=== PATIENT | female | born 1945 | race Caucasian/White ===

== ENCOUNTER 2016-06-20 09:29 | Inpatient (IN) | payer MEDICARE, OTHER ==
[2016-06-20] MEDS ORDERED: methylPREDNISolone SOD SUCCI 125 MG/2 ML VIAL IV STA (10:11)
[2016-06-20] MEDS ORDERED: IPRATROPIUM-ALBUTEROL 3 ML NEB INHALATION STA (10:11)
[2016-06-20] MEDS ORDERED: SODIUM CHLORIDE 0.9% 1,000 ML IV STA (10:11)
[2016-06-20] MEDS ORDERED: FUROSEMIDE 10 MG/ML 4 ML VIAL IV STA (10:11)
[2016-06-20 10:26] LABS: Basophils % (A) 1 %; CH 29.5; CHCM 33.7; Eosinophils # (A) 0.1 k/uL (0-0.7); Eosinophils % (A) 2 %; HCT 37.9 % (34.0-46.0); HDW 2.59; HGB 13.1 gm/dL (11.4-16.0); Luc # (Auto) 0.17; Luc % (Auto) 4; Lymphocytes # (A) 0.7 k/uL (1.0-4.8); Lymphocytes % (A) 17 %; MCH 30.4 pg (25.0-35.0); MCHC 34.6 g/dL (31.0-37.0); MCV 87.9 fL (80.0-100.0); Mean Platelet Volume 6.7; Monocytes # (A) 0.4 k/uL (0-1.0); Monocytes % (A) 9 %; Neutrophils # (A) 2.8 k/uL (1.3-7.7); Neutrophils % (A) 68 %; RBC 4.32 m/uL (3.80-5.40); RDW 13.3 % (11.5-15.5); WBC 4.2 k/uL (3.8-10.6); WBC (Perox) 4.48
[2016-06-20 10:42] LABS: ALT 47 U/L (9-52); AST 35 U/L (14-36); Alkaline Phosphatase 109 U/L (38-126); Anion Gap 14 mmol/L; Blood Urea Nitrogen 19 mg/dL (7-17); Calcium 8.5 mg/dL (8.4-10.2); Carbon Dioxide 27 mmol/L (22-30); Chloride 101 mmol/L (98-107); Glucose 118 mg/dL (74-99); Non-African American GFR(MDRD) >60 (>60 ml/min/1.73 sqM); Sodium 142 mmol/L (137-145); Total Bilirubin 0.6 mg/dL (0.2-1.3)
[2016-06-20 10:45] LABS: Partial Thromboplastin Time 24.7 sec (22.0-30.0); Prothrombin Time 10.3 sec (9.0-12.0)
[2016-06-20 10:58] LABS: Creatine Kinase 163 U/L (30-135)
[2016-06-20 11:11] LABS: Creatine Kinase MB 0.6 ng/mL (0.0-2.4); Troponin I <0.012 ng/mL (0.000-0.034)
[2016-06-20 11:29] LABS: ABG HCO3 25 mmol/L (21-25); ABG PCO2 39 mmHg (35-45); ABG PH 7.43 (7.35-7.45); ABG PO2 66 mmHg (83-108); ABG TCO2 27 mmol/L (19-24)
[2016-06-20 11:30] LABS: ABG Base Excess 1.5 mmol/L
--- NOTE | 2016-06-20 11:46 | XR ---
EXAMINATION TYPE: XR chest 2V DATE OF EXAM: 06/20/2016 11:22 AM HISTORY: difficulty breathing. REFERENCE: Previous study dated 08/08/2015. FINDINGS: The lungs are overinflated but clear. Pleural spaces are clear. The heart is not enlarged. IMPRESSION: COPD.
--- NOTE | 2016-06-20 15:16 | ED ---
SOB HPI - General Chief Complaint: Shortness of Breath Stated Complaint: KETAN Time Seen by Provider: 06/20/16 10:05 Source: EMS Mode of arrival: EMS Limitations: no limitations - History of Present Illness Initial Comments: List of breath for the last Friday to 2 days denies any coughing has some sputum has has a long history of smoking quit about 10 years ago prior to that she smoked greater than 40 years she denies any chest pain no pleuritic chest pain no fever no chills no history of heart disease denies any stretcher CABG does have a history of COPD. Denies any fever no chills no neck stiffness no abdominal pain no frequency urgency dysuria no symptoms of TIA or CVA - Related Data Home Medications Medication Instructions Recorded Confirmed Albuterol Nebulized [Ventolin 2.5 mg INHALATION RT-BID PRN 12/06/15 06/20/16 Nebulized] Aspirin EC [Ecotrin Low Dose] 81 mg PO DAILY 12/06/15 06/20/16 Atorvastatin [Lipitor] 80 mg PO HS 12/06/15 06/20/16 Benztropine Mesylate 1 mg PO DAILY 12/06/15 06/20/16 Haloperidol [Haldol] 5 mg PO BID 12/06/15 06/20/16 Ipratropium/Albuterol Sulfate 2 puff INHALATION RT-BID 12/06/15 06/20/16 [Combivent Respimat Inhaler] Metoprolol Tartrate [Lopressor] 12.5 mg PO BID 12/06/15 06/20/16 Multivitamin [Multivitamins Adult 1 tab PO DAILY 12/06/15 06/20/16 Gummies] QUEtiapine FUMARATE [SEROquel XR] 300 mg PO HS 12/06/15 06/20/16 Spironolactone [Aldactone] 25 mg PO DAILY 12/06/15 06/20/16 clonazePAM [KlonoPIN] 0.25 mg PO TID 12/06/15 06/20/16 Albuterol Inhaler [Ventolin Hfa 2 puff INHALATION RT-Q6H PRN 01/17/16 06/20/16 Inhaler] Ascorbic Acid [Vitamin C] 2,000 mg PO DAILY 06/20/16 06/20/16 Cholecalciferol [Vitamin D3] 2,000 unit PO DAILY 06/20/16 06/20/16 Allergies Allergy/AdvReac Type Severity Reaction Status Date / Time Penicillins Allergy Rash/Hives Verified 06/20/16 10:11 Review of Systems ROS Statement: Those systems with pertinent positive or pertinent negative responses have been documented in the HPI. ROS Other: All systems not noted in ROS Statement are negative. Past Medical History Past Medical History: COPD, Hyperlipidemia, Hypertension History of Any Multi-Drug Resistant Organisms: None Reported Past Surgical History: Orthopedic Surgery, Tubal Ligation Additional Past Surgical History / Comment(s): right knee arthroscopy, r leg surgery, colonoscopy Past Anesthesia/Blood Transfusion Reactions: No Reported Reaction Past Psychological History: Schizoaffective Disorder Smoking Status: Former smoker Past Alcohol Use History: Occasional Past Drug Use History: None Reported General Exam - General Exam Comments Initial Comments: General: The patient is awake and alert, looks pale and weak Skin: Skin is warm and dry and no rashes or lesions are noted. Eye: Pupils are equal, round and reactive to light, extra-ocular movements are intact; there is normal conjunctiva bilaterally. Ears, nose, mouth and throat: There are moist mucous membranes and no oral lesions. Neck: The neck is supple, there is no tenderness Cardiovascular: There is a regular rate and rhythm. No murmur, rub or gallop is appreciated. Respiratory: To auscultation bilateral, exam is consistent with a moderate COPD Gastrointestinal: Soft, non-distended, non-tender abdomen without masses or organomegaly noted. There is no rebound or guarding present. Bowel sounds are unremarkable. Back: There is no tenderness to palpation in the midline. There is no obvious deformity. Musculoskeletal: Normal ROM, no tenderness, There is no pedal edema. There is no calf tenderness or swelling. No cords were appreciated. Neurological: CN II-XII intact, Cranial nerves III through XII are intact. There are no obvious motor or sensory deficits. Coordination appears grossly intact. Speech is normal. Psychiatric: Cooperative, appropriate mood & affect, normal judgment. Limitations: no limitations Course Vital Signs 06/20/16 06/20/16 06/20/16 09:37 09:49 11:00 Temperature 97.6 F Pulse Rate 77 76 Respiratory 18 18 Rate Blood Pressure 130/60 O2 Sat by Pulse 97 Oximetry 06/20/16 06/20/16 06/20/16 11:07 12:00 14:00 Temperature 97 F L Pulse Rate 76 91 93 Respiratory 20 18 Rate Blood Pressure 162/75 138/66 O2 Sat by Pulse 92 L 91 L Oximetry Normal sinus rhythm EKG 76 bpm AK interval is 158 QRS duration is 86 QT/QTc is 420/474 review of this EKG reveals this EKG reveals some flattening of the T- wave in lead 3 and now V3 no ST elevation or ST depression noticed Medical Decision Making - Lab Data Result diagrams: 06/20/16 09:47 06/20/16 09:47 Lab Results 06/20/16 06/20/16 06/20/16 Range/Units 09:47 09:47 09:47 WBC 4.2 (3.8-10.6) k/uL RBC 4.32 (3.80-5.40) m/uL Hgb 13.1 (11.4-16.0) gm/dL Hct 37.9 (34.0-46.0) % MCV 87.9 (80.0-100.0) fL MCH 30.4 (25.0-35.0) pg MCHC 34.6 (31.0-37.0) g/dL RDW 13.3 (11.5-15.5) % Plt Count 227 (150-450) k/uL Neutrophils % 68 % Lymphocytes % 17 % Monocytes % 9 % Eosinophils % 2 % Basophils % 1 % Neutrophils # 2.8 (1.3-7.7) k/uL Lymphocytes # 0.7 L (1.0-4.8) k/uL Monocytes # 0.4 (0-1.0) k/uL Eosinophils # 0.1 (0-0.7) k/uL Basophils # 0.0 (0-0.2) k/uL PT (9.0-12.0) sec INR (<1.1) APTT (22.0-30.0) sec Sample Site ABG pH (7.35-7.45) ABG pCO2 (35-45) mmHg ABG pO2 (83-108) mmHg ABG HCO3 (21-25) mmol/L ABG Total CO2 (19-24) mmol/L ABG O2 Saturation (94-97) % ABG Base Excess mmol/L FiO2 % Sodium 142 (137-145) mmol/L Potassium 4.0 (3.5-5.1) mmol/L Chloride 101 (98-107) mmol/L Carbon Dioxide 27 (22-30) mmol/L Anion Gap 14 mmol/L BUN 19 H (7-17) mg/dL Creatinine 0.80 (0.52-1.04) mg/dL Est GFR (MDRD) Af Amer >60 (>60 ml/min/1.73 sqM) Est GFR (MDRD) Non-Af >60 (>60 ml/min/1.73 sqM) Glucose 118 H (74-99) mg/dL Calcium 8.5 (8.4-10.2) mg/dL Total Bilirubin 0.6 (0.2-1.3) mg/dL AST 35 (14-36) U/L ALT 47 (9-52) U/L Alkaline Phosphatase 109 (38-126) U/L Total Creatine Kinase 163 H (30-135) U/L CK-MB (CK-2) 0.6 (0.0-2.4) ng/mL CK-MB (CK-2) Rel Index 0.4 Troponin I <0.012 (0.000-0.034) ng/mL Total Protein 7.0 (6.3-8.2) g/dL Albumin 4.0 (3.5-5.0) g/dL 06/20/16 06/20/16 Range/Units 09:47 10:52 WBC (3.8-10.6) k/uL RBC (3.80-5.40) m/uL Hgb (11.4-16.0) gm/dL Hct (34.0-46.0) % MCV (80.0-100.0) fL MCH (25.0-35.0) pg MCHC (31.0-37.0) g/dL RDW (11.5-15.5) % Plt Count (150-450) k/uL Neutrophils % % Lymphocytes % % Monocytes % % Eosinophils % % Basophils % % Neutrophils # (1.3-7.7) k/uL Lymphocytes # (1.0-4.8) k/uL Monocytes # (0-1.0) k/uL Eosinophils # (0-0.7) k/uL Basophils # (0-0.2) k/uL PT 10.3 (9.0-12.0) sec INR 1.0 (<1.1) APTT 24.7 (22.0-30.0) sec Sample Site rt radial ABG pH 7.43 (7.35-7.45) ABG pCO2 39 (35-45) mmHg ABG pO2 66 L (83-108) mmHg ABG HCO3 25 (21-25) mmol/L ABG Total CO2 27 H (19-24) mmol/L ABG O2 Saturation 93.0 L (94-97) % ABG Base Excess 1.5 mmol/L FiO2 36 % Sodium (137-145) mmol/L Potassium (3.5-5.1) mmol/L Chloride (98-107) mmol/L Carbon Dioxide (22-30) mmol/L Anion Gap mmol/L BUN (7-17) mg/dL Creatinine (0.52-1.04) mg/dL Est GFR (MDRD) Af Amer (>60 ml/min/1.73 sqM) Est GFR (MDRD) Non-Af (>60 ml/min/1.73 sqM) Glucose (74-99) mg/dL Calcium (8.4-10.2) mg/dL Total Bilirubin (0.2-1.3) mg/dL AST (14-36) U/L ALT (9-52) U/L Alkaline Phosphatase (38-126) U/L Total Creatine Kinase (30-135) U/L CK-MB (CK-2) (0.0-2.4) ng/mL CK-MB (CK-2) Rel Index Troponin I (0.000-0.034) ng/mL Total Protein (6.3-8.2) g/dL Albumin (3.5-5.0) g/dL Critical Care Time Total Critical Care Time: 30 Critical Care Time: She came in with a shortness of breath or O2 sat was below 9 he had ABGs reveal pO2 of 66 she was given neb treatment she was given IV Solu-Medrol and now oxygen by nasal cannula she was reassessed later he didn't show any significant improvement and she didn't feel a whole lot better considering that noted continued the oxygen she will get IV steroids every 6 ours and inhaled steroids along with the short-acting bronchodilators patient will also Dr. Joni Ordoñez that he was informed he is admitting doctor today and that is significant going soon as that she would have a dat instructor is admitting doctor these labs are reviewed EKG is unremarkable CBC UNREMARKABLE INR IS UNREMARKABLE ABGS REVEALED LOW PO2 TROPONIN COMPRESSIVE METABOLIC PANEL AND CHEST X-RAY WERE REVIEWED AND DISCUSSED WITH THE PATIENT Disposition Clinical Impression: Dyspnea, Acute exacerbation of chronic obstructive pulmonary disease (COPD) Disposition: ADMITTED IP TO THIS HOSP Condition: Good
[2016-06-20] MEDS ORDERED: ALBUTEROL NEBULIZED 2.5 MG/3 ML INHALATION PRN (15:23)
[2016-06-20] MEDS ORDERED: ALBUTEROL INHALER 60 PUFF/8 GM INHALER INHALATION PRN (15:23)
[2016-06-20] MEDS: clonazePAM 0.5 MG TAB PO SCH ×2 (16:51→22:19)
[2016-06-20] MEDS: methylPREDNISolone SOD SUCCI 125 MG/2 ML VIAL IV SCH ×2 (17:17→23:05)
[2016-06-20 17:46] LABS: Glucose,Whole Blood 184 mg/dL (75-99)
[2016-06-20 18:18] LABS: Hemoglobin A1C 6.2 % (4.2-6.1)
[2016-06-20] MEDS: INSULIN LISPRO (humaLOG) 300 UNIT/3 ML VIAL SQ SCH ×2 (18:35→23:04)
--- NOTE | 2016-06-20 19:05 | XR ---
EXAMINATION TYPE: XR abdomen 2V DATE OF EXAM: 06/20/2016 6:50 PM COMPARISON: NONE HISTORY: Abdominal pain TECHNIQUE: 3 views FINDINGS: There are multiple dilated loops of small bowel in the mid abdomen. I see no definite free air. There is no sign of a mass. There are no definite pathologic calcifications over the kidneys. IMPRESSION: There are dilated small bowel loops in the right mid abdomen suggestive of a mechanical s mall bowel obstruction. Follow-up is recommended.
[2016-06-20 20:32] LABS: Glucose,Whole Blood 188 mg/dL (75-99)
[2016-06-20] MEDS: IPRATROPIUM-ALBUTEROL 3 ML NEB INHALATION SCH (21:12)
[2016-06-20] MEDS: BUDESONIDE 0.5 MG/2 ML NEBU INHALATION SCH (21:12)
[2016-06-20] MEDS: HALOPERIDOL 5 MG TAB PO SCH (22:18)
[2016-06-20] MEDS: ATORVASTATIN 80 MG TAB PO SCH (22:18)
[2016-06-20] MEDS: METOPROLOL TARTRATE 12.5 MG TAB PO SCH (22:59)
[2016-06-21] MEDS: HALOPERIDOL 5 MG TAB PO SCH ×2 (00:01→12:29)
[2016-06-21] MEDS: clonazePAM 0.5 MG TAB PO SCH ×2 (00:14→11:10)
[2016-06-21] MEDS ORDERED: BENZTROPINE MESYLATE 1 MG TAB PO STA (00:15)
[2016-06-21] MEDS: BENZTROPINE MESYLATE 1 MG TAB PO SCH ×2 (00:33→11:10)
[2016-06-21 05:40] LABS: Glucose,Whole Blood 188 mg/dL (75-99)
[2016-06-21] MEDS: methylPREDNISolone SOD SUCCI 125 MG/2 ML VIAL IV SCH ×2 (06:34→11:12)
[2016-06-21] MEDS: INSULIN LISPRO (humaLOG) 300 UNIT/3 ML VIAL SQ SCH ×4 (06:35→22:06)
[2016-06-21] MEDS: BUDESONIDE 0.5 MG/2 ML NEBU INHALATION SCH ×2 (08:14→19:46)
[2016-06-21] MEDS: IPRATROPIUM-ALBUTEROL 3 ML NEB INHALATION SCH ×2 (08:14→19:48)
[2016-06-21] MEDS ORDERED: LEVOFLOXACIN 500 MG TAB PO SCH (09:00)
[2016-06-21] MEDS ORDERED: BENZTROPINE MESYLATE 1 MG TAB PO SCH (09:00)
[2016-06-21] MEDS ORDERED: LORazepam 2 MG/ML SYRINGE IV STA (09:15)
[2016-06-21] MEDS: IOHEXOL 350 MG/ML 25 ML BOTTLE (ORAL USE) PO PRN ×2 (09:31→10:36)
--- NOTE | 2016-06-21 11:57 | CT ---
EXAMINATION TYPE: CT abdomen pelvis wo con DATE OF EXAM: 06/21/2016 11:45 AM HISTORY: Incontinence and constipation. SBO CT DLP: 858.5 mGycm. Automated Exposure Control for Dose Reduction was Utilized. TECHNIQUE: CT scan of the abdomen and pelvis is performed with oral but without IV contrast. COMPARISON: Abdominal x-ray from yesterday. FINDINGS: Within the limitations of a non-contrast study, the following observations are made. LUNG BASES: There is tiny pleural effusions with posterior atelectatic change in both lung bases. The re is additional scattered linear scarring or atelectasis in both lung bases. LIVER/GB: No significant abnormality is appreciated. PANCREAS: No significant abnormality is seen. SPLEEN: No significant abnormality is seen. ADRENALS: No significant abnormality is seen. KIDNEYS: Lea catheter is seen within decompressed bladder. BOWEL: There is interval placement of nasogastric tube. Contrast is seen in nondistended stomach. Tip of nasogastric tube is at level of pylorus. There is tortuous course to the first and second portion of duodenum with diverticulum suspected along the medial aspect. There is no suspicious dilatation o f duodenal sweep or proximal jejunal loops after nasogastric tube placement. Contrast-filled prominen t small bowel loops in the left abdomen and pelvis are identified. Some are dilated up to 4.0 cm late ral aspect on coronal image 53. Degree of dilatation is significantly improved from one day earlier a fter nasogastric tube placement. Some contrast filled nondilated small bowel loop is seen in the midl ine of the upper pelvis on axial image 57. There are some prominent contrast filled bowel loops befor e and after this segment. There is nondilated noncontrast filled distal small bowel loops in the right mid abdomen and lower qu adrant. Fecal material is seen in nondistended colon. Redundant sigmoid colon is present. Normal appe aring appendix is seen from the cecum. Cecum is wondering and is anterior to the gallbladder fossa wi th appendix origin noted best on coronal image 19. Terminal ileum is felt seen best on axial image 30 and is decompressed. GENITAL ORGANS: Uterus is slightly retroverted in shape and somewhat small in size consistent with jp melendez's postmenopausal age. LYMPH NODES: No greater than 1cm abdominal or pelvic lymph nodes are appreciated. OSSEOUS STRUCTURES: Osseous structures are somewhat demineralized. There is disc space narrowing with spurring at lumbosacral junction. There is facet arthropathy in lower lumbar levels. OTHER: No significant additional abnormality is seen. IMPRESSION: 1. Interval improvement in amount and degree of dilated small bowel loops throughout the abdomen and pelvis after nasogastric tube placement. Some dilated mid small bowel loops remain present. No distin ct transition point is seen. Suspect partial mid to distal small bowel obstruction. Underlying wander ing cecum is noted.
[2016-06-21] MEDS: CHOLECALCIFEROL 1,000 UNIT TAB PO SCH (12:28)
[2016-06-21] MEDS ORDERED: hydrALAZINE HCL 20 MG/ML 1 ML VIAL IVP PRN (12:28)
[2016-06-21] MEDS: ASPIRIN 81 MG CHEW PO SCH (12:28)
[2016-06-21] MEDS: ASCORBIC ACID 500 MG TAB PO SCH (12:28)
[2016-06-21] MEDS: MULTIVITAMINS, THERA 1 EACH TAB PO SCH (12:29)
[2016-06-21] MEDS: METOPROLOL TARTRATE 12.5 MG TAB PO SCH (12:29)
[2016-06-21] MEDS: SPIRONOLACTONE 25 MG TAB PO SCH (12:29)
--- NOTE | 2016-06-21 12:32 | P.HPIM ---
History of Present Illness H&P Date: 06/21/16 Chief Complaint: Shortness of breath and abdominal pain This is a 71-year-old female who presented to the emergency department complaining of shortness of breath and abdominal pain. The patient states that she has been sick for the past 2-3 days. She states she had vomiting and diarrhea at home. She has a history of bipolar disorder and hypertension. She also has a history of COPD. She states she uses Combivent and Pulmicort at home. The patient's daughter is at bedside. The patient states that she does wear oxygen at home usually 2-3 L nasal cannula but she recently increased it to 4 L nasal cannula. She states her last bowel movement was about 3 hours ago. Review of Systems All systems: negative Past Medical History Past Medical History: COPD, Hyperlipidemia, Hypertension Additional Past Medical History / Comment(s): home 02 3 liters n/c, SCHIZOAFFECTIVE DISORDER, INCONT OF URINE THAT JUST RECENTLY STARTED. CONSTIPATION. History of Any Multi-Drug Resistant Organisms: None Reported Past Surgical History: Orthopedic Surgery, Tonsillectomy, Tubal Ligation Additional Past Surgical History / Comment(s): right knee arthroscopy, FELL, BROKE RT LEG-HAD SX--PLATE AND SCREWS, colonoscopy, LILA CATARACTS, LT EYE SX FOR GLAUCOMA Past Anesthesia/Blood Transfusion Reactions: No Reported Reaction Past Psychological History: Schizoaffective Disorder Additional Psychological History / Comment(s): LIVES ALONE IN AN APT. NO STEPS, NO PETS. HAS HOME 02 AND WALKER IF NEEDED AND SHOWER CHAIR. HAS HOME CARE NURSE ONCE A WEEK NOT SURE NAME OF COMPANY. Smoking Status: Former smoker Past Alcohol Use History: Occasional Additional Past Alcohol Use History / Comment(s): STARTED SMOKING AT AGE 16, WAS SMOKING 3 PPD WHEN SHE QUIT IN 2004 Past Drug Use History: None Reported - Past Family History Mother Family Medical History: Diabetes Mellitus Additional Family Medical History / Comment(s): GRANDMOTHER HAD DM Father Family Medical History: No Reported History Additional Family Medical History / Comment(s): UNK- PT WAS RAISED BY STEP FATHER Medications and Allergies Home Medications Medication Instructions Recorded Confirmed Type Albuterol Nebulized [Ventolin 2.5 mg INHALATION RT-BID PRN 12/06/15 06/20/16 History Nebulized] Aspirin EC [Ecotrin Low Dose] 81 mg PO DAILY 12/06/15 06/20/16 History Atorvastatin [Lipitor] 80 mg PO HS 12/06/15 06/20/16 History Benztropine Mesylate 1 mg PO TID 12/06/15 06/21/16 History Haloperidol [Haldol] 5 mg PO BID 12/06/15 06/20/16 History Ipratropium/Albuterol Sulfate 2 puff INHALATION RT-BID 12/06/15 06/20/16 History [Combivent Respimat Inhaler] Metoprolol Tartrate [Lopressor] 12.5 mg PO BID 12/06/15 06/20/16 History Multivitamin [Multivitamins Adult 1 tab PO DAILY 12/06/15 06/20/16 History Gummies] QUEtiapine FUMARATE [SEROquel XR] 300 mg PO HS 12/06/15 06/20/16 History Spironolactone [Aldactone] 12.5 mg PO DAILY 12/06/15 06/21/16 History clonazePAM [KlonoPIN] 0.5 mg PO QID 12/06/15 06/21/16 History Albuterol Inhaler [Ventolin Hfa 2 puff INHALATION RT-Q6H PRN 01/17/16 06/20/16 History Inhaler] Ibuprofen [Motrin] 400 mg PO DAILY 06/21/16 06/21/16 History Allergies Allergy/AdvReac Type Severity Reaction Status Date / Time Penicillins Allergy Rash/Hives Verified 06/20/16 10:11 Physical Exam Osteopathic Statement: *. No significant issues noted on an osteopathic structural exam other than those noted in the History and Physical/Consult. Vitals: Vital Signs Temp Pulse Pulse Resp BP BP Pulse Ox 06/21/16 08:27 82 06/21/16 08:15 82 93 L 06/21/16 08:00 97.9 F 101 H 22 166/79 93 L 06/21/16 04:00 97.1 F L 74 18 117/54 92 L 06/21/16 00:00 97 F L 87 18 128/73 90 L 06/20/16 21:17 80 06/20/16 21:06 80 06/20/16 20:10 96.8 F L 87 18 130/63 91 L 06/20/16 17:27 96.8 F L 95 18 137/73 90 L 06/20/16 15:53 97 F L 114 H 18 141/65 91 L Intake and Output 06/20/16 06/21/16 06/21/16 22:59 06:59 14:59 Intake Total 0 Output Total 1250 Balance -1250 Intake: Oral 0 Output: Gastric Drainage 600 Urine 650 Other: Voiding Method Toilet Toilet Indwelling Catheter Indwelling Catheter # Bowel Movements 2 Weight 98.5 kg Gen.: Patient is alert and oriented 3, no acute distress Cardiovascular: Regular rate and rhythm, S1/S2 Lungs: Clear to auscultation bilaterally no wheezes rales or rhonchi Abdomen: Soft mildly diffusely tender to palpation, positive bowel sounds, no rebounding rigidity or guarding Extremities: No edema Results CBC & Chem 7: 06/20/16 09:47 06/20/16 09:47 Labs: Abnormal Lab Results - Last 24 Hours (Table) 06/20/16 06/20/16 06/20/16 Range/Units 17:23 17:43 20:31 POC Glucose (mg/dL) 184 H 188 H (75-99) mg/dL Hemoglobin A1c 6.2 H (4.2-6.1) % 06/21/16 Range/Units 05:39 POC Glucose (mg/dL) 188 H (75-99) mg/dL Hemoglobin A1c (4.2-6.1) % Chest x-ray: report reviewed, image reviewed Abdominal x-ray: report reviewed, image reviewed CT scan - abdomen: report reviewed, image reviewed Thrombosis Risk Factor Assmnt - DVT/VTE Prophylaxis DVT/VTE Prophylaxis: Pharmacologic Prophylaxis ordered - Choose All That Apply Any of the Below Risk Factors Present?: Yes Each Factor Represents 1 point: Abnormal pulmonary function (COPD), Obesity ( BMI >25), Serious lung disease incl. pneumonia (< 1month) Other Risk Factors: Yes Each Risk Factor Represents 2 Points: Age 61-74 years Other congenital or acquired thrombophilia - If yes, enter type in comment: No Thrombosis Risk Factor Assessment Total Risk Factor Score: 5 Thrombosis Risk Factor Assessment Level: High Risk Assessment and Plan Plan: Acute on chronic hypoxic respiratory failure Acute small bowel obstruction COPD, not acutely exacerbated Hypertension Bipolar disorder Dyslipidemia Intractable vomiting and diarrhea History of tobacco abuse O2 to maintain saturation greater than or equal to 88% Bronchodilators Pulmicort Pain control NG tube to suction NPO for now, change all meds to IV form General surgery is consulted Will do IV medications in place of patient's home medications for now. GI and DVT prophylaxis IV fluid hydration Blood pressure control Anti-emetics Patient seen and examined covering for Dr. Joni Pathak
[2016-06-21 12:44] LABS: Glucose,Whole Blood 172 mg/dL (75-99)
[2016-06-21] MEDS: SODIUM CHLORIDE 0.9% 1,000 ML IV SCH (12:49)
[2016-06-21] MEDS: LORazepam 2 MG/ML SYRINGE IV PRN ×2 (14:06→20:38)
[2016-06-21] MEDS: HALOPERIDOL LACTATE 5 MG/ML 1 ML VIAL IVP SCH ×2 (15:21→23:40)
[2016-06-21] MEDS: HEPARIN SODIUM,PORCINE 5,000 UNIT/ML 1 ML VIAL SQ SCH (15:21)
--- NOTE | 2016-06-21 16:09 | P.GSCN ---
History of Present Illness Consult date: 06/21/16 Reason for Consult: Small bowel obstruction History of present illness: This a 71-year-old female noted to Dr. Joni Olson service. Patient was admitted for exacerbation of COPD. Her x-ray showed evidence of possible small bowel obstruction.. Patient had a nasogastric tube placed last night. She states she feels better. Her CAT scan performed this morning shows improvement in her small bowel obstruction. Past Medical History Past Medical History: COPD, Hyperlipidemia, Hypertension Additional Past Medical History / Comment(s): home 02 3 liters n/c, SCHIZOAFFECTIVE DISORDER, INCONT OF URINE THAT JUST RECENTLY STARTED. CONSTIPATION. History of Any Multi-Drug Resistant Organisms: None Reported Past Surgical History: Orthopedic Surgery, Tonsillectomy, Tubal Ligation Additional Past Surgical History / Comment(s): right knee arthroscopy, FELL, BROKE RT LEG-HAD SX--PLATE AND SCREWS, colonoscopy, LILA CATARACTS, LT EYE SX FOR GLAUCOMA Past Anesthesia/Blood Transfusion Reactions: No Reported Reaction Past Psychological History: Schizoaffective Disorder Additional Psychological History / Comment(s): LIVES ALONE IN AN APT. NO STEPS, NO PETS. HAS HOME 02 AND WALKER IF NEEDED AND SHOWER CHAIR. HAS HOME CARE NURSE ONCE A WEEK NOT SURE NAME OF COMPANY. Smoking Status: Former smoker Past Alcohol Use History: Occasional Additional Past Alcohol Use History / Comment(s): STARTED SMOKING AT AGE 16, WAS SMOKING 3 PPD WHEN SHE QUIT IN 2004 Past Drug Use History: None Reported - Past Family History Mother Family Medical History: Diabetes Mellitus Additional Family Medical History / Comment(s): GRANDMOTHER HAD DM Father Family Medical History: No Reported History Additional Family Medical History / Comment(s): UNK- PT WAS RAISED BY STEP FATHER Medications and Allergies Home Medications Medication Instructions Recorded Confirmed Type Albuterol Nebulized [Ventolin 2.5 mg INHALATION RT-BID PRN 12/06/15 06/20/16 History Nebulized] Aspirin EC [Ecotrin Low Dose] 81 mg PO DAILY 12/06/15 06/20/16 History Atorvastatin [Lipitor] 80 mg PO HS 12/06/15 06/20/16 History Benztropine Mesylate 1 mg PO TID 12/06/15 06/21/16 History Haloperidol [Haldol] 5 mg PO BID 12/06/15 06/20/16 History Ipratropium/Albuterol Sulfate 2 puff INHALATION RT-BID 12/06/15 06/20/16 History [Combivent Respimat Inhaler] Metoprolol Tartrate [Lopressor] 12.5 mg PO BID 12/06/15 06/20/16 History Multivitamin [Multivitamins Adult 1 tab PO DAILY 12/06/15 06/20/16 History Gummies] QUEtiapine FUMARATE [SEROquel XR] 300 mg PO HS 12/06/15 06/20/16 History Spironolactone [Aldactone] 12.5 mg PO DAILY 12/06/15 06/21/16 History clonazePAM [KlonoPIN] 0.5 mg PO QID 12/06/15 06/21/16 History Albuterol Inhaler [Ventolin Hfa 2 puff INHALATION RT-Q6H PRN 01/17/16 06/20/16 History Inhaler] Ibuprofen [Motrin] 400 mg PO DAILY 06/21/16 06/21/16 History Allergies Allergy/AdvReac Type Severity Reaction Status Date / Time Penicillins Allergy Rash/Hives Verified 06/20/16 10:11 Surgical - Exam Vital Signs Temp Pulse Resp BP Pulse Ox 97.6 F 77 18 130/60 97 06/20/16 09:37 06/20/16 09:37 06/20/16 09:37 06/20/16 09:37 06/20/16 09:37 - General well developed, no distress - Eyes PERRL - ENT normal pinna - Neck no masses - Respiratory normal expansion - Cardiovascular Rhythm: regular - Abdomen Abdomen: soft, non tender Results - Labs 06/20/16 09:47 06/20/16 09:47 Abnormal Lab Results - Last 24 Hours (Table) 06/20/16 06/20/16 06/20/16 Range/Units 17:23 17:43 20:31 POC Glucose (mg/dL) 184 H 188 H (75-99) mg/dL Hemoglobin A1c 6.2 H (4.2-6.1) % 06/21/16 06/21/16 Range/Units 05:39 12:32 POC Glucose (mg/dL) 188 H 172 H (75-99) mg/dL Hemoglobin A1c (4.2-6.1) % Diabetes panel 06/20/16 Range/Units 17:23 Hemoglobin A1c 6.2 H (4.2-6.1) % Assessment and Plan Plan: Resolving ileus. Patient remain nothing by mouth with NG tube. When she passes gas we will start oral feeding and remove her nasogastric tube.
[2016-06-21 16:35] LABS: Glucose,Whole Blood 155 mg/dL (75-99)
[2016-06-21] MEDS: METOPROLOL TARTRATE 5 MG/5 ML VIAL IVP SCH (17:13)
[2016-06-21 20:58] LABS: Glucose,Whole Blood 146 mg/dL (75-99)
[2016-06-21] MEDS: methylPREDNISolone SOD SUCCI 40 MG/ML 1 ML VIAL IV SCH (22:07)
[2016-06-22] MEDS: LORazepam 2 MG/ML SYRINGE IV PRN ×6 (00:40→21:06)
[2016-06-22] MEDS: METOPROLOL TARTRATE 5 MG/5 ML VIAL IVP SCH ×4 (00:43→17:21)
[2016-06-22] MEDS: HEPARIN SODIUM,PORCINE 5,000 UNIT/ML 1 ML VIAL SQ SCH ×3 (00:47→15:34)
[2016-06-22] MEDS ORDERED: MORPHINE SULFATE 2 MG/ML SYRINGE IVP STA (03:12)
[2016-06-22] MEDS: SODIUM CHLORIDE 0.9% 1,000 ML IV SCH ×2 (03:21→18:10)
[2016-06-22] MEDS: ONDANSETRON 4 MG/2 ML VIAL IVP PRN (03:22)
[2016-06-22] MEDS: IPRATROPIUM-ALBUTEROL 3 ML NEB INHALATION PRN ×3 (04:41→16:30)
[2016-06-22 05:25] LABS: Basophils % (A) 0 %; CH 30.1; CHCM 33.4; Eosinophils % (A) 0 %; HCT 36.9 % (34.0-46.0); HDW 2.62; HGB 11.9 gm/dL (11.4-16.0); Luc # (Auto) 0.13; Luc % (Auto) 1; Lymphocytes # (A) 0.7 k/uL (1.0-4.8); Lymphocytes % (A) 7 %; MCH 29.2 pg (25.0-35.0); MCHC 32.2 g/dL (31.0-37.0); MCV 90.5 fL (80.0-100.0); Mean Platelet Volume 6.9; Monocytes # (A) 0.6 k/uL (0-1.0); Monocytes % (A) 6 %; Neutrophils # (A) 8.7 k/uL (1.3-7.7); Neutrophils % (A) 86 %; RBC 4.08 m/uL (3.80-5.40); RDW 13.7 % (11.5-15.5); WBC 10.2 k/uL (3.8-10.6); WBC (Perox) 10.82
[2016-06-22 05:58] LABS: Anion Gap 13 mmol/L; Blood Urea Nitrogen 24 mg/dL (7-17); Calcium 8.9 mg/dL (8.4-10.2); Carbon Dioxide 27 mmol/L (22-30); Chloride 107 mmol/L (98-107); Glucose 152 mg/dL (74-99); Magnesium 2.2 mg/dL (1.6-2.3); Non-African American GFR(MDRD) >60 (>60 ml/min/1.73 sqM); Sodium 147 mmol/L (137-145)
[2016-06-22 06:50] LABS: Glucose,Whole Blood 145 mg/dL (75-99)
[2016-06-22] MEDS: INSULIN LISPRO (humaLOG) 300 UNIT/3 ML VIAL SQ SCH ×4 (06:50→21:04)
[2016-06-22] MEDS: IPRATROPIUM-ALBUTEROL 3 ML NEB INHALATION SCH ×2 (07:24→20:57)
[2016-06-22] MEDS: BUDESONIDE 0.5 MG/2 ML NEBU INHALATION SCH ×2 (07:24→20:55)
--- NOTE | 2016-06-22 07:34 | P.PN ---
Subjective The patient is seen on rounds. She admits to less pain than admission. She's passed a small amount of flatus. She has not been receiving some of her medications so was had some agitation during the night. Objective - Vital Signs Vital signs: Vital Signs Temp 97.1 F L 06/22/16 04:00 Pulse 68 06/22/16 07:27 Resp 22 06/22/16 04:00 BP 144/83 06/22/16 04:00 Pulse Ox 90 L 06/22/16 07:27 Intake & Output 06/21/16 06/22/16 06/22/16 18:59 06:59 18:59 Intake Total 220 Output Total 700 1300 Balance -480 -1300 Weight 99 kg Intake: IV 220 Sodium Chloride 0.9% 1, 220 000 ml @ 75 mls/hr IV . [id number] [facility] Rx#:[id number] Output: Gastric Drainage 850 Urine 700 450 Other: Voiding Method Indwelling Catheter Indwelling Catheter # Voids 1 # Bowel Movements 2 - Constitutional General appearance: Present: cooperative, no acute distress - Gastrointestinal General gastrointestinal: Present: decreased bowel sounds, soft. Absent: tenderness - Labs CBC & Chem 7: 06/22/16 04:46 06/22/16 04:46 Labs: Abnormal Lab Results - Last 24 Hours (Table) 06/21/16 06/21/16 06/21/16 Range/Units 12:32 16:24 20:52 Neutrophils # (1.3-7.7) k/uL Lymphocytes # (1.0-4.8) k/uL Sodium (137-145) mmol/L BUN (7-17) mg/dL Glucose (74-99) mg/dL POC Glucose (mg/dL) 172 H 155 H 146 H (75-99) mg/dL 06/22/16 06/22/16 06/22/16 Range/Units 04:46 04:46 06:24 Neutrophils # 8.7 H (1.3-7.7) k/uL Lymphocytes # 0.7 L (1.0-4.8) k/uL Sodium 147 H (137-145) mmol/L BUN 24 H (7-17) mg/dL Glucose 152 H (74-99) mg/dL POC Glucose (mg/dL) 145 H (75-99) mg/dL Assessment and Plan (1) Partial small bowel obstruction Status: Acute Plan: The patient still had a fairly large amount of fluid of the NG tube overnight. Due to that I wouldn't start her medications at this time. We'll repeat a acute abdominal series. Further recommendations to follow.
[2016-06-22] MEDS: HALOPERIDOL LACTATE 5 MG/ML 1 ML VIAL IVP SCH ×2 (08:03→15:34)
[2016-06-22] MEDS: methylPREDNISolone SOD SUCCI 40 MG/ML 1 ML VIAL IV SCH ×2 (08:04→21:05)
[2016-06-22] MEDS: PANTOPRAZOLE 40 MG/10 ML VIAL IVP SCH (08:04)
--- NOTE | 2016-06-22 09:26 | XR ---
EXAMINATION TYPE: XR abdomen 2V DATE OF EXAM: 06/22/2016 9:05 AM CLINICAL DATA: 71 year-old female follow-up small bowel obstruction, [facility] COMPARISON: 06/20/[address] 06/21/2016 FINDINGS: Small pleural effusions may be present. An NG tube courses into the stomach. Previously seen dilated small bowel loops have largely resolved. Oral contrast has progressed into the colon and there is scattered colonic gas extending distally in to the rectum. No evidence for free intraperitoneal air. IMPRESSION: Progression of oral contrast into the colon. Scattered colonic gas is seen extending distally to the rectum and the dilated small bowel loops have largely resolved. Findings suggest improved small bowel obstruction.
[2016-06-22 11:42] LABS: Glucose,Whole Blood 139 mg/dL (75-99)
[2016-06-22 16:40] LABS: Glucose,Whole Blood 164 mg/dL (75-99)
--- NOTE | 2016-06-22 19:03 | PN ---
DATE OF SERVICE: 06/22/2016 She does not complain of shortness of breath. She continues to have an NG tube in place. She had been somewhat combative and confused last night but is much calmer at this morning. On physical examination, blood pressure 140/72, respiratory rate 18, pulse of 89, temperature 97.1. Oxygen saturation on 6 liters by nasal cannula is 90%. HEENT reveals pupils are equal. Chest is clear. Cardiovascular system reveals an S1, S2. ABDOMEN: Mildly distended. There is no edema. NG tube is in place. LABS: Reveal a white count of 10.2, hemoglobin of 11.9. Sodium 147, potassium 4, chloride 107, bicarb 27, BUN 24, creatinine 0.7. IMPRESSION: 1. Acute on chronic hypoxic respiratory failure with chronic obstructive pulmonary disease that seems fair at this time. 2. Acute small bowel obstruction. 3. Bipolar disorder. Continue supplemental oxygen, bronchodilators and Pulmicort. Continue IV medications. Follow surgical recommendations by keeping her n.p.o. with NG tube to low continuous suction. Her prognosis at this time is fair.
[2016-06-22 20:38] LABS: Glucose,Whole Blood 122 mg/dL (75-99)
[2016-06-23] MEDS: HALOPERIDOL LACTATE 5 MG/ML 1 ML VIAL IVP SCH ×4 (01:12→23:41)
[2016-06-23] MEDS: METOPROLOL TARTRATE 5 MG/5 ML VIAL IVP SCH ×3 (01:12→12:21)
[2016-06-23] MEDS: HEPARIN SODIUM,PORCINE 5,000 UNIT/ML 1 ML VIAL SQ SCH ×4 (01:13→23:40)
[2016-06-23 05:48] LABS: Glucose,Whole Blood 138 mg/dL (75-99)
[2016-06-23] MEDS: SODIUM CHLORIDE 0.9% 1,000 ML IV SCH ×2 (06:47→16:44)
[2016-06-23] MEDS: INSULIN LISPRO (humaLOG) 300 UNIT/3 ML VIAL SQ SCH ×4 (06:48→22:05)
[2016-06-23] MEDS: ONDANSETRON 4 MG/2 ML VIAL IVP PRN (06:48)
[2016-06-23] MEDS: IPRATROPIUM-ALBUTEROL 3 ML NEB INHALATION SCH ×3 (08:24→21:26)
[2016-06-23] MEDS: BUDESONIDE 0.5 MG/2 ML NEBU INHALATION SCH ×2 (08:24→21:26)
[2016-06-23] MEDS: PANTOPRAZOLE 40 MG/10 ML VIAL IVP SCH (08:58)
[2016-06-23] MEDS: LORazepam 2 MG/ML SYRINGE IV PRN ×3 (08:58→15:29)
[2016-06-23] MEDS: methylPREDNISolone SOD SUCCI 40 MG/ML 1 ML VIAL IV SCH ×2 (08:58→22:06)
--- NOTE | 2016-06-23 09:31 | P.PN ---
Subjective Principal diagnosis: Incomplete small bowel obstruction The patient denies any abdominal pain. She started to pass flatus and had 2 documented bowel movement yesterday. Objective - Vital Signs Vital signs: Vital Signs Temp 97.7 F 06/22/16 23:00 Pulse 56 L 06/23/16 08:27 Resp 20 06/23/16 07:00 BP 152/79 06/23/16 07:00 Pulse Ox 93 L 06/23/16 08:27 Intake & Output 06/22/16 06/23/16 06/23/16 18:59 06:59 18:59 Intake Total 600 Output Total 500 950 Balance 100 -950 Intake: IV 600 Sodium Chloride 0.9% 1, 600 000 ml @ 75 mls/hr IV . [id number] [facility] Rx#:[id number] Output: Gastric Drainage 500 500 Urine 450 Other: Voiding Method Indwelling Catheter Indwelling Catheter # Voids 1 - Constitutional General appearance: Present: cooperative, no acute distress - Gastrointestinal General gastrointestinal: Present: normal bowel sounds, soft, tenderness (No significant tenderness guarding or rebound) - Labs CBC & Chem 7: 06/22/16 04:46 06/22/16 04:46 Labs: Abnormal Lab Results - Last 24 Hours (Table) 06/22/16 06/22/16 06/22/16 Range/Units 11:41 16:39 20:34 POC Glucose (mg/dL) 139 H 164 H 122 H (75-99) mg/dL 06/23/16 Range/Units 05:47 POC Glucose (mg/dL) 138 H (75-99) mg/dL Assessment and Plan (1) Partial small bowel obstruction Status: Acute Plan: The patient's x-ray showed improvement she is beginning to stool. The NG and if she is able to tolerate that discontinue it later today and start her on clear liquids. She's progressing slowly.
[2016-06-23 11:48] LABS: Glucose,Whole Blood 145 mg/dL (75-99)
[2016-06-23] MEDS: BENZTROPINE MESYLATE 1 MG TAB PO SCH ×2 (15:23→23:39)
[2016-06-23] MEDS: clonazePAM 0.5 MG TAB PO SCH ×2 (15:23→23:41)
[2016-06-23] MEDS: IPRATROPIUM-ALBUTEROL 3 ML NEB INHALATION PRN (16:23)
[2016-06-23 16:42] LABS: Glucose,Whole Blood 135 mg/dL (75-99)
[2016-06-23 21:11] LABS: Glucose,Whole Blood 140 mg/dL (75-99)
[2016-06-23] MEDS: HALOPERIDOL 5 MG TAB PO SCH (23:39)
[2016-06-23] MEDS: METOPROLOL TARTRATE 12.5 MG TAB PO SCH (23:39)
[2016-06-23] MEDS: ATORVASTATIN 80 MG TAB PO SCH (23:39)
[2016-06-24 06:24] LABS: Glucose,Whole Blood 132 mg/dL (75-99)
[2016-06-24] MEDS: INSULIN LISPRO (humaLOG) 300 UNIT/3 ML VIAL SQ SCH ×4 (06:38→22:00)
[2016-06-24] MEDS: BUDESONIDE 0.5 MG/2 ML NEBU INHALATION SCH ×2 (06:52→20:30)
[2016-06-24] MEDS: IPRATROPIUM-ALBUTEROL 3 ML NEB INHALATION SCH ×2 (06:52→20:30)
[2016-06-24] MEDS: SODIUM CHLORIDE 0.9% 1,000 ML IV SCH ×2 (08:17→22:30)
[2016-06-24] MEDS: clonazePAM 0.5 MG TAB PO SCH ×3 (08:32→22:31)
[2016-06-24] MEDS: PANTOPRAZOLE 40 MG/10 ML VIAL IVP SCH (08:32)
[2016-06-24] MEDS: CHOLECALCIFEROL 1,000 UNIT TAB PO SCH (08:33)
[2016-06-24] MEDS: METOPROLOL TARTRATE 12.5 MG TAB PO SCH ×2 (08:33→20:21)
[2016-06-24] MEDS: HALOPERIDOL 5 MG TAB PO SCH ×2 (08:34→20:21)
[2016-06-24] MEDS: methylPREDNISolone SOD SUCCI 40 MG/ML 1 ML VIAL IV SCH (08:34)
[2016-06-24] MEDS: BENZTROPINE MESYLATE 1 MG TAB PO SCH ×3 (08:34→22:31)
[2016-06-24] MEDS: HEPARIN SODIUM,PORCINE 5,000 UNIT/ML 1 ML VIAL SQ SCH ×3 (08:34→23:12)
[2016-06-24] MEDS: HALOPERIDOL LACTATE 5 MG/ML 1 ML VIAL IVP SCH ×2 (08:38→15:48)
[2016-06-24] MEDS: SPIRONOLACTONE 25 MG TAB PO SCH (09:03)
[2016-06-24] MEDS: MULTIVITAMINS, THERA 1 EACH TAB PO SCH (09:03)
[2016-06-24] MEDS: ASCORBIC ACID 500 MG TAB PO SCH (09:03)
[2016-06-24] MEDS: ASPIRIN 81 MG CHEW PO SCH (09:03)
[2016-06-24] MEDS: IPRATROPIUM-ALBUTEROL 3 ML NEB INHALATION PRN ×2 (10:47→15:29)
--- NOTE | 2016-06-24 11:03 | P.PN ---
Subjective Principal diagnosis: Small bowel obstruction Patient seen and examined. Patient states her breathing is okay. She is very tired because she hasn't slept well over the past few nights. According to the notes the patient has been combative and confused at night. She has been afebrile Objective - Vital Signs Vital signs: Vital Signs Temp 97.4 F L 06/24/16 08:00 Pulse 64 06/24/16 10:47 Resp 20 06/24/16 08:00 BP 151/69 06/24/16 08:00 Pulse Ox 90 L 06/24/16 08:00 Intake & Output 06/23/16 06/24/16 06/24/16 18:59 06:59 18:59 Intake Total 600 480 Output Total 0 Balance 600 480 Weight 98.4 kg Intake: IV 600 Sodium Chloride 0.9% 1, 600 000 ml @ 75 mls/hr IV . [id number] [facility] Rx#:[id number] Oral 480 Output: Gastric Drainage 0 Other: Voiding Method Indwelling Catheter Toilet # Voids 1 1 - Exam Gen.: Patient is alert and oriented 3, no acute distress Cardiovascular: Regular rate and rhythm, S1/S2 Lungs: Clear to auscultation bilaterally no wheezes rales or rhonchi Abdomen: Soft mildly diffusely tender to palpation, positive bowel sounds, no rebounding rigidity or guarding Extremities: No edema - Labs CBC & Chem 7: 06/22/16 04:46 06/22/16 04:46 Labs: Abnormal Lab Results - Last 24 Hours (Table) 06/23/16 06/23/16 06/23/16 Range/Units 11:46 16:40 21:09 POC Glucose (mg/dL) 145 H 135 H 140 H (75-99) mg/dL 06/24/16 Range/Units 06:23 POC Glucose (mg/dL) 132 H (75-99) mg/dL Assessment and Plan Plan: Acute on chronic hypoxic respiratory failure Acute small bowel obstruction COPD, not acutely exacerbated Hypertension Bipolar disorder Dyslipidemia Intractable vomiting and diarrhea History of tobacco abuse O2 to maintain saturation greater than or equal to 88% Bronchodilators Pulmicort Pain control Remove NG tube per surgery Clear liquid diet General surgery recommendations Restart all patient's home medications GI and DVT prophylaxis IV fluid hydration Blood pressure control Anti-emetics Stop steroids, monitor patient's respiratory status as well as mental status Patient seen and examined covering for Dr. Joni Pathak
--- NOTE | 2016-06-24 11:27 | PN ---
DATE OF SERVICE: 06/23/2016 She has been hemodynamically stable. She is calm at this time. On physical examination, respiratory rate is 18, pulse rate of 56, O2 sat on 6 L by nasal cannula is 90%. Blood pressure 154/52. HEENT reveals pupils that are equal. No jugular venous distention. NG tube in place. Chest is clear. Cardiovascular system reveals an S1, S2. Abdomen is soft. There is no pedal edema. IMPRESSION: 1. Acute on chronic respiratory failure with chronic obstructive pulmonary disease that seems fairly stable. 2. Acute small bowel obstruction. 3. Bipolar disorder. Continue supplemental oxygen, bronchodilators, and Pulmicort. Continue IV medications. Increase her activity level. Depending on how she does, we shall make further changes to her care. Hopefully her NG tube will be to removed today.
[2016-06-24 12:30] LABS: Glucose,Whole Blood 122 mg/dL (75-99)
--- NOTE | 2016-06-24 16:48 | P.PN ---
Progress Note - Text The patient is resting comfortably in bed. She has no complaints of abdominal pain. On exam her vital signs are stable. Her abdomen soft nontender. Resolving ileus. Patient will have her diet advanced as tolerated.
[2016-06-24 17:34] LABS: Glucose,Whole Blood 124 mg/dL (75-99)
[2016-06-24] MEDS: ATORVASTATIN 80 MG TAB PO SCH (20:21)
[2016-06-24 20:55] LABS: Glucose,Whole Blood 147 mg/dL (75-99)
[2016-06-25 07:46] LABS: Glucose,Whole Blood 103 mg/dL (75-99)
[2016-06-25] MEDS: HEPARIN SODIUM,PORCINE 5,000 UNIT/ML 1 ML VIAL SQ SCH ×3 (08:34→22:58)
[2016-06-25] MEDS: PANTOPRAZOLE 40 MG/10 ML VIAL IVP SCH (08:34)
[2016-06-25] MEDS: INSULIN LISPRO (humaLOG) 300 UNIT/3 ML VIAL SQ SCH ×4 (08:34→21:40)
[2016-06-25] MEDS: METOPROLOL TARTRATE 12.5 MG TAB PO SCH ×2 (08:35→21:41)
[2016-06-25] MEDS: HALOPERIDOL 5 MG TAB PO SCH ×2 (08:35→21:40)
[2016-06-25] MEDS: MULTIVITAMINS, THERA 1 EACH TAB PO SCH (08:35)
[2016-06-25] MEDS: SPIRONOLACTONE 25 MG TAB PO SCH ×2 (08:35→17:07)
[2016-06-25] MEDS: CHOLECALCIFEROL 1,000 UNIT TAB PO SCH (08:35)
[2016-06-25] MEDS: clonazePAM 0.5 MG TAB PO SCH ×3 (08:35→21:41)
[2016-06-25] MEDS: BENZTROPINE MESYLATE 1 MG TAB PO SCH ×3 (08:35→21:41)
[2016-06-25] MEDS: ASCORBIC ACID 500 MG TAB PO SCH (08:35)
[2016-06-25] MEDS: ASPIRIN 81 MG CHEW PO SCH (09:00)
[2016-06-25] MEDS: IPRATROPIUM-ALBUTEROL 3 ML NEB INHALATION SCH ×2 (09:38→19:41)
[2016-06-25 11:47] LABS: Glucose,Whole Blood 138 mg/dL (75-99)
--- NOTE | 2016-06-25 11:59 | P.PN ---
Subjective 71-year-old being seen with no new events noted patients being treated for an acute small bowel obstruction which has improved being followed by surgical service diet has been advanced patient has tolerated the ileus is resolving patient has no complaints of abdominal pain and is resting in bed Objective - Vital Signs Vital signs: Vital Signs Temp 96.7 F L 06/25/16 07:00 Pulse 86 06/25/16 09:53 Resp 19 06/25/16 07:00 BP 170/85 06/25/16 07:00 Pulse Ox 94 L 06/25/16 07:00 Intake & Output 06/24/16 06/25/16 06/25/16 18:59 06:59 18:59 Intake Total 740 Output Total 100 Balance 640 Intake: Oral 740 Output: Urine 100 Other: Voiding Method Bedside Commode # Voids 1 - Exam Physical exam 71-year-old female resting in bed awake alert oriented 3 no acute distress Lungs essentially clear no wheezing rales or rhonchi Heart S1-S2 audible regular Abdomen diffuse tenderness bowel tones present no rebound no nausea vomiting Extremities no edema noted - Labs CBC & Chem 7: 06/22/16 04:46 06/22/16 04:46 Labs: Abnormal Lab Results - Last 24 Hours (Table) 06/24/16 06/24/16 06/24/16 Range/Units 11:49 17:14 20:54 POC Glucose (mg/dL) 122 H 124 H 147 H (75-99) mg/dL 06/25/16 06/25/16 Range/Units 07:26 11:45 POC Glucose (mg/dL) 103 H 138 H (75-99) mg/dL Assessment and Plan Plan: Impression Acute on chronic hypoxic respiratory failure Present on admission abdominal pain likely due to an acute small bowel obstruction with ileus resolving COPD no evidence of acute exacerbation Mood disorder bipolar Dyslipidemia Hypertension present on admission intractable nausea vomiting with diarrhea suspect due to an acute small bowel obstruction resolving Chronic hypoxic respiratory failure 3 L supplemental oxygen at home around-the- clock Plan O2 to maintain saturation greater than a are equal to 88% Bronchodilators as ordered Pain control Diet advanced no surgical intervention Home meds as appropriate DVT and GI prophylaxis The above dictated assessment and findings were discussed with dr Alejandra lorenzo covering for Dr. Pathak. Impression and the plan of care have been dictated as directed. Annmarie Grant nurse practitioner acting as a scribe for Dr. Alejandra lorenzo covering for Dr. Pathak
[2016-06-25] MEDS: SODIUM CHLORIDE 0.9% 1,000 ML IV SCH ×2 (12:31→21:41)
[2016-06-25] MEDS: BUDESONIDE 0.5 MG/2 ML NEBU INHALATION SCH ×2 (15:59→19:41)
[2016-06-25] MEDS: IPRATROPIUM-ALBUTEROL 3 ML NEB INHALATION PRN (15:59)
[2016-06-25 16:47] LABS: Glucose,Whole Blood 103 mg/dL (75-99)
[2016-06-25 21:25] LABS: Glucose,Whole Blood 133 mg/dL (75-99)
[2016-06-25] MEDS: ATORVASTATIN 80 MG TAB PO SCH (21:40)
[2016-06-26] MEDS ORDERED: PANTOPRAZOLE 40 MG TABLET PO SCH (07:30)
[2016-06-26 07:52] LABS: Glucose,Whole Blood 165 mg/dL (75-99)
[2016-06-26] MEDS: IPRATROPIUM-ALBUTEROL 3 ML NEB INHALATION SCH (08:04)
[2016-06-26] MEDS: BUDESONIDE 0.5 MG/2 ML NEBU INHALATION SCH (08:04)
[2016-06-26 08:14] VITALS: BP 129/69; RESP 19; TEMP 97
[2016-06-26 08:18] VITALS: PULSE 72
[2016-06-26] MEDS: INSULIN LISPRO (humaLOG) 300 UNIT/3 ML VIAL SQ SCH ×2 (08:31→13:17)
[2016-06-26] MEDS: HEPARIN SODIUM,PORCINE 5,000 UNIT/ML 1 ML VIAL SQ SCH (08:32)
[2016-06-26] MEDS: ASCORBIC ACID 500 MG TAB PO SCH (08:32)
[2016-06-26] MEDS: ASPIRIN 81 MG CHEW PO SCH (08:33)
[2016-06-26] MEDS: METOPROLOL TARTRATE 12.5 MG TAB PO SCH (08:33)
[2016-06-26] MEDS: HALOPERIDOL 5 MG TAB PO SCH (08:33)
[2016-06-26] MEDS: clonazePAM 0.5 MG TAB PO SCH (08:33)
[2016-06-26] MEDS: MULTIVITAMINS, THERA 1 EACH TAB PO SCH (08:34)
[2016-06-26] MEDS: BENZTROPINE MESYLATE 1 MG TAB PO SCH (08:34)
[2016-06-26] MEDS: CHOLECALCIFEROL 1,000 UNIT TAB PO SCH (08:34)
[2016-06-26] MEDS: SPIRONOLACTONE 25 MG TAB PO SCH (08:34)
[2016-06-26 11:38] LABS: Glucose,Whole Blood 82 mg/dL (75-99)
--- NOTE | 2016-06-26 12:16 | P.DS ---
Providers Date of admission: 06/20/16 15:17 Expected date of discharge: 06/26/16 Attending physician: Joni Pathak Consults: 06/20/16 15:52 Consult Physician Stat Consulting Provider: Cole Harmon Consult Reason/Comments: Acute exacerbation of COPD Do you want consulting provider notified?: Yes 06/20/16 19:45 Consult Physician Stat Consulting Provider: Yariel Colby Consult Reason/Comments: suggestive small bowel obstruction Do you want consulting provider notified?: Yes Primary care physician: [facility] Course: This is a 71-year-old female who presented to the emergency department complaining of shortness of breath and abdominal pain. The patient states that she has been sick for the past 2-3 days. She states she had vomiting and diarrhea at home. She has a history of bipolar disorder and hypertension. She also has a history of COPD. x-ray showed evidence of possible small bowel obstruction.. Patient had a nasogastric tube placed. Her CAT scan performed showed improvement in her small bowel obstruction. The patient's diet was advanced as tolerated. NGT was removed and the patient tolerated this well. Patient Condition at Discharge: Good Plan - Discharge Summary Discharge Medication List Albuterol Nebulized [Ventolin Nebulized] 2.5 mg INHALATION RT-BID PRN 12/06/15 [ History] Aspirin EC [Ecotrin Low Dose] 81 mg PO DAILY 12/06/15 [History] Atorvastatin [Lipitor] 80 mg PO HS 12/06/15 [History] Benztropine Mesylate 1 mg PO TID 12/06/15 [History] Haloperidol [Haldol] 5 mg PO BID 12/06/15 [History] Ipratropium/Albuterol Sulfate [Combivent Respimat Inhaler] 2 puff INHALATION RT- BID 12/06/15 [History] Metoprolol Tartrate [Lopressor] 12.5 mg PO BID 12/06/15 [History] Multivitamin [Multivitamins Adult Gummies] 1 tab PO DAILY 12/06/15 [History] QUEtiapine FUMARATE [SEROquel XR] 300 mg PO HS 12/06/15 [History] Spironolactone [Aldactone] 12.5 mg PO DAILY 12/06/15 [History] clonazePAM [KlonoPIN] 0.5 mg PO QID 12/06/15 [History] Albuterol Inhaler [Ventolin Hfa Inhaler] 2 puff INHALATION RT-Q6H PRN 01/17/16 [ History] Ibuprofen [Motrin] 400 mg PO DAILY 06/21/16 [History] Follow up Appointment(s)/Referral(s): Joni Pathak MD [Primary Care Provider] - 1-2 days [facility] Visiting Nurse, [NON-STAFF] - Patient Instructions/Handouts: COPD (Chronic Obstructive Pulmonary Disease) (DC ), Fall Prevention (DC) Discharge Disposition: HOME WITH HOME HEALTH SERVICES
== END 2016-06-26 14:35 | disposition home health service (06) | DRG 388 ==
LOC: EC 09:29 → 6SEL 15:17 → 4MS4W 06-24 16:31
PROVIDERS: ADMIT Family Medicine; ATTEND Family Medicine
DX: K56.60 Unspecified intestinal obstruction (principal); J96.21 Acute and chronic respiratory failure with hypoxia; Z99.81 Dependence on supplemental oxygen; J44.1 Chronic obstructive pulmonary disease with (acute) exacerbation; I10 Essential (primary) hypertension; E78.5 Hyperlipidemia, unspecified; F25.9 Schizoaffective disorder, unspecified; F31.9 Bipolar disorder, unspecified; H40.9 Unspecified glaucoma; Z79.82 Long term (current) use of aspirin; Z79.899 Other long term (current) drug therapy; Z79.1 Long term (current) use of non-steroidal anti-inflammatories (NSAID); Z88.0 Allergy status to penicillin; Z87.891 Personal history of nicotine dependence
CPT/HCPCS: 36415; 36600; 71020; 74020; 74176; 80048; 80053; 82550; 82553; 82805; 83036; 83735; 84484; 85025; 85610; 85730; 93005; 94640; 94760; 96374; 96375; 99291

== ENCOUNTER → 2017-08-19 | Outpatient (CLI) | payer MEDICARE, OTHER ==
--- NOTE | 2017-08-19 13:09 | ECHOF ---
Referral Reason:I50.3 Congestive Heart Failure MEASUREMENTS -------- HEIGHT: 162.6 cm WEIGHT: 98.0 kg BP: 146/70 RVIDd: 3.3 cm (< 3.3) IVSd: 1.1 cm (0.6 - 1.1) LVIDd: 4.1 cm (3.9 - 5.3) LVPWd: 1.1 cm (0.6 - 1.1) IVSs: 1.5 cm LVIDs: 2.6 cm LVPWs: 1.4 cm LAESV Index (A-L): 17.36 ml/m Ao Diam: 3.3 cm (2.0 - 3.7) LA Diam: 3.5 cm (2.7 - 3.8) MV E Irwin: 0.70 m/s MV DecT: 390 ms MV A Irwin: 1.12 m/s MV E/A Ratio: 0.63 FINDINGS -------- Sinus rhythm. This was a technically difficult study with suboptimal views. The left ventricular size is normal. There is borderline concentric left ventricular hypertrophy. Overall left ventricular systolic function is normal with, an EF between 55 - 60 %. The right ventricle is normal in size and function. Normal LA size by volume 22+/-6 ml/m2. The right atrium is normal in size. 3ml of Lumason was utilized for enhancement of images. The aortic valve was not well visualized. Mild mitral annular calcification present. Trace tricuspid regurgitation present. Right ventricular systolic pressure is normal at < 35 mmHg. There is no evidence of pulmonary hypertension. The pulmonic valve was not well visualized. There is no pulmonic regurgitation present. The aortic root size is normal. Normal inferior vena cava with normal inspiratory collapse consistent with estimated right atrial pre ssure of 5 mmHg. There is no pericardial effusion. CONCLUSIONS -------- 1. Sinus rhythm. 2. This was a technically difficult study with suboptimal views. 3. The left ventricular size is normal. 4. There is borderline concentric left ventricular hypertrophy. 5. Overall left ventricular systolic function is normal with, an EF between 55 - 60 %. 6. Normal LA size by volume 22+/-6 ml/m2. 7. 3ml of Lumason was utilized for enhancement of images. 8. The aortic valve was not well visualized. 9. Mild mitral annular calcification present. 10. Trace tricuspid regurgitation present. 11. Right ventricular systolic pressure is normal at < 35 mmHg. 12. The pulmonic valve was not well visualized. 13. There is no pulmonic regurgitation present. 14. The aortic root size is normal. 15. There is no pericardial effusion. [employer] DIRECT[employer]: Javier Gilbert RDCS
== END | disposition home or self-care (01) ==
LOC: RADECHMAIN 11:02
PROVIDERS: ATTEND Family Medicine
DX: I50.9 Heart failure, unspecified (principal)
CPT/HCPCS: C8929; Q9950; 93306

== ENCOUNTER 2018-08-08 10:58 | Observation (INO) | payer MEDICARE, OTHER ==
[2018-08-08] MEDS ORDERED: methylPREDNISolone SOD SUCCI 125 MG/2 ML VIAL IV STA (11:01)
[2018-08-08] MEDS ORDERED: IPRATROPIUM-ALBUTEROL 3 ML NEB INHALATION STA (11:01)
--- NOTE | 2018-08-08 11:05 | ED ---
General Adult HPI - General Stated complaint: KEATN Time Seen by Provider: 08/08/18 10:59 Source: patient, EMS, RN notes reviewed Mode of arrival: EMS Limitations: no limitations - History of Present Illness Initial comments: Patient is a pleasant 73-year-old female presenting to the emergency department with difficulty in breathing. Onset of symptoms was today. Symptoms have p rogressed throughout the day. No significant cough. No fever. Symptoms are similar to previous COPD exacerbation. No leg pain or leg swelling. No chest pain. - Related Data Home Medications Medication Instructions Recorded Confirmed Albuterol Nebulized [Ventolin 2.5 mg INHALATION RT-BID PRN 12/06/15 08/08/18 Nebulized] Aspirin EC [Ecotrin Low Dose] 81 mg PO DAILY 12/06/15 08/08/18 Atorvastatin [Lipitor] 80 mg PO HS 12/06/15 08/08/18 Benztropine Mesylate 1 mg PO TID 12/06/15 08/08/18 Haloperidol [Haldol] 5 mg PO BID 12/06/15 08/08/18 Ipratropium/Albuterol Sulfate 2 puff INHALATION RT-BID 12/06/15 08/08/18 [Combivent Respimat Inhaler] Metoprolol Tartrate [Lopressor] 12.5 mg PO BID 12/06/15 08/08/18 Multivitamin [Multivitamins Adult 1 tab PO DAILY 12/06/15 08/08/18 Gummies] QUEtiapine FUMARATE [SEROquel XR] 300 mg PO HS 12/06/15 08/08/18 Spironolactone [Aldactone] 12.5 mg PO DAILY 12/06/15 08/08/18 clonazePAM [KlonoPIN] 0.5 mg PO QID 12/06/15 08/08/18 Albuterol Inhaler [Ventolin Hfa 2 puff INHALATION RT-Q6H PRN 01/17/16 08/08/18 Inhaler] Ibuprofen [Motrin] 400 mg PO DAILY 06/21/16 08/08/18 Beclomethasone Dipropionate [Qvar 2 puff INHALATION RT-BID 08/08/18 08/08/18 80 mcg] Montelukast [Singulair] 10 mg PO DAILY 08/08/18 08/08/18 Sertraline [Zoloft] 50 mg PO DAILY 08/08/18 08/08/18 Allergies Allergy/AdvReac Type Severity Reaction Status Date / Time grapefruit Allergy Rash/Hives Verified 08/08/18 11:35 Penicillins Allergy Rash/Hives Verified 08/08/18 11:30 Review of Systems ROS Statement: Those systems with pertinent positive or pertinent negative responses have been documented in the HPI. ROS Other: All systems not noted in ROS Statement are negative. Constitutional: Denies: fever, chills Eyes: Denies: eye pain ENT: Denies: ear pain Respiratory: Reports: dyspnea. Denies: cough Cardiovascular: Denies: chest pain Endocrine: Reports: fatigue Gastrointestinal: Denies: abdominal pain Genitourinary: Denies: dysuria Musculoskeletal: Denies: back pain Skin: Denies: rash Neurological: Denies: weakness Past Medical History Past Medical History: COPD, Hyperlipidemia, Hypertension Additional Past Medical History / Comment(s): home 02 3 liters n/c, SCHIZOAFFECTIVE DISORDER, INCONT OF URINE THAT JUST RECENTLY STARTED. CONSTIPATION. History of Any Multi-Drug Resistant Organisms: None Reported Past Surgical History: Orthopedic Surgery, Tonsillectomy, Tubal Ligation Additional Past Surgical History / Comment(s): right knee arthroscopy, FELL,BROKE RT LEG-HAD SX--PLATE AND SCREWS, colonoscopy, LILA CATARACTS, LT EYE SX FOR GLAUCOMA Past Anesthesia/Blood Transfusion Reactions: No Reported Reaction Past Psychological History: Schizoaffective Disorder Smoking Status: Former smoker Past Alcohol Use History: Occasional Past Drug Use History: None Reported - Past Family History Mother Family Medical History: Diabetes Mellitus Additional Family Medical History / Comment(s): GRANDMOTHER HAD DM Father Family Medical History: No Reported History Additional Family Medical History / Comment(s): UNK- PT WAS RAISED BY STEP FATHER General Exam Limitations: no limitations General appearance: alert Head exam: Present: atraumatic Eye exam: Present: normal appearance, PERRL ENT exam: Present: normal oropharynx Neck exam: Present: normal inspection Respiratory exam: Present: wheezes, decreased breath sounds Cardiovascular Exam: Present: regular rate, normal rhythm GI/Abdominal exam: Present: soft. Absent: tenderness Extremities exam: Present: normal inspection. Absent: pedal edema, calf tenderness Neurological exam: Present: alert Psychiatric exam: Present: normal affect, normal mood Skin exam: Present: normal color Course Vital Signs 08/08/18 08/08/18 08/08/18 11:01 11:39 11:44 Temperature 97.8 F Pulse Rate 59 L 54 L 56 L Respiratory 18 Rate Blood Pressure 149/119 O2 Sat by Pulse 93 L Oximetry EKG Findings - EKG Comments: EKG Findings:: Sinus rhythm with a rate of 71. PVC is present. ME 160. QRS 80. QT 432. QTC 469. Normal axis. Normal QRS. No acute ST change. Medical Decision Making - Medical Decision Making Patient reevaluated and significantly improved. Patient still has mild dyspnea. No respiratory distress. Lung sounds have improved. Patient updated on results and plan. Case was discussed in detail with Dr. Pathak, who will ad nayla his patient. As previously seen Dr. Harmon for pulmonary. - Lab Data Result diagrams: 08/08/18 11:22 08/08/18 11:22 Lab Results 08/08/18 08/08/18 Range/Units 11:22 11:22 WBC 8.0 (3.8-10.6) k/uL RBC 4.07 (3.80-5.40) m/uL Hgb 11.7 (11.4-16.0) gm/dL Hct 34.9 (34.0-46.0) % MCV 85.7 (80.0-100.0) fL MCH 28.7 (25.0-35.0) pg MCHC 33.5 (31.0-37.0) g/dL RDW 14.1 (11.5-15.5) % Plt Count 274 (150-450) k/uL Neutrophils % 71 % Lymphocytes % 19 % Monocytes % 6 % Eosinophils % 2 % Basophils % 0 % Neutrophils # 5.7 (1.3-7.7) k/uL Lymphocytes # 1.5 (1.0-4.8) k/uL Monocytes # 0.5 (0-1.0) k/uL Eosinophils # 0.2 (0-0.7) k/uL Basophils # 0.0 (0-0.2) k/uL Sodium 140 (137-145) mmol/L Potassium 4.3 (3.5-5.1) mmol/L Chloride 106 (98-107) mmol/L Carbon Dioxide 26 (22-30) mmol/L Anion Gap 8 mmol/L BUN 17 (7-17) mg/dL Creatinine 0.64 (0.52-1.04) mg/dL Est GFR (CKD-EPI)AfAm >90 (>60 ml/min/1.73 sqM) Est GFR (CKD-EPI)NonAf 90 (>60 ml/min/1.73 sqM) Glucose 115 H (74-99) mg/dL Calcium 9.2 (8.4-10.2) mg/dL Total Bilirubin 0.5 (0.2-1.3) mg/dL AST 24 (14-36) U/L ALT 15 (9-52) U/L Alkaline Phosphatase 102 (38-126) U/L Total Protein 7.1 (6.3-8.2) g/dL Albumin 4.2 (3.5-5.0) g/dL - Radiology Data Radiology results: image reviewed (Chest x-ray reveals no acute process) Disposition Clinical Impression: Acute exacerbation of chronic obstructive pulmonary disease (COPD) Disposition: ADMITTED IP TO THIS HOSP Is patient prescribed a controlled substance at d/c from ED?: No Referrals: Joni Pathak MD [Primary Care Provider] - 1-2 days Decision Time: 12:42
[2018-08-08 11:43] LABS: ALT 15 U/L (9-52); AST 24 U/L (14-36); Albumin 4.2 g/dL (3.5-5.0); Alkaline Phosphatase 102 U/L (38-126); Anion Gap 8 mmol/L; Blood Urea Nitrogen 17 mg/dL (7-17); Calcium 9.2 mg/dL (8.4-10.2); Carbon Dioxide 26 mmol/L (22-30); Chloride 106 mmol/L (98-107); Glucose 115 mg/dL (74-99); Potassium 4.3 mmol/L (3.5-5.1); Sodium 140 mmol/L (137-145); Total Bilirubin 0.5 mg/dL (0.2-1.3); Total Protein 7.1 g/dL (6.3-8.2)
[2018-08-08 11:49] LABS: Basophils % (A) 0 %; Eosinophils # (A) 0.2 k/uL (0-0.7); Eosinophils % (A) 2 %; HCT 34.9 % (34.0-46.0); HGB 11.7 gm/dL (11.4-16.0); Lymphocytes # (A) 1.5 k/uL (1.0-4.8); Lymphocytes % (A) 19 %; MCH 28.7 pg (25.0-35.0); MCHC 33.5 g/dL (31.0-37.0); MCV 85.7 fL (80.0-100.0); Mean Platelet Volume 7.3; Monocytes # (A) 0.5 k/uL (0-1.0); Monocytes % (A) 6 %; Neutrophils # (A) 5.7 k/uL (1.3-7.7); Neutrophils % (A) 71 %; Platelet Count 274 k/uL (150-450); RBC 4.07 m/uL (3.80-5.40); RDW 14.1 % (11.5-15.5)
--- NOTE | 2018-08-08 12:26 | XR ---
EXAMINATION TYPE: XR chest 2V DATE OF EXAM: 08/08/2018 COMPARISON: 06/20/2016 INDICATION: Difficulty breathing, history of COPD TECHNIQUE: Frontal and lateral views of the chest are obtained. FINDINGS: The heart size is normal. The pulmonary vasculature is normal. The lungs are clear. Some hyperinflation may be present which can related to respiratory effort or e mphysematous change and COPD. IMPRESSION: 1. No acute pulmonary process. 2. Mild hyperinflation flattening the diaphragms can be compatible with COPD.
[2018-08-08] MEDS ORDERED: IPRATROPIUM-ALBUTEROL 3 ML NEB INHALATION PRN (12:42)
[2018-08-08] MEDS ORDERED: ALBUTEROL INHALER 60 PUFF/8 GM INHALER INHALATION PRN (15:00)
[2018-08-08] MEDS: IPRATROPIUM-ALBUTEROL 3 ML NEB INHALATION SCH ×2 (15:36→19:37)
--- NOTE | 2018-08-08 15:51 | HP ---
HISTORY AND PHYSICAL CHIEF COMPLAINT: [age]bjladk[age]ybt[age]urg[age]-old female presents to the ER with difficulty breathing. Onset of symptoms was today and they progressed throughout the day. No significant cough. No fever. prior COPD exacerbation. No leg swelling. No chest pain. Home medications include: 1. Updrafts with Ventolin. 2. Lipitor 80 daily. 3. Benztropine 1 mg t.i.d. 4. Haldol 5 mg b.i.d. 5. Combivent inhaler 2 puffs b.i.d. 6. Lopressor 12.5 b.i.d. 7. Multivitamin daily. 8. Seroquel XR 300 mg daily. 9. Aldactone 12.5 mg daily. 10.Klonopin 0.5 mg q.i.d. 11.Ventolin HFA 2 puffs q.4 hours p.r.n. 12.Motrin 800 daily. 13.Qvar 80 two puffs b.i.d. 14.Singulair 10 mg daily. 15.Zoloft 50 mg daily. ALLERGIES: 1. PENICILLIN. 2. GRAPEFRUIT. REVIEW OF SYSTEMS: Fourteen points negative except for mentioned in HPI. Negative hemoptysis. PAST MEDICAL HISTORY: 1. COPD. 2. Hypertension. 3. Dyslipidemia. 4. Schizoaffective disorder. 5. Constipation. 6. Orthopedic surgery. 7. Tonsillectomy. 8. Tubal ligation. 9. Right knee arthroscopy. 10.Fell, broke leg, had screws and plates. 11.Bilateral cataracts. 12.Colonoscopy. SOCIAL HISTORY: Former smoker. No alcohol. No illicit drugs. FAMILY HISTORY: Mother with diabetes mellitus. Father negative. PHYSICAL EXAMINATION: VITAL SIGNS: Temperature 97.8, pulse 54-59. Oxygen saturation 93% on room air. Blood pressure 140s over 100. PUPILS: Equal, round, reactive to light and accommodation. LUNGS: Decreased breath sounds x4 with scattered wheeze x4. HEMATOLOGY: Negative Homans. GI: Soft, nontender. OPHTHALMOLOGIC: Pupils equal, round and reactive to light and accommodation. NEUROLOGIC: Alert and oriented x3. EKG shows sinus rhythm. Chest x-ray is negative. ASSESSMENT: 1. Chronic obstructive pulmonary disease exacerbation. 2. Tracheobronchitis. 3. Acute hypoxemic respiratory failure. Continue current treatments, IV steroids, updraft treatments, antibiotics. MMODL / JOSELITON: [id number] /
[2018-08-08] MEDS: methylPREDNISolone SOD SUCCI 125 MG/2 ML VIAL IV SCH ×2 (17:24→23:17)
[2018-08-08] MEDS: clonazePAM 0.5 MG TAB PO SCH ×2 (17:25→22:04)
[2018-08-08] MEDS: BENZTROPINE MESYLATE 1 MG TAB PO SCH ×2 (17:25→22:06)
[2018-08-08] MEDS: FLUTICASONE 110 MCG INHALER INHALATION SCH (19:37)
[2018-08-08] MEDS ORDERED: NON-FORMULARY DRUG (Ipratropium/Albuterol Sulfate [Combivent Respimat Inhaler] 2 PUFF) INHALATION SCH (20:00)
[2018-08-08] MEDS: ATORVASTATIN 80 MG TAB PO SCH (21:03)
[2018-08-08] MEDS: METOPROLOL TARTRATE 12.5 MG TAB PO SCH (21:03)
[2018-08-08] MEDS: QUEtiapine 50 MG TAB PO SCH (21:03)
[2018-08-08] MEDS: HALOPERIDOL 5 MG TAB PO SCH (21:03)
[2018-08-09] MEDS: methylPREDNISolone SOD SUCCI 125 MG/2 ML VIAL IV SCH ×3 (05:27→17:09)
[2018-08-09] MEDS: IPRATROPIUM-ALBUTEROL 3 ML NEB INHALATION SCH ×4 (07:16→20:16)
[2018-08-09] MEDS: FLUTICASONE 110 MCG INHALER INHALATION SCH (07:16)
[2018-08-09] MEDS: BENZTROPINE MESYLATE 1 MG TAB PO SCH ×3 (08:20→21:58)
[2018-08-09] MEDS: MULTIVITAMINS, THERA 1 EACH TAB PO SCH (08:21)
[2018-08-09] MEDS: SPIRONOLACTONE 25 MG TAB PO SCH (08:21)
[2018-08-09] MEDS: METOPROLOL TARTRATE 12.5 MG TAB PO SCH ×2 (08:22→21:58)
[2018-08-09] MEDS: QUEtiapine 50 MG TAB PO SCH ×2 (08:22→21:58)
[2018-08-09] MEDS: HALOPERIDOL 5 MG TAB PO SCH ×2 (08:22→21:57)
[2018-08-09] MEDS: SERTRALINE 50 MG TAB PO SCH (08:22)
[2018-08-09] MEDS: MONTELUKAST 10 MG TAB PO SCH (08:22)
[2018-08-09] MEDS: ASPIRIN 81 MG PO SCH (08:22)
[2018-08-09] MEDS: IBUPROFEN 400 MG TAB PO SCH (08:22)
[2018-08-09] MEDS: clonazePAM 0.5 MG TAB PO SCH ×4 (08:25→22:06)
--- NOTE | 2018-08-09 13:04 | PN ---
PROGRESS NOTE 73-year-old white female with COPD exacerbation. Remains on IV Solu-Medrol 60 q.8h. She is breathing way better. She possibly wants to go home tomorrow. We will try to wean her steroids. Cardiovascular S1-S2 lungs are clear. GI soft. She has end-stage COPD with tracheobronchitis/asthma exacerbation. Continue to wean steroids. Possible discharge home tomorrow. MMODL / IJN: [id number] /
--- NOTE | 2018-08-09 13:10 | CONS ---
CONSULTATION Nicki Rosen is a 73-year-old female who presented to the ED at [facility] with increasing shortness of breath of about one day's duration. This has been associated with some wheezing. No clear fever or chills. She subsequently was seen in the ER and did not improve after conservative care and was admitted for further evaluation and management. She denies any chest pain. Denies any significant sputum production at this time. PAST MEDICAL HISTORY: Positive for severe COPD with a FEV1 of only 50% of predicted, history of asthma, history of schizophrenia, history of obesity, history of previous sleep study, which was negative for obstructive sleep apnea, but did show some nocturnal hypoxemia. History of hypertension. ALLERGIES: THE PATIENT IS ALLERGIC TO PENICILLIN AND GRAPES. FAMILY HISTORY: Positive for diabetes mellitus in her mother. SOCIAL HISTORY: Patient used to smoke quite heavily in the past. Does not smoke at this time. She does not drink alcohol excessively. MEDICATIONS: Prior to admission were Klonopin, Aldactone, Haldol, benztropine, Qvar, Lipitor, Zoloft, Seroquel, multivitamin, montelukast, metoprolol, ipratropium with albuterol, Motrin, aspirin EC, albuterol nebulized, and albuterol HFA inhaler. REVIEW OF SYSTEMS: Noncontributory. PHYSICAL EXAMINATION: Respiratory rate is 18, pulse rate 71, temperature 98.8, blood pressure 129/63, O2 saturation on 5 L by nasal cannula is 90%. HEENT reveals pupils are equal. There is in the posterior pharynx. Chest reveals decreased breath sounds with prolonged expiration. Expiratory wheeze. Cardiovascular system is S1, S2. Abdomen is soft. There is trace edema. White count is 8, hemoglobin of 11.7. Eosinophil count of 0.2 1000. Sodium 140, potassium 4.3, chloride 106, bicarb 26, BUN 17, creatinine 0.64, glucose 115. Chest x- ray shows no discrete infiltrate. IMPRESSION: At this time: 1. Asthma with chronic obstructive pulmonary disease with acute exacerbation. 2. Obesity. 3. Acute on chronic respiratory failure with hypoxemia. 4. Schizoaffective disorder. At this point in time, keep her on IV and aerosolized steroids, Singulair, bronchodilators. Depending on how she does, we should make further changes to her care. MMODL / IJN: [id number] /
[2018-08-09] MEDS ORDERED: RX INFO: IV CONTRAST WAS GIVEN 1 EACH MISC MISCELLANE PRN (17:42)
[2018-08-09] MEDS: BUDESONIDE 0.5 MG/2 ML NEBU INHALATION SCH (20:16)
--- NOTE | 2018-08-09 20:18 | CT ---
EXAMINATION TYPE: CT chest w con DATE OF EXAM: 08/09/2018 COMPARISON: None HISTORY: Hypoxia, hx COPD CT DLP: 768 mGycm, Automated exposure control for dose reduction was used. CONTRAST: Performed injected with 100 mL of Isovue 300. TECHNIQUE: Axial images were obtained at 5 mm thick sections. Reconstructed images are reviewed on [employer] computer in the coronal plane. FINDINGS: Portion of the thyroid visualized is normal. No suspicious lung nodules or focal infiltrates are present. No enlarged mediastinal or hilar adenopathy is evident. The ascending aorta diameter at the level of the main pulmonary artery is 2.8 cm. The main pulmonary artery diameter at the bifurcation is 2.[address] sections are obtained through the upper abdomen. Abdomen is essentially unremarkable. IMPRESSIONS: 1. No suspicious acute changes CT chest.
--- NOTE | 2018-08-09 21:07 | PN ---
PROGRESS NOTE SUBJECTIVE: White female admitted with COPD exacerbation, asthma exacerbation on IV dose of steroids. Breathing is greatly improved. She wants to go home tomorrow. Continue with current steroids and possible cut down on the dose as she appears to be improving. LUNGS: Clear. CARDIOVASCULAR: S1, S2. On 5 L she has 90% pulse ox. GI: Soft. HEMATOLOGY: Negative Homans. PSYCH: Fair mood and affect. PLAN: Continue with current treatments as she is improving. Possible discharge home in the next 24-48 hours. She continues to improve. MMODL / IJN: [id number] /
[2018-08-09] MEDS: ATORVASTATIN 80 MG TAB PO SCH (21:57)
[2018-08-09] MEDS: HEPARIN SODIUM,PORCINE 5,000 UNIT/ML 1 ML VIAL SQ SCH (22:03)
[2018-08-10] MEDS: methylPREDNISolone SOD SUCCI 125 MG/2 ML VIAL IV SCH ×4 (00:32→17:00)
[2018-08-10] MEDS: BUDESONIDE 0.5 MG/2 ML NEBU INHALATION SCH ×2 (06:54→19:06)
[2018-08-10] MEDS: IPRATROPIUM-ALBUTEROL 3 ML NEB INHALATION SCH ×4 (06:54→19:06)
[2018-08-10] MEDS: IBUPROFEN 400 MG TAB PO SCH (07:49)
[2018-08-10] MEDS: METOPROLOL TARTRATE 12.5 MG TAB PO SCH ×2 (07:49→21:25)
[2018-08-10] MEDS: HALOPERIDOL 5 MG TAB PO SCH ×2 (07:50→21:25)
[2018-08-10] MEDS: QUEtiapine 50 MG TAB PO SCH ×2 (07:50→21:25)
[2018-08-10] MEDS: MONTELUKAST 10 MG TAB PO SCH (07:51)
[2018-08-10] MEDS: SPIRONOLACTONE 25 MG TAB PO SCH (07:51)
[2018-08-10] MEDS: SERTRALINE 50 MG TAB PO SCH (07:51)
[2018-08-10] MEDS: clonazePAM 0.5 MG TAB PO SCH ×4 (07:51→21:27)
[2018-08-10] MEDS: HEPARIN SODIUM,PORCINE 5,000 UNIT/ML 1 ML VIAL SQ SCH ×2 (07:51→21:25)
[2018-08-10] MEDS: BENZTROPINE MESYLATE 1 MG TAB PO SCH ×3 (07:51→21:25)
[2018-08-10] MEDS: MULTIVITAMINS, THERA 1 EACH TAB PO SCH (07:51)
[2018-08-10] MEDS: ASPIRIN 81 MG PO SCH (07:52)
--- NOTE | 2018-08-10 12:59 | PN ---
PROGRESS NOTE DATE OF SERVICE: August 10, 2018. She continues to remain short of breath and does not feel like she is improving compared to the previous day. However, she is doing better than the day she came into the hospital. On physical examination, her blood pressure is 156/66, respiratory rate is 16, pulse rate 56, temperature 97.8, O2 saturation on 5 L by nasal cannula is 93%. HEENT is unremarkable. Chest with decreased breath sounds with prolonged expiration. No wheeze. Cardiovascular system reveals an S1, S2. Abdomen is soft. There is no edema. CT scan of the chest showed no evidence of PE. IMPRESSION: At this time is: 1. Asthma with acute exacerbation. 2. Chronic obstructive pulmonary disease. 3. Schizoaffective disorder. 4. Acute on chronic respiratory failure with hypoxemia. Continue IV and aerosolized steroids, Singulair, bronchodilators. Increase activity levels slowly. Prognosis fair. MMODL / IJN: [id number] /
[2018-08-10 20:06] VITALS: RESP 18
--- NOTE | 2018-08-10 20:08 | PN ---
PROGRESS NOTE SUBJECTIVE: A 73-year-old white female, we are weaning down her steroids for COPD exacerbation. She did not sleep at all last night, so she is very exhausted, wants to stay another day. Cardiovascular S1, S2. lungs are clear. Hematology negative Homans. GI soft. ASSESSMENT AND PLANS: 1. Chronic obstructive pulmonary disease/asthma exacerbation. 2. Ween off his steroids down from 60 q.6 to 40 q.8. 3. Possible discharge home tomorrow. MMODL / IJN: [id number] /
[2018-08-10] MEDS: ATORVASTATIN 80 MG TAB PO SCH (21:25)
[2018-08-10] MEDS: methylPREDNISolone SOD SUCCI 40 MG/ML 1 ML VIAL IV SCH (23:09)
[2018-08-11 04:12] VITALS: BP 135/61; TEMP 98.6
[2018-08-11] MEDS: HALOPERIDOL 5 MG TAB PO SCH (07:59)
[2018-08-11] MEDS: clonazePAM 0.5 MG TAB PO SCH (07:59)
[2018-08-11] MEDS: SERTRALINE 50 MG TAB PO SCH (07:59)
[2018-08-11] MEDS: QUEtiapine 50 MG TAB PO SCH (07:59)
[2018-08-11] MEDS: methylPREDNISolone SOD SUCCI 40 MG/ML 1 ML VIAL IV SCH (08:00)
[2018-08-11] MEDS: HEPARIN SODIUM,PORCINE 5,000 UNIT/ML 1 ML VIAL SQ SCH (08:00)
[2018-08-11] MEDS: MULTIVITAMINS, THERA 1 EACH TAB PO SCH (08:00)
[2018-08-11] MEDS: METOPROLOL TARTRATE 12.5 MG TAB PO SCH (08:00)
[2018-08-11] MEDS: ASPIRIN 81 MG PO SCH (08:00)
[2018-08-11] MEDS: BENZTROPINE MESYLATE 1 MG TAB PO SCH (08:00)
[2018-08-11] MEDS: SPIRONOLACTONE 25 MG TAB PO SCH (08:01)
[2018-08-11] MEDS: MONTELUKAST 10 MG TAB PO SCH (08:01)
[2018-08-11] MEDS: IBUPROFEN 400 MG TAB PO SCH (08:02)
[2018-08-11] MEDS: IPRATROPIUM-ALBUTEROL 3 ML NEB INHALATION SCH ×2 (08:36→12:28)
[2018-08-11] MEDS: BUDESONIDE 0.5 MG/2 ML NEBU INHALATION SCH (08:36)
[2018-08-11 08:55] VITALS: PULSE 70
--- NOTE | 2018-08-11 10:08 | P.PN ---
Subjective Progress Note Date: 08/11/18 08/11/2017: Patient seen and examined. Patient is walking back to bed from the bathroom. She is very short of breath. O2 saturation is 90% on 5 L nasal cannula. The patient states that she is coughing but is not producing any phlegm. She denies fevers and chills. She states that she is not Back at her baseline. Objective - Vital Signs Vital signs: Vital Signs Temp 98.6 F 08/11/18 04:12 Pulse 70 08/11/18 08:54 Resp 18 08/11/18 04:12 BP 135/61 08/11/18 04:12 Pulse Ox 94 L 08/11/18 04:12 Intake & Output 08/10/18 08/11/18 08/11/18 18:59 06:59 18:59 Intake Total 1200 Balance 1200 Intake: Oral 1200 Other: Voiding Method Toilet Toilet Toilet Diaper Diaper Diaper Incontinent Incontinent Incontinent # Voids 3 1 - Exam Gen.: Patient is alert and oriented 3, tachypnea with ambulation Cardiovascular: Regular rate and rhythm, S1/S2 Lungs: Diminished breath sounds bilaterally no wheezes rales or rhonchi Abdomen: Soft nontender nondistended positive bowel sounds Extremities: No edema - Labs CBC & Chem 7: 08/08/18 11:22 08/08/18 11:22 Assessment and Plan Assessment: Acute exacerbation of COPD, moderate with FEV1 52% of predicted Acute on chronic hypoxic respiratory failure Acute exacerbation of severe persistent asthma Schizoaffective disorder Obesity Hypertension History of tobacco abuse, now in remission O2 to maintain saturation greater than or equal to 90% Pulmicort - increase to 1 mg BID Add Perforomist Duo nebs Singulair Steroid taper Incentive spirometry and pulmonary hygiene Mucinex Antibiotics: Doxycycline GI and DVT prophylaxis Continued Smoking cessation is highly recommended Check echocardiogram with bubble study
[2018-08-11] MEDS ORDERED: DOXYCYCLINE 100 MG CAP PO SCH (10:15)
--- NOTE | 2018-08-11 12:33 | ECHOF ---
Referral Reason:With bubble study, hypoxia, SOB MEASUREMENTS -------- HEIGHT: 162.6 cm WEIGHT: 96.2 kg BP: 135/61 RVIDd: 3.5 cm (< 3.3) IVSd: 1.4 cm (0.6 - 1.1) LVIDd: 3.9 cm (3.9 - 5.3) LVPWd: 1.4 cm (0.6 - 1.1) IVSs: 2.0 cm LVIDs: 2.4 cm LVPWs: 1.7 cm LA Diam: 3.1 cm (2.7 - 3.8) LAESV Index (A-L): 25.39 ml/m Ao Diam: 3.4 cm (2.0 - 3.7) AV Cusp: 2.0 cm (1.5 - 2.6) MV E Irwin: 1.21 m/s MV DecT: 240 ms MV A Irwin: 1.10 m/s MV E/A Ratio: 1.10 RAP: 5.00 mmHg RVSP: 22.74 mmHg FINDINGS -------- Sinus rhythm. This was a technically adequate study. The left ventricular size is normal. There is moderate concentric left ventricular hypertrophy. O verall left ventricular systolic function is normal with, an EF between 60 - 65 %. The right ventricle is mildly enlarged. Left atrium is normal size by volume. The right atrium is normal in size and function. Contrast study was performed with 2 iv injections of 8 ccs of agitated normal saline, at rest, and wi th cough. Interatrial and interventricular septum intact. The aortic valve was not well visualized. There is trace mitral regurgitation. Trace tricuspid regurgitation present. Right ventricular systolic pressure is normal at < 35 mmHg. The aortic root size is normal. The inferior vena cava was not well visualized. There is no pericardial effusion. CONCLUSIONS -------- 1. Sinus rhythm. 2. This was a technically adequate study. 3. The left ventricular size is normal. 4. There is moderate concentric left ventricular hypertrophy. 5. Overall left ventricular systolic function is normal with, an EF between 60 - 65 %. 6. The right ventricle is mildly enlarged. 7. Left atrium is normal size by volume. 8. The right atrium is normal in size and function. 9. Contrast study was performed with 2 iv injections of 8 ccs of agitated normal saline, at rest, and with cough. 10. Interatrial and interventricular septum intact. 11. The aortic valve was not well visualized. 12. There is trace mitral regurgitation. 13. Trace tricuspid regurgitation present. 14. Right ventricular systolic pressure is normal at < 35 mmHg. 15. The aortic root size is normal. 16. The inferior vena cava was not well visualized. 17. There is no pericardial effusion. ORACLE DEVELOPER: CHEN Sharma
[2018-08-11] MEDS ORDERED: BUDESONIDE 1 MG/2 ML NEBU INHALATION SCH (20:00)
[2018-08-11] MEDS ORDERED: FORMOTEROL FUMARATE 20 MCG/2 ML NEBU INHALATION SCH (20:00)
--- NOTE | 2018-08-13 17:53 | P.DS ---
Providers Date of admission: 08/08/18 12:42 Expected date of discharge: 08/11/18 Attending physician: Joni Pathak Consults: 08/08/18 12:42 Consult Physician Routine Consulting Provider: Cole Harmon Consult Reason/Comments: dyspnea Do you want consulting provider notified?: Yes Primary care physician: [facility] Course: Final Diagnosis: -Acute COPD exacerbation, acute severe persistent asthma exac. -Acute on chronic hypoxic respiratory failure -Schizoaffective disorder -Hypertension -Nicotine dependence -Obesity, BMI 36.4 Hospital course: This is a 73-year-old female admitted with acute COPD/asthma exacerbation. Maintained on aggressive pulmonary toileting,nebulized bronchodilators, steroids, antibiotics with significant improvement. Smoking c essation reinforced. Patient is being discharged home in a stable condition with guarded prognosis. EXAM:CV; Regular S1,S2, Lungs dimished, no rhonchi, crackles or wheezes. ABD: soft, nontender, +BS. Neuro: no focal deficits. The impression and plan of care has been dictated as directed. : I performed a history and examination of this patient, discussed the same with the dictator. I agree with the dictator's note ,documented as a scribe. Any additional findings or plans will be noted. Time taken: 35 minutes Patient Condition at Discharge: Stable Plan - Discharge Summary Discharge Rx Participant: No New Discharge Prescriptions: New predniSONE 10 mg PO DIRECTED #30 tab Doxycycline [Vibramycin] 100 mg PO BID #10 cap Omeprazole [PriLOSEC] 20 mg PO AC-BID #30 cap Continue Spironolactone [Aldactone] 12.5 mg PO DAILY QUEtiapine FUMARATE [SEROquel XR] 300 mg PO HS Metoprolol Tartrate [Lopressor] 12.5 mg PO BID Haloperidol [Haldol] 5 mg PO BID clonazePAM [KlonoPIN] 0.5 mg PO QID Ipratropium/Albuterol Sulfate [Combivent Respimat Inhaler] 2 puff INHALATION RT-BID Benztropine Mesylate 1 mg PO TID Atorvastatin [Lipitor] 80 mg PO HS Albuterol Nebulized [Ventolin Nebulized] 2.5 mg INHALATION RT-BID PRN PRN Reason: Shortness Of Breath Aspirin EC [Ecotrin Low Dose] 81 mg PO DAILY Multivitamin [Multivitamins Adult Gummies] 1 tab PO DAILY Albuterol Inhaler [Ventolin Hfa Inhaler] 2 puff INHALATION RT-Q6H PRN PRN Reason: Bronchodilation Ibuprofen [Motrin] 400 mg PO DAILY Sertraline [Zoloft] 50 mg PO DAILY Montelukast [Singulair] 10 mg PO DAILY Beclomethasone Dipropionate [Qvar 80 mcg] 2 puff INHALATION RT-BID Discharge Medication List Albuterol Nebulized [Ventolin Nebulized] 2.5 mg INHALATION RT-BID PRN 12/06/15 [History] Aspirin EC [Ecotrin Low Dose] 81 mg PO DAILY 12/06/15 [History] Atorvastatin [Lipitor] 80 mg PO HS 12/06/15 [History] Benztropine Mesylate 1 mg PO TID 12/06/15 [History] Haloperidol [Haldol] 5 mg PO BID 12/06/15 [History] Ipratropium/Albuterol Sulfate [Combivent Respimat Inhaler] 2 puff INHALATION RT- BID 12/06/15 [History] Metoprolol Tartrate [Lopressor] 12.5 mg PO BID 12/06/15 [History] Multivitamin [Multivitamins Adult Gummies] 1 tab PO DAILY 12/06/15 [History] QUEtiapine FUMARATE [SEROquel XR] 300 mg PO HS 12/06/15 [History] Spironolactone [Aldactone] 12.5 mg PO DAILY 12/06/15 [History] clonazePAM [KlonoPIN] 0.5 mg PO QID 12/06/15 [History] Albuterol Inhaler [Ventolin Hfa Inhaler] 2 puff INHALATION RT-Q6H PRN 01/17/16 [History] Ibuprofen [Motrin] 400 mg PO DAILY 06/21/16 [History] Beclomethasone Dipropionate [Qvar 80 mcg] 2 puff INHALATION RT-BID 08/08/18 [History] Montelukast [Singulair] 10 mg PO DAILY 08/08/18 [History] Sertraline [Zoloft] 50 mg PO DAILY 08/08/18 [History] Doxycycline [Vibramycin] 100 mg PO BID #10 cap 08/11/18 [Rx] Omeprazole [PriLOSEC] 20 mg PO AC-BID #30 cap 08/11/18 [Rx] predniSONE 10 mg PO DIRECTED #30 tab 08/11/18 [Rx] Follow up Appointment(s)/Referral(s): Joni Pathak MD [Primary Care Provider] - 08/17/18 11:15 am Cole Harmon MD [STAFF PHYSICIAN] - 08/19/18 9:30 am ([address]) Patient Instructions/Handouts: Doxycycline (By mouth), Prednisone (By mouth), Omeprazole (By mouth), COPD (Chronic Obstructive Pulmonary Disease) (DC) Activity/Diet/Wound Care/Special Instructions: 4lNC O2 as at home Discharge Disposition: HOME SELF-CARE
== END 2018-08-11 12:40 | disposition home or self-care (01) ==
LOC: EC 10:58 → 3NMEDONC 12:42
PROVIDERS: ADMIT Family Medicine; ATTEND Family Medicine
DX: J44.1 Chronic obstructive pulmonary disease with (acute) exacerbation (principal); J45.51 Severe persistent asthma with (acute) exacerbation; J96.21 Acute and chronic respiratory failure with hypoxia; E78.5 Hyperlipidemia, unspecified; I10 Essential (primary) hypertension; F25.9 Schizoaffective disorder, unspecified; R32 Unspecified urinary incontinence; E66.9 Obesity, unspecified; Z68.36 Body mass index [BMI] 36.0-36.9, adult; Z79.82 Long term (current) use of aspirin; Z79.899 Other long term (current) drug therapy; Z79.1 Long term (current) use of non-steroidal anti-inflammatories (NSAID); Z88.0 Allergy status to penicillin; Z91.018 Allergy to other foods; Z99.81 Dependence on supplemental oxygen; Z87.891 Personal history of nicotine dependence; Z83.3 Family history of diabetes mellitus
CPT/HCPCS: 96376 ×4; 96372 ×2; 96374; 99285; 36415; 94640 ×7; 94760; 93005; 93306; 80053; 85025; 71046; 71260; G0378 ×4; J1644 ×2; J2920 ×2; J2930 ×3; Q9967

== ENCOUNTER → 2018-10-23 | Outpatient (CLI) | payer MEDICARE, OTHER ==
[2018-10-23 18:50] LABS: African American GFR (CKD) 85.4 (60.0-200.0); Anion Gap 6.4 mmol/L (4.00-12.00); Carbon Dioxide 31.6 mmol/L (21.6-31.8); LDL Cholesterol,Calculated 109.4 mg/dL (0.0-131.0); Potassium 4.3 mmol/L (3.5-5.5); VLDL Calculation 40.6 mg/dL (5.00-40.00)
[2018-10-23 23:55] LABS: Hemoglobin A1C 6.2 % (4.0-6.0)
== END | disposition home or self-care (01) ==
LOC: LABWHC1 11:30
PROVIDERS: ATTEND Family Medicine
DX: E11.9 Type 2 diabetes mellitus without complications (principal); I10 Essential (primary) hypertension; Z79.899 Other long term (current) drug therapy
CPT/HCPCS: 36415; 80051; 80061; 82565; 83036; 84443; 84520

== ENCOUNTER 2019-12-29 13:55 | Observation (INO) | payer MEDICARE, OTHER ==
[2019-12-29] MEDS ORDERED: SODIUM CHLORIDE 0.9% 500 ML 500 ML IV STA (14:26)
[2019-12-29] MEDS ORDERED: methylPREDNISolone SOD SUCCI 125 MG/2 ML VIAL IV STA (14:26)
[2019-12-29] MEDS ORDERED: IPRATROPIUM-ALBUTEROL 3 ML NEB INHALATION STA (14:26)
[2019-12-29] MEDS ORDERED: SODIUM CHLORIDE 0.9% 1,000 ML IV STA (14:26)
--- NOTE | 2019-12-29 14:29 | ED ---
General Adult HPI - General Chief complaint: Shortness of Breath Stated complaint: SOB Time Seen by Provider: 12/29/19 14:01 Source: EMS, RN notes reviewed, old records reviewed Mode of arrival: EMS Limitations: no limitations - History of Present Illness Initial comments: Patient is a 74-year-old female with a history of COPD presents emergency department today with 2-3 days of worsening shortness of breath. She reports that she is on oxygen at all times and typically 4 L. She reports that she's had some increasing cough with yellow to clear phlegm. She denies chest pain. She denies leg swelling. She denies any recorded fevers or chills at home. She reports that she called her primary care doctor who told her to come to the ER. Denies recent steroid or antibiotic use.Patient was given breathing treatments by EMS prior to arrival. - Related Data Home Medications Medication Instructions Recorded Confirmed Albuterol Nebulized [Ventolin 2.5 mg INHALATION RT-BID PRN 12/06/15 08/08/18 Nebulized] Aspirin EC [Ecotrin Low Dose] 81 mg PO DAILY 12/06/15 08/08/18 Atorvastatin [Lipitor] 80 mg PO HS 12/06/15 08/08/18 Benztropine Mesylate 1 mg PO TID 12/06/15 08/08/18 Ipratropium/Albuterol Sulfate 2 puff INHALATION RT-BID 12/06/15 08/08/18 [Combivent Respimat Inhaler] Metoprolol Tartrate [Lopressor] 12.5 mg PO BID 12/06/15 08/08/18 Multivitamin [Multivitamins Adult 1 tab PO DAILY 12/06/15 08/08/18 Gummies] QUEtiapine FUMARATE [SEROquel XR] 300 mg PO HS 12/06/15 08/08/18 Spironolactone [Aldactone] 12.5 mg PO DAILY 12/06/15 08/08/18 clonazePAM [KlonoPIN] 0.5 mg PO QID 12/06/15 08/08/18 haloperidoL [Haldol] 5 mg PO BID 12/06/15 08/08/18 Albuterol Inhaler (Mhu) [Ventolin 2 puff INHALATION RT-Q6H PRN 01/17/16 08/08/18 Hfa Inhaler (Mhu)] Ibuprofen [Motrin] 400 mg PO DAILY 06/21/16 08/08/18 Beclomethasone Dipropionate [Qvar 2 puff INHALATION RT-BID 08/08/18 08/08/18 80 mcg] Montelukast [Singulair] 10 mg PO DAILY 08/08/18 08/08/18 Sertraline [Zoloft] 50 mg PO DAILY 08/08/18 08/08/18 Previous Rx's Medication Instructions Recorded Doxycycline [Vibramycin] 100 mg PO BID #10 cap 08/11/18 Omeprazole [PriLOSEC] 20 mg PO AC-BID #30 cap 08/11/18 predniSONE 10 mg PO DIRECTED #30 tab 08/11/18 Allergies Allergy/AdvReac Type Severity Reaction Status Date / Time grapefruit Allergy Rash/Hives Verified 12/29/19 14:03 Penicillins Allergy Rash/Hives Verified 12/29/19 14:03 Review of Systems ROS Statement: Those systems with pertinent positive or pertinent negative responses have been documented in the HPI. ROS Other: All systems not noted in ROS Statement are negative. Past Medical History Past Medical History: COPD, Hyperlipidemia, Hypertension Additional Past Medical History / Comment(s): home 02 3 liters n/c, SCHIZOAFFECTIVE DISORDER, INCONT OF URINE THAT JUST RECENTLY STARTED. CONSTIPATION. History of Any Multi-Drug Resistant Organisms: None Reported Past Surgical History: Orthopedic Surgery, Tonsillectomy, Tubal Ligation Additional Past Surgical History / Comment(s): right knee arthroscopy, FELL,BROKE RT LEG-HAD SX--PLATE AND SCREWS, colonoscopy, LILA CATARACTS, LT EYE SX FOR GLAUCOMA Past Anesthesia/Blood Transfusion Reactions: No Reported Reaction Past Psychological History: Schizoaffective Disorder Smoking Status: Never smoker Past Alcohol Use History: Occasional Past Drug Use History: None Reported - Past Family History Mother Family Medical History: Diabetes Mellitus Additional Family Medical History / Comment(s): GRANDMOTHER HAD DM Father Family Medical History: No Reported History Additional Family Medical History / Comment(s): UNK- PT WAS RAISED BY STEP FATHER General Exam - General Exam Comments Initial Comments: This patient's alert and oriented 74-year-old female. No distress. Limitations: no limitations General appearance: alert, in no apparent distress Head exam: Present: atraumatic Eye exam: Present: normal appearance, PERRL, EOMI. Absent: scleral icterus, conjunctival injection, periorbital swelling ENT exam: Present: normal exam, mucous membranes moist Neck exam: Present: normal inspection. Absent: tenderness, meningismus, lymphadenopathy Respiratory exam: Present: wheezes. Absent: normal lung sounds bilaterally, respiratory distress, rales, rhonchi, stridor Cardiovascular Exam: Present: regular rate, normal rhythm, normal heart sounds. Absent: systolic murmur, diastolic murmur, rubs, gallop, clicks GI/Abdominal exam: Present: soft, normal bowel sounds. Absent: distended, tenderness, guarding, rebound, rigid Extremities exam: Present: normal inspection, full ROM, normal capillary refill. Absent: tenderness, pedal edema, joint swelling, calf tenderness Back exam: Present: normal inspection Neurological exam: Present: alert, oriented X3, CN II-XII intact Psychiatric exam: Present: normal affect, normal mood Skin exam: Present: warm, dry, intact, normal color. Absent: rash Course Vital Signs 12/29/19 12/29/19 12/29/19 13:58 14:01 15:00 Temperature 98.0 F Pulse Rate 70 61 Respiratory 16 20 Rate Blood Pressure 159/62 132/61 O2 Sat by Pulse 97 96 93 L Oximetry 12/29/19 15:04 Temperature Pulse Rate 61 Respiratory 16 Rate Blood Pressure O2 Sat by Pulse Oximetry Medical Decision Making - Medical Decision Making Patient sent 4-year-old female history of COPD. Patient presents today with worsening shortness of breath cough for the past 3 days. Patient was given 2 breathing treatments prior to arrival as well as 1) right ear. She is on 4 L of oxygen satting at 92-93%. Chest x-rays reviewed and shows evidence of COPD with no focal infiltrate. Labs reviewed and unremarkable. When discussing all: Patient Patient states she feels she is not comfortable went home she'll fill like she'll be back here again with difficulty breathing. Patient is agreeable to plan. Case with Dr. Soto whom discussed the case with Dr. Leos. - Lab Data Result diagrams: 12/29/19 14:35 12/29/19 14:35 Lab Results 12/29/19 12/29/19 12/29/19 Range/Units 14:35 14:35 14:35 WBC 9.4 (3.8-10.6) k/uL RBC 4.06 (3.80-5.40) m/uL Hgb 12.4 (11.4-16.0) gm/dL Hct 35.9 (34.0-46.0) % MCV 88.4 (80.0-100.0) fL MCH 30.5 (25.0-35.0) pg MCHC 34.5 (31.0-37.0) g/dL RDW 13.6 (11.5-15.5) % Plt Count 279 (150-450) k/uL Neutrophils % 73 % Lymphocytes % 15 % Monocytes % 6 % Eosinophils % 3 % Basophils % 1 % Neutrophils # 6.9 (1.3-7.7) k/uL Lymphocytes # 1.5 (1.0-4.8) k/uL Monocytes # 0.6 (0-1.0) k/uL Eosinophils # 0.3 (0-0.7) k/uL Basophils # 0.1 (0-0.2) k/uL PT 9.5 (9.0-12.0) sec INR 0.9 (<1.2) APTT 20.0 L (22.0-30.0) sec Sodium 139 (137-145) mmol/L Potassium 4.5 (3.5-5.1) mmol/L Chloride 104 (98-107) mmol/L Carbon Dioxide 28 (22-30) mmol/L Anion Gap 7 mmol/L BUN 21 H (7-17) mg/dL Creatinine 0.81 (0.52-1.04) mg/dL Est GFR (CKD-EPI)AfAm 84 (>60 ml/min/1.73 sqM) Est GFR (CKD-EPI)NonAf 73 (>60 ml/min/1.73 sqM) Glucose 102 H (74-99) mg/dL Plasma Lactic Acid Master (0.7-2.0) mmol/L Calcium 9.2 (8.4-10.2) mg/dL Magnesium 1.8 (1.6-2.3) mg/dL Total Bilirubin 0.5 (0.2-1.3) mg/dL AST 29 (14-36) U/L ALT 23 (4-34) U/L Alkaline Phosphatase 96 (38-126) U/L Troponin I (0.000-0.034) ng/mL NT-Pro-B Natriuret Pep pg/mL Total Protein 7.2 (6.3-8.2) g/dL Albumin 4.2 (3.5-5.0) g/dL 12/29/19 12/29/19 12/29/19 Range/Units 14:35 14:35 14:35 WBC (3.8-10.6) k/uL RBC (3.80-5.40) m/uL Hgb (11.4-16.0) gm/dL Hct (34.0-46.0) % MCV (80.0-100.0) fL MCH (25.0-35.0) pg MCHC (31.0-37.0) g/dL RDW (11.5-15.5) % Plt Count (150-450) k/uL Neutrophils % % Lymphocytes % % Monocytes % % Eosinophils % % Basophils % % Neutrophils # (1.3-7.7) k/uL Lymphocytes # (1.0-4.8) k/uL Monocytes # (0-1.0) k/uL Eosinophils # (0-0.7) k/uL Basophils # (0-0.2) k/uL PT (9.0-12.0) sec INR (<1.2) APTT (22.0-30.0) sec Sodium (137-145) mmol/L Potassium (3.5-5.1) mmol/L Chloride (98-107) mmol/L Carbon Dioxide (22-30) mmol/L Anion Gap mmol/L BUN (7-17) mg/dL Creatinine (0.52-1.04) mg/dL Est GFR (CKD-EPI)AfAm (>60 ml/min/1.73 sqM) Est GFR (CKD-EPI)NonAf (>60 ml/min/1.73 sqM) Glucose (74-99) mg/dL Plasma Lactic Acid Master 0.9 (0.7-2.0) mmol/L Calcium (8.4-10.2) mg/dL Magnesium (1.6-2.3) mg/dL Total Bilirubin (0.2-1.3) mg/dL AST (14-36) U/L ALT (4-34) U/L Alkaline Phosphatase (38-126) U/L Troponin I <0.012 (0.000-0.034) ng/mL NT-Pro-B Natriuret Pep 119 pg/mL Total Protein (6.3-8.2) g/dL Albumin (3.5-5.0) g/dL 12/29/19 14:47 EKG performed at 1418 shows a sinus rhythm with occasional PVCs. Otherwise normal EKG. Ventricular rate of 67 bpm. Verbal is 162 ms. QRS duration 78 ms. QT QTc is 452/477 ms. - Radiology Data Radiology results: report reviewed Chest x-ray shows COPD with no focal infiltrate. Interstitial is stable from prior exam and really to chronic interstitial lung disease. Disposition Clinical Impression: COPD exacerbation Disposition: ADMITTED IP TO THIS HOSP Condition: Good Is patient prescribed a controlled substance at d/c from ED?: No Referrals: Joni Pathak MD [Primary Care Provider] - 1-2 days Time of Disposition: 16:18
[2019-12-29 14:47] LABS: Basophils # (A) 0.1 k/uL (0-0.2); Basophils % (A) 1 %; Eosinophils # (A) 0.3 k/uL (0-0.7); Eosinophils % (A) 3 %; HCT 35.9 % (34.0-46.0); HGB 12.4 gm/dL (11.4-16.0); Lymphocytes # (A) 1.5 k/uL (1.0-4.8); Lymphocytes % (A) 15 %; MCH 30.5 pg (25.0-35.0); MCHC 34.5 g/dL (31.0-37.0); MCV 88.4 fL (80.0-100.0); Monocytes # (A) 0.6 k/uL (0-1.0); Monocytes % (A) 6 %; Neutrophils # (A) 6.9 k/uL (1.3-7.7); Neutrophils % (A) 73 %; Platelet Count 279 k/uL (150-450); RBC 4.06 m/uL (3.80-5.40); RDW 13.6 % (11.5-15.5); WBC 9.4 k/uL (3.8-10.6)
[2019-12-29 15:02] LABS: Albumin 4.2 g/dL (3.5-5.0); Calcium 9.2 mg/dL (8.4-10.2); INR 0.9 (<1.2); Magnesium 1.8 mg/dL (1.6-2.3); Potassium 4.5 mmol/L (3.5-5.1); Prothrombin Time 9.5 sec (9.0-12.0); Total Bilirubin 0.5 mg/dL (0.2-1.3); Total Protein 7.2 g/dL (6.3-8.2)
--- NOTE | 2019-12-29 15:06 | XR ---
EXAMINATION TYPE: XR chest 2V DATE OF EXAM: 12/29/2019 COMPARISON: 08/08/2018 TECHNIQUE: PA and lateral views submitted. HISTORY: Shortness of breath FINDINGS: Coarsened interstitium with hyperinflation. Arthropathy of the shoulders. No focal pneumonia. Degener ative change of the spine. IMPRESSION: 1. COPD with no focal infiltrate. Interstitium stable from prior exam and appears related to chronic interstitial lung disease.
[2019-12-29] MEDS: BUDESONIDE 0.5 MG/2 ML NEBU INHALATION SCH (19:08)
--- NOTE | 2019-12-29 19:46 | CT ---
EXAMINATION TYPE: CT chest wo con DATE OF EXAM: 12/29/2019 COMPARISON: 08/09/2018 HISTORY: SOB CT DLP: 541.4 mGycm Automated exposure control for dose reduction was used. There is mild diffuse pulmonary emphysema. There is some linear density in the lingula left upper lob e consistent with minimal scarring and subsegmental atelectasis. There is no pleural effusion. There is no pericardial effusion. Heart size is normal. There are no hilar masses. There is no mediastinal adenopathy. Thoracic aorta is atheromatous. There is no evidence of aneurysm. Thoracic spine is intact. There is no compression fracture. There is spurring of the endplates. Rodas um is intact. Shoulder joints appear intact. The ribs appear intact. I see no focal bone destruction. Upper abdominal soft tissues are intact. IMPRESSION: Mild pulmonary emphysema. Minimal fibrotic changes. There is clearing of the atelectasis at the lung bases compared to old exam. Atherosclerotic vascular disease. No suspicious pulmonary mass.
[2019-12-29] MEDS: SODIUM CHLORIDE 0.9% 1,000 ML IV SCH (19:55)
[2019-12-29] MEDS: methylPREDNISolone SOD SUCCI 125 MG/2 ML VIAL IV SCH (20:20)
--- NOTE | 2019-12-29 20:20 | HP ---
HISTORY AND PHYSICAL This patient is a 74-year-old white female with COPD exacerbation 2-3 days worsening shortness of breath. Her daughter says she is having difficulty breathing, worsening despite 4 L oxygen that she normally takes. She had some increasing cough with green and yellow phlegm. Denies any chest pain, fevers or chills. Due to increasing breathing with any speaking words while sitting down speech, shortness of breath, she was admitted to the hospital. She is saturating in the 88 to 90 range on 4 L. MEDICATIONS: See list. ALLERGIES: GRAPEFRUIT, PENICILLIN. REVIEW OF SYSTEMS: Fourteen-point review of systems: PND, orthopnea, dyspnea with exertion and speech dyspnea. PAST MEDICAL HISTORY: COPD, hypertension, dyslipidemia, schizoaffective disorder. SURGICAL HISTORY: Orthopedic surgery, tonsillectomy, tubal ligation, right knee arthroscopy, plate and screws in the right leg, colonoscopy, bilateral cataract repair. SOCIAL HISTORY: No smoking. No alcohol. No drugs. FAMILY HISTORY: Mother with diabetes mellitus. Father unsure. PHYSICAL EXAMINATION: GENERAL APPEARANCE: Obese white female. Respiratory distress is mild at rest. HEENT: Normocephalic, atraumatic. Pupils equal, round, reactive. ENT: External ear canals within normal limits. LUNGS: Decreased breath sounds x4. Scattered wheeze x4. HEART: S1, S2. No murmurs, rubs, gallops. GI: Distended due to obesity. No guarding or rebound. EXTREMITIES: Two plus edema. BACK: Normal to inspection. NEUROLOGIC: Cranial nerves intact. PSYCH: Flat mood and affect. As mentioned, blood pressure 130s to 150s over 60s, oxygenation 93-97, temperature 98, pulse 60s to 70s, respiratory 16-20. ASSESSMENT: 1. Chronic obstructive pulmonary disease exacerbation. 2. Tracheobronchitis. 3. Acute hypoxemic respiratory distress, worsening from her baseline secondary to above. 4. Schizoaffective. 5. Osteoarthritis. 6. Prerenal renal insufficiency, dehydration due to elevated BUN. Fluid rehydration is being given. Steroids are being given. Updrafts. Start her on azithromycin. Do CT of the chest. Follow up, possible discharge in 24 to 48 hours. MMODL / IJN: [id number] /
[2019-12-29 20:23] LABS: Glucose,Whole Blood 215 mg/dL (75-99)
[2019-12-29] MEDS: AZITHROMYCIN 500 MG in SODIUM CHLORIDE 0.9% 250 ML IVPB SCH (20:32)
[2019-12-29] MEDS: INSULIN ASPART (NovoLOG) 100 UNIT/ML VIAL SQ SCH ×2 (20:33→20:38)
[2019-12-29] MEDS: haloperidoL 5 MG TAB PO SCH (20:38)
[2019-12-29] MEDS: guaiFENesin 600 MG TABLET.ER PO SCH (20:38)
[2019-12-29] MEDS: SUCRALFATE 1 GM TAB PO SCH (20:39)
[2019-12-29] MEDS: METOPROLOL TARTRATE 12.5 MG TAB PO SCH (20:39)
[2019-12-29] MEDS: MONTELUKAST 10 MG TAB PO SCH (20:39)
[2019-12-29] MEDS: QUEtiapine 100 MG TAB PO SCH (20:39)
[2019-12-29] MEDS: clonazePAM 0.5 MG TAB PO SCH (20:40)
[2019-12-29] MEDS: BENZTROPINE MESYLATE 1 MG TAB PO SCH (20:40)
[2019-12-30] MEDS: methylPREDNISolone SOD SUCCI 125 MG/2 ML VIAL IV SCH ×5 (00:03→23:42)
[2019-12-30] MEDS: SODIUM CHLORIDE 0.9% 1,000 ML IV SCH ×4 (00:03→23:37)
[2019-12-30 06:33] LABS: Glucose,Whole Blood 152 mg/dL (75-99)
[2019-12-30] MEDS: BUDESONIDE 0.5 MG/2 ML NEBU INHALATION SCH ×2 (07:30→20:05)
[2019-12-30] MEDS: IPRATROPIUM-ALBUTEROL 3 ML NEB INHALATION PRN ×3 (07:30→20:05)
[2019-12-30] MEDS: guaiFENesin 600 MG TABLET.ER PO SCH ×2 (07:56→21:55)
[2019-12-30] MEDS: METOPROLOL TARTRATE 12.5 MG TAB PO SCH ×2 (07:56→21:56)
[2019-12-30] MEDS: INSULIN ASPART (NovoLOG) 100 UNIT/ML VIAL SQ SCH ×4 (07:56→21:56)
[2019-12-30] MEDS: haloperidoL 5 MG TAB PO SCH ×2 (07:57→22:14)
[2019-12-30] MEDS: ASPIRIN 81 MG PO SCH (07:57)
[2019-12-30] MEDS: clonazePAM 0.5 MG TAB PO SCH ×4 (07:57→21:55)
[2019-12-30] MEDS: SUCRALFATE 1 GM TAB PO SCH ×2 (07:57→22:14)
[2019-12-30] MEDS: BENZTROPINE MESYLATE 1 MG TAB PO SCH ×3 (07:58→22:14)
[2019-12-30] MEDS: QUEtiapine 100 MG TAB PO SCH (07:58)
[2019-12-30] MEDS: SPIRONOLACTONE 25 MG TAB PO SCH (07:58)
[2019-12-30] MEDS: SERTRALINE 25 MG TAB PO SCH (07:59)
[2019-12-30] MEDS: AZITHROMYCIN 500 MG in SODIUM CHLORIDE 0.9% 250 ML IVPB SCH (08:06)
--- NOTE | 2019-12-30 10:31 | DS ---
DISCHARGE SUMMARY An 84-year-old white female admitted with COPD exacerbation and tracheobronchitis, hypertension, anxiety, depression, GERD, obesity, osteoarthritis, degenerative disk disease, difficulty ambulating. Breathing has been worsened over the past few days, to be admitted for 23 hours. She was found on CAT scan to have no pneumonia and clearing of her CAT scan. Her breathing was decreased 88 on 4 L on admission. She is now 90 on 4 L. She requests to go home. States her breathing has worsened in the last few days. She has been coughing up some mild yellow phlegm. We started her on azithromycin and steroids overnight. She is better. We are going to send her home on antibiotics, steroids, and take her off Qvar inhalation, put her on Pulmicort 0.5 b.i.d. nebulizer. Follow up in the next 24-48 hours as an outpatient. ERIKA / JAQUAN: [id number] /
[2019-12-30 11:43] LABS: Glucose,Whole Blood 153 mg/dL (75-99)
[2019-12-30] MEDS: polyethylene glycoL 3350 17 GM POWD.PACK PO SCH (14:58)
[2019-12-30 16:34] LABS: Glucose,Whole Blood 195 mg/dL (75-99)
--- NOTE | 2019-12-30 17:36 | ECHOF ---
Referral Reason:dyspnea MEASUREMENTS -------- HEIGHT: 162.6 cm WEIGHT: 92.1 kg BP: 165/73 RVIDd: 3.5 cm (< 3.3) IVSd: 1.5 cm (0.6 - 1.1) LVIDd: 3.1 cm (3.9 - 5.3) LVPWd: 1.3 cm (0.6 - 1.1) IVSs: 2.0 cm LVIDs: 1.8 cm LVPWs: 1.9 cm LA Diam: 3.2 cm (2.7 - 3.8) Ao Diam: 3.4 cm (2.0 - 3.7) AV Cusp: 2.1 cm (1.5 - 2.6) MV E Irwin: 1.16 m/s MV DecT: 241 ms MV A Irwin: 1.31 m/s MV E/A Ratio: 0.88 RAP: 5.00 mmHg RVSP: 38.98 mmHg FINDINGS -------- Sinus rhythm. This was a technically difficult study with suboptimal views. The left ventricular size is normal. There is moderate concentric left ventricular hypertrophy. O verall left ventricular systolic function is normal with, an EF between 55 - 60 %. The right ventricle is mildly enlarged. The left atrial size is normal. The right atrial size is normal. Lumason used Interatrial and interventricular septum intact. The aortic valve was not well visualized. The mitral valve was not well visualized. Mild tricuspid regurgitation present. There is mild pulmonary hypertension. The right ventricular systolic pressure, as measured by Doppler, is 38.98mmHg. The pulmonic valve was not well visualized. The aortic root size is normal. Normal inferior vena cava with normal inspiratory collapse consistent with estimated right atrial pre ssure of 5 mmHg. The inferior vena cava is mildly dilated. There is no pericardial effusion. CONCLUSIONS -------- 1. This was a technically difficult study with suboptimal views. 2. There is moderate concentric left ventricular hypertrophy. 3. Overall left ventricular systolic function is normal with, an EF between 55 - 60 %. 4. The right ventricle is mildly enlarged. 5. The left atrial size is normal. 6. Lumason used 7. Mild tricuspid regurgitation present. 8. There is mild pulmonary hypertension. 9. The inferior vena cava is mildly dilated. 10. There is no pericardial effusion. TABLEAU ANALYST: Yani Hopson RDCS
[2019-12-30 21:04] LABS: Glucose,Whole Blood 182 mg/dL (75-99)
[2019-12-30] MEDS ORDERED: QUEtiapine 50 MG TAB PO SCH (21:54)
[2019-12-30] MEDS: MONTELUKAST 10 MG TAB PO SCH (21:55)
[2019-12-31] MEDS: methylPREDNISolone SOD SUCCI 125 MG/2 ML VIAL IV SCH ×2 (06:12→12:10)
[2019-12-31 06:17] LABS: Glucose,Whole Blood 150 mg/dL (75-99)
[2019-12-31] MEDS: QUEtiapine 100 MG TAB PO SCH (07:20)
[2019-12-31 07:23] VITALS: BP 169/75; RESP 16; TEMP 99.2
[2019-12-31] MEDS: AZITHROMYCIN 500 MG in SODIUM CHLORIDE 0.9% 250 ML IVPB SCH (07:30)
[2019-12-31] MEDS: INSULIN ASPART (NovoLOG) 100 UNIT/ML VIAL SQ SCH ×2 (07:32→12:10)
[2019-12-31] MEDS: guaiFENesin 600 MG TABLET.ER PO SCH (07:32)
[2019-12-31] MEDS: SPIRONOLACTONE 25 MG TAB PO SCH (07:33)
[2019-12-31] MEDS: METOPROLOL TARTRATE 12.5 MG TAB PO SCH (07:33)
[2019-12-31] MEDS: ASPIRIN 81 MG PO SCH (07:34)
[2019-12-31] MEDS: clonazePAM 0.5 MG TAB PO SCH ×2 (07:34→12:10)
[2019-12-31] MEDS: polyethylene glycoL 3350 17 GM POWD.PACK PO SCH (07:35)
[2019-12-31] MEDS: IPRATROPIUM-ALBUTEROL 3 ML NEB INHALATION PRN ×2 (07:35→11:13)
[2019-12-31] MEDS: BUDESONIDE 0.5 MG/2 ML NEBU INHALATION SCH (07:35)
[2019-12-31] MEDS: SERTRALINE 25 MG TAB PO SCH (07:36)
[2019-12-31] MEDS: BENZTROPINE MESYLATE 1 MG TAB PO SCH (07:36)
[2019-12-31] MEDS: haloperidoL 5 MG TAB PO SCH (07:36)
[2019-12-31] MEDS: SUCRALFATE 1 GM TAB PO SCH (07:37)
[2019-12-31] MEDS: SODIUM CHLORIDE 0.9% 1,000 ML IV SCH (10:09)
--- NOTE | 2019-12-31 11:22 | P.CNPUL ---
History of Present Illness Consult date: 12/31/19 Reason for consult: dyspnea, cough Chief complaint: Shortness of breath and cough for 2-3 days History of present illness: This is a 71-year-old female with history of end-stage COPD came into the hospital with increasing cough congestion shortness of breath patient is on home oxygen 4 L due to increasing breathing difficulty and cough with yellowish sputum production came into the hospital, her admitted chest x-ray consistent with COPD no active pneumonia seen Review of Systems All systems: negative Past Medical History Past Medical History: COPD, Hearing Disorder / Deafness, Hyperlipidemia, Hypertension, Memory Impairment Additional Past Medical History / Comment(s): home 02 3 liters n/c, SCHIZOAFFECTIVE DISORDER, INCONT OF URINE THAT JUST RECENTLY STARTED. CONSTIPATION. History of Any Multi-Drug Resistant Organisms: None Reported Past Surgical History: Orthopedic Surgery, Tonsillectomy, Tubal Ligation Additional Past Surgical History / Comment(s): right knee arthroscopy, FELL,BROKE RT LEG-HAD SX--PLATE AND SCREWS, colonoscopy, LILA CATARACTS, LT EYE SX FOR GLAUCOMA Past Anesthesia/Blood Transfusion Reactions: No Reported Reaction Past Psychological History: Schizoaffective Disorder Additional Psychological History / Comment(s): . Smoking Status: Former smoker Past Alcohol Use History: Occasional Additional Past Alcohol Use History / Comment(s): STARTED SMOKING AT AGE 16, WAS SMOKING 3 PPD WHEN SHE QUIT IN 2014 Past Drug Use History: None Reported - Past Family History Mother Family Medical History: Diabetes Mellitus Additional Family Medical History / Comment(s): GRANDMOTHER HAD DM Father Family Medical History: No Reported History Additional Family Medical History / Comment(s): UNK- PT WAS RAISED BY STEP FATHER Medications and Allergies Home Medications Medication Instructions Recorded Confirmed Type Albuterol Nebulized [Ventolin 2.5 mg INHALATION RT-BID PRN 12/06/15 12/29/19 History Nebulized] Aspirin EC [Ecotrin Low Dose] 81 mg PO DAILY 12/06/15 12/29/19 History Benztropine Mesylate 1 mg PO TID 12/06/15 12/29/19 History Ipratropium/Albuterol Sulfate 2 puff INHALATION RT-BID 12/06/15 12/29/19 History [Combivent Respimat Inhaler] Metoprolol Tartrate [Lopressor] 12.5 mg PO BID 12/06/15 12/29/19 History QUEtiapine FUMARATE [SEROquel XR] 300 mg PO HS 12/06/15 12/29/19 History Spironolactone [Aldactone] 12.5 mg PO DAILY 12/06/15 12/29/19 History clonazePAM [KlonoPIN] 0.5 mg PO QID 12/06/15 12/29/19 History haloperidoL [Haldol] 5 mg PO BID 12/06/15 12/29/19 History Montelukast [Singulair] 10 mg PO HS 08/08/18 12/29/19 History Albuterol Sulfate [Ventolin HFA] 1 - 2 puff INHALATION Q6H PRN 12/29/19 12/29/19 History Sertraline HCl [Zoloft] 25 mg PO DAILY 12/29/19 12/29/19 History Sucralfate [Carafate] 1 gm PO BID 12/29/19 12/29/19 History Budesonide [Pulmicort] 0.5 mg INHALATION RT-BID 90 Days 12/30/19 Rx #180 ml guaiFENesin [Mucinex] 1,200 mg PO Q12HR 30 Days #30 12/30/19 Rx tablet.er Allergies Allergy/AdvReac Type Severity Reaction Status Date / Time grapefruit Allergy Rash/Hives Verified 12/29/19 16:28 Penicillins Allergy Rash/Hives Verified 12/29/19 16:28 Physical Exam Vitals: Vital Signs Temp Pulse Pulse Resp BP Pulse Ox 12/31/19 11:15 72 12/31/19 07:50 70 12/31/19 07:35 66 12/31/19 07:20 99.2 F 66 16 169/75 94 L 12/31/19 02:17 97.6 F 57 L 20 144/70 93 L 12/30/19 20:37 97.7 F 76 20 133/75 90 L 12/30/19 20:19 70 12/30/19 20:05 70 12/30/19 15:10 97.5 F L 72 16 165/73 94 L 12/30/19 13:18 60 Intake and Output 12/30/19 12/31/19 12/31/19 22:59 06:59 14:59 Intake Total 916 Balance 916 Intake: Oral 716 Other 200 Other: Voiding Method Toilet Toilet Toilet # Voids 1 - Constitutional General appearance: average body habitus, cooperative, disheveled - EENT Eyes: EOMI, PERRLA Ears: bilateral: normal - Neck Carotids: bilateral: upstroke normal Thyroid: bilateral: normal size - Respiratory Respiratory: bilateral: diminished - Cardiovascular Rhythm: regular Heart sounds: normal: S1, S2 - Gastrointestinal General gastrointestinal: normal bowel sounds, soft - Neurologic Neurologic: CNII-XII intact - Musculoskeletal Musculoskeletal: gait normal, generalized weakness, strength equal bilaterally - Psychiatric Psychiatric: A&O x's 3, appropriate affect, intact judgment & insight Results - Laboratory Findings CBC and BMP: 12/29/19 14:35 12/29/19 14:35 PT/INR, D-dimer PT 9.5 sec (9.0-12.0) 12/29/19 14:35 INR 0.9 (<1.2) 12/29/19 14:35 D-Dimer 0.39 mg/L FEU (<0.60) 12/29/19 19:44 Abnormal lab findings: Abnormal Labs 12/29/19 12/29/19 12/29/19 14:35 14:35 20:21 APTT 20.0 L BUN 21 H Glucose 102 H POC Glucose (mg/dL) 215 H 12/30/19 12/30/19 12/30/19 06:32 11:41 16:33 APTT BUN Glucose POC Glucose (mg/dL) 152 H 153 H 195 H 12/30/19 12/31/19 21:02 06:15 APTT BUN Glucose POC Glucose (mg/dL) 182 H 150 H - Diagnostic Findings Chest x-ray: report reviewed, image reviewed (Finding as noted above ) Assessment and Plan Assessment: Acute COPD exacerbation Acute on chronic hypoxic respiratory failure Tracheobronchitis Hypertension hypertensive cardiovascular disease Dyslipidemia Plan: Continue breathing treatment, continue steroids, increase activity as tolerated, steroids and antibiotics can be switched to oral agree with discharge planning with follow-up on outpatient basis Time with Patient: Greater than 30
[2019-12-31 11:25] VITALS: PULSE 74
[2019-12-31 11:56] LABS: Glucose,Whole Blood 160 mg/dL (75-99)
--- NOTE | 2019-12-31 14:47 | PN ---
PROGRESS NOTE A 74-year-old white female who was admitted with COPD exacerbation and tracheobronchitis. Received steroids over 24 to 48 hours. She was not improved after 1 day. She went to stay a second day which she states today now she is breathing way better. She responded good to steroids and azithromycin. She will be sent home on a steroid pack and Medrol Dosepak. Follow up as an outpatient. Lungs are clear. CARDIOVASCULAR: S1, S2. O2 was 4 L. PSYCH: Fair mood and affect. ASSESSMENT: COPD exacerbation, tracheobronchitis, acute hypoxemic respiratory distress, improving. Patient will followup in the next 24 to 48 hours in office. MMODL / IJN: [id number] /
[2020-01-01] MEDS ORDERED: AZITHROMYCIN 500 MG TAB PO SCH (09:00)
== END 2019-12-31 14:50 | disposition home or self-care (01) ==
LOC: EC 13:55 → 4SSUR 16:19 → 1SOBS 18:14
PROVIDERS: ADMIT Family Medicine; ATTEND Family Medicine
DX: J44.1 Chronic obstructive pulmonary disease with (acute) exacerbation (principal); J40 Bronchitis, not specified as acute or chronic; I11.9 Hypertensive heart disease without heart failure; F41.9 Anxiety disorder, unspecified; F32.9 Major depressive disorder, single episode, unspecified; E78.5 Hyperlipidemia, unspecified; J96.21 Acute and chronic respiratory failure with hypoxia; K21.9 Gastro-esophageal reflux disease without esophagitis; F25.9 Schizoaffective disorder, unspecified; E66.9 Obesity, unspecified; Z68.34 Body mass index [BMI] 34.0-34.9, adult; Z87.891 Personal history of nicotine dependence; M19.90 Unspecified osteoarthritis, unspecified site; R26.2 Difficulty in walking, not elsewhere classified; Z98.51 Tubal ligation status; Z98.42 Cataract extraction status, left eye; Z98.41 Cataract extraction status, right eye; Z98.890 Other specified postprocedural states; Z83.3 Family history of diabetes mellitus; N28.9 Disorder of kidney and ureter, unspecified; E86.0 Dehydration; H91.90 Unspecified hearing loss, unspecified ear; R41.3 Other amnesia; Z79.82 Long term (current) use of aspirin; Z99.81 Dependence on supplemental oxygen; Z79.899 Other long term (current) drug therapy
CPT/HCPCS: 96361 ×4; 96365; 96366 ×3; 96376 ×3; 96375; 99285; 36415; 94640 ×5; 93005; 85379; 83880; 80053; 83605; 83735; 84484; 85025; 85610; 85730; 71046; 71250; G0378 ×3; C8929; J2930 ×3; J0456 ×3; Q9950; 93306

== ENCOUNTER 2020-01-03 10:32 | Observation (INO) | payer MEDICARE, OTHER ==
[2020-01-03 12:13] LABS: Glucose,Whole Blood 118 mg/dL (75-99)
[2020-01-03] MEDS ORDERED: ALBUTEROL NEBULIZED 2.5 MG/3 ML INHALATION PRN (12:42)
[2020-01-03 13:08] LABS: Basophils % (A) 0 %; Eosinophils # (A) 0.4 k/uL (0-0.7); Eosinophils % (A) 5 %; HCT 35.5 % (34.0-46.0); HGB 11.2 gm/dL (11.4-16.0); Lymphocytes # (A) 1.3 k/uL (1.0-4.8); Lymphocytes % (A) 16 %; MCH 28.2 pg (25.0-35.0); MCHC 31.5 g/dL (31.0-37.0); MCV 89.7 fL (80.0-100.0); Mean Platelet Volume 7.6; Monocytes # (A) 0.6 k/uL (0-1.0); Monocytes % (A) 7 %; Neutrophils # (A) 5.9 k/uL (1.3-7.7); Neutrophils % (A) 71 %; Platelet Count 267 k/uL (150-450); RBC 3.95 m/uL (3.80-5.40); RDW 14.1 % (11.5-15.5); WBC 8.2 k/uL (3.8-10.6)
[2020-01-03 13:29] LABS: ALT 24 U/L (4-34); AST 27 U/L (14-36); African American GFR (CKD) 82 (>60 ml/min/1.73 sqM); Albumin 3.5 g/dL (3.5-5.0); Albumin/Globulin Ratio 1.3; Alkaline Phosphatase 86 U/L (38-126); Anion Gap 3 mmol/L; Blood Urea Nitrogen 22 mg/dL (7-17); Calcium 8.2 mg/dL (8.4-10.2); Carbon Dioxide 36 mmol/L (22-30); Chloride 102 mmol/L (98-107); Globulin 2.6 g/dL; Glucose 121 mg/dL (74-99); Non-African American GFR(CKD) 71 (>60 ml/min/1.73 sqM); Potassium 4.2 mmol/L (3.5-5.1); Sodium 141 mmol/L (137-145); Total Bilirubin 0.7 mg/dL (0.2-1.3); Total Protein 6.1 g/dL (6.3-8.2)
--- NOTE | 2020-01-03 14:49 | P.CN ---
Psychiatric Consult - . Consult date: 01/03/20 Consult:: IDENTIFYING DATA: This patient is a 74-year-old female with significant history of COPD who presented to the hospital for psychiatric evaluation as requested by her primary care physician. HISTORY OF PRESENT ILLNESS: The patient presented to the hospital on 01/03/2020 for psychiatric evaluation for paranoia. The patient was recently discharged from observation on 12/29/2019 after COPD exacerbation. She was treated with st eroids and azithromycin. She was also sent home with a steroid pack and Medrol Dosepak. In regards to psychiatric issues, the patient is not endorsing any significant symptoms of depression or anxiety at this time. She vehemently denies any suicidal or homicidal ideation, intention, and/or plan. She denies any hopelessness, helplessness, change in appetite, or change in sleep behavior. She reports no significant symptoms of madonna. She denies any racing thoughts, increased goal-directed activity, or impulsivity. In regards to psychotic symptoms, the patient is not endorsing any auditory or visual hallucinations. She reports no paranoia or delusions. She does express that she has not been getting along with her daughter and feels like her daughter yells at her but is not endorsing any significant paranoia or concern for safety. Patient vehemently denies any concern for her own safety. The patient reports being adherent with her medication regimen which includes Seroquel, Haldol, Klonopin, and Zoloft. She denies any side effects to these medications. Patient denies any tobacco or alcohol use. She reports no marijuana or any illicit drug use. PAST PSYCHIATRIC HISTORY: Patient has a a history of schizoaffective disorder. She is unable to recall her past psychiatric medications aside from her current home medications. She reports that she began hearing voices in 1992 and has been hospitalized 9 times for psychiatric reasons since then. She reports the last psychiatric admission most of been around 10 years ago. He was initially open with Dr. Horta for outpatient psychiatric treatment but has not seen an outpatient psychiatrist in 4 months. Patient denies any history of suicide attempts in the past. PAST MEDICAL HISTORY: COPD, hypertension, dyslipidemia. ALLERGIES: as per EMR. CHEMICAL DEPENDENCY HISTORY: as per HPI. FAMILY PSYCHIATRIC/SUBSTANCE USE HISTORY: denies SOCIAL HISTORY: Patient currently lives alone in [place]. She has 2 daughte rs, one that is living in [place] and the other in [place]. She has grandchildren and 2 great grandchildren as well. She reports that someone comes into her home to help her with chores and cleaning. She receives Social Security. She is a practicing Religion. She has been twice. MENTAL STATUS EXAM: General Appearance: Patient appears to be stated age is alert, pleasant, and cooperative. Patient appears to have fair hygiene and grooming wearing hospital gown with fair eye contact. Behavior: Patient is calmly lying in bed without any agitated behavior. Speech: Patient's speech is fluent and nonpressured. Mood/Affect: Patient reports their mood is "very good", affect is congruent, full range, bright at times. Suicidality/Homicidality: Patient denies having any suicidal or homicidal ideation intent or plan. Perceptions: Patient denies any visual hallucinations and denies any auditory hallucinations Though content/process: There is no evidence of any delusional thought content and thought process is linear and goal-directed. Memory and concentration: AOX3, grossly intact for the purposes of this session. Concentration mildly impaired as patient is unable to spell "WORLD" backwards. Judgment and insight: Fair IMPRESSIONS: Schizoaffective Disorder PLAN: -At this time patient DOES NOT meet criteria for inpatient psychiatric admission. -Recommend SW to set up outpatient psychiatry follow-up. -Delirium precautions recommended with patient including - avoiding use of narcotics and SENIOR PROGRAM ANALYST sedatives, limit anticholinergic medications when possible, frequent re-orientation, minimize use of restraints, open window shades during the day and close them at night -We will continue her home medications of: Cogentin 1 mg by mouth 3 times a day Klonopin 0.5 mg by mouth 4 times a day Haldol 5 mg by mouth twice a day Seroquel 150 mg by mouth twice a day -Psychiatry will sign off at this point, please contact with any questions. 01/03/20 14:39
[2020-01-03] MEDS: methylPREDNISolone SOD SUCCI 40 MG/ML 1 ML VIAL IV SCH ×2 (15:41→23:15)
[2020-01-03] MEDS: BENZTROPINE MESYLATE 1 MG TAB PO SCH ×2 (15:42→21:02)
[2020-01-03] MEDS: SODIUM CHLORIDE 0.9% 1,000 ML IV SCH ×2 (15:42→23:15)
[2020-01-03] MEDS: clonazePAM 0.5 MG TAB PO SCH ×3 (15:42→21:02)
[2020-01-03] MEDS: AZITHROMYCIN 500 MG in SODIUM CHLORIDE 0.9% 250 ML IVPB SCH (15:43)
[2020-01-03 17:01] LABS: Glucose,Whole Blood 122 mg/dL (75-99)
[2020-01-03] MEDS ORDERED: IPRATROPIUM-ALBUTEROL 3 ML NEB INHALATION SCH (20:00)
[2020-01-03] MEDS: BUDESONIDE 0.5 MG/2 ML NEBU INHALATION SCH (20:04)
[2020-01-03 20:38] LABS: Glucose,Whole Blood 187 mg/dL (75-99)
[2020-01-03] MEDS ORDERED: polyethylene glycoL 3350 17 GM POWD.PACK PO SCH (21:00)
[2020-01-03] MEDS ORDERED: MONTELUKAST 10 MG TAB PO SCH (21:00)
[2020-01-03] MEDS: QUEtiapine 50 MG TAB PO SCH (21:02)
[2020-01-03] MEDS: guaiFENesin 600 MG TABLET.ER PO SCH (21:02)
[2020-01-03] MEDS: haloperidoL 5 MG TAB PO SCH (21:02)
[2020-01-03] MEDS: SUCRALFATE 1 GM TAB PO SCH (21:02)
[2020-01-03] MEDS: METOPROLOL TARTRATE 12.5 MG TAB PO SCH (21:02)
[2020-01-04 05:35] LABS: Appearance,Urine Clear (Clear); Bacteria,Urine Many /hpf; Bilirubin,Urine Negative (Negative); Blood,Urine Negative (Negative); Color,Urine Light Yellow; Glucose,Urine (UA) Negative (Negative); Ketones,Urine Negative (Negative); Leukocyte Esterase,Urine Small (Negative); Mucus,Urine Moderate /hpf; Nitrite,Urine Positive (Negative); Protein,Urine Negative (Negative); Specific Gravity,Urine 1.012 (1.001-1.035); Squamous Epithelial Cell,Urine 2 /hpf (0-4); Urobilinogen,Urine <2.0 mg/dL (<2.0); WBC,Urine 10 /hpf (0-5)
[2020-01-04] MEDS: BUDESONIDE 0.5 MG/2 ML NEBU INHALATION SCH (06:55)
[2020-01-04] MEDS: IPRATROPIUM-ALBUTEROL 3 ML NEB INHALATION SCH ×3 (06:56→16:59)
[2020-01-04 07:07] LABS: Glucose,Whole Blood 145 mg/dL (75-99)
[2020-01-04] MEDS ORDERED: SERTRALINE 25 MG TAB PO SCH (09:00)
[2020-01-04] MEDS ORDERED: ASPIRIN 81 MG PO SCH (09:00)
[2020-01-04] MEDS ORDERED: SPIRONOLACTONE 25 MG TAB PO SCH (09:00)
[2020-01-04] MEDS: clonazePAM 0.5 MG TAB PO SCH ×3 (10:45→16:58)
[2020-01-04] MEDS: BENZTROPINE MESYLATE 1 MG TAB PO SCH ×2 (10:45→16:58)
[2020-01-04] MEDS: METOPROLOL TARTRATE 12.5 MG TAB PO SCH (10:46)
[2020-01-04] MEDS: haloperidoL 5 MG TAB PO SCH (10:46)
[2020-01-04] MEDS: guaiFENesin 600 MG TABLET.ER PO SCH (10:47)
[2020-01-04] MEDS: SUCRALFATE 1 GM TAB PO SCH (10:48)
[2020-01-04] MEDS: methylPREDNISolone SOD SUCCI 40 MG/ML 1 ML VIAL IV SCH ×2 (10:48→16:58)
[2020-01-04] MEDS: AZITHROMYCIN 500 MG in SODIUM CHLORIDE 0.9% 250 ML IVPB SCH (10:49)
[2020-01-04] MEDS: QUEtiapine 50 MG TAB PO SCH (11:20)
[2020-01-04 11:36] LABS: Glucose,Whole Blood 130 mg/dL (75-99)
--- NOTE | 2020-01-04 12:51 | HP ---
HISTORY AND PHYSICAL A 74-year-old white female admitted with COPD exacerbation, started on IV steroids, failed outpatient treatment. She also has severe paranoia and worsening ideations per family who wants a psychiatric consult, recommendations for which she is being done. PAST MEDICAL HISTORY: COPD, CHF, nicotine addiction. PAST MEDICAL HISTORY: Schizoaffective disorder, COPD, hypertension, dyslipidemia. Allergies as per the EMR. SOCIAL HISTORY: Lives alone. He has 2 daughters that watch her. 14 POINT REVIEW OF SYSTEMS: Positive for paranoid ideations, I have talked to her daughter all weekend on the phone and I have not talked to the daughter in years. Otherwise, lungs shortness of breath with exertion. Vital signs were reviewed. She is on 4 L oxygen, low 90s oxygen level, respiratory rate 20 to 25. CARDIOVASCULAR: S1, S2. LUNGS: With wheezes x4. PSYCH: She answers questions appropriately with some paranoid ideations. GI: Soft. VASCULAR: Normal. HEMATOLOGY: Negative Homans. ASSESSMENT: COPD exacerbation, tracheobronchitis, O2 dependent COPD, schizoaffective disorder with decreased ideations, paranoid ideations. Await for Psych consult. Continue with IV steroids, updraft treatments. MMODL / IJN: [id number] /
[2020-01-04] MEDS: SODIUM CHLORIDE 0.9% 1,000 ML IV SCH (14:26)
[2020-01-04 15:26] VITALS: BP 141/79; RESP 22; TEMP 98.5
[2020-01-04 17:13] VITALS: PULSE 70
[2020-01-04 17:15] LABS: Glucose,Whole Blood 146 mg/dL (75-99)
[2020-01-05] MEDS ORDERED: AZITHROMYCIN 500 MG TAB PO SCH (09:00)
== END 2020-01-04 18:24 | disposition home or self-care (01) ==
LOC: 4SSUR 10:52
PROVIDERS: ADMIT Family Medicine; ATTEND Family Medicine
DX: J44.1 Chronic obstructive pulmonary disease with (acute) exacerbation (principal); E78.5 Hyperlipidemia, unspecified; F25.9 Schizoaffective disorder, unspecified; F60.0 Paranoid personality disorder; I11.0 Hypertensive heart disease with heart failure; I50.9 Heart failure, unspecified; Z87.891 Personal history of nicotine dependence; Z99.81 Dependence on supplemental oxygen
CPT/HCPCS: 96376 ×2; 96361 ×2; 96365; 96366; 96375; 94640 ×3; 80053; 84443; 85025; 81001; G0378 ×2; G0379; J2920 ×2; J0456 ×2

== ENCOUNTER → 2020-06-09 | Outpatient (CLI) | payer MEDICARE, OTHER ==
--- NOTE | 2020-06-15 10:26 | MM ---
Reason for exam: screening (asymptomatic). Last mammogram was performed 4 years and 4 months ago. History: Patient is postmenopausal. Physical Findings: A clinical breast exam by your physician is recommended on an annual basis and results should be correlated with mammographic findings. MG 3D Screening Mammo W/Cad Bilateral CC and MLO view(s) were taken. Prior study comparison: January 31, 2016, bilateral MG screening mammo w CAD. There are scattered fibroglandular densities. No significant changes when compared with prior studies. ASSESSMENT: Negative, BI-RAD 1 RECOMMENDATION: Routine screening mammogram of both breasts in 1 year.
== END | disposition home or self-care (01) ==
LOC: RADMAMWWP 10:59
PROVIDERS: ATTEND Family Medicine
DX: Z12.31 Encounter for screening mammogram for malignant neoplasm of breast (principal)
CPT/HCPCS: 77063; 77067

== ENCOUNTER 2020-08-24 22:28 | Emergency (ER) | payer MEDICARE, OTHER ==
[2020-08-24 22:46] VITALS: RESP 16; TEMP 98.1
[2020-08-24] MEDS ORDERED: SODIUM CHLORIDE 0.9% 1,000 ML IV STA (22:59)
--- NOTE | 2020-08-24 23:01 | ED ---
Dizziness HPI - General Chief Complaint: Dizziness Stated Complaint: Dizziness Time Seen by Provider: 08/24/20 22:48 Source: patient, EMS, old records reviewed Mode of arrival: EMS Limitations: no limitations - History of Present Illness Initial Comments: This is a 75-year-old female DF for dizziness. Patient does not feel well states she woke up tonight and thought it was the morning took her morning medications. Meantime patient eventually realized that it was nighttime. She presents us for feeling lightheaded and dizzy. No other significant complaints no nausea vomiting. She just took one extra dose MD Complaint: dizziness, lightheadedness -: hour(s) Timing: gradual onset Description: lightheadedness History of Same: No History of Trauma: No Severity: mild Improves With: nothing Worsens With: nothing Associated Symptoms: weakness - Related Data Home Medications Medication Instructions Recorded Confirmed Albuterol Nebulized [Ventolin 2.5 mg INHALATION RT-QID PRN 12/06/15 01/03/20 Nebulized] Aspirin EC [Ecotrin Low Dose] 81 mg PO DAILY 12/06/15 01/03/20 Benztropine Mesylate 1 mg PO TID 12/06/15 01/03/20 Ipratropium/Albuterol Sulfate 2 puff INHALATION RT-BID 12/06/15 01/03/20 [Combivent Respimat Inhaler] QUEtiapine FUMARATE [SEROquel XR] 300 mg PO HS 12/06/15 01/03/20 Spironolactone [Aldactone] 12.5 mg PO DAILY 12/06/15 01/03/20 clonazePAM [KlonoPIN] 0.5 mg PO QID 12/06/15 01/03/20 haloperidoL [Haldol] 5 mg PO BID 12/06/15 01/03/20 Montelukast [Singulair] 10 mg PO HS 08/08/18 01/03/20 Albuterol Sulfate [Ventolin HFA] 1 - 2 puff INHALATION RT-Q6H PRN 12/29/19 01/03/20 Sertraline HCl [Zoloft] 25 mg PO DAILY 12/29/19 01/03/20 Sucralfate [Carafate] 1 gm PO BID 12/29/19 01/03/20 Azithromycin [Zithromax Z-pack (6 See Taper PO DIRECTED 01/03/20 01/03/20 tabs)] Metoprolol Tartrate [Lopressor] 12.5 mg PO BID 01/03/20 01/03/20 methylPREDNISolone Dose Pack See Taper PO DIRECTED 01/03/20 01/03/20 [Medrol Dose Pack] Previous Rx's Medication Instructions Recorded Budesonide [Pulmicort] 0.5 mg INHALATION RT-BID 90 Days 12/30/19 #180 ml guaiFENesin [Mucinex] 1,200 mg PO Q12HR 30 Days #30 12/30/19 tablet.er Allergies Allergy/AdvReac Type Severity Reaction Status Date / Time grapefruit Allergy Rash/Hives Verified 01/03/20 11:43 Penicillins Allergy Rash/Hives Verified 01/03/20 11:43 Review of Systems ROS Statement: Those systems with pertinent positive or pertinent negative responses have been documented in the HPI. ROS Other: All systems not noted in ROS Statement are negative. Past Medical History Past Medical History: COPD, Hearing Disorder / Deafness, Hyperlipidemia, Hypertension, Memory Impairment Additional Past Medical History / Comment(s): home 02 3 liters n/c, SCHIZOAFFECTIVE DISORDER, INCONT OF URINE THAT JUST RECENTLY STARTED. CONSTIPATION. History of Any Multi-Drug Resistant Organisms: None Reported Past Surgical History: Orthopedic Surgery, Tonsillectomy, Tubal Ligation Additional Past Surgical History / Comment(s): right knee arthroscopy, FELL,BROKE RT LEG-HAD SX--PLATE AND SCREWS, colonoscopy, LILA CATARACTS, LT EYE SX FOR GLAUCOMA Past Anesthesia/Blood Transfusion Reactions: No Reported Reaction Past Psychological History: No Psychological Hx Reported, Schizoaffective Disorder Smoking Status: Former smoker Past Alcohol Use History: Occasional Past Drug Use History: None Reported - Past Family History Mother Family Medical History: Diabetes Mellitus Additional Family Medical History / Comment(s): GRANDMOTHER HAD DM Father Family Medical History: No Reported History Additional Family Medical History / Comment(s): UNK- PT WAS RAISED BY STEP FATHER General Exam Limitations: no limitations General appearance: alert, in no apparent distress Head exam: Present: atraumatic, normocephalic, normal inspection Eye exam: Present: normal appearance, PERRL, EOMI. Absent: scleral icterus, conjunctival injection, periorbital swelling ENT exam: Present: normal exam, mucous membranes moist Neck exam: Present: normal inspection. Absent: tenderness, meningismus, lymphadenopathy Respiratory exam: Present: normal lung sounds bilaterally. Absent: respiratory distress, wheezes, rales, rhonchi, stridor Cardiovascular Exam: Present: regular rate, normal rhythm, normal heart sounds. Absent: systolic murmur, diastolic murmur, rubs, gallop, clicks GI/Abdominal exam: Present: soft, normal bowel sounds. Absent: distended, tenderness, guarding, rebound, rigid Extremities exam: Present: normal inspection, full ROM, normal capillary refill. Absent: tenderness, pedal edema, joint swelling, calf tenderness Back exam: Present: normal inspection Neurological exam: Present: alert, oriented X3, CN II-XII intact Psychiatric exam: Present: normal affect, normal mood Skin exam: Present: warm, dry, intact, normal color. Absent: rash Course Vital Signs 08/24/20 08/24/20 22:41 23:22 Temperature 98.1 F Pulse Rate 53 L 60 Respiratory 16 16 Rate Blood Pressure 121/64 116/66 O2 Sat by Pulse 94 L 95 Oximetry - Reevaluation(s) Reevaluation #1: 08/24/20 23:05 Medical records reviewed Reevaluation #2: 08/24/20 23:52 Patient symptoms continue to resolve here in the ER Reevaluation #3: 08/24/20 23:52 Patient informed results questions answered EKG Findings - EKG Comments: EKG Findings:: EKG is sinus bradycardia 66 WV 182 QRS 80 QTc 463 Medical Decision Making - Medical Decision Making 75 female DF for evaluation patient with dizziness medication reaction took on no medications. She took her morning meds tonight. Blood pressure medications, patient is diminished throughout ER stay and okay for discharge home - Lab Data Result diagrams: 08/24/20 22:59 08/24/20 22:59 Lab Results 08/24/20 08/24/20 08/24/20 Range/Units 22:59 22:59 22:59 WBC 7.5 (3.8-10.6) k/uL RBC 3.71 L (3.80-5.40) m/uL Hgb 11.1 L (11.4-16.0) gm/dL Hct 31.6 L (34.0-46.0) % MCV 85.2 (80.0-100.0) fL MCH 30.0 (25.0-35.0) pg MCHC 35.3 (31.0-37.0) g/dL RDW 13.6 (11.5-15.5) % Plt Count 271 (150-450) k/uL MPV 7.1 Neutrophils % 64 % Lymphocytes % 24 % Monocytes % 7 % Eosinophils % 3 % Basophils % 1 % Neutrophils # 4.8 (1.3-7.7) k/uL Lymphocytes # 1.8 (1.0-4.8) k/uL Monocytes # 0.5 (0-1.0) k/uL Eosinophils # 0.2 (0-0.7) k/uL Basophils # 0.0 (0-0.2) k/uL PT 9.7 (9.0-12.0) sec INR 0.9 (<1.2) Sodium 139 (137-145) mmol/L Chloride 102 (98-107) mmol/L Carbon Dioxide 29 (22-30) mmol/L Anion Gap 8 mmol/L BUN 19 H (7-17) mg/dL Creatinine 0.77 (0.52-1.04) mg/dL Est GFR (CKD-EPI)AfAm 88 (>60 ml/min/1.73 sqM) Est GFR (CKD-EPI)NonAf 76 (>60 ml/min/1.73 sqM) Glucose 108 H (74-99) mg/dL Calcium 9.2 (8.4-10.2) mg/dL Total Bilirubin 0.6 (0.2-1.3) mg/dL AST 29 (14-36) U/L ALT 14 (4-34) U/L Alkaline Phosphatase 88 (38-126) U/L Creatine Kinase 141 H (30-135) U/L Total Protein 6.9 (6.3-8.2) g/dL Albumin 4.2 (3.5-5.0) g/dL Lipase 86 (23-300) U/L Salicylates <1.0 mg/dL Acetaminophen <10.0 ug/mL Serum Alcohol <10 mg/dL Disposition Clinical Impression: Dizziness, Medication reaction Disposition: HOME SELF-CARE Condition: Good Instructions (If sedation given, give patient instructions): Dizziness (ED) Is patient prescribed a controlled substance at d/c from ED?: No Referrals: Joni Pathak MD [Primary Care Provider] - 1-2 days
[2020-08-24 23:30] LABS: Basophils % (A) 1 %; Eosinophils # (A) 0.2 k/uL (0-0.7); Eosinophils % (A) 3 %; HCT 31.6 % (34.0-46.0); HGB 11.1 gm/dL (11.4-16.0); Lymphocytes # (A) 1.8 k/uL (1.0-4.8); Lymphocytes % (A) 24 %; MCHC 35.3 g/dL (31.0-37.0); MCV 85.2 fL (80.0-100.0); Mean Platelet Volume 7.1; Monocytes # (A) 0.5 k/uL (0-1.0); Monocytes % (A) 7 %; Neutrophils # (A) 4.8 k/uL (1.3-7.7); Neutrophils % (A) 64 %; Platelet Count 271 k/uL (150-450); RBC 3.71 m/uL (3.80-5.40); RDW 13.6 % (11.5-15.5); WBC 7.5 k/uL (3.8-10.6)
[2020-08-24 23:42] LABS: ALT 14 U/L (4-34); AST 29 U/L (14-36); Acetaminophen <10.0 ug/mL; African American GFR (CKD) 88 (>60 ml/min/1.73 sqM); Albumin 4.2 g/dL (3.5-5.0); Alcohol <10 mg/dL; Alkaline Phosphatase 88 U/L (38-126); Anion Gap 8 mmol/L; Blood Urea Nitrogen 19 mg/dL (7-17); Calcium 9.2 mg/dL (8.4-10.2); Carbon Dioxide 29 mmol/L (22-30); Chloride 102 mmol/L (98-107); Creatine Kinase 141 U/L (30-135); Glucose 108 mg/dL (74-99); Lipase 86 U/L (23-300); Non-African American GFR(CKD) 76 (>60 ml/min/1.73 sqM); Salicylate <1.0 mg/dL; Sodium 139 mmol/L (137-145); Total Bilirubin 0.6 mg/dL (0.2-1.3); Total Protein 6.9 g/dL (6.3-8.2)
[2020-08-24 23:44] LABS: INR 0.9 (<1.2); Prothrombin Time 9.7 sec (9.0-12.0)
[2020-08-24 23:47] LABS: Potassium 4.4 mmol/L (3.5-5.1)
[2020-08-25 00:15] VITALS: BP 115/53; PULSE 50
== END 2020-08-25 00:56 | disposition home or self-care (01) ==
LOC: EC 22:28
DX: R42 Dizziness and giddiness (principal); T50.995A Adverse effect of other drugs, medicaments and biological substances, initial encounter; I10 Essential (primary) hypertension; E78.5 Hyperlipidemia, unspecified; J44.9 Chronic obstructive pulmonary disease, unspecified; F25.9 Schizoaffective disorder, unspecified; Z79.82 Long term (current) use of aspirin; Z79.899 Other long term (current) drug therapy; Z87.891 Personal history of nicotine dependence; Z83.3 Family history of diabetes mellitus; Z79.51 Long term (current) use of inhaled steroids; Z88.0 Allergy status to penicillin
CPT/HCPCS: 96360; 99284; 36415; 93005; 80053; 82550; 83690; 85025; 85610; 80143; 80179; G0480; 80320

== ENCOUNTER → 2020-08-25 | Outpatient (CLI) | payer MEDICARE, OTHER ==
--- NOTE | 2020-08-26 13:42 | CT ---
EXAMINATION TYPE: CT abdomen pelvis wo con DATE OF EXAM: 08/25/2020 COMPARISON: 01/09/2017 INDICATION: CONSIPATION DLP: 1045 mGycm, Automated exposure control for dose reduction was used. CONTRAST: No IV contrast. Study performed without Oral Contrast TECHNIQUE: Axial images were obtained from above the diaphragm to the pubic rami in the axial plane a t 5 mm thick sections. Reconstructed images are reviewed on the computer in the coronal plane. FINDINGS: Limited CT sections are obtained the lung bases. The lung bases are clear. CT ABDOMEN: Bowel loops are anterior to the liver. Liver: Normal Spleen: Normal Pancreas: Normal Adrenal glands: The adrenal glands are normal. Gallbladder: Normal Kidneys: No masses are evident. No hydronephrosis is present. There is a right extrarenal pelvis. No cysts are present. No renal stones are evident. Aorta: Vascular calcification is within the aorta. Inferior vena cava: Normal. CT PELVIS: Loops of bowel within the abdomen and pelvis are normal. The studies without oral contrast. Moder ate fecal debris throughout the colon. No dilated loops of bowel are evident. Appendix: Normal as visualized. Urinary bladder: Normal. Genitourinary structures: Uterus is unremarkable. Adnexal regions are normal. Osseous structures: No suspicious lytic or sclerotic lesions. Degenerative joint changes at the bilat eral hips. Sacroiliac joint degenerative changes with vacuum phenomenon. Some facet hypertrophy is present withi n the lower lumbar spine. IMPRESSIONS: 1. Moderate fecal retention.
== END | disposition home or self-care (01) ==
LOC: RADCTMAIN 11:51
PROVIDERS: ATTEND Family Medicine
DX: K59.00 Constipation, unspecified (principal)
CPT/HCPCS: 74176

== ENCOUNTER 2020-10-16 20:11 | Emergency (ER) | payer MEDICARE, OTHER ==
[2020-10-16] MEDS ORDERED: MORPHINE SULFATE 4 MG/ML SYRINGE IM STA (20:36)
[2020-10-16] MEDS ORDERED: methylPREDNISolone SOD SUCCI 125 MG/2 ML VIAL IM ONE (20:36)
--- NOTE | 2020-10-16 21:14 | XR ---
EXAMINATION TYPE: XR lumbar spine 2 or 3V DATE OF EXAM: 10/16/2020 COMPARISON: NONE HISTORY: Back pain TECHNIQUE: 3 views FINDINGS: Lumbar vertebra have normal alignment. Abdominal aorta is atheromatous. There is no signifi cant disc space narrowing. There is no compression fracture. Posterior elements are intact sacroiliac joints are intact. There is mild disc space narrowing at L5-S1. IMPRESSION: Negative lumbar spine exam. No fracture.
--- NOTE | 2020-10-16 21:38 | ED ---
Back Pain HPI - General Chief Complaint: Back Pain/Injury Stated Complaint: lower back pain Time Seen by Provider: 10/16/20 20:13 Source: patient, EMS, RN notes reviewed, old records reviewed Limitations: physical limitation - History of Present Illness Initial Comments: Patient is a 75-year-old female that presents to the emergency room via EMS complaining of lower back pain with radiation on the right leg. She notes that she has not injured it or done any trauma to her recently. She notes that she has a history of chronic low back pain. She notes she woke up today in the pain is increasingly got worse on the right leg. She notes that she still has feeling in full sensation in her right leg and this has some numbness and tingling. She denied any other issues or complaints at this time. Patient appeared well while laying in bed during exam and interview. She denied any chest pain shortness breath headache nausea vomiting diarrhea constipation fever fatigue chills. - Related Data Home Medications Medication Instructions Recorded Confirmed Albuterol Nebulized [Ventolin 2.5 mg INHALATION RT-QID PRN 12/06/15 10/16/20 Nebulized] Aspirin EC [Ecotrin Low Dose] 81 mg PO DAILY 12/06/15 10/16/20 Benztropine Mesylate 1 mg PO TID 12/06/15 10/16/20 Ipratropium/Albuterol Sulfate 2 puff INHALATION RT-BID 12/06/15 10/16/20 [Combivent Respimat Inhaler] QUEtiapine FUMARATE [SEROquel XR] 300 mg PO HS 12/06/15 10/16/20 Spironolactone [Aldactone] 12.5 mg PO DAILY 12/06/15 10/16/20 clonazePAM [KlonoPIN] 0.5 mg PO QID 12/06/15 10/16/20 haloperidoL [Haldol] 5 mg PO BID 12/06/15 10/16/20 Montelukast [Singulair] 10 mg PO HS 08/08/18 10/16/20 Albuterol Sulfate [Ventolin HFA] 1 - 2 puff INHALATION RT-Q6H PRN 12/29/19 10/16/20 Sertraline HCl [Zoloft] 25 mg PO DAILY 12/29/19 10/16/20 Sucralfate [Carafate] 1 gm PO BID 12/29/19 10/16/20 Metoprolol Tartrate [Lopressor] 12.5 mg PO BID 01/03/20 10/16/20 Atorvastatin Calcium [Lipitor] 80 mg PO HS 10/16/20 10/16/20 Fluticasone Propionate [Flovent 2 puff INHALATION RT-BID 10/16/20 10/16/20 Hfa 220 mcg] metFORMIN HCL 500 mg PO DAILY 10/16/20 10/16/20 Previous Rx's Medication Instructions Recorded predniSONE 50 mg PO DAILY #5 tab 10/16/20 Allergies Allergy/AdvReac Type Severity Reaction Status Date / Time grapefruit Allergy Rash/Hives Verified 10/16/20 20:38 Penicillins Allergy Rash/Hives Verified 10/16/20 20:38 Review of Systems ROS Statement: Those systems with pertinent positive or pertinent negative responses have been documented in the HPI. ROS Other: All systems not noted in ROS Statement are negative. Past Medical History Past Medical History: COPD, Hearing Disorder / Deafness, Hyperlipidemia, Hypertension, Memory Impairment Additional Past Medical History / Comment(s): home 5 liters n/c, SCHIZOAFFECTIVE DISORDER, INCONT OF URINE THAT JUST RECENTLY STARTED. CONSTIPATION. History of Any Multi-Drug Resistant Organisms: None Reported Past Surgical History: Orthopedic Surgery, Tonsillectomy, Tubal Ligation Additional Past Surgical History / Comment(s): right knee arthroscopy, FELL,BROKE RT LEG-HAD SX--PLATE AND SCREWS, colonoscopy, LILA CATARACTS, LT EYE SX FOR GLAUCOMA Past Anesthesia/Blood Transfusion Reactions: No Reported Reaction Past Psychological History: No Psychological Hx Reported, Schizoaffective Disorder Smoking Status: Former smoker Past Alcohol Use History: Occasional Past Drug Use History: None Reported - Past Family History Mother Family Medical History: Diabetes Mellitus Additional Family Medical History / Comment(s): GRANDMOTHER HAD DM Father Family Medical History: No Reported History Additional Family Medical History / Comment(s): UNK- PT WAS RAISED BY STEP FATHER General Exam Limitations: physical limitation General appearance: alert, in no apparent distress, obese Head exam: Present: atraumatic, normocephalic, normal inspection Eye exam: Present: normal appearance, PERRL, EOMI. Absent: scleral icterus, conjunctival injection, periorbital swelling Neck exam: Present: normal inspection Respiratory exam: Present: normal lung sounds bilaterally. Absent: respiratory distress, wheezes, rales, rhonchi, stridor Cardiovascular Exam: Present: regular rate, normal rhythm, normal heart sounds. Absent: systolic murmur, diastolic murmur, rubs, gallop, clicks Extremities exam: Present: normal inspection, full ROM, normal capillary refill. Absent: tenderness, pedal edema, joint swelling, calf tenderness Back exam: Present: normal inspection. Absent: tenderness Neurological exam: Present: alert, oriented X3 Psychiatric exam: Present: normal affect, normal mood Skin exam: Present: warm, dry, intact, normal color. Absent: rash Course Vital Signs 10/16/20 20:12 Temperature 98.3 F Pulse Rate 70 Respiratory 20 Rate Blood Pressure 163/64 O2 Sat by Pulse 81 L Oximetry Medical Decision Making - Medical Decision Making 75-year-old female complaining of low back pain with radicular symptoms on the right leg. 125 mg of Solu-Medrol 4 g of morphine, x-ray lumbar spine ordered. X-ray lumbar spine negative for any acute fractures dislocations. Case discussed with Dr. Alaniz, patient discharge home with follow-up primary care. - Radiology Data Radiology results: report reviewed, image reviewed X-ray of the lumbar spine: Negative exam of the lumbar spine. No fracture. Disposition Clinical Impression: Sciatica, Lumbar radiculopathy Disposition: HOME SELF-CARE Condition: Stable Instructions (If sedation given, give patient instructions): Acute Low Back Pain (ED) Additional Instructions: Please return to the Emergency Department if symptoms worsen or any other concerns. Take prednisone as prescribed. Follow-up with primary care in the next 1-2 days, possibly get referral for physical therapy. Is patient prescribed a controlled substance at d/c from ED?: No Referrals: Joni Pathak MD [Primary Care Provider] - 1-2 days Time of Disposition: 21:36
[2020-10-16 21:42] VITALS: BP 147/56; PULSE 60; RESP 16; TEMP 98.4
== END 2020-10-16 21:57 | disposition home or self-care (01) ==
LOC: EC 20:11
DX: M54.41 Lumbago with sciatica, right side (principal); M54.16 Radiculopathy, lumbar region; E78.5 Hyperlipidemia, unspecified; I10 Essential (primary) hypertension; J44.9 Chronic obstructive pulmonary disease, unspecified; Z79.51 Long term (current) use of inhaled steroids; Z79.899 Other long term (current) drug therapy; Z87.891 Personal history of nicotine dependence; Z88.0 Allergy status to penicillin; Z91.018 Allergy to other foods
CPT/HCPCS: 99283; 96372; 72100; J2270; J2930

== ENCOUNTER 2020-11-09 21:23 | Emergency (ER) | payer MEDICARE, OTHER ==
[2020-11-09 21:35] VITALS: TEMP 98.1
--- NOTE | 2020-11-09 22:06 | XR ---
EXAMINATION TYPE: XR chest 2V DATE OF EXAM: 11/09/2020 COMPARISON: 12/29/2019 HISTORY: Weakness TECHNIQUE: FINDINGS: There is no heart failure nor confluent pneumonic infiltrate. Costophrenic angles are clear . There are chest leads. Bony thorax is intact. IMPRESSION: No active cardiopulmonary disease. Minimal pulmonary fibrotic changes. No adverse change compared to old exam.
--- NOTE | 2020-11-09 22:22 | ED ---
General Adult HPI - General Chief complaint: Recheck/Abnormal Lab/Rx Stated complaint: Weakness Time Seen by Provider: 11/09/20 21:51 Source: patient Mode of arrival: wheelchair Limitations: no limitations - History of Present Illness Initial comments: This patient is a 75-year-old woman who presents to be evaluated with concern of possible overdose. The patient states that she had gone to take a nap in the afternoon and when she woke this evening she thought she had slept through until the morning. She therefore took her morning medications. After little while it became apparent that she had not slept through until the morning and she was concerned that she may have overdosed herself with medicines. She states she does feel somewhat fatigued and weak. She is not having pain or dyspnea. She denies other specific symptoms. -: hour(s) Severity scale (1-10): 0 Consistency: constant Improves with: none Worsens with: none Associated Symptoms: malaise Treatments Prior to Arrival: none - Related Data Home Medications Medication Instructions Recorded Confirmed Albuterol Nebulized [Ventolin 2.5 mg INHALATION RT-QID PRN 12/06/15 11/09/20 Nebulized] Aspirin EC [Ecotrin Low Dose] 81 mg PO DAILY 12/06/15 11/09/20 Benztropine Mesylate 1 mg PO TID 12/06/15 11/09/20 Ipratropium/Albuterol Sulfate 2 puff INHALATION RT-BID 12/06/15 11/09/20 [Combivent Respimat Inhaler] QUEtiapine FUMARATE [SEROquel XR] 300 mg PO HS 12/06/15 11/09/20 Spironolactone [Aldactone] 12.5 mg PO DAILY 12/06/15 11/09/20 clonazePAM [KlonoPIN] 0.5 mg PO QID PRN 12/06/15 11/09/20 haloperidoL [Haldol] 5 mg PO BID 12/06/15 11/09/20 Montelukast [Singulair] 10 mg PO HS 08/08/18 11/09/20 Albuterol Sulfate [Ventolin HFA] 1 - 2 puff INHALATION RT-Q6H PRN 12/29/19 11/09/20 Sertraline HCl [Zoloft] 25 mg PO DAILY 12/29/19 11/09/20 Sucralfate [Carafate] 1 gm PO BID 12/29/19 11/09/20 Metoprolol Tartrate [Lopressor] 12.5 mg PO BID 01/03/20 11/09/20 Atorvastatin Calcium [Lipitor] 80 mg PO HS 10/16/20 11/09/20 Fluticasone Propionate [Flovent 2 puff INHALATION RT-BID 10/16/20 11/09/20 Hfa 220 mcg] metFORMIN HCL 500 mg PO DAILY 10/16/20 11/09/20 Previous Rx's Medication Instructions Recorded Sulfamethox-Tmp 800-160Mg [Bactrim 1 each PO Q12HR #6 tab 11/10/20 Ds] Allergies Allergy/AdvReac Type Severity Reaction Status Date / Time grapefruit Allergy Rash/Hives Verified 11/09/20 22:09 Penicillins Allergy Rash/Hives Verified 11/09/20 22:09 Review of Systems ROS Statement: Those systems with pertinent positive or pertinent negative responses have been documented in the HPI. ROS Other: All systems not noted in ROS Statement are negative. Constitutional: Reports: weakness (Last). Denies: fever, chills Eyes: Denies: vision change ENT: Denies: congestion Respiratory: Denies: cough, dyspnea, wheezes Cardiovascular: Denies: chest pain, palpitations, edema, syncope Gastrointestinal: Denies: abdominal pain, vomiting, diarrhea Genitourinary: Denies: dysuria, hematuria Musculoskeletal: Denies: back pain Skin: Denies: rash Neurological: Denies: headache, weakness, numbness Past Medical History Past Medical History: COPD, Hearing Disorder / Deafness, Hyperlipidemia, Hypertension, Memory Impairment Additional Past Medical History / Comment(s): home 5 liters n/c, SCHIZOAFFECTIVE DISORDER, INCONT OF URINE THAT JUST RECENTLY STARTED. CONSTIPATION. History of Any Multi-Drug Resistant Organisms: None Reported Past Surgical History: Orthopedic Surgery, Tonsillectomy, Tubal Ligation Additional Past Surgical History / Comment(s): right knee arthroscopy, FELL,BROKE RT LEG-HAD SX--PLATE AND SCREWS, colonoscopy, LILA CATARACTS, LT EYE SX FOR GLAUCOMA Past Anesthesia/Blood Transfusion Reactions: No Reported Reaction Past Psychological History: No Psychological Hx Reported, Schizoaffective Disorder Smoking Status: Former smoker Past Alcohol Use History: Occasional Past Drug Use History: None Reported - Past Family History Mother Family Medical History: Diabetes Mellitus Additional Family Medical History / Comment(s): GRANDMOTHER HAD DM Father Family Medical History: No Reported History Additional Family Medical History / Comment(s): UNK- PT WAS RAISED BY STEP FATHER General Exam Limitations: no limitations General appearance: alert, in no apparent distress Head exam: Present: atraumatic, normocephalic Eye exam: Present: normal appearance, PERRL, EOMI. Absent: scleral icterus, conjunctival injection, nystagmus ENT exam: Present: normal oropharynx Neck exam: Present: normal inspection Respiratory exam: Present: normal lung sounds bilaterally. Absent: respiratory distress, wheezes, rales, rhonchi, stridor, accessory muscle use, decreased breath sounds Cardiovascular Exam: Present: normal rhythm, bradycardia (Rate approximately 52 bpm), normal heart sounds. Absent: systolic murmur, diastolic murmur, rubs, gallop GI/Abdominal exam: Present: soft. Absent: distended, tenderness, guarding, rebound, rigid, mass Extremities exam: Present: normal inspection, normal capillary refill. Absent: pedal edema, calf tenderness Back exam: Present: normal inspection. Absent: CVA tenderness (R), CVA tenderness (L) Neurological exam: Present: alert, oriented X3, CN II-XII intact. Absent: motor sensory deficit Psychiatric exam: Absent: depressed, homicidal ideation, suicidal ideation Skin exam: Present: warm, dry, intact, normal color. Absent: rash Course Vital Signs 11/09/20 21:28 Temperature 98.1 F Pulse Rate 58 L Respiratory 20 Rate Blood Pressure 125/61 O2 Sat by Pulse 94 L Oximetry EKG Findings - EKG Results: EKG: interpreted by ERMD, sinus rhythm, normal axis, normal QRS, normal ST/T EKG shows: bradycardia (Rate 50 bpm) Medical Decision Making - Lab Data Result diagrams: 11/09/20 22:31 11/09/20 22:31 Lab Results 11/09/20 11/09/20 11/09/20 Range/Units 22:31 22:31 22:31 WBC 7.0 (3.8-10.6) k/uL RBC 3.87 (3.80-5.40) m/uL Hgb 11.5 (11.4-16.0) gm/dL Hct 33.8 L (34.0-46.0) % MCV 87.4 (80.0-100.0) fL MCH 29.7 (25.0-35.0) pg MCHC 33.9 (31.0-37.0) g/dL RDW 14.6 (11.5-15.5) % Plt Count 295 (150-450) k/uL MPV 7.3 Neutrophils % 58 % Lymphocytes % 27 % Monocytes % 8 % Eosinophils % 3 % Basophils % 1 % Neutrophils # 4.1 (1.3-7.7) k/uL Lymphocytes # 1.9 (1.0-4.8) k/uL Monocytes # 0.5 (0-1.0) k/uL Eosinophils # 0.2 (0-0.7) k/uL Basophils # 0.1 (0-0.2) k/uL PT 9.6 (9.0-12.0) sec INR 0.9 (<1.2) APTT 22.6 (22.0-30.0) sec Sodium (137-145) mmol/L Potassium (3.5-5.1) mmol/L Chloride (98-107) mmol/L Carbon Dioxide (22-30) mmol/L Anion Gap mmol/L BUN (7-17) mg/dL Creatinine (0.52-1.04) mg/dL Est GFR (CKD-EPI)AfAm (>60 ml/min/1.73 sqM) Est GFR (CKD-EPI)NonAf (>60 ml/min/1.73 sqM) Glucose (74-99) mg/dL Plasma Lactic Acid Master (0.7-2.0) mmol/L Calcium (8.4-10.2) mg/dL Magnesium (1.6-2.3) mg/dL Total Bilirubin (0.2-1.3) mg/dL AST (14-36) U/L ALT (4-34) U/L Alkaline Phosphatase (38-126) U/L Troponin I (0.000-0.034) ng/mL NT-Pro-B Natriuret Pep pg/mL Total Protein (6.3-8.2) g/dL Albumin (3.5-5.0) g/dL TSH (0.465-4.680) mIU/L Urine Color Light Yellow Urine Appearance Cloudy H (Clear) Urine pH 6.0 (5.0-8.0) Ur Specific [place] 1.005 (1.001-1.035) Urine Protein Negative (Negative) Urine Glucose (UA) Negative (Negative) Urine Ketones Negative (Negative) Urine Blood Negative (Negative) Urine Nitrite Positive H (Negative) Urine Bilirubin Negative (Negative) Urine Urobilinogen <2.0 (<2.0) mg/dL Ur Leukocyte Esterase Large H (Negative) Urine RBC 2 (0-5) /hpf Urine WBC 31 H (0-5) /hpf Ur Squamous Epith Cells <1 (0-4) /hpf Urine Bacteria Moderate H (None) /hpf 11/09/20 11/09/20 11/09/20 Range/Units 22:31 22:31 22:31 WBC (3.8-10.6) k/uL RBC (3.80-5.40) m/uL Hgb (11.4-16.0) gm/dL Hct (34.0-46.0) % MCV (80.0-100.0) fL MCH (25.0-35.0) pg MCHC (31.0-37.0) g/dL RDW (11.5-15.5) % Plt Count (150-450) k/uL MPV Neutrophils % % Lymphocytes % % Monocytes % % Eosinophils % % Basophils % % Neutrophils # (1.3-7.7) k/uL Lymphocytes # (1.0-4.8) k/uL Monocytes # (0-1.0) k/uL Eosinophils # (0-0.7) k/uL Basophils # (0-0.2) k/uL PT (9.0-12.0) sec INR (<1.2) APTT (22.0-30.0) sec Sodium 138 (137-145) mmol/L Potassium 3.8 (3.5-5.1) mmol/L Chloride 99 (98-107) mmol/L Carbon Dioxide 30 (22-30) mmol/L Anion Gap 9 mmol/L BUN 16 (7-17) mg/dL Creatinine 0.72 (0.52-1.04) mg/dL Est GFR (CKD-EPI)AfAm >90 (>60 ml/min/1.73 sqM) Est GFR (CKD-EPI)NonAf 84 (>60 ml/min/1.73 sqM) Glucose 119 H (74-99) mg/dL Plasma Lactic Acid Master 1.3 (0.7-2.0) mmol/L Calcium 9.3 (8.4-10.2) mg/dL Magnesium 1.8 (1.6-2.3) mg/dL Total Bilirubin 0.2 (0.2-1.3) mg/dL AST 24 (14-36) U/L ALT 19 (4-34) U/L Alkaline Phosphatase 130 H (38-126) U/L Troponin I <0.012 (0.000-0.034) ng/mL NT-Pro-B Natriuret Pep pg/mL Total Protein 6.6 (6.3-8.2) g/dL Albumin 3.9 (3.5-5.0) g/dL TSH 5.390 H (0.465-4.680) mIU/L Urine Color Urine Appearance (Clear) Urine pH (5.0-8.0) Ur Specific [place] (1.001-1.035) Urine Protein (Negative) Urine Glucose (UA) (Negative) Urine Ketones (Negative) Urine Blood (Negative) Urine Nitrite (Negative) Urine Bilirubin (Negative) Urine Urobilinogen (<2.0) mg/dL Ur Leukocyte Esterase (Negative) Urine RBC (0-5) /hpf Urine WBC (0-5) /hpf Ur Squamous Epith Cells (0-4) /hpf Urine Bacteria (None) /hpf 11/09/20 Range/Units 22:31 WBC (3.8-10.6) k/uL RBC (3.80-5.40) m/uL Hgb (11.4-16.0) gm/dL Hct (34.0-46.0) % MCV (80.0-100.0) fL MCH (25.0-35.0) pg MCHC (31.0-37.0) g/dL RDW (11.5-15.5) % Plt Count (150-450) k/uL MPV Neutrophils % % Lymphocytes % % Monocytes % % Eosinophils % % Basophils % % Neutrophils # (1.3-7.7) k/uL Lymphocytes # (1.0-4.8) k/uL Monocytes # (0-1.0) k/uL Eosinophils # (0-0.7) k/uL Basophils # (0-0.2) k/uL PT (9.0-12.0) sec INR (<1.2) APTT (22.0-30.0) sec Sodium (137-145) mmol/L Potassium (3.5-5.1) mmol/L Chloride (98-107) mmol/L Carbon Dioxide (22-30) mmol/L Anion Gap mmol/L BUN (7-17) mg/dL Creatinine (0.52-1.04) mg/dL Est GFR (CKD-EPI)AfAm (>60 ml/min/1.73 sqM) Est GFR (CKD-EPI)NonAf (>60 ml/min/1.73 sqM) Glucose (74-99) mg/dL Plasma Lactic Acid Master (0.7-2.0) mmol/L Calcium (8.4-10.2) mg/dL Magnesium (1.6-2.3) mg/dL Total Bilirubin (0.2-1.3) mg/dL AST (14-36) U/L ALT (4-34) U/L Alkaline Phosphatase (38-126) U/L Troponin I (0.000-0.034) ng/mL NT-Pro-B Natriuret Pep 207 pg/mL Total Protein (6.3-8.2) g/dL Albumin (3.5-5.0) g/dL TSH (0.465-4.680) mIU/L Urine Color Urine Appearance (Clear) Urine pH (5.0-8.0) Ur Specific [place] (1.001-1.035) Urine Protein (Negative) Urine Glucose (UA) (Negative) Urine Ketones (Negative) Urine Blood (Negative) Urine Nitrite (Negative) Urine Bilirubin (Negative) Urine Urobilinogen (<2.0) mg/dL Ur Leukocyte Esterase (Negative) Urine RBC (0-5) /hpf Urine WBC (0-5) /hpf Ur Squamous Epith Cells (0-4) /hpf Urine Bacteria (None) /hpf Disposition Clinical Impression: Urinary tract infection, Overdose Disposition: HOME SELF-CARE Condition: Good Instructions (If sedation given, give patient instructions): Urinary Tract Infection in Women (ED), Adult Overdose (ED) Prescriptions: Sulfamethox-Tmp 800-160Mg [Bactrim Ds] 1 each PO Q12HR #6 tab Is patient prescribed a controlled substance at d/c from ED?: No Referrals: Joni Pathak MD [Primary Care Provider] - 1-2 days
[2020-11-09 22:40] LABS: Basophils # (A) 0.1 k/uL (0-0.2); Basophils % (A) 1 %; Eosinophils # (A) 0.2 k/uL (0-0.7); Eosinophils % (A) 3 %; HCT 33.8 % (34.0-46.0); HGB 11.5 gm/dL (11.4-16.0); Lymphocytes # (A) 1.9 k/uL (1.0-4.8); Lymphocytes % (A) 27 %; MCH 29.7 pg (25.0-35.0); MCHC 33.9 g/dL (31.0-37.0); MCV 87.4 fL (80.0-100.0); Mean Platelet Volume 7.3; Monocytes # (A) 0.5 k/uL (0-1.0); Monocytes % (A) 8 %; Neutrophils # (A) 4.1 k/uL (1.3-7.7); Neutrophils % (A) 58 %; Platelet Count 295 k/uL (150-450); RBC 3.87 m/uL (3.80-5.40); RDW 14.6 % (11.5-15.5)
[2020-11-09 22:50] LABS: ALT 19 U/L (4-34); AST 24 U/L (14-36); African American GFR (CKD) >90 (>60 ml/min/1.73 sqM); Albumin 3.9 g/dL (3.5-5.0); Alkaline Phosphatase 130 U/L (38-126); Anion Gap 9 mmol/L; Blood Urea Nitrogen 16 mg/dL (7-17); Calcium 9.3 mg/dL (8.4-10.2); Carbon Dioxide 30 mmol/L (22-30); Chloride 99 mmol/L (98-107); Glucose 119 mg/dL (74-99); Magnesium 1.8 mg/dL (1.6-2.3); Non-African American GFR(CKD) 84 (>60 ml/min/1.73 sqM); Potassium 3.8 mmol/L (3.5-5.1); Sodium 138 mmol/L (137-145); Total Bilirubin 0.2 mg/dL (0.2-1.3); Total Protein 6.6 g/dL (6.3-8.2)
[2020-11-09 23:01] LABS: INR 0.9 (<1.2); Partial Thromboplastin Time 22.6 sec (22.0-30.0); Prothrombin Time 9.6 sec (9.0-12.0)
[2020-11-10 00:09] LABS: Appearance,Urine Cloudy (Clear); Bacteria,Urine Moderate /hpf; Bilirubin,Urine Negative (Negative); Blood,Urine Negative (Negative); Color,Urine Light Yellow; Glucose,Urine (UA) Negative (Negative); Ketones,Urine Negative (Negative); Leukocyte Esterase,Urine Large (Negative); Nitrite,Urine Positive (Negative); Protein,Urine Negative (Negative); RBC,Urine 2 /hpf (0-5); Specific Gravity,Urine 1.005 (1.001-1.035); Squamous Epithelial Cell,Urine <1 /hpf (0-4); Urobilinogen,Urine <2.0 mg/dL (<2.0); WBC,Urine 31 /hpf (0-5)
[2020-11-10] MEDS ORDERED: SULFAMETHOX-TMP 800-160MG 1 EACH TAB PO STA (00:32)
[2020-11-10 01:10] VITALS: BP 154/78; PULSE 54; RESP 18
== END 2020-11-10 00:40 | disposition home or self-care (01) ==
LOC: EC 21:23
DX: T50.901A Poisoning by unspecified drugs, medicaments and biological substances, accidental (unintentional), initial encounter (principal); N39.0 Urinary tract infection, site not specified; B96.1 Klebsiella pneumoniae [K. pneumoniae] as the cause of diseases classified elsewhere; E78.5 Hyperlipidemia, unspecified; I10 Essential (primary) hypertension; J44.9 Chronic obstructive pulmonary disease, unspecified; Z79.51 Long term (current) use of inhaled steroids; Z87.891 Personal history of nicotine dependence; Z88.0 Allergy status to penicillin; Z91.018 Allergy to other foods; Z79.899 Other long term (current) drug therapy
CPT/HCPCS: 36415; 71046; 80053; 81001; 83605; 83735; 83880; 84443; 84484; 85025; 85610; 85730; 87077; 87086; 87186; 93005; 99285

== ENCOUNTER 2021-02-03 15:24 | Inpatient (IN) | payer MEDICARE, OTHER ==
[2021-02-03] MEDS ORDERED: ACETAMINOPHEN TAB 500 MG TAB PO PRN (15:58)
[2021-02-03] MEDS ORDERED: ALBUTEROL HFA INHALER INHALATION PRN (15:58)
[2021-02-03] MEDS ORDERED: ALBUTEROL HFA INHALER INHALATION STA (15:58)
[2021-02-03] MEDS ORDERED: ACETAMINOPHEN TAB 500 MG TAB PO STA (15:58)
--- NOTE | 2021-02-03 16:01 | ED ---
General Adult HPI - General Chief complaint: Shortness of Breath Stated complaint: KETAN Time Seen by Provider: 02/03/21 15:25 Source: patient, EMS, RN notes reviewed Mode of arrival: EMS Limitations: no limitations - History of Present Illness Initial comments: Patient is a pleasant 75-year-old female presenting to the emergency department after feeling well. Onset of symptoms was 1 week ago. Patient has mild cough. Patient does feel short of breath. Patient has fevers chills and fatigue. Patient does have history of COPD however feels her breathing is worse than normal. Patient does use home O2. - Related Data Home Medications Medication Instructions Recorded Confirmed Albuterol Nebulized [Ventolin 2.5 mg INHALATION RT-QID PRN 12/06/15 11/09/20 Nebulized] Aspirin EC [Ecotrin Low Dose] 81 mg PO DAILY 12/06/15 11/09/20 Benztropine Mesylate 1 mg PO TID 12/06/15 11/09/20 Ipratropium/Albuterol Sulfate 2 puff INHALATION RT-BID 12/06/15 11/09/20 [Combivent Respimat Inhaler] QUEtiapine FUMARATE [SEROquel XR] 300 mg PO HS 12/06/15 11/09/20 Spironolactone [Aldactone] 12.5 mg PO DAILY 12/06/15 11/09/20 clonazePAM [KlonoPIN] 0.5 mg PO QID PRN 12/06/15 11/09/20 haloperidoL [Haldol] 5 mg PO BID 12/06/15 11/09/20 Montelukast [Singulair] 10 mg PO HS 08/08/18 11/09/20 Albuterol Sulfate [Ventolin HFA] 1 - 2 puff INHALATION RT-Q6H PRN 12/29/19 11/09/20 Sertraline HCl [Zoloft] 25 mg PO DAILY 12/29/19 11/09/20 Sucralfate [Carafate] 1 gm PO BID 12/29/19 11/09/20 Metoprolol Tartrate [Lopressor] 12.5 mg PO BID 01/03/20 11/09/20 Atorvastatin Calcium [Lipitor] 80 mg PO HS 10/16/20 11/09/20 Fluticasone Propionate [Flovent 2 puff INHALATION RT-BID 10/16/20 11/09/20 Hfa 220 mcg] metFORMIN HCL 500 mg PO DAILY 10/16/20 11/09/20 Previous Rx's Medication Instructions Recorded Sulfamethox-Tmp 800-160Mg [Bactrim 1 each PO Q12HR #6 tab 11/10/20 Ds] Allergies Allergy/AdvReac Type Severity Reaction Status Date / Time grapefruit Allergy Rash/Hives Verified 11/09/20 22:09 Penicillins Allergy Rash/Hives Verified 02/03/21 15:36 Review of Systems ROS Statement: Those systems with pertinent positive or pertinent negative responses have been documented in the HPI. ROS Other: All systems not noted in ROS Statement are negative. Constitutional: Reports: fever, chills Eyes: Denies: eye pain ENT: Denies: ear pain Respiratory: Reports: dyspnea Cardiovascular: Denies: chest pain Endocrine: Reports: fatigue Gastrointestinal: Denies: abdominal pain Genitourinary: Denies: dysuria Musculoskeletal: Denies: back pain Skin: Denies: rash Neurological: Denies: weakness Past Medical History Past Medical History: COPD, Hearing Disorder / Deafness, Hyperlipidemia, Hypertension, Memory Impairment Additional Past Medical History / Comment(s): home 5 liters n/c, SCHIZOAFFECTIVE DISORDER, INCONT OF URINE THAT JUST RECENTLY STARTED. CONSTIPATION. History of Any Multi-Drug Resistant Organisms: ESBL Date of last positivie culture/infection: 11/09/20 ESBL E.coli MDRO Source:: Urine Past Surgical History: Orthopedic Surgery, Tonsillectomy, Tubal Ligation Additional Past Surgical History / Comment(s): right knee arthroscopy, FELL,BROKE RT LEG-HAD SX--PLATE AND SCREWS, colonoscopy, LILA CATARACTS, LT EYE SX FOR GLAUCOMA Past Anesthesia/Blood Transfusion Reactions: No Reported Reaction Past Psychological History: No Psychological Hx Reported, Schizoaffective Disorder Smoking Status: Former smoker Past Alcohol Use History: Occasional Past Drug Use History: None Reported - Past Family History Mother Family Medical History: Diabetes Mellitus Additional Family Medical History / Comment(s): GRANDMOTHER HAD DM Father Family Medical History: No Reported History Additional Family Medical History / Comment(s): UNK- PT WAS RAISED BY STEP FATHER General Exam Limitations: no limitations General appearance: alert Head exam: Present: normocephalic Eye exam: Present: normal appearance Neck exam: Present: normal inspection Respiratory exam: Present: decreased breath sounds Cardiovascular Exam: Present: regular rate, normal rhythm GI/Abdominal exam: Present: soft. Absent: tenderness Extremities exam: Present: normal inspection. Absent: pedal edema, calf tenderness Neurological exam: Present: alert Psychiatric exam: Present: normal affect, normal mood Skin exam: Present: normal color Course Vital Signs 02/03/21 02/03/21 02/03/21 15:28 15:55 16:12 Temperature 100.1 F H Pulse Rate 99 Respiratory 26 H 26 H Rate Blood Pressure 157/78 O2 Sat by Pulse 93 L 93 L Oximetry - Reevaluation(s) Reevaluation #1: 02/03/21 17:24 Patient does meet sepsis criteria diagnosed at 1720. Blood culture and lactic acid and IV antibiotics have all been ordered. EKG Findings - EKG Comments: EKG Findings:: Sinus rhythm with a rate of 91. MN 152. QRS 88. QT 352. QTC 432. Normal axis. Normal QRS. No acute ST change. Medical Decision Making - Medical Decision Making Patient reevaluated and updated. Case discussed with Dr. Pathak, who will admit his patient. - Lab Data Result diagrams: 02/03/21 16:04 Lab Results 02/03/21 02/03/21 Range/Units 16:04 16:04 WBC 12.9 H (3.8-10.6) k/uL RBC 4.10 (3.80-5.40) m/uL Hgb 11.8 (11.4-16.0) gm/dL Hct 35.7 (34.0-46.0) % MCV 87.2 (80.0-100.0) fL MCH 28.9 (25.0-35.0) pg MCHC 33.1 (31.0-37.0) g/dL RDW 13.7 (11.5-15.5) % Plt Count 270 (150-450) k/uL MPV 7.3 Neutrophils % 83 % Lymphocytes % 10 % Monocytes % 5 % Eosinophils % 1 % Basophils % 0 % Neutrophils # 10.8 H (1.3-7.7) k/uL Lymphocytes # 1.3 (1.0-4.8) k/uL Monocytes # 0.6 (0-1.0) k/uL Eosinophils # 0.1 (0-0.7) k/uL Basophils # 0.0 (0-0.2) k/uL Coronavirus (PCR) Not Detected (Not Detectd) - Radiology Data Radiology results: image reviewed (Small right lower lobe infiltrate. Interstitial lung disease) Critical Care Time Critical Care Time: Yes Total Critical Care Time: 33 Disposition Clinical Impression: Pneumonia, Sepsis Disposition: ADMITTED IP TO THIS HOSP Is patient prescribed a controlled substance at d/c from ED?: No Referrals: Joni Pathak MD [Primary Care Provider] - 1-2 days Decision Time: 17:24
[2021-02-03 16:24] LABS: Basophils % (A) 0 %; Eosinophils # (A) 0.1 k/uL (0-0.7); Eosinophils % (A) 1 %; HCT 35.7 % (34.0-46.0); HGB 11.8 gm/dL (11.4-16.0); Lymphocytes # (A) 1.3 k/uL (1.0-4.8); Lymphocytes % (A) 10 %; MCH 28.9 pg (25.0-35.0); MCHC 33.1 g/dL (31.0-37.0); MCV 87.2 fL (80.0-100.0); Mean Platelet Volume 7.3; Monocytes # (A) 0.6 k/uL (0-1.0); Monocytes % (A) 5 %; Neutrophils # (A) 10.8 k/uL (1.3-7.7); Neutrophils % (A) 83 %; Platelet Count 270 k/uL (150-450); RDW 13.7 % (11.5-15.5); WBC 12.9 k/uL (3.8-10.6)
--- NOTE | 2021-02-03 16:39 | XR ---
EXAMINATION TYPE: XR chest 1V portable DATE OF EXAM: 02/03/2021 COMPARISON: 11/09/2020 HISTORY: Difficulty breathing TECHNIQUE: FINDINGS: There is no heart failure. There is slight coarsening of interstitial markings in the lower lung laughlin. There are no hilar masses. There is a small infiltrate in the right lower lobe right pa raspinal region. IMPRESSION: Small medial right lower lobe infiltrate appears new compared to old exam. Mild pulmonary fibrotic changes. No heart failure.
[2021-02-03] MEDS ORDERED: IPRATROPIUM-ALBUTEROL 3 ML NEB INHALATION PRN (17:20)
[2021-02-03] MEDS ORDERED: AZITHROMYCIN 500 MG in SODIUM CHLORIDE 0.9% 250 ML IVPB STA (17:20)
[2021-02-03] MEDS ORDERED: PNEUMONIA PROTOCOL UTILIZED 1 EACH MISC PO PRN (17:20)
[2021-02-03] MEDS: SODIUM CHLORIDE 0.9% 1,000 ML IV SCH ×2 (17:59→22:00)
[2021-02-03 18:04] LABS: Albumin 4.6 g/dL (3.5-5.0); C Reactive Protein 3.6 mg/dL (<1.0); Calcium 9.1 mg/dL (8.4-10.2); INR 0.9 (<1.2); Magnesium 1.6 mg/dL (1.6-2.3); Partial Thromboplastin Time 22.4 sec (22.0-30.0); Prothrombin Time 9.6 sec (9.0-12.0); Total Bilirubin 0.6 mg/dL (0.2-1.3); Total Protein 7.6 g/dL (6.3-8.2)
[2021-02-03] MEDS: IPRATROPIUM-ALBUTEROL 3 ML NEB INHALATION SCH (19:52)
[2021-02-03] MEDS ORDERED: ALBUTEROL HFA INHALER INHALATION SCH (20:00)
[2021-02-03] MEDS ORDERED: ALBUTEROL NEBULIZED 2.5 MG/3 ML INHALATION PRN ×2 (20:24→20:36)
[2021-02-03] MEDS: haloperidoL 5 MG TAB PO SCH (21:48)
[2021-02-03] MEDS: METOPROLOL TARTRATE 12.5 MG TAB PO SCH (21:48)
[2021-02-03] MEDS: ATORVASTATIN 80 MG TAB PO SCH (21:48)
[2021-02-03] MEDS: clonazePAM 0.5 MG TAB PO SCH (21:48)
[2021-02-03] MEDS: BENZTROPINE MESYLATE 1 MG TAB PO SCH (21:48)
[2021-02-03] MEDS: QUEtiapine 50 MG TAB PO SCH (22:00)
--- NOTE | 2021-02-03 22:26 | HP ---
HISTORY AND PHYSICAL This 75-year-old white female came in with shortness of breath for the last week, worsening breathing. She was COVID negative. Fever and chills. She was found to have left lower lobe pneumonia, COPD, fever, chills, congestion. HOME MEDICATIONS: Include Aldactone 12.5 daily, Seroquel 300 at bedtime, 2 puffs b.i.d., 1 mg t.i.d., aspirin 81 daily, 2.5 mg nebulizer q.i.d., Singulair 10 mg daily, Haldol 5 mg b.i.d., Klonopin 0.5 q.i.d., metformin 500 daily, Lipitor 80 daily, Lopressor 12.5 b.i.d., Carafate 1 gram b.i.d., Zoloft 25 mg daily. ALLERGIES: GRAPEFRUIT, PENICILLIN. PAST MEDICAL HISTORY: COPD, hearing disorder, deafness, dyslipidemia, hypertension, memory impairment, ESBL. Surgery includes orthopedic surgery, tonsillectomy, tubal ligation, right knee arthroscopy. FAMILY HISTORY: Mother with diabetes mellitus mellitus. Father negative. REVIEW OF SYSTEMS: Fourteen-point review of systems: Shortness of breath, weakness, fatigue, phlegm and mucus production. PHYSICAL EXAMINATION: T-max 100.1 degrees Fahrenheit, pulse 80s to 99, respiratory rate 20 to 26, blood pressure is 157/78, O2 93%. CARDIOVASCULAR: S1, S2. LUNGS: Scattered rhonchi and wheeze x4. HEMATOLOGY: Negative Homans. PSYCH: Fair mood and affect. NEUROLOGIC: Alert and oriented x3. EKG sinus rhythm. White count 12.9, hemoglobin 11.9. Platelet count 270. ASSESSMENT: 1. Right lower lobe infiltrate. 2. Right lower lobe pneumonia. 3. Chronic obstructive pulmonary disease exacerbation. 4. Tracheobronchitis. 5. Sepsis. 6. Bipolar. 7. Schizoaffective. Prognosis guarded. Steroids, antibiotics, updrafts. Prognosis guarded. MMODL / IJN: [id number] /
[2021-02-03 23:19] LABS: Ferritin 53.6 ng/mL (10.0-291.0)
[2021-02-04] MEDS: methylPREDNISolone SOD SUCCI 40 MG/ML 1 ML VIAL IV SCH ×4 (01:01→23:46)
[2021-02-04] MEDS ORDERED: ALBUTEROL NEBULIZED 2.5 MG/3 ML INHALATION SCH (08:00)
[2021-02-04] MEDS ORDERED: NON FORMULARY DRUG (Ipratropium/Albuterol Sulfate [Combivent Respimat Inhaler] 1 INHALER M INHALATION SCH (08:00)
[2021-02-04] MEDS: IPRATROPIUM-ALBUTEROL 3 ML NEB INHALATION SCH ×4 (08:06→20:05)
[2021-02-04] MEDS: BUDESONIDE 1 MG/2 ML NEBU INHALATION SCH ×2 (08:06→20:05)
[2021-02-04] MEDS: clonazePAM 0.5 MG TAB PO SCH ×4 (08:11→20:47)
[2021-02-04] MEDS: IBUPROFEN 400 MG TAB PO SCH (08:11)
[2021-02-04] MEDS: MONTELUKAST 10 MG TAB PO SCH (08:11)
[2021-02-04] MEDS: metFORMIN 500 MG TAB PO SCH (08:11)
[2021-02-04] MEDS: AZITHROMYCIN 500 MG in SODIUM CHLORIDE 0.9% 250 ML IVPB SCH (08:11)
[2021-02-04] MEDS: METOPROLOL TARTRATE 12.5 MG TAB PO SCH ×2 (08:12→20:47)
[2021-02-04] MEDS: ASPIRIN 81 MG PO SCH (08:12)
[2021-02-04] MEDS: QUEtiapine 50 MG TAB PO SCH ×2 (08:12→20:48)
[2021-02-04] MEDS: BENZTROPINE MESYLATE 1 MG TAB PO SCH ×3 (08:13→20:48)
[2021-02-04] MEDS: haloperidoL 5 MG TAB PO SCH ×2 (08:13→20:47)
[2021-02-04] MEDS: SERTRALINE 25 MG TAB PO SCH (08:14)
[2021-02-04] MEDS ORDERED: AZITHROMYCIN 500 MG TAB PO SCH (09:00)
--- NOTE | 2021-02-04 09:38 | XR ---
EXAMINATION TYPE: XR chest 1V portable DATE OF EXAM: 02/04/2021 COMPARISON: 02/03/2021 HISTORY: 75 years Female. STUDY INDICATION GIVEN: pneumonia . TECHNIQUE: AP chest radiograph IMPRESSION: Bibasilar right greater than left opacities on a background of moderate interstitial edema with no si gnificant change. No pneumothorax or large pleural effusion. Stable cardiomediastinal silhouette.
[2021-02-04] MEDS: SODIUM CHLORIDE 0.9% 1,000 ML IV SCH ×3 (09:40→23:47)
[2021-02-04] MEDS: MULTIVITAMINS, THERA 1 EACH TAB PO SCH (09:41)
[2021-02-04] MEDS: SPIRONOLACTONE 25 MG TAB PO SCH (09:41)
[2021-02-04] MEDS ORDERED: VANCOMYCIN IV PER PHARMACY 1 EACH MISC MISCELLANE PRN (12:43)
[2021-02-04] MEDS ORDERED: VANCOMYCIN 1,750 MG in SODIUM CHLORIDE 0.9% 500 ML 500 ML IVPB ONE (14:00)
[2021-02-04] MEDS ORDERED: VANCOMYCIN 2,000 MG in SODIUM CHLORIDE 0.9% 500 ML 500 ML IVPB ONE (14:00)
[2021-02-04] MEDS: ATORVASTATIN 80 MG TAB PO SCH (20:47)
--- NOTE | 2021-02-04 21:45 | PN ---
PROGRESS NOTE 75-year-old white female with bilateral pneumonia and COPD exacerbation. Still remains on 6 L, broad-spectrum antibiotics, and steroids. O2 is 90% on 6 L, temp 97.4, pulse 74, respiratory 16 to 18. Lungs show scattered rhonchi and wheeze. Cardiovascular S1, S2. Remains on azithromycin and Rocephin. Waiting for consults from Pulmonary and Infectious Disease to see the patient. Prognosis guarded. Continue broad-spectrum antibiotics. MMODL / IJN: [id number] /
[2021-02-05] MEDS: VANCOMYCIN 1,750 MG in SODIUM CHLORIDE 0.9% 500 ML 500 ML IVPB SCH ×2 (06:01→21:14)
[2021-02-05] MEDS: IPRATROPIUM-ALBUTEROL 3 ML NEB INHALATION SCH ×4 (07:59→21:41)
[2021-02-05] MEDS: BUDESONIDE 1 MG/2 ML NEBU INHALATION SCH ×2 (07:59→21:40)
[2021-02-05] MEDS: methylPREDNISolone SOD SUCCI 40 MG/ML 1 ML VIAL IV SCH ×3 (08:09→23:51)
[2021-02-05] MEDS: SODIUM CHLORIDE 0.9% 1,000 ML IV SCH ×2 (08:09→12:58)
[2021-02-05] MEDS: ASPIRIN 81 MG PO SCH (08:11)
[2021-02-05] MEDS: MULTIVITAMINS, THERA 1 EACH TAB PO SCH (08:11)
[2021-02-05] MEDS: metFORMIN 500 MG TAB PO SCH (08:11)
[2021-02-05] MEDS: IBUPROFEN 400 MG TAB PO SCH (08:11)
[2021-02-05] MEDS: SPIRONOLACTONE 25 MG TAB PO SCH (08:11)
[2021-02-05] MEDS: MONTELUKAST 10 MG TAB PO SCH (08:11)
[2021-02-05] MEDS: clonazePAM 0.5 MG TAB PO SCH ×4 (08:11→21:13)
[2021-02-05] MEDS: METOPROLOL TARTRATE 12.5 MG TAB PO SCH ×2 (08:12→21:13)
[2021-02-05] MEDS: BENZTROPINE MESYLATE 1 MG TAB PO SCH ×3 (08:13→21:13)
[2021-02-05] MEDS: SERTRALINE 25 MG TAB PO SCH (08:13)
[2021-02-05] MEDS: haloperidoL 5 MG TAB PO SCH ×2 (08:13→21:14)
--- NOTE | 2021-02-05 08:37 | P.CONS ---
History of Present Illness - Reason for Consult Consult date: 02/04/21 bacteremia Requesting physician: Joni Pathak - Chief Complaint shortness of breath and cough x 1 week - History of Present Illness History of present illness : Patient is 75-year female presenting to the ER yesterday afternoon for evaluation of not feeling well the patient symptom has been going on for about a week has been complaining of shortness of breath and did have a mild cough which is dry in nature not bringing up any sputum endopelvic chest pain PND complaining of chills and did have a fatigue with the symptom the patient was evaluated by ER physician on arrival to the ER the patient did have low-grade fever 100.1 F patient does have slight hypoxemia requiring supplemental oxygen patient did have white count of 12.9 with a left shift creatinine was normal ahumada PCR was negative patient did have a chest x- ray small medial right lower lobe infiltrate appears new compared to old exam patient has been diagnosed with a community-acquired pneumonia patient was started on Rocephin and Zithromax patient did have blood culture drawn which came back positive with gram-positive cocci vancomycin was added infectious disease was consulted for further management of antibiotic therapy Review of system: CONSTITUTIONAL: Positive for weakness along with the fever. EYES: No complaint. ENT: No complaint. RESPIRATORY: As per history of present illness. CARDIOVASCULAR: No complaint. GENITOURINARY: No complaint. GASTROINTESTINAL: No complaint. MUSCULOSKELETAL: No complaint. INTEGUMENTARY: No complaint. PSYCHOLOGIC: No complaint. ENDOCRINE: No complaint. NEUROLOGIC: No complaint. Past medical history : Reviewed, documented below Past surgical history : Reviewed, documented below Social history: Reviewed, documented below Medications: Reviewed, as documented below EXAMINATION: Vital sigans= Reviewed and documented below GENERAL DESCRIPTION: Elderly female lying in bed, no distress. No tachypnea or accessory muscle of respiration use. HEENT: Shows Pallor , no scleral icterus. Oral mucous membrane is dry. NECK: Trachea central, no thyromegaly. LUNGS: Unlabored breathing. Decreased breath sound at the base no wheeze or leather craftsman ckle. HEART: S1, S2, regular rate and rhythm. ABDOMEN: Soft, no tenderness , guarding or rigidity EXTREMITIES: No edema of feet. SKIN: No rash, no masses palpable. NEUROLOGICAL: The patient is awake, alert, oriented x3, mood and affect normal. LABS AND RADIOLOGY: Reviewed results see below Assessment : Patient presented to hospital with increasing shortness of breath cough in this patient with right lower lobe pneumonia likely community-acquired now with evidence of positive blood cultures could be a strep pneumo and related to her pneumonia however if confirmed as staph epi will be disregarded is possible skin contamination Plan: 1-blood cultures will be repeated document clearance of bacteremia 2-obtain a sputum for Gram stain and culture 3-continue patient on Rocephin and Zithromax and vancomycin We will follow on clinical condition and cultures to further adjust medication if needed Thank you for this consultation we will follow the patient along with you Past Medical History Past Medical History: COPD, Hearing Disorder / Deafness, Hyperlipidemia, Hypertension, Memory Impairment Additional Past Medical History / Comment(s): home 5 liters n/c, SCHIZOAFFECTIVE DISORDER, INCONT OF URINE THAT JUST RECENTLY STARTED. CONSTIPATION. History of Any Multi-Drug Resistant Organisms: ESBL Year Discovered:: 11/09/20 ESBL E.coli MDRO Source:: Urine Past Surgical History: Orthopedic Surgery, Tonsillectomy, Tubal Ligation Additional Past Surgical History / Comment(s): right knee arthroscopy, F ELL,BROKE RT LEG-HAD SX--PLATE AND SCREWS, colonoscopy, LILA CATARACTS, LT EYE SX FOR GLAUCOMA Past Anesthesia/Blood Transfusion Reactions: No Reported Reaction Past Psychological History: Schizoaffective Disorder Additional Psychological History / Comment(s): . Smoking Status: Former smoker Past Alcohol Use History: Occasional Additional Past Alcohol Use History / Comment(s): STARTED SMOKING AT AGE 16, WAS SMOKING 3 PPD WHEN SHE QUIT IN 2014 Past Drug Use History: None Reported - Past Family History Mother Family Medical History: Diabetes Mellitus Additional Family Medical History / Comment(s): GRANDMOTHER HAD DM Father Family Medical History: No Reported History Additional Family Medical History / Comment(s): UNK- PT WAS RAISED BY STEP FATHER Medications and Allergies Home Medications Medication Instructions Recorded Confirmed Type Albuterol Nebulized [Ventolin 2.5 mg INHALATION RT-QID PRN 12/06/15 02/03/21 History Nebulized] Aspirin EC [Ecotrin Low Dose] 81 mg PO DAILY 12/06/15 02/03/21 History Benztropine Mesylate 1 mg PO TID 12/06/15 02/03/21 History Ipratropium/Albuterol Sulfate 2 puff INHALATION RT-BID 12/06/15 02/03/21 History [Combivent Respimat Inhaler] QUEtiapine FUMARATE [SEROquel XR] 300 mg PO HS 12/06/15 02/03/21 History Spironolactone [Aldactone] 12.5 mg PO DAILY 12/06/15 02/03/21 History clonazePAM [KlonoPIN] 0.5 mg PO QID 12/06/15 02/03/21 History haloperidoL [Haldol] 5 mg PO BID 12/06/15 02/03/21 History Montelukast [Singulair] 10 mg PO DAILY 08/08/18 02/03/21 History Albuterol Sulfate [Ventolin HFA] 1 - 2 puff INHALATION RT-Q6H PRN 12/29/19 02/03/21 History Sertraline HCl [Zoloft] 25 mg PO DAILY 12/29/19 02/03/21 History Metoprolol Tartrate [Lopressor] 12.5 mg PO BID 01/03/20 02/03/21 History Atorvastatin Calcium [Lipitor] 80 mg PO HS 10/16/20 02/03/21 History Fluticasone Propionate [Flovent 2 puff INHALATION RT-BID 10/16/20 02/03/21 History Hfa 220 mcg] metFORMIN HCL 500 mg PO DAILY 10/16/20 02/03/21 History Ibuprofen [Motrin] 400 mg PO DAILY 02/03/21 02/03/21 History Multivitamins, Thera [Multivitamin 1 tab PO DAILY 02/03/21 02/03/21 History (formulary)] Allergies Allergy/AdvReac Type Severity Reaction Status Date / Time grapefruit Allergy Rash/Hives Verified 02/03/21 17:52 Penicillins Allergy Rash/Hives Verified 02/03/21 17:52 Physical Exam Vitals: Vital Signs Temp Pulse Pulse Resp BP BP Pulse Ox 02/04/21 12:07 78 02/04/21 12:00 74 02/04/21 08:23 78 02/04/21 08:07 78 02/04/21 08:00 98.0 F 97 20 176/73 92 L 02/04/21 07:20 20 02/04/21 01:26 98.4 F 73 16 105/64 97 02/03/21 21:57 95 11/20/21 20:09 98.5 F 84 15 124/70 93 L 02/03/21 18:46 98.8 F 91 20 122/80 94 L 02/03/21 16:12 26 H 02/03/21 15:55 93 L 02/03/21 15:28 100.1 F H 99 26 H 157/78 93 L Intake and Output 02/03/21 02/04/21 02/04/21 22:59 06:59 14:59 Other: # Voids 2 1 Weight 91.626 kg Results CBC & Chem 7: 02/03/21 16:04 02/03/21 17:31 Labs: Abnormal Lab Results - Last 24 Hours (Table) 02/03/21 02/03/21 Range/Units 16:04 17:31 WBC 12.9 H (3.8-10.6) k/uL Neutrophils # 10.8 H (1.3-7.7) k/uL Glucose 122 H (74-99) mg/dL C-Reactive Protein 3.6 H (<1.0) mg/dL Microbiology - Last 24 Hours (Table) 02/03/21 17:15 Blood Culture Gram Stain - Preliminary Blood 02/03/21 17:15 Blood Culture - Final Blood
[2021-02-05 08:51] LABS: Basophils # (A) 0.01 X 10*3/uL (0.00-0.10); Basophils % (A) 0.1 %; Eosinophils # (A) 0 X 10*3/uL (0.04-0.35); Eosinophils % (A) 0 %; HCT 30.5 % (37.2-46.3); HGB 9.4 g/dL (12.0-15.0); Lymphocytes # (A) 0.53 X 10*3/uL (0.90-5.00); MCH 27.6 pg (27.0-32.0); MCHC 30.8 g/dL (32.0-37.0); MCV 89.4 fL (80.0-97.0); Mean Platelet Volume 9.9 fL (9.5-12.2); Monocytes # (A) 0.71 X 10*3/uL (0.20-1.00); Monocytes % (A) 5.3 %; Neutrophils # (A) 11.95 X 10*3/uL (1.80-7.70); Neutrophils % (A) 89.9 %; Platelet Count 259 X 10*3/uL (140-440); RBC 3.41 X 10*6/uL (4.10-5.20); WBC 13.29 X 10*3/uL (4.50-10.00)
[2021-02-05] MEDS: QUEtiapine 50 MG TAB PO SCH ×2 (09:35→21:14)
[2021-02-05 10:04] LABS: ALT 16 U/L (8-44); AST 15 U/L (13-35); African American GFR (CKD) 87.9 (60.0-200.0); Albumin 3.8 g/dL (3.8-4.9); Albumin/Globulin Ratio 1.71 (1.60-3.17); Alkaline Phosphatase 87 U/L (41-126); BUN/Creat Ratio 19.43 Ratio (12.00-20.00); Calcium 8.8 mg/dL (8.7-10.3); Carbon Dioxide 25.8 mmol/L (21.6-31.8); Chloride 106 mmol/L (96-109); Globulin 2.2 g/dL (1.6-3.3); Glucose 171 mg/dL (70-110); Non-African American GFR(CKD) 75.8 (60.0-200.0); Potassium 4.3 mmol/L (3.5-5.5); Sodium 143 mmol/L (135-145); Total Bilirubin <0.20 mg/dL (0.30-1.20)
--- NOTE | 2021-02-05 11:21 | CT ---
EXAMINATION TYPE: CT chest wo con DATE OF EXAM: 02/05/2021 COMPARISON: Chest CT December 29, 2019 and older study August 09, 2018 HISTORY: CAD/COPD CT DLP: 657.9 mGycm. Automated Exposure Control for Dose Reduction was Utilized. TECHNIQUE: CT scan of the thorax is performed without IV contrast. FINDINGS: LUNGS: Moderate underlying emphysematous change greatest in the upper lungs is redemonstrated. Depend ent atelectasis in the left lung base is now present. Stable 8 x 6 mm medial left basilar nodule axia l image 54. There is 8 mm right lower lobe endobronchial round lesion or coronal image 71 correspond ing to axial image 44. There is peribronchial wall thickening and adjacent irregular consolidation an d/or atelectasis in the right lower lobe distal to this level on current study. MEDIASTINUM: Lack of IV contrast is noted to limit evaluation for mediastinal and especially hilar ad enopathy. There are no definitive greater than 1 cm mediastinal lymph nodes. No cardiomegaly or per icardial effusion is seen. Prominent right and left pulmonary arteries consistent with underlying pul monary artery hypertension redemonstrated. OTHER: Mild/moderate multilevel spurring in the spine. IMPRESSION: Moderate underlying emphysematous change redemonstrated. New Right lower lobe consolidati on and/or atelectasis with suspicious 8 mm right lower lobe round endobronchial lesion. Consider bron choscopy follow-up to further evaluate.
[2021-02-05] MEDS: AZITHROMYCIN 500 MG in SODIUM CHLORIDE 0.9% 250 ML IVPB SCH (11:36)
--- NOTE | 2021-02-05 17:33 | P.CNPUL ---
History of Present Illness Consult date: 02/05/21 Reason for consult: dyspnea, cough, hypoxemia, pneumonia Chief complaint: Shortness of breath History of present illness: This is a 75-year-old female seen eval reexamined on fourth floor patient came into the hospital with increasing shortness of breath cough and sputum production symptoms started a week ago initially cough was a mild, with the increasing symptoms increasing cough, started having chills and fever, patient has been on the supplemental oxygen 3 L nasal cannula at home due to end-stage COPD oxygen requirement now increase it to 5 L nasal cannula, no specific questioning she admits sputum production denies any hemoptysis, denies any loss of consciousness headache, just feels very weak and fatigued, on arrival she had a temperature 100.1, chest x-ray positive for right lower lobe pneumonia as well as interstitial lung disease, she was started on supplemental oxygen IV Rocephin and Zithromax along with IV steroids, follow-up chest x-ray was showing bilateral infiltrate, computed tomography scan of the chest revealed emphysema, 8mm left basilar nodule, 8mm right basilar nodule, possible endobronchial lesion, peribronchial thickening along with irregular consolidation in right lower lobe Review of Systems All systems: negative Past Medical History Past Medical History: COPD, Hearing Disorder / Deafness, Hyperlipidemia, Hypertension, Memory Impairment Additional Past Medical History / Comment(s): home 5 liters n/c, SCHIZOAFFECTIVE DISORDER, INCONT OF URINE THAT JUST RECENTLY STARTED. CONSTIPATION. History of Any Multi-Drug Resistant Organisms: ESBL Date of last positivie culture/infection: 11/09/20 ESBL E.coli MDRO Source:: Urine Past Surgical History: Orthopedic Surgery, Tonsillectomy, Tubal Ligation Additional Past Surgical History / Comment(s): right knee arthroscopy, FELL,BROKE RT LEG-HAD SX--PLATE AND SCREWS, colonoscopy, LILA CATARACTS, LT EYE S X FOR GLAUCOMA Past Anesthesia/Blood Transfusion Reactions: No Reported Reaction Past Psychological History: Schizoaffective Disorder Additional Psychological History / Comment(s): . Smoking Status: Former smoker Past Alcohol Use History: Occasional Additional Past Alcohol Use History / Comment(s): STARTED SMOKING AT AGE 16, WAS SMOKING 3 PPD WHEN SHE QUIT IN 2014 Past Drug Use History: None Reported - Past Family History Mother Family Medical History: Diabetes Mellitus Additional Family Medical History / Comment(s): GRANDMOTHER HAD DM Father Family Medical History: No Reported History Additional Family Medical History / Comment(s): UNK- PT WAS RAISED BY STEP FATHER Medications and Allergies Home Medications Medication Instructions Recorded Confirmed Type Albuterol Nebulized [Ventolin 2.5 mg INHALATION RT-QID PRN 12/06/15 02/03/21 History Nebulized] Aspirin EC [Ecotrin Low Dose] 81 mg PO DAILY 12/06/15 02/03/21 History Benztropine Mesylate 1 mg PO TID 12/06/15 02/03/21 History Ipratropium/Albuterol Sulfate 2 puff INHALATION RT-BID 12/06/15 02/03/21 History [Combivent Respimat Inhaler] QUEtiapine FUMARATE [SEROquel XR] 300 mg PO HS 12/06/15 02/03/21 History Spironolactone [Aldactone] 12.5 mg PO DAILY 12/06/15 02/03/21 History clonazePAM [KlonoPIN] 0.5 mg PO QID 12/06/15 02/03/21 History haloperidoL [Haldol] 5 mg PO BID 12/06/15 02/03/21 History Montelukast [Singulair] 10 mg PO DAILY 08/08/18 02/03/21 History Albuterol Sulfate [Ventolin HFA] 1 - 2 puff INHALATION RT-Q6H PRN 12/29/19 History Sertraline HCl [Zoloft] 25 mg PO DAILY 12/29/19 02/03/21 History Metoprolol Tartrate [Lopressor] 12.5 mg PO BID 01/03/20 02/03/21 History Atorvastatin Calcium [Lipitor] 80 mg PO HS 10/16/20 02/03/21 History Fluticasone Propionate [Flovent 2 puff INHALATION RT-BID 10/16/20 02/03/21 History Hfa 220 mcg] metFORMIN HCL 500 mg PO DAILY 10/16/20 02/03/21 History Ibuprofen [Motrin] 400 mg PO DAILY 02/03/21 02/03/21 History Multivitamins, Thera [Multivitamin 1 tab PO DAILY 02/03/21 02/03/21 History (formulary)] Allergies Allergy/AdvReac Type Severity Reaction Status Date / Time grapefruit Allergy Rash/Hives Verified 02/03/21 17:52 Penicillins Allergy Rash/Hives Verified 02/03/21 17:52 Physical Exam Vitals: Vital Signs Temp Pulse Pulse Resp BP Pulse Ox 02/05/21 16:18 70 02/05/21 16:06 60 92 L 02/05/21 14:00 98.0 F 92 24 175/66 90 L 02/05/21 11:36 90 02/05/21 11:27 95 02/05/21 08:55 20 02/05/21 08:15 68 02/05/21 08:01 94 L 02/05/21 08:00 62 02/05/21 07:56 98.8 F 65 20 155/58 91 L 02/05/21 00:10 97.4 F L 72 18 126/66 91 L 02/04/21 20:15 71 02/04/21 20:05 74 90 L 02/04/21 19:12 97.4 F L 78 16 124/69 92 L Intake and Output 02/05/21 02/05/21 02/05/21 06:59 14:59 22:59 Other: # Voids 1 - Constitutional General appearance: average body habitus, cooperative, disheveled, mild distress - EENT Eyes: PERRLA Ears: bilateral: normal - Neck Carotids: bilateral: upstroke normal Thyroid: bilateral: normal size - Respiratory Respiratory: bilateral: diminished, wheezing - Cardiovascular Rhythm: regular Heart sounds: normal: S1, S2 - Gastrointestinal General gastrointestinal: normal bowel sounds - Integumentary Integumentary: decreased turgor - Neurologic Neurologic: CNII-XII intact - Musculoskeletal Musculoskeletal: gait normal, generalized weakness, strength equal bilaterally - Psychiatric Psychiatric: A&O x's 3, appropriate affect, intact judgment & insight Results - Laboratory Findings CBC and BMP: 02/05/21 05:56 02/05/21 05:56 PT/INR, D-dimer PT 9.6 sec (9.0-12.0) 02/03/21 17:31 INR 0.9 (<1.2) 02/03/21 17:31 Abnormal lab findings: Abnormal Labs 02/03/21 02/03/21 02/05/21 16:04 17:31 05:56 WBC 12.9 H 13.29 H RBC 3.41 L Hgb 9.4 L Hct 30.5 L MCHC 30.8 L Immature Gran # 0.09 H Neutrophils # 10.8 H 11.95 H Lymphocytes # 0.53 L Eosinophils # 0 L Glucose 122 H Total Bilirubin C-Reactive Protein 3.6 H Total Protein 02/05/21 05:56 WBC RBC Hgb Hct MCHC Immature Gran # Neutrophils # Lymphocytes # Eosinophils # Glucose 171 H Total Bilirubin <0.20 L C-Reactive Protein Total Protein 6.0 L - Diagnostic Findings Chest x-ray: report reviewed, image reviewed CT scan - chest: report reviewed, image reviewed Assessment and Plan Assessment: Acute on chronic hypoxic respiratory failure Sepsis due to pneumonia Bacteremia with staph epi likely contaminant, however ID is following Right lower lobe pneumonia Endobronchial mass versus mucus plugging Bilateral lung nodules and lower lobe End-stage COPD oxygen dependent Plan: Continue broad-spectrum antibiotics IV steroids Breathing treatments Deep breathing sense incentive spirometry Patient is too sick for bronchoscopy discussed with her at length, Further recommendations pending plan of care as per clinical response of the patient Time with Patient: Greater than 30
[2021-02-05] MEDS: ATORVASTATIN 80 MG TAB PO SCH (21:13)
--- NOTE | 2021-02-05 22:33 | PN ---
PROGRESS NOTE DATE OF SERVICE: 02/05/2021 REASON FOR FOLLOWUP: 1. Positive blood culture. 2. Pneumonia. INTERVAL HISTORY: The patient is afebrile. The patient is breathing slightly comfortably. The patient continues to have a cough with occasional sputum. No nausea, no vomiting. No abdominal pain or diarrhea. PHYSICAL EXAMINATION: Blood pressure 148/76, pulse of 60, temperature 98.2. She is 93% on 7 L nasal cannula. General description is an elderly female lying in bed in no distress. Respiratory system: Unlabored breathing, decreased breath sounds at the base. No wheeze. Heart S1, S2. Regular rate and rhythm. Abdomen soft, no tenderness. Extremities no edema of the feet. LABS: Hemoglobin is 9.4, white count 13.29, creatinine 0.8. DIAGNOSTIC IMPRESSION AND PLAN: 1. Patient with a positive blood culture with coagulase-negative Staphylococcus, likely skin contaminant. Patient with no clinical disease to go along with it. We will discontinue the vancomycin. 2. Patient with right lower lobe pneumonia, covered with Rocephin and Zithromax. Will try to obtain a sputum culture to narrow down antibiotics and continue with supportive care. MMODL / IJN: [id number] /
[2021-02-06] MEDS: SODIUM CHLORIDE 0.9% 1,000 ML IV SCH ×4 (00:38→23:55)
[2021-02-06] MEDS: SPIRONOLACTONE 25 MG TAB PO SCH (07:38)
[2021-02-06] MEDS: IBUPROFEN 400 MG TAB PO SCH (07:38)
[2021-02-06] MEDS: ASPIRIN 81 MG PO SCH (07:38)
[2021-02-06] MEDS: METOPROLOL TARTRATE 12.5 MG TAB PO SCH ×2 (07:38→21:09)
[2021-02-06] MEDS: metFORMIN 500 MG TAB PO SCH (07:38)
[2021-02-06] MEDS: clonazePAM 0.5 MG TAB PO SCH ×4 (07:38→21:09)
[2021-02-06] MEDS: methylPREDNISolone SOD SUCCI 40 MG/ML 1 ML VIAL IV SCH ×3 (07:38→23:15)
[2021-02-06] MEDS: MONTELUKAST 10 MG TAB PO SCH (07:38)
[2021-02-06] MEDS: MULTIVITAMINS, THERA 1 EACH TAB PO SCH (07:39)
[2021-02-06] MEDS: QUEtiapine 50 MG TAB PO SCH ×2 (07:39→21:09)
[2021-02-06] MEDS: haloperidoL 5 MG TAB PO SCH ×2 (07:40→21:09)
[2021-02-06] MEDS: BENZTROPINE MESYLATE 1 MG TAB PO SCH ×3 (07:40→21:09)
[2021-02-06] MEDS: SERTRALINE 25 MG TAB PO SCH (07:42)
[2021-02-06] MEDS: IPRATROPIUM-ALBUTEROL 3 ML NEB INHALATION SCH ×4 (08:00→19:29)
[2021-02-06] MEDS: BUDESONIDE 1 MG/2 ML NEBU INHALATION SCH ×2 (08:00→19:29)
[2021-02-06] MEDS: AZITHROMYCIN 500 MG in SODIUM CHLORIDE 0.9% 250 ML IVPB SCH (08:21)
--- NOTE | 2021-02-06 11:01 | PN ---
PROGRESS NOTE This 75-year-old white female has community-acquired pneumonia, COPD exacerbation, acute hypoxemic respiratory distress, positive blood culture. Breathing comfortably. Cough with sputum. No abdominal pain. Abdomen soft, nontender. Cardiovascular: S1, S2. Lungs: Rales at the base. Scattered rhonchi. Hemoglobin is 9.4, white count .2, creatinine 0.8. Positive blood culture, coagulase-negative Staphylococcus, likely skin contaminant. Vancomycin has been discontinued. Right lower lobe pneumonia. Continue Rocephin and azithromycin. Sputum culture. Continue current treatment. Prognosis guarded. MMODL / IJN: [id number] /
[2021-02-06] MEDS: ATORVASTATIN 80 MG TAB PO SCH (21:09)
--- NOTE | 2021-02-06 23:18 | PN ---
PROGRESS NOTE DATE OF SERVICE: 02/06/2021 REASON FOR FOLLOWUP: 1. Positive blood culture contamination. 2. Pneumonia. INTERVAL HISTORY: The patient is afebrile. The patient has been breathing comfortably, hemodynamically stable. No worsening cough, shortness of breath, abdominal pain, or any diarrhea reported. PHYSICAL EXAMINATION: Blood pressure 177/81 with a temperature of 98.3. General description is an elderly female lying in bed in no distress. Respiratory system: Unlabored breathing, decreased intensity of breath sounds. No wheeze. Heart S1, S2. Regular rate and rhythm. Abdomen soft, no tenderness. LABS: No new labs have been obtained today. DIAGNOSTIC IMPRESSION AND PLAN: 1. Patient with a positive blood culture with Staphylococcus epidermidis, likely contaminant. Repeat blood culture negative. No need for vancomycin. 2. Patient with pneumonia, possibly community-acquired, covered with Rocephin and Zithromax. Try to obtain a sputum sample to narrow down antibiotics. Continue with supportive care. MMODL / IJN: [id number] /
[2021-02-07] MEDS: amLODIPine 5 MG TAB PO SCH ×3 (03:34→21:13)
[2021-02-07] MEDS: IPRATROPIUM-ALBUTEROL 3 ML NEB INHALATION SCH ×4 (08:02→21:27)
[2021-02-07] MEDS: BUDESONIDE 1 MG/2 ML NEBU INHALATION SCH ×2 (08:02→21:27)
[2021-02-07] MEDS: MULTIVITAMINS, THERA 1 EACH TAB PO SCH (08:51)
[2021-02-07] MEDS: metFORMIN 500 MG TAB PO SCH (08:51)
[2021-02-07] MEDS: ASPIRIN 81 MG PO SCH (08:51)
[2021-02-07] MEDS: METOPROLOL TARTRATE 12.5 MG TAB PO SCH ×2 (08:51→21:13)
[2021-02-07] MEDS: MONTELUKAST 10 MG TAB PO SCH (08:51)
[2021-02-07] MEDS: IBUPROFEN 400 MG TAB PO SCH (08:51)
[2021-02-07] MEDS: clonazePAM 0.5 MG TAB PO SCH ×4 (08:52→21:12)
[2021-02-07] MEDS: methylPREDNISolone SOD SUCCI 40 MG/ML 1 ML VIAL IV SCH ×3 (08:53→23:28)
[2021-02-07] MEDS: haloperidoL 5 MG TAB PO SCH ×2 (08:54→21:12)
[2021-02-07] MEDS: BENZTROPINE MESYLATE 1 MG TAB PO SCH ×3 (08:54→21:12)
[2021-02-07] MEDS ORDERED: amLODIPine 5 MG TAB PO SCH (09:00)
[2021-02-07] MEDS: QUEtiapine 50 MG TAB PO SCH ×2 (09:05→21:12)
--- NOTE | 2021-02-07 09:05 | PN ---
PROGRESS NOTE This is a 75-year-old white female with positive blood culture contamination, pneumonia, COPD exacerbation. Sitting up in the chair, breathing better. Cardiovascular S1-S2. Lungs unlabored breathing. Scattered wheezes and rhonchi, minimal. Heart S1-S2. ASSESSMENT: Positive blood culture with Staphylococcus epidermidis, likely contaminant. Blood cultures are negative. She remains on Rocephin and azithromycin. Try to get a sputum sample to narrow down antibiotics. Continue with supportive care. Possible discharge home in the next 48 hours. MMODL / IJN: [id number] /
[2021-02-07] MEDS: SERTRALINE 25 MG TAB PO SCH (09:06)
[2021-02-07] MEDS: SPIRONOLACTONE 25 MG TAB PO SCH (09:11)
--- NOTE | 2021-02-07 09:28 | XR ---
EXAMINATION TYPE: XR chest 1V portable DATE OF EXAM: 02/07/2021 COMPARISON: Chest x-ray 02/04/2021, chest CT 02/05/2021 HISTORY: COPD, emphysema, abnormal CT TECHNIQUE: Single frontal view of the chest is obtained. FINDINGS: Prominence the heart size is at least in part due to the prominent epicardial fat. Pulmona ry artery enlargement may be indicative of underlying pulmonary artery hypertension. There are promin ent lung volumes, patchy densities present at the lung bases. No evident pneumothorax. There are over lying leads. Aorta is dense. IMPRESSION: Correlate for pneumonia versus atelectasis. Possible pulmonary artery hypertension, emph ysema.
[2021-02-07 09:29] LABS: Basophils # (A) 0.04 X 10*3/uL (0.00-0.10); Basophils % (A) 0.3 %; Eosinophils # (A) 0 X 10*3/uL (0.04-0.35); Eosinophils % (A) 0 %; HCT 32.2 % (37.2-46.3); HGB 10.1 g/dL (12.0-15.0); Lymphocytes # (A) 0.72 X 10*3/uL (0.90-5.00); Lymphocytes % (A) 5.9 %; MCH 28.5 pg (27.0-32.0); MCHC 31.4 g/dL (32.0-37.0); Monocytes # (A) 0.88 X 10*3/uL (0.20-1.00); Monocytes % (A) 7.2 %; Neutrophils # (A) 10.39 X 10*3/uL (1.80-7.70); Neutrophils % (A) 84.6 %; Platelet Count 309 X 10*3/uL (140-440); RBC 3.54 X 10*6/uL (4.10-5.20); RDW 14.3 % (11.5-14.5); WBC 12.27 X 10*3/uL (4.50-10.00)
[2021-02-07 10:44] LABS: ALT 28 U/L (8-44); AST 25 U/L (13-35); African American GFR (CKD) 98.9 (60.0-200.0); Albumin 3.5 g/dL (3.8-4.9); Albumin/Globulin Ratio 1.59 (1.60-3.17); Alkaline Phosphatase 83 U/L (41-126); BUN/Creat Ratio 22.86 Ratio (12.00-20.00); Calcium 8.1 mg/dL (8.7-10.3); Carbon Dioxide 27.6 mmol/L (20.0-27.5); Chloride 104 mmol/L (96-109); Globulin 2.2 g/dL (1.6-3.3); Glucose 173 mg/dL (70-110); Non-African American GFR(CKD) 85.4 (60.0-200.0); Potassium 4.3 mmol/L (3.5-5.5); Sodium 141 mmol/L (135-145); Total Bilirubin <0.20 mg/dL (0.30-1.20); Total Protein 5.7 g/dL (6.2-8.2)
[2021-02-07] MEDS: AZITHROMYCIN 500 MG in SODIUM CHLORIDE 0.9% 250 ML IVPB SCH (12:33)
[2021-02-07] MEDS: SODIUM CHLORIDE 0.9% 1,000 ML IV SCH ×2 (12:35→15:46)
--- NOTE | 2021-02-07 12:59 | P.PN ---
Subjective Progress Note Date: 02/06/21 Principal diagnosis: Acute on chronic hypoxic respiratory failure Sepsis due to pneumonia Bacteremia with staph epi likely contaminant, however ID is following Right lower lobe pneumonia Endobronchial mass versus mucus plugging Bilateral lung nodules and lower lobe End-stage COPD oxygen dependent 02/06/2021, patient seen and evaluated examined during the rounds labs reviewed medications reviewed care plan discussed with the patient at length cough conditions still there patient is producing yellowish sputum remains on broad- spectrum antibiotics unable to titrate oxygen down remains up to 7 L nasal cannula, CT chest finding as noted above, This is a 75-year-old female seen eval reexamined on fourth floor patient came into the hospital with increasing shortness of breath cough and sputum production symptoms started a week ago initially cough was a mild, with the increasing symptoms increasing cough, started having chills and fever, patient has been on the supplemental oxygen 3 L nasal cannula at home due to end-stage COPD oxygen requirement now increase it to 5 L nasal cannula, no specific questioning she admits sputum production denies any hemoptysis, denies any loss of consciousness headache, just feels very weak and fatigued, on arrival she had a temperature 100.1, chest x-ray positive for right lower lobe pneumonia as well as interstitial lung disease, she was started on supplemental oxygen IV Rocephin and Zithromax along with IV steroids, follow-up chest x-ray was showing bilateral infiltrate, computed tomography scan of the chest revealed emphysema, 8mm left basilar nodule, 8mm right basilar nodule, possible endobronchial lesion, peribronchial thickening along with irregular consolidation in right lower lobe Objective - Vital Signs Vital signs: Vital Signs Temp 98.5 F 02/06/21 07:48 Pulse 52 L 02/06/21 11:40 Resp 20 02/06/21 08:00 BP 128/62 02/06/21 07:48 Pulse Ox 93 L 02/06/21 07:48 Intake & Output 02/05/21 02/06/21 02/06/21 18:59 06:59 18:59 Intake Total 900 Balance 900 Intake: IV 900 Azithromycin 500 mg In 250 Sodium Chloride 0.9% 250 ml @ 250 mls/hr IVPB DAILY [facility] Rx#:[id number] Sodium Chloride 0.9% 1, 600 000 ml @ 130 mls/hr IV . [id number] [facility] Rx#:[id number] cefTRIAXone 2 gm In 50 Sodium Chloride 0.9% 50 ml @ 100 mls/hr IVPB Q24HR [facility] Rx#:[id number] Other: # Voids 2 - Exam - Constitutional General appearance: average body habitus, cooperative, disheveled, mild distress - EENT Eyes: PERRLA Ears: bilateral: normal - Neck Carotids: bilateral: upstroke normal Thyroid: bilateral: normal size - Respiratory Respiratory: bilateral: diminished, wheezing - Cardiovascular Rhythm: regular Heart sounds: normal: S1, S2 - Gastrointestinal General gastrointestinal: normal bowel sounds - Integumentary Integumentary: decreased turgor - Neurologic Neurologic: CNII-XII intact - Musculoskeletal Musculoskeletal: gait normal, generalized weakness, strength equal bilaterally - Psychiatric Psychiatric: A&O x's 3, appropriate affect, intact judgment & insight - Labs CBC & Chem 7: 02/07/21 05:47 02/07/21 05:47 Labs: Microbiology - Last 24 Hours (Table) 02/03/21 17:31 Blood Culture Gram Stain - Preliminary Blood Blood Culture - Preliminary Coagulase Negative Staph 02/03/21 17:15 Blood Culture Gram Stain - Preliminary Blood Blood Culture - Preliminary Staphylococcus epidermidis Assessment and Plan Assessment: Acute on chronic hypoxic respiratory failure Sepsis due to pneumonia Bacteremia with staph epi likely contaminant, however ID is following Right lower lobe pneumonia Endobronchial mass versus mucus plugging Bilateral lung nodules and lower lobe End-stage COPD oxygen dependent Plan: Continue broad-spectrum antibiotics IV steroids Breathing treatments Deep breathing sense incentive spirometry Patient is too sick for bronchoscopy discussed with her at length, Further recommendations pending plan of care as per clinical response of the pa tient Time with Patient: Greater than 30
--- NOTE | 2021-02-07 13:02 | P.PN ---
Subjective Progress Note Date: 02/07/21 Principal diagnosis: Acute on chronic hypoxic respiratory failure Sepsis due to pneumonia Bacteremia with staph epi likely contaminant, however ID is following Right lower lobe pneumonia Endobronchial mass versus mucus plugging Bilateral lung nodules and lower lobe End-stage COPD oxygen dependent 02/07/2021, shortness of breath slightly stable but however continued to require high flow oxygen currently on 7 L nasal cannula, intermittent cough is present, productive of thick yellow sputum, computed tomography scan finding reviewed currently patient is not stable enough to get bronchoscopy due to clinical condition would like oxygen to go down a bit, chest x-ray performed today not available to look at but reviewed report cardiomegaly interstitial edema and prominent pulmonary vasculature consistent with pulmonary hypertension, bilateral basal pneumonia 02/06/2021, patient seen and evaluated examined during the rounds labs reviewed medications reviewed care plan discussed with the patient at length cough conditions still there patient is producing yellowish sputum remains on broad- spectrum antibiotics unable to titrate oxygen down remains up to 7 L nasal c annula, CT chest finding as noted above, This is a 75-year-old female seen eval reexamined on fourth floor patient came into the hospital with increasing shortness of breath cough and sputum producti on symptoms started a week ago initially cough was a mild, with the increasing symptoms increasing cough, started having chills and fever, patient has been on the supplemental oxygen 3 L nasal cannula at home due to end-stage COPD oxygen requirement now increase it to 5 L nasal cannula, no specific questioning she admits sputum production denies any hemoptysis, denies any loss of consciousness headache, just feels very weak and fatigued, on arrival she had a temperature 100.1, chest x-ray positive for right lower lobe pneumonia as well as interstitial lung disease, she was started on supplemental oxygen IV Rocephin and Zithromax along with IV steroids, follow-up chest x-ray was showing bilat eral infiltrate, computed tomography scan of the chest revealed emphysema, 8mm left basilar nodule, 8mm right basilar nodule, possible endobronchial lesion, peribronchial thickening along with irregular consolidation in right lower lobe Objective - Vital Signs Vital signs: Vital Signs Temp 98.2 F 02/07/21 08:00 Pulse 78 02/07/21 12:13 Resp 17 02/07/21 08:00 BP 166/78 02/07/21 08:00 Pulse Ox 90 L 02/07/21 08:00 Intake & Output 02/06/21 02/07/21 02/07/21 18:59 06:59 18:59 Intake Total 840 Balance 840 Intake: IV 840 Azithromycin 500 mg In 250 Sodium Chloride 0.9% 250 ml @ 250 mls/hr IVPB DAILY [facility] Rx#:[id number] Sodium Chloride 0.9% 1, 540 000 ml @ 130 mls/hr IV . Q7H42M [facility] Rx#:[id number] cefTRIAXone 2 gm In 50 Sodium Chloride 0.9% 50 ml @ 100 mls/hr IVPB Q24HR [facility] Rx#:[id number] Other: # Voids 5 # Bowel Movements 1 - Exam - Constitutional General appearance: average body habitus, cooperative, disheveled, mild distress - EENT Eyes: PERRLA Ears: bilateral: normal - Neck Carotids: bilateral: upstroke normal Thyroid: bilateral: normal size - Respiratory Respiratory: bilateral: diminished, wheezing - Cardiovascular Rhythm: regular Heart sounds: normal: S1, S2 - Gastrointestinal General gastrointestinal: normal bowel sounds - Integumentary Integumentary: decreased turgor - Neurologic Neurologic: CNII-XII intact - Musculoskeletal Musculoskeletal: gait normal, generalized weakness, strength equal bilaterally - Psychiatric Psychiatric: A&O x's 3, appropriate affect, intact judgment & insight - Labs CBC & Chem 7: 02/07/21 05:47 02/07/21 05:47 Labs: Abnormal Lab Results - Last 24 Hours (Table) 02/07/21 02/07/21 Range/Units 05:47 05:47 WBC 12.27 H (4.50-10.00) X 10*3/uL RBC 3.54 L (4.10-5.20) X 10*6/uL Hgb 10.1 L (12.0-15.0) g/dL Hct 32.2 L (37.2-46.3) % MCHC 31.4 L (32.0-37.0) g/dL Immature Gran # 0.24 H (0.00-0.04) X 10*3/uL Neutrophils # 10.39 H (1.80-7.70) X 10*3/uL Lymphocytes # 0.72 L (0.90-5.00) X 10*3/uL Eosinophils # 0 L (0.04-0.35) X 10*3/uL Carbon Dioxide 27.6 H (20.0-27.5) mmol/L Anion Gap 9.40 L (10.00-18.00) mmol/L BUN/Creatinine Ratio 22.86 H (12.00-20.00) Ratio Glucose 173 H (70-110) mg/dL Calcium 8.1 L (8.7-10.3) mg/dL Total Bilirubin <0.20 L (0.30-1.20) mg/dL Total Protein 5.7 L (6.2-8.2) g/dL Albumin 3.5 L (3.8-4.9) g/dL Albumin/Globulin Ratio 1.59 L (1.60-3.17) g/dL Microbiology - Last 24 Hours (Table) 02/06/21 16:00 Gram Stain - Preliminary Sputum Sputum Culture - Preliminary 02/03/21 17:31 Blood Culture Gram Stain - Final Blood Blood Culture - Final Staphylococcus epidermidis 02/03/21 17:15 Blood Culture Gram Stain - Final Blood Blood Culture - Final Staphylococcus epidermidis Assessment and Plan Assessment: Acute on chronic hypoxic respiratory failure Sepsis due to pneumonia Bacteremia with staph epi likely contaminant, however ID is following Right lower lobe pneumonia Endobronchial mass versus mucus plugging on right lower lobe bronchus Bilateral lung nodules and lower lobe End-stage COPD oxygen dependent Plan: Continue broad-spectrum antibiotics IV steroids Breathing treatments Deep breathing sense incentive spirometry Patient is too sick for bronchoscopy discussed with her at length, will do diagnostic and therapeutic bronchoscopy once clinically more stable Further recommendations pending plan of care as per clinical response of the patient Time with Patient: Greater than 30
--- NOTE | 2021-02-07 15:23 | PN ---
PROGRESS NOTE 75-year-old white male, acute on chronic hypoxemic respiratory failure secondary to sepsis due to pneumonia, bacteremia with Staph epi which appears to be a contaminant, right lower lobe pneumonia, mucous plugging versus endobronchial mass, bilateral lung nodules, lower lobe, COPD. This patient is not stable enough to get a bronchoscopy due to her clinical condition. Trying to wean her down oxygen. She has pulmonary hypertension and interstitial edema on chest x-rays. Temp 98.2, O2 90% on 7 L, blood pressure 166/78, pulse 70 to 78, respiratory rate 16 to 18. Lungs are scattered rhonchi and wheeze. Rales at the bases. Cardiovascular S1, S2. Hematology 2 to 3+ edema. Psych: Fair mood and affect. White count 12.27, hemoglobin 10.1. ASSESSMENT AND PLAN: 1. Hypertension acceleration. Today we added hydralazine and increase her atenolol to 25 b.i.d. 2. Acute on chronic hypoxemic respiratory failure. 3. Sepsis secondary to pneumonia, bacteremia, contaminant, right lower lobe pneumonia. 4. End-stage chronic obstructive pulmonary disease. IV steroids, breathing treatments, broad-spectrum antibiotics, possibly IV Lasix. 5. Cardiology recommendations. 6. Prognosis guarded. MMODL / IJN: [id number] /
[2021-02-07] MEDS: FUROSEMIDE 10 MG/ML 2 ML VIAL IV SCH ×2 (16:42→21:16)
[2021-02-07] MEDS: ATORVASTATIN 80 MG TAB PO SCH (21:13)
--- NOTE | 2021-02-07 22:33 | PN ---
PROGRESS NOTE DATE OF SERVICE: 02/07/2021 REASON FOR FOLLOWUP: 1. Pneumonia. 2. Positive blood culture, likely skin contamination. INTERVAL HISTORY: The patient is afebrile. The patient is currently breathing comfortably. The patient denies having any chest pain. The patient did have a cough but not bringing up any sputum. No abdominal pain or diarrhea. PHYSICAL EXAMINATION: Blood pressure 152/80 with a pulse of 79, temperature 98.4. He is 94% on 7 L nasal cannula. General description is an elderly female up in the bed in no distress respiratory system unlabored breathing, decreased breath sounds in the bases heart S1, S2. Regular rate and rhythm. Abdomen soft, no tenderness. LABS: Sputum cultures is currently pending. DIAGNOSTIC IMPRESSION AND PLAN: 1. Patient with positive blood culture with Staphylococcus epidermidis, more likely a contaminant. Repeat blood cultures were ordered to document clearance of bacteremia. 2. Patient with pneumonia, covered with Rocephin, Zithromax. Sputum cultures has been obtained. Those will be followed. A bit congested, on the basis of culture . Continue with supportive care. MMODL / IJN: [id number] /
[2021-02-08] MEDS: SODIUM CHLORIDE 0.9% 1,000 ML IV SCH ×2 (03:29→11:48)
[2021-02-08] MEDS: BUDESONIDE 1 MG/2 ML NEBU INHALATION SCH ×2 (07:27→20:08)
[2021-02-08] MEDS: IPRATROPIUM-ALBUTEROL 3 ML NEB INHALATION SCH ×4 (07:27→20:08)
[2021-02-08] MEDS: FUROSEMIDE 10 MG/ML 2 ML VIAL IV SCH (07:51)
[2021-02-08] MEDS: methylPREDNISolone SOD SUCCI 40 MG/ML 1 ML VIAL IV SCH ×2 (07:51→20:53)
[2021-02-08] MEDS: AZITHROMYCIN 500 MG in SODIUM CHLORIDE 0.9% 250 ML IVPB SCH (07:52)
[2021-02-08] MEDS: METOPROLOL TARTRATE 12.5 MG TAB PO SCH ×2 (08:16→20:53)
[2021-02-08] MEDS: MULTIVITAMINS, THERA 1 EACH TAB PO SCH (08:16)
[2021-02-08] MEDS: BENZTROPINE MESYLATE 1 MG TAB PO SCH ×3 (08:17→20:53)
[2021-02-08] MEDS: SERTRALINE 25 MG TAB PO SCH (08:17)
[2021-02-08] MEDS: SPIRONOLACTONE 25 MG TAB PO SCH (08:17)
[2021-02-08] MEDS: clonazePAM 0.5 MG TAB PO SCH ×4 (08:18→20:53)
[2021-02-08] MEDS: amLODIPine 5 MG TAB PO SCH (08:18)
[2021-02-08] MEDS: IBUPROFEN 400 MG TAB PO SCH (08:18)
[2021-02-08] MEDS: metFORMIN 500 MG TAB PO SCH (08:18)
[2021-02-08] MEDS: QUEtiapine 50 MG TAB PO SCH ×2 (08:19→20:53)
[2021-02-08] MEDS: haloperidoL 5 MG TAB PO SCH ×2 (08:19→20:53)
[2021-02-08] MEDS: MONTELUKAST 10 MG TAB PO SCH (08:19)
[2021-02-08] MEDS: ASPIRIN 81 MG PO SCH (08:19)
--- NOTE | 2021-02-08 09:21 | P.CRDCN ---
History of Present Illness History of present illness: HISTORY OF PRESENTING ILLNESS This is a pleasant 75-year-old female past medical history significant for COPD on home oxygen, hypertension, dyslipidemia, diabetes mellitus and schi zoaffective disorder. She has no prior history of coronary artery disease and does not follow in the office with a residential counselor. We have been asked to see in consultation for heart failure. She presented to the hospital 02/03 with symptoms of cough and shortness of breath. She has been diagnosed with pneumonia and bacteremia. ID is following and they do believe that the positive blood cultures are more likely a contaminant. She is currently maintained on Rocephin and Zithromax. She is seen and examined sitting up in bed in no acute distress. She continues to have a cough however she states over the previous 24 hours her cough is started to loosen and she is able to clear some of her s putum. She feels as though her breathing is stable but the same with no real improvement since admission. She has no symptoms of chest discomfort, PND or orthopnea. She has been started on IV diuretics for the primary care team. DIAGNOSTICS EKG reveals sinus rhythm heart rate of [address] or T wave abnormalities noted. Chest xray reveals patchy densities at the lung bases. Laboratory reviewed, CBC 12.2, hemoglobin 10.1, platelets 309, sodium 141, potassium 4.3, creatinine 0.7, magnesium 1.6, pro-calcitonin 0.06. Current cardiac medications include Lopressor 12.5 mg twice a day, Aldactone 12.5 mg daily and aspirin 81 mg daily. REVIEW OF SYSTEMS At the time of my exam: CONSTITUTIONAL: Denies fever or chills. CARDIOVASCULAR: Denies chest pain, orthopnea, PND or palpitations. RESPIRATORY: Complains of shortness of breath and cough. GASTROINTESTINAL: Denies abdominal pain, diarrhea, constipation, nausea or vomiting. MUSCULOSKELETAL: Denies myalgias. NEUROLOGIC: Denies numbness, tingling, headache or weakness. ENDOCRINE: Denies fatigue, weight change, polydipsia or polyurina. GENITOURINARY: Denies burning, hematuria or urgency with micturation. HEMATOLOGIC: Denies history of anemia or bleeding. PHYSICAL EXAMINATION Blood pressure 137/75 heart rate 85 afebrile and maintaining oxygen saturation on high flow nasal cannula. CONSTITUTIONAL: No apparent distress. HEENT: Head is normocephalic. Pupils are equal, round. Sclerae anicteric. Mucous membranes of the mouth are moist. No JVD. No carotid bruit. CHEST EXAMINATION: Expiratory wheezes throughout, no rales. No chest wall tenderness is noted on palpation or with deep breathing. HEART EXAMINATION: Regular rate and rhythm. S1, S2 heard. No murmurs, gallops or rub. ABDOMEN: Soft, nontender. EXTREMITIES: 2+ peripheral pulses, no lower extremity edema and no calf tenderness. NEUROLOGIC EXAMINATION: Patient is awake, alert and oriented x3. ASSESSMENT Pneumonia COPD Hypertension Dyslipidemia Diabetes mellitus PLAN Clinically the patient does not appear to be in overt heart failure. We will check proBNP. Obtain 2D echocardiogram and doppler study to assess cardiac structure and function. D/C amlodipine and IV lasix. Initiate losartan 50 mg daily and PO lasix. Clinically she is not in heart failure. Thank you kindly for this consultation. Nurse Practitioner note has been reviewed, I agree with a documented findings and plan of care. Patient was seen and examined. Past Medical History Past Medical History: COPD, Hearing Disorder / Deafness, Hyperlipidemia, Hypertension, Memory Impairment Additional Past Medical History / Comment(s): home 5 liters n/c, SCHIZOAFFECTIVE DISORDER, INCONT OF URINE THAT JUST RECENTLY STARTED. CONSTIPATION. History of Any Multi-Drug Resistant Organisms: ESBL Date of last positivie culture/infection: 11/09/20 ESBL E.coli MDRO Source:: Urine Past Surgical History: Orthopedic Surgery, Tonsillectomy, Tubal Ligation Additional Past Surgical History / Comment(s): right knee arthroscopy, FELL,BROKE RT LEG-HAD SX--PLATE AND SCREWS, colonoscopy, LILA CATARACTS, LT EYE SX FOR GLAUCOMA Past Anesthesia/Blood Transfusion Reactions: No Reported Reaction Past Psychological History: Schizoaffective Disorder Additional Psychological History / Comment(s): . Smoking Status: Former smoker Past Alcohol Use History: Occasional Additional Past Alcohol Use History / Comment(s): STARTED SMOKING AT AGE 16, WAS SMOKING 3 PPD WHEN SHE QUIT IN 2014 Past Drug Use History: None Reported - Past Family History Mother Family Medical History: Diabetes Mellitus Additional Family Medical History / Comment(s): GRANDMOTHER HAD DM Father Family Medical History: No Reported History Additional Family Medical History / Comment(s): UNK- PT WAS RAISED BY STEP FATHER Medications and Allergies Home Medications Medication Instructions Recorded Confirmed Type Albuterol Nebulized [Ventolin 2.5 mg INHALATION RT-QID PRN 12/06/15 02/03/21 History Nebulized] Aspirin EC [Ecotrin Low Dose] 81 mg PO DAILY 12/06/15 02/03/21 History Benztropine Mesylate 1 mg PO TID 12/06/15 02/03/21 History Ipratropium/Albuterol Sulfate 2 puff INHALATION RT-BID 12/06/15 02/03/21 History [Combivent Respimat Inhaler] QUEtiapine FUMARATE [SEROquel XR] 300 mg PO HS 12/06/15 02/03/21 History Spironolactone [Aldactone] 12.5 mg PO DAILY 12/06/15 02/03/21 History clonazePAM [KlonoPIN] 0.5 mg PO QID 12/06/15 02/03/21 History haloperidoL [Haldol] 5 mg PO BID 12/06/15 02/03/21 History Montelukast [Singulair] 10 mg PO DAILY 08/08/18 02/03/21 History Albuterol Sulfate [Ventolin HFA] 1 - 2 puff INHALATION RT-Q6H PRN 12/29/19 1 04/05/20 History Sertraline HCl [Zoloft] 25 mg PO DAILY 12/29/19 02/03/21 History Metoprolol Tartrate [Lopressor] 12.5 mg PO BID 01/03/20 02/03/21 History Atorvastatin Calcium [Lipitor] 80 mg PO HS 10/16/20 02/03/21 History Fluticasone Propionate [Flovent 2 puff INHALATION RT-BID 10/16/20 02/03/21 History Hfa 220 mcg] metFORMIN HCL 500 mg PO DAILY 10/16/20 02/03/21 History Ibuprofen [Motrin] 400 mg PO DAILY 02/03/21 02/03/21 History Multivitamins, Thera [Multivitamin 1 tab PO DAILY 02/03/21 02/03/21 History (formulary)] Allergies Allergy/AdvReac Type Severity Reaction Status Date / Time grapefruit Allergy Rash/Hives Verified 02/03/21 17:52 Penicillins Allergy Rash/Hives Verified 02/03/21 17:52 Physical Exam Vitals: Vital Signs Temp Pulse Pulse Resp BP Pulse Ox 02/08/21 08:00 97.4 F L 85 20 137/75 93 L 02/08/21 07:49 60 02/08/21 07:27 60 02/08/21 02:11 98.4 F 58 L 16 123/65 94 L 02/07/21 21:37 73 02/07/21 21:27 62 02/07/21 19:28 97.8 F 84 20 156/74 93 L 02/07/21 17:03 56 L 02/07/21 16:53 64 02/07/21 14:00 98.4 F 79 20 152/80 94 L 02/07/21 12:13 78 02/07/21 12:03 86 Intake and Output 02/07/21 02/08/21 02/08/21 22:59 06:59 14:59 Intake Total 2410 Balance 2410 Intake: IV 1070 Azithromycin 500 mg In 250 Sodium Chloride 0.9% 250 ml @ 250 mls/hr IVPB DAILY [facility] Rx#:[id number] Sodium Chloride 0.9% 1, 720 000 ml @ 130 mls/hr IV . Q7H42M [facility] Rx#:[id number] cefTRIAXone 2 gm In 100 Sodium Chloride 0.9% 50 ml @ 100 mls/hr IVPB Q24HR [facility] Rx#:[id number] Intake, IV Titration 500 Amount Azithromycin 500 mg In 500 Sodium Chloride 0.9% 250 ml @ 250 mls/hr IVPB DAILY [facility] Rx#:[id number] Oral 840 Other: # Voids 4 3 Results 02/07/21 05:47 02/07/21 05:47 Cardiac Enzymes 02/07/21 Range/Units 05:47 AST 25 (13-35) U/L CBC 02/07/21 Range/Units 05:47 WBC 12.27 H (4.50-10.00) X 10*3/uL RBC 3.54 L (4.10-5.20) X 10*6/uL Hgb 10.1 L (12.0-15.0) g/dL Hct 32.2 L (37.2-46.3) % Plt Count 309 (140-440) X 10*3/uL Comprehensive Metabolic Panel 02/07/21 Range/Units 05:47 Sodium 141 (135-145) mmol/L Potassium 4.3 (3.5-5.5) mmol/L Chloride 104 (96-109) mmol/L Carbon Dioxide 27.6 H (20.0-27.5) mmol/L BUN 16.0 (9.0-27.0) mg/dL Creatinine 0.7 (0.6-1.5) mg/dL Glucose 173 H (70-110) mg/dL Calcium 8.1 L (8.7-10.3) mg/dL AST 25 (13-35) U/L ALT 28 (8-44) U/L Alkaline Phosphatase 83 (41-126) U/L Total Protein 5.7 L (6.2-8.2) g/dL Albumin 3.5 L (3.8-4.9) g/dL Current Medications Generic Name Dose Route Start Last Admin Trade Name Freq PRN Reason Stop Dose Admin Acetaminophen 1,000 mg 02/03/21 15:58 Acetaminophen Tab 500 Mg Tab PO Q6HR PRN Fever>101 Albuterol/Ipratropium 3 ml 02/03/21 20:00 02/08/21 07:27 Ipratropium-Albuterol 3 Ml Neb INHALATION 3 ml RT-QID [facility] Administration Albuterol/Ipratropium 3 ml 02/03/21 17:20 Ipratropium-Albuterol 3 Ml Neb INHALATION RT-Q4H PRN shortness of breath Amlodipine Besylate 5 mg 02/07/21 03:28 02/08/21 08:18 Amlodipine 5 Mg Tab PO 5 mg BID [facility] Administration Aspirin 81 mg 02/04/21 09:00 02/08/21 08:19 Aspirin 81 Mg PO 81 mg DAILY [facility] Administration Atorvastatin Calcium 80 mg 02/03/21 21:00 02/07/21 21:13 Atorvastatin 80 Mg Tab PO 80 mg HS [facility] Administration Benztropine Mesylate 1 mg 02/03/21 22:00 02/08/21 08:17 Benztropine Mesylate 1 Mg Tab PO 1 mg TID [facility] Administration Budesonide 1 mg 02/04/21 08:00 02/08/21 07:27 Budesonide 1 Mg/2 Ml Nebu INHALATION 1 mg RT-BID [facility] Administration Clonazepam 0.5 mg 02/03/21 22:00 02/08/21 08:18 Clonazepam 0.5 Mg Tab PO 0.5 mg QID [facility] Administration Furosemide 20 mg 02/07/21 14:30 02/08/21 07:51 Furosemide 10 Mg/Ml 2 Ml Vial IV 20 mg Q12HR [facility] Administration Haloperidol 5 mg 02/03/21 21:00 02/08/21 08:19 Haloperidol 5 Mg Tab PO 5 mg BID [facility] Administration Sodium Chloride 1,000 mls @ 130 mls/hr 02/03/21 17:30 02/08/21 03:29 Saline 0.9% IV Not Given .Q7H42M [facility] Azithromycin 500 mg/ Sodium 250 mls @ 250 mls/hr 02/04/21 09:00 02/08/21 07:52 Chloride IVPB 250 mls/hr DAILY [facility] Administration Ibuprofen 400 mg 02/04/21 09:00 02/08/21 08:18 Ibuprofen 400 Mg Tab PO 400 mg DAILY [facility] Administration Metformin HCl 500 mg 02/04/21 09:00 02/08/21 08:18 Metformin 500 Mg Tab PO 500 mg DAILY [facility] Administration Methylprednisolone Sodium Succinate 40 mg 02/04/21 00:00 02/08/21 07:51 Methylprednisolone Sod Succi 40 Mg/Ml 1 Ml Vial IV 40 mg Q8HR [facility] Administration Metoprolol Tartrate 12.5 mg 02/03/21 21:00 02/08/21 08:16 Metoprolol Tartrate 12.5 Mg Tab PO 12.5 mg BID [facility] Administration Miscellaneous Information 1 each 02/03/21 17:20 Pneumonia Protocol Utilized 1 Each Misc PO ONCE PRN Per Protocol Montelukast Sodium 10 mg 02/04/21 09:00 02/08/21 08:19 Montelukast 10 Mg Tab PO 10 mg DAILY [facility] Administration Multivitamins 1 each 02/04/21 09:00 02/08/21 08:16 Multivitamins, Thera 1 Each Tab PO 1 each DAILY [facility] Administration Quetiapine Fumarate 150 mg 02/03/21 21:00 02/08/21 08:19 Quetiapine 50 Mg Tab PO 150 mg BID [facility] Administration Sertraline HCl 25 mg 02/04/21 09:00 02/08/21 08:17 Sertraline 25 Mg Tab PO 25 mg DAILY [facility] Administration Spironolactone 12.5 mg 02/04/21 09:00 02/08/21 08:17 Spironolactone 25 Mg Tab PO 12.5 mg DAILY [facility] Administration Intake and Output 02/07/21 02/08/21 02/08/21 22:59 06:59 14:59 Intake Total 2410 Balance 2410 Intake: IV 1070 Azithromycin 500 mg In 250 Sodium Chloride 0.9% 250 ml @ 250 mls/hr IVPB DAILY [facility] Rx#:[id number] Sodium Chloride 0.9% 1, 720 000 ml @ 130 mls/hr IV . Q7H42M [facility] Rx#:[id number] cefTRIAXone 2 gm In 100 Sodium Chloride 0.9% 50 ml @ 100 mls/hr IVPB Q24HR [facility] Rx#:[id number] Intake, IV Titration 500 Amount Azithromycin 500 mg In 500 Sodium Chloride 0.9% 250 ml @ 250 mls/hr IVPB DAILY [facility] Rx#:[id number] Oral 840 Other: # Voids 4 3 02/07/21 05:47 02/07/21 05:47
--- NOTE | 2021-02-08 10:00 | ECHOF ---
Referral Reason:chf MEASUREMENTS -------- HEIGHT: 162.6 cm WEIGHT: 91.6 kg BP: 152/80 RVIDd: 3.5 cm (< 3.3) IVSd: 1.2 cm (0.6 - 1.1) LVIDd: 5.1 cm (3.9 - 5.3) LVPWd: 1.2 cm (0.6 - 1.1) IVSs: 2.0 cm LVIDs: 2.8 cm LVPWs: 1.7 cm LA Diam: 3.8 cm (2.7 - 3.8) LAESV Index (A-L): 32.74 ml/m Ao Diam: 3.3 cm (2.0 - 3.7) AV Cusp: 2.2 cm (1.5 - 2.6) MV EXCURSION: 13.883 mm (> 18.000) MV EF SLOPE: 61 mm/s (70 - 150) EPSS: 0.4 cm MV E Irwin: 1.20 m/s MV DecT: 222 ms MV A Irwin: 1.05 m/s MV E/A Ratio: 1.14 FINDINGS -------- Sinus rhythm. TECHNICALLY SUBOPTIMAL STUDY. This was a technically adequate study. The left ventricular size is normal. There is borderline concentric left ventricular hypertrophy. Overall left ventricular systolic function is normal with, an EF between 60 - 65 %. The right ventricle is mildly enlarged. LA is midly dilated 29-33ml/m2. The right atrium is normal in size. Interatrial and interventricular septum intact. The aortic valve is trileaflet, and appears structurally normal. No aortic stenosis or regurgitation. Mild mitral annular calcification present. The tricuspid valve appears structurally normal. Unable to estimate RVSP due to inadequate TR jet s pectral doppler profile. The pulmonic valve was not well visualized. The aortic root size is normal. Normal inferior vena cava with normal inspiratory collapse consistent with estimated right atrial pre ssure of 5 mmHg. There is no pericardial effusion. CONCLUSIONS -------- 1. The left ventricular size is normal. 2. There is borderline concentric left ventricular hypertrophy. 3. Overall left ventricular systolic function is normal with, an EF between 60 - 65 %. 4. The right ventricle is mildly enlarged. 5. LA is midly dilated 29-33ml/m2. 6. The aortic valve is trileaflet, and appears structurally normal. No aortic stenosis or regurgitati on. 7. There is no pericardial effusion. POT HOLDER BINDER: Yani Hopson RDCS
--- NOTE | 2021-02-08 10:02 | P.PN ---
Subjective Progress Note Date: 02/08/21 Principal diagnosis: Acute on chronic hypoxic respiratory failure Sepsis due to pneumonia Bacteremia with staph epi likely contaminant, however ID is following Right lower lobe pneumonia Endobronchial mass versus mucus plugging Bilateral lung nodules and lower lobe End-stage COPD oxygen dependent February 08 2021, patient seen eval examined during the rounds labs reviewed medications reviewed care plan discussed, respiratory status is stable, however continued to require 7 L oxygen, labs pending from today, chest x-ray from yesterday reviewed as noted before 02/07/2021, shortness of breath slightly stable but however continued to require high flow oxygen currently on 7 L nasal cannula, intermittent cough is present, productive of thick yellow sputum, computed tomography scan finding reviewed currently patient is not stable enough to get bronchoscopy due to clinical condition would like oxygen to go down a bit, chest x-ray performed today not available to look at but reviewed report cardiomegaly interstitial edema and prominent pulmonary vasculature consistent with pulmonary hypertension, bilateral basal pneumonia 02/06/2021, patient seen and evaluated examined during the rounds labs reviewed medications reviewed care plan discussed with the patient at length cough conditions still there patient is producing yellowish sputum remains on broad-spectrum antibiotics unable to titrate oxygen down remains up to 7 L nasal cannula, CT chest finding as noted above, This is a 75-year-old female seen eval reexamined on fourth floor patient came into the hospital with increasing shortness of breath cough and sputum production symptoms started a week ago initially cough was a mild, with the increasing symptoms increasing cough, started having chills and fever, patient has been on the supplemental oxygen 3 L nasal cannula at home due to end-stage COPD oxygen requirement now increase it to 5 L nasal cannula, no specific questioning she admits sputum production denies any hemoptysis, denies any loss of consciousness headache, just feels very weak and fatigued, on arrival she had a temperature 100.1, chest x-ray positive for right lower lobe pneumonia as well as interstitial lung disease, she was started on supplemental oxygen IV Rocephin and Zithromax along with IV steroids, follow-up chest x-ray was showing bilateral infiltrate, computed tomography scan of the chest revealed emphysema, 8mm left basilar nodule, 8mm right basilar nodule, possible endobronchial lesion, peribronchial thickening along with irregular consolidation in right lower lobe Objective - Vital Signs Vital signs: Vital Signs Temp 97.4 F L 02/08/21 08:00 Pulse 85 02/08/21 08:00 Resp 20 02/08/21 08:00 BP 137/75 02/08/21 08:00 Pulse Ox 93 L 02/08/21 08:00 Intake & Output 02/07/21 02/08/21 02/08/21 18:59 06:59 18:59 Intake Total 2410 Balance 2410 Intake: IV 1070 Azithromycin 500 mg In 250 Sodium Chloride 0.9% 250 ml @ 250 mls/hr IVPB DAILY [facility] Rx#:[id number] Sodium Chloride 0.9% 1, 720 000 ml @ 130 mls/hr IV . [id number] [facility] Rx#:[id number] cefTRIAXone 2 gm In 100 Sodium Chloride 0.9% 50 ml @ 100 mls/hr IVPB Q24HR [facility] Rx#:[id number] Intake, IV Titration 500 Amount Azithromycin 500 mg In 500 Sodium Chloride 0.9% 250 ml @ 250 mls/hr IVPB DAILY [facility] Rx#:[id number] Oral 840 Other: # Voids 4 3 - Exam - Constitutional General appearance: average body habitus, cooperative, disheveled, mild distress - EENT Eyes: PERRLA Ears: bilateral: normal - Neck Carotids: bilateral: upstroke normal Thyroid: bilateral: normal size - Respiratory Respiratory: bilateral: diminished, wheezing - Cardiovascular Rhythm: regular Heart sounds: normal: S1, S2 - Gastrointestinal General gastrointestinal: normal bowel sounds - Integumentary Integumentary: decreased turgor - Neurologic Neurologic: CNII-XII intact - Musculoskeletal Musculoskeletal: gait normal, generalized weakness, strength equal bilaterally - Psychiatric Psychiatric: A&O x's 3, appropriate affect, intact judgment & insight - Labs CBC & Chem 7: 02/07/21 05:47 02/07/21 05:47 Labs: Abnormal Lab Results - Last 24 Hours (Table) 02/07/21 Range/Units 05:47 Carbon Dioxide 27.6 H (20.0-27.5) mmol/L Anion Gap 9.40 L (10.00-18.00) mmol/L BUN/Creatinine Ratio 22.86 H (12.00-20.00) Ratio Glucose 173 H (70-110) mg/dL Calcium 8.1 L (8.7-10.3) mg/dL Total Bilirubin <0.20 L (0.30-1.20) mg/dL Total Protein 5.7 L (6.2-8.2) g/dL Albumin 3.5 L (3.8-4.9) g/dL Albumin/Globulin Ratio 1.59 L (1.60-3.17) g/dL Microbiology - Last 24 Hours (Table) 02/06/21 16:00 Gram Stain - Preliminary Sputum Sputum Culture - Preliminary Assessment and Plan Assessment: Acute on chronic hypoxic respiratory failure Sepsis due to pneumonia Bacteremia with staph epi likely contaminant, however ID is following Right lower lobe pneumonia Endobronchial mass versus mucus plugging on right lower lobe bronchus Bilateral lung nodules and lower lobe End-stage COPD oxygen dependent Plan: Continue broad-spectrum antibiotics IV steroids Breathing treatments Deep breathing sense incentive spirometry Patient is too sick for bronchoscopy discussed with her at length, will do diagnostic and therapeutic bronchoscopy once clinically more stable Further recommendations pending plan of care as per clinical response of the patient Time with Patient: Greater than 30
[2021-02-08] MEDS: HEPARIN SODIUM,PORCINE/PF 5,000 UNIT/0.5 ML SYRINGE SQ SCH ×2 (10:50→20:53)
[2021-02-08] MEDS: LOSARTAN 50 MG TAB PO SCH (10:50)
--- NOTE | 2021-02-08 18:42 | P.PN ---
Progress Note - Text Progress Note Date: 02/08/21 Presenting complaint: Short of breath Hospital course: Patient presented with increasing shortness of breath cough sputum production. Also chills and fever. Patient does have 3 L of oxygen at home. Weak and tired. Positive fever. Patient started on IV ceftriaxone and Zithromax for pneumonia. February 08: On 7 L of oxygen. Eating about 75%. Reclining in bed. Tired. Some shortness of breath Review of systems: Was done for constitutional, cardiovascular, GI, pulmonary. relevant finding as above Active Medications Acetaminophen (Acetaminophen Tab 500 Mg Tab) 1,000 mg PO Q6HR PRN PRN Reason: Fever>101 Albuterol/Ipratropium (Ipratropium-Albuterol 3 Ml Neb) 3 ml INHALATION RT-QID [facility] Last Admin: 02/08/21 15:04 Dose: 3 ml Documented by: Albuterol/Ipratropium (Ipratropium-Albuterol 3 Ml Neb) 3 ml INHALATION RT-Q4H PRN PRN Reason: shortness of breath Aspirin (Aspirin 81 Mg) 81 mg PO DAILY [facility] Last Admin: 02/08/21 08:19 Dose: 81 mg Documented by: Atorvastatin Calcium (Atorvastatin 80 Mg Tab) 80 mg PO HS [facility] Last Admin: 02/07/21 21:13 Dose: 80 mg Documented by: Benztropine Mesylate (Benztropine Mesylate 1 Mg Tab) 1 mg PO TID [facility] Last Admin: 02/08/21 17:07 Dose: 1 mg Documented by: Budesonide (Budesonide 1 Mg/2 Ml Nebu) 1 mg INHALATION RT-BID [facility] Last Admin: 02/08/21 07:27 Dose: 1 mg Documented by: Clonazepam (Clonazepam 0.5 Mg Tab) 0.5 mg PO QID [facility] Last Admin: 02/08/21 17:07 Dose: 0.5 mg Documented by: Haloperidol (Haloperidol 5 Mg Tab) 5 mg PO BID [facility] Last Admin: 02/08/21 08:19 Dose: 5 mg Documented by: Heparin Sodium (Porcine) (Heparin Sodium,Porcine/Pf 5,000 Unit/0.5 Ml Syringe) 5,000 unit SQ Q12HR [facility] Last Admin: 02/08/21 10:50 Dose: 5,000 unit Documented by: Azithromycin 500 mg/ Sodium (Chloride) 250 mls @ 250 mls/hr IVPB DAILY [facility] Last Admin: 02/08/21 07:52 Dose: 250 mls/hr Documented by: Ibuprofen (Ibuprofen 400 Mg Tab) 400 mg PO DAILY [facility] Last Admin: 02/08/21 08:18 Dose: 400 mg Documented by: Losartan Potassium (Losartan 50 Mg Tab) 50 mg PO DAILY [facility] Last Admin: 02/08/21 10:50 Dose: 50 mg Documented by: Metformin HCl (Metformin 500 Mg Tab) 500 mg PO DAILY [facility] Last Admin: 02/08/21 08:18 Dose: 500 mg Documented by: Methylprednisolone Sodium Succinate (Methylprednisolone Sod Succi 40 Mg/Ml 1 Ml Vial) 40 mg IV Q12H [facility] Metoprolol Tartrate (Metoprolol Tartrate 12.5 Mg Tab) 12.5 mg PO BID [facility] Last Admin: 02/08/21 08:16 Dose: 12.5 mg Documented by: Miscellaneous Information (Pneumonia Protocol Utilized 1 Each Misc) 1 each PO ONCE PRN PRN Reason: Per Protocol Montelukast Sodium (Montelukast 10 Mg Tab) 10 mg PO DAILY [facility] Last Admin: 02/08/21 08:19 Dose: 10 mg Documented by: Multivitamins (Multivitamins, Thera 1 Each Tab) 1 each PO DAILY [facility] Last Admin: 02/08/21 08:16 Dose: 1 each Documented by: Quetiapine Fumarate (Quetiapine 50 Mg Tab) 150 mg PO BID [facility] Last Admin: 02/08/21 08:19 Dose: 150 mg Documented by: Sertraline HCl (Sertraline 25 Mg Tab) 25 mg PO DAILY [facility] Last Admin: 02/08/21 08:17 Dose: 25 mg Documented by: Spironolactone (Spironolactone 25 Mg Tab) 12.5 mg PO DAILY [facility] Last Admin: 02/08/21 08:17 Dose: 12.5 mg Documented by: On examination: VITAL SIGNS: 98.4, 76, 19, 133/70, 91% on 7 L GENERAL APPEARANCE: Laying in bed, tired, awake. HEENT: Normal external appearance of nose and ear. Oral cavity normal EYES: Pupils equal. Conjunctiva normal. NECK: JVD not raised. Mass not palpable. RESPIRATORY: Respiratory effort increased. Lungs decreased breath sound CARDIOVASCULAR: First and second sounds normal. No edema. ABDOMEN: Soft. Liver and spleen not palpable. No tenderness. No mass palpable. PSYCHIATRY: Alert and oriented x3. Mood and affect normal. INVESTIGATIONS, reviewed in the clinical context: WBC 12.2 hemoglobin 10.1 platelets 309 sodium 141 potassium 4.3 BUN 16 creatinine 0.7 ProBNP 1290. Pro-calcitonin 0.02 . 2-D echocardiogram: Borderline concentric LVH. EF 60-65%. Chest x-ray: Patchy density in the bases. CT chest: Moderate emphysema. Right lower lobe consolidation. Suspicion 8 mm right lower lobe rounded endobronchial lesion. Assessment and plan: -Right lower lobe pneumonia, suspect gram-negative organism.: Improving On azithromycin -Sepsis from pneumonia. Clinically improved -Acute hypoxic respiratory failure: Slow to respond Patient remains on 7 L of oxygen. We'll order a computed tomography scan of his chest to rule out PE. -Chronic hypoxic respiratory failure from COPD On 5 L of oxygen at home -COPD in a previous smoker -Hyperlipidemia Lipitor 80 mg daily at bedtime -Essential hypertension Lopressor 12.5 by mouth twice a day -Anxiety depression otherwise specified Zoloft 25 mg daily -Cognitive impairment -Schizoaffective disorder Continue psychiatry medications -Diabetes mellitus type 2 Metformin 500 mg by mouth daily -Urinary stress incontinence Use pads as needed Cutback IV Solu-Medrol to every 12. Change Zithromax to by mouth. Computed tomography scan of the chest rule out PE. DC IV fluids. Add incentive spirometry. -
[2021-02-08] MEDS: ATORVASTATIN 80 MG TAB PO SCH (20:53)
[2021-02-09] MEDS: HEPARIN SODIUM,PORCINE/PF 5,000 UNIT/0.5 ML SYRINGE SQ SCH ×2 (07:34→21:41)
[2021-02-09] MEDS: LOSARTAN 50 MG TAB PO SCH (07:35)
[2021-02-09] MEDS: clonazePAM 0.5 MG TAB PO SCH ×3 (07:35→17:09)
[2021-02-09] MEDS: SPIRONOLACTONE 25 MG TAB PO SCH (07:35)
[2021-02-09] MEDS: ASPIRIN 81 MG PO SCH (07:35)
[2021-02-09] MEDS: IBUPROFEN 400 MG TAB PO SCH (07:35)
[2021-02-09] MEDS: MULTIVITAMINS, THERA 1 EACH TAB PO SCH (07:35)
[2021-02-09] MEDS: metFORMIN 500 MG TAB PO SCH (07:35)
[2021-02-09] MEDS: METOPROLOL TARTRATE 12.5 MG TAB PO SCH ×2 (07:36→21:40)
[2021-02-09] MEDS: MONTELUKAST 10 MG TAB PO SCH (07:36)
[2021-02-09] MEDS: BENZTROPINE MESYLATE 1 MG TAB PO SCH ×3 (07:38→21:40)
[2021-02-09] MEDS: QUEtiapine 50 MG TAB PO SCH ×2 (07:38→21:41)
[2021-02-09] MEDS: haloperidoL 5 MG TAB PO SCH ×2 (07:38→21:41)
[2021-02-09] MEDS: SERTRALINE 25 MG TAB PO SCH (07:38)
--- NOTE | 2021-02-09 08:43 | P.PN ---
Subjective HISTORY OF PRESENTING ILLNESS This is a pleasant 75-year-old female past medical history significant for COPD on home oxygen, hypertension, dyslipidemia, diabetes mellitus and schizoaffective disorder. She has no prior history of coronary artery disease and does not follow in the office with a docking pilot. We have been asked to see in consultation for heart failure. She presented to the hospital 02/03 with symptoms of cough and shortness of breath. She has been diagnosed with pneumonia and bacteremia. ID is following and they do believe that the positive blood cultures are more likely a contaminant. She is currently maintained on Rocephin and Zithromax. She is seen and examined sitting up in bed in no acute distress. She continues to have a cough however she states over the previous 24 hours her cough is started to loosen and she is able to clear some of her sputum. She feels as though her breathing is stable but the same with no real improvement since admission. She has no symptoms of chest discomfort, PND or or thopnea. She has been started on IV diuretics for the primary care team. 02/09/2021 Pt seen and examined sitting up in bed attempting to eat breakfast. Blood pressure 136/68 heart rate 68 afebrile and maintaining oxygen saturation on high flow nasal cannula. Dr. Martinez is not planning for bronchoscopy at this time due to high oxygen demands. Echo revealed preserved LV function with EF 60-65%. NTpro BNP 1290. PHYSICAL EXAMINATION CONSTITUTIONAL: No apparent distress. HEENT: Head is normocephalic. Pupils are equal, round. Sclerae anicteric. Mucous membranes of the mouth are moist. No JVD. No carotid bruit. CHEST EXAMINATION: Expiratory wheezes throughout, no rales. No chest wall tenderness is noted on palpation or with deep breathing. HEART EXAMINATION: Regular rate and rhythm. S1, S2 heard. No murmurs, gallops or rub. EXTREMITIES: 2+ peripheral pulses, no lower extremity edema and no calf tenderness. ASSESSMENT Pneumonia COPD Hypertension Dyslipidemia Diabetes mellitus PLAN Clinically the patient does not appear to be in overt heart failure. Ongoing treatment for pneumonia. We will follow along as needed. Nurse Practitioner note has been reviewed, I agree with a documented findings and plan of care. Patient was seen and examined. Objective - Vital Signs Vital signs: Vital Signs Temp 98.1 F 02/09/21 00:40 Pulse 68 02/09/21 00:40 Resp 16 02/09/21 00:40 BP 136/68 02/09/21 00:40 Pulse Ox 94 L 02/09/21 00:40 Intake & Output 02/08/21 02/09/21 02/09/21 18:59 06:59 18:59 Other: # Voids 3 1 # Bowel Movements 1 - Labs CBC & Chem 7: 02/07/21 05:47 02/07/21 05:47 Labs: Microbiology - Last 24 Hours (Table) 02/06/21 16:00 Gram Stain - Preliminary Sputum Sputum Culture - Preliminary Gram Neg Bacilli Jannie albicans
[2021-02-09 08:55] VITALS: BMI 34.7
[2021-02-09] MEDS: IPRATROPIUM-ALBUTEROL 3 ML NEB INHALATION SCH ×4 (08:59→19:15)
[2021-02-09] MEDS: BUDESONIDE 1 MG/2 ML NEBU INHALATION SCH ×2 (08:59→19:14)
[2021-02-09] MEDS ORDERED: AZITHROMYCIN 500 MG TAB PO SCH (09:00)
--- NOTE | 2021-02-09 09:34 | P.PN ---
Subjective Progress Note Date: 02/09/21 Principal diagnosis: Acute on chronic hypoxic respiratory failure Sepsis due to pneumonia Bacteremia with staph epi likely contaminant, however ID is following Right lower lobe pneumonia Endobronchial mass versus mucus plugging Bilateral lung nodules and lower lobe End-stage COPD oxygen dependent 02/09/2021, patient seen eval examined during the rounds labs reviewed medi cations reviewed, oxygen requirements slightly improved, currently patient is on 6 L nasal cannula saturations 96%, down from 7 L, remains on broad-spectrum antibiotics with azithromycin now switched to by mouth February 08 2021, patient seen eval examined during the rounds labs reviewed medications reviewed care plan discussed, respiratory status is stable, however continued to require 7 L oxygen, labs pending from today, chest x-ray from yesterday reviewed as noted before 02/07/2021, shortness of breath slightly stable but however continued to require high flow oxygen currently on 7 L nasal cannula, intermittent cough is present, productive of thick yellow sputum, computed tomography scan finding reviewed currently patient is not stable enough to get bronchoscopy due to clinical condition would like oxygen to go down a bit, chest x-ray performed today not available to look at but reviewed report cardiomegaly interstitial edema and prominent pulmonary vasculature consistent with pulmonary hypertension, bilateral basal pneumonia 02/06/2021, patient seen and evaluated examined during the rounds labs reviewed medications reviewed care plan discussed with the patient at length cough conditions still there patient is producing yellowish sputum remains on broad- spectrum antibiotics unable to titrate oxygen down remains up to 7 L nasal cannula, CT chest finding as noted above, This is a 75-year-old female seen eval reexamined on fourth floor patient came into the hospital with increasing shortness of breath cough and sputum production symptoms started a week ago initially cough was a mild, with the increasing symptoms increasing cough, started having chills and fever, patient has been on the supplemental oxygen 3 L nasal cannula at home due to end-stage COPD oxygen requirement now increase it to 5 L nasal cannula, no specific questioning she admits sputum production denies any hemoptysis, denies any loss of consciousness headache, just feels very weak and fatigued, on arrival she had a temperature 100.1, chest x-ray positive for right lower lobe pneumonia as well as interstitial lung disease, she was started on supplemental oxygen IV Rocephin and Zithromax along with IV steroids, follow-up chest x-ray was showing bilateral infiltrate, computed tomography scan of the chest revealed emphysema, 8mm left basilar nodule, 8mm right basilar nodule, possible endobronchial lesion, peribronchial thickening along with irregular consolidation in right lower lobe Objective - Vital Signs Vital signs: Vital Signs Temp 98.1 F 02/09/21 00:40 Pulse 64 02/09/21 09:20 Resp 16 02/09/21 00:40 BP 136/68 02/09/21 00:40 Pulse Ox 97 02/09/21 09:01 Intake & Output 02/08/21 02/09/21 02/09/21 18:59 06:59 18:59 Weight 91.626 kg Other: # Voids 3 1 # Bowel Movements 1 - Exam - Constitutional General appearance: average body habitus, cooperative, disheveled, mild distress - EENT Eyes: PERRLA Ears: bilateral: normal - Neck Carotids: bilateral: upstroke normal Thyroid: bilateral: normal size - Respiratory Respiratory: bilateral: diminished, wheezing - Cardiovascular Rhythm: regular Heart sounds: normal: S1, S2 - Gastrointestinal General gastrointestinal: normal bowel sounds - Integumentary Integumentary: decreased turgor - Neurologic Neurologic: CNII-XII intact - Musculoskeletal Musculoskeletal: gait normal, generalized weakness, strength equal bilaterally - Psychiatric Psychiatric: A&O x's 3, appropriate affect, intact judgment & insight - Labs CBC & Chem 7: 02/07/21 05:47 02/07/21 05:47 Labs: Microbiology - Last 24 Hours (Table) 02/06/21 16:00 Gram Stain - Preliminary Sputum Sputum Culture - Preliminary Gram Neg Bacilli Jannie albicans Assessment and Plan Assessment: Acute on chronic hypoxic respiratory failure Sepsis due to pneumonia Bacteremia with staph epi likely contaminant, however ID is following Right lower lobe pneumonia Endobronchial mass versus mucus plugging on right lower lobe bronchus Bilateral lung nodules and lower lobe End-stage COPD oxygen dependent Plan: Continue broad-spectrum antibiotics IV steroids Breathing treatments Deep breathing sense incentive spirometry Patient is too sick for bronchoscopy discussed with her at length, will do diagnostic and therapeutic bronchoscopy sometime next week once clinically more stable Further recommendations pending plan of care as per clinical response of the patient Time with Patient: Greater than 30
--- NOTE | 2021-02-09 09:53 | PN ---
PROGRESS NOTE DATE OF SERVICE: 02/08/2021 REASON FOR FOLLOWUP: 1. Pneumonia. 2. Positive blood culture. INTERVAL HISTORY: Patient is afebrile. The patient is currently breathing comfortably. The patient denies having any chest pain, shortness of breath. Did have a cough. No abdominal pain. No diarrhea. EXAM: The patient's blood pressure 133/70 with a pulse of 73, temperature 98.4. He is 91% on 7 L nasal cannula. General description is an elderly female lying in bed in no distress. Respiratory system: Unlabored breathing, coarse breath sounds bilaterally. No wheeze. Heart S1, S2. Regular rate and rhythm. Abdomen soft, no tenderness. LABS: No new labs have been obtained today. Sputum is showing Gram-negative. DIAGNOSTIC IMPRESSION AND PLAN: 1. Patient admitted to the hospital with shortness of breath and cough concerning for pneumonia. Sputum showing gram-negative covered with Rocephin to continue while waiting for the sensitivity. 2. Positive blood culture likely contaminant, we will monitor the patient closely off antibiotic therapy. MMODL / IJN: [id number] /
[2021-02-09] MEDS: methylPREDNISolone SOD SUCCI 40 MG/ML 1 ML VIAL IV SCH ×2 (10:00→21:41)
--- NOTE | 2021-02-09 16:08 | P.PN ---
Progress Note - Text Progress Note Date: 02/09/21 Presenting complaint: Short of breath Hospital course: Patient presented with increasing shortness of breath cough sputum production. Also chills and fever. Patient does have 5 L of oxygen at home. Weak and tired. Positive fever. Patient started on IV ceftriaxone and Zithromax for pneumonia. February 08: On 7 L of oxygen. Eating about 75%. Reclining in bed. Tired. Some shortness of breath February 09: Eating well. On 6-7 L of oxygen. Some shortness of breath. Have the patient sit up in a chair. Patient refused computed tomography scan of the chest to rule out PE. Review of systems: Was done for constitutional, cardiovascular, GI, pulmonary. relevant finding as above Active Medications Acetaminophen (Acetaminophen Tab 500 Mg Tab) 1,000 mg PO Q6HR PRN PRN Reason: Fever>101 Albuterol/Ipratropium (Ipratropium-Albuterol 3 Ml Neb) 3 ml INHALATION RT-QID [facility] Last Admin: 02/09/21 15:20 Dose: 3 ml Documented by: Albuterol/Ipratropium (Ipratropium-Albuterol 3 Ml Neb) 3 ml INHALATION RT-Q4H PRN PRN Reason: shortness of breath Aspirin (Aspirin 81 Mg) 81 mg PO DAILY [facility] Last Admin: 02/09/21 07:35 Dose: 81 mg Documented by: Atorvastatin Calcium (Atorvastatin 80 Mg Tab) 80 mg PO HS [facility] Last Admin: 02/08/21 20:53 Dose: 80 mg Documented by: Azithromycin (Azithromycin 500 Mg Tab) 500 mg PO DAILY [facility] Last Admin: 02/09/21 07:37 Dose: 500 mg Documented by: Benztropine Mesylate (Benztropine Mesylate 1 Mg Tab) 1 mg PO TID [facility] Last Admin: 02/09/21 07:38 Dose: 1 mg Documented by: Budesonide (Budesonide 1 Mg/2 Ml Nebu) 1 mg INHALATION RT-BID [facility] Last Admin: 02/09/21 08:59 Dose: 1 mg Documented by: Clonazepam (Clonazepam 0.5 Mg Tab) 0.5 mg PO QID [facility] Last Admin: 02/09/21 14:43 Dose: 0.5 mg Documented by: Haloperidol (Haloperidol 5 Mg Tab) 5 mg PO BID [facility] Last Admin: 02/09/21 07:38 Dose: 5 mg Documented by: Heparin Sodium (Porcine) (Heparin Sodium,Porcine/Pf 5,000 Unit/0.5 Ml Syringe) 5,000 unit SQ Q12HR [facility] Last Admin: 02/09/21 07:34 Dose: 5,000 unit Documented by: Ibuprofen (Ibuprofen 400 Mg Tab) 400 mg PO DAILY [facility] Last Admin: 02/09/21 07:35 Dose: 400 mg Documented by: Losartan Potassium (Losartan 50 Mg Tab) 50 mg PO DAILY [facility] Last Admin: 02/09/21 07:35 Dose: 50 mg Documented by: Metformin HCl (Metformin 500 Mg Tab) 500 mg PO DAILY [facility] Last Admin: 02/09/21 07:35 Dose: 500 mg Documented by: Methylprednisolone Sodium Succinate (Methylprednisolone Sod Succi 40 Mg/Ml 1 Ml Vial) 40 mg IV Q12H [facility] Last Admin: 02/09/21 10:00 Dose: 40 mg Documented by: Metoprolol Tartrate (Metoprolol Tartrate 12.5 Mg Tab) 12.5 mg PO BID [facility] Last Admin: 02/09/21 07:36 Dose: 12.5 mg Documented by: Miscellaneous Information (Pneumonia Protocol Utilized 1 Each Misc) 1 each PO ONCE PRN PRN Reason: Per Protocol Montelukast Sodium (Montelukast 10 Mg Tab) 10 mg PO DAILY [facility] Last Admin: 02/09/21 07:36 Dose: 10 mg Documented by: Multivitamins (Multivitamins, Thera 1 Each Tab) 1 each PO DAILY [facility] Last Admin: 02/09/21 07:35 Dose: 1 each Documented by: Quetiapine Fumarate (Quetiapine 50 Mg Tab) 150 mg PO BID [facility] Last Admin: 02/09/21 07:38 Dose: 150 mg Documented by: Sertraline HCl (Sertraline 25 Mg Tab) 25 mg PO DAILY [facility] Last Admin: 02/09/21 07:38 Dose: 25 mg Documented by: Spironolactone (Spironolactone 25 Mg Tab) 12.5 mg PO DAILY [facility] Last Admin: 02/09/21 07:35 Dose: 12.5 mg Documented by: On examination: VITAL SIGNS: 98, 88, 16, 182/80, 97% on 7 L GENERAL APPEARANCE: Laying in bed, tired, awake. HEENT: Normal external appearance of nose and ear. Oral cavity normal EYES: Pupils equal. Conjunctiva normal. NECK: JVD not raised. Mass not palpable. RESPIRATORY: Respiratory effort increased. Lungs decreased breath sound CARDIOVASCULAR: First and second sounds normal. No edema. ABDOMEN: Soft. Liver and spleen not palpable. No tenderness. No mass palpable. PSYCHIATRY: Alert and oriented x3. Mood and affect normal. INVESTIGATIONS, reviewed in the clinical context: February 09: D-dimer 0.62 WBC 12.2 hemoglobin 10.1 platelets 309 sodium 141 potassium 4.3 BUN 16 creatinine 0.7 ProBNP 1290. Pro-calcitonin 0.02 2-D echocardiogram: Borderline concentric LVH. EF 60-65%. Chest x-ray: Patchy density in the bases. CT chest: Moderate emphysema. Right lower lobe consolidation. Suspicion 8 mm right lower lobe rounded endobronchial lesion. Assessment and plan: -Right lower lobe pneumonia, suspect gram-negative organism.: Improving On azithromycin -Sepsis from pneumonia. Clinically improved -Acute hypoxic respiratory failure: Slow to respond Patient remains on 7 L of oxygen. Patient refused computed tomography scan of his chest to rule out PE. -Chronic hypoxic respiratory failure from COPD On 5 L of oxygen at home -COPD in a previous smoker -Hyperlipidemia Lipitor 80 mg daily at bedtime -Essential hypertension Lopressor 12.5 by mouth twice a day -Anxiety depression otherwise specified Zoloft 25 mg daily -Cognitive impairment -Schizoaffective disorder Continue psychiatry medications -Diabetes mellitus type 2 Metformin 500 mg by mouth daily -Urinary stress incontinence Use pads as needed IV Solu-Medrol to every 12. Zithromax to by mouth. Patient refused Computed tomography scan of the chest rule out PE. Up in a chair
[2021-02-09] MEDS: CEFEPIME 2 GM in SODIUM CHLORIDE 0.9% 100 ML IVPB SCH (17:09)
--- NOTE | 2021-02-09 17:38 | PN ---
PROGRESS NOTE DATE OF SERVICE: 02/09/2021. REASON FOR FOLLOWUP: Pneumonia, positive blood culture. INTERVAL HISTORY: Patient is afebrile. The patient is currently breathing comfortably. Patient denies having any chest pain. No abdominal pain. No diarrhea. PHYSICAL EXAMINATION: Blood pressure 154/74 with a pulse of 71, temperature 99. She is 94% on room air. General description is an elderly female lying in bed in no distress. Respiratory system: Unlabored breathing, decreased intensity of breath sounds. No wheeze. Heart is S1, S2. Irregular rate and rhythm. Abdomen soft, no tenderness. Sputum has been finalized with Enterobacter intermediate sensitivity to Rocephin. DIAGNOSTIC IMPRESSION AND PLAN: Patient with Enterobacter pneumonia. Antibiotic will be adjusted to cefepime 2 g q8h. Hopefully transition to oral antibiotic on discharge. Continue supportive care. WILFREDL / JOSELITON: [id number] /
--- NOTE | 2021-02-09 18:20 | CT ---
EXAMINATION TYPE: CT chest angio for PE DATE OF EXAM: 02/09/2021 COMPARISON: 02/05/2021 HISTORY: Elevated d-dimer and difficulty breathing. CT DLP: 467.9 mGycm Automated exposure control for dose reduction was used. CONTRAST: Performed with IV Contrast, patient injected with 100 mL of Isovue 370. Images obtained from the thoracic inlet to the diaphragm with IV contrast. There are 3-D post process ed images. There is diffuse mild pulmonary emphysema. There is some reticular interstitial infiltrate in the pos terior lung laughlin. There is some mild airspace consolidation and atelectasis at the left and right p osterior lung bases. There is no pleural effusion. Thoracic aorta is atheromatous. There is no mediastinal adenopathy. There are no hilar masses. There is normal contrast opacification of the pulmonary arteries. There are no filling defects. Heart size is normal. There is no pericardial effusion. Thoracic spine is intact. There is no compression fracture. Sternum is intact. The ribs appear intact . IMPRESSION: No evidence of pulmonary embolism. No aortic aneurysm or dissection. Bilateral posterior pulmonary airspace and interstitial infiltrates and atelectasis. Pulmonary infilt rates not significantly different than old exam.
[2021-02-09] MEDS: ATORVASTATIN 80 MG TAB PO SCH (21:40)
[2021-02-10] MEDS: clonazePAM 0.5 MG TAB PO SCH ×5 (00:15→22:38)
[2021-02-10] MEDS: CEFEPIME 2 GM in SODIUM CHLORIDE 0.9% 100 ML IVPB SCH ×3 (04:30→17:09)
[2021-02-10] MEDS: BUDESONIDE 1 MG/2 ML NEBU INHALATION SCH ×2 (07:18→19:46)
[2021-02-10] MEDS: IPRATROPIUM-ALBUTEROL 3 ML NEB INHALATION SCH ×4 (07:18→19:46)
[2021-02-10] MEDS: metFORMIN 500 MG TAB PO SCH (08:51)
[2021-02-10] MEDS: METOPROLOL TARTRATE 12.5 MG TAB PO SCH ×2 (08:51→22:38)
[2021-02-10] MEDS: MONTELUKAST 10 MG TAB PO SCH (08:51)
[2021-02-10] MEDS: MULTIVITAMINS, THERA 1 EACH TAB PO SCH (08:51)
[2021-02-10] MEDS: ASPIRIN 81 MG PO SCH (08:52)
[2021-02-10] MEDS: LOSARTAN 50 MG TAB PO SCH (08:52)
[2021-02-10] MEDS: SPIRONOLACTONE 25 MG TAB PO SCH (08:52)
[2021-02-10] MEDS: methylPREDNISolone SOD SUCCI 40 MG/ML 1 ML VIAL IV SCH ×2 (08:52→22:37)
[2021-02-10] MEDS: IBUPROFEN 400 MG TAB PO SCH (08:52)
[2021-02-10] MEDS: QUEtiapine 50 MG TAB PO SCH ×2 (08:53→22:38)
[2021-02-10] MEDS: SERTRALINE 25 MG TAB PO SCH (08:54)
[2021-02-10] MEDS: BENZTROPINE MESYLATE 1 MG TAB PO SCH ×3 (08:58→22:38)
[2021-02-10] MEDS: HEPARIN SODIUM,PORCINE/PF 5,000 UNIT/0.5 ML SYRINGE SQ SCH ×2 (08:58→22:37)
[2021-02-10] MEDS: haloperidoL 5 MG TAB PO SCH ×2 (08:59→22:39)
--- NOTE | 2021-02-10 16:53 | P.PN ---
Progress Note - Text Progress Note Date: 02/10/21 Presenting complaint: Short of breath Hospital course: Patient presented with increasing shortness of breath cough sputum production. Also chills and fever. Patient does have 5 L of oxygen at home. Weak and tired. Positive fever. Patient started on IV ceftriaxone and Zithromax for pneumonia. February 08: On 7 L of oxygen. Eating about 75%. Reclining in bed. Tired. Some shortness of breath February 09: Eating well. On 6-7 L of oxygen. Some shortness of breath. Have the patient sit up in a chair. Patient refused computed tomography scan of the chest to rule out PE. February 10: Oral intake very well. Reclining in bed. Some shortness of breath. On 6 L of nasal cannula. Patient yesterday evening underwent CT angiogram for PE. Showed bilateral infiltrates. Review of systems: Was done for constitutional, cardiovascular, GI, pulmonary. relevant finding as above Active Medications Acetaminophen (Acetaminophen Tab 500 Mg Tab) 1,000 mg PO Q6HR PRN PRN Reason: Fever>101 Albuterol/Ipratropium (Ipratropium-Albuterol 3 Ml Neb) 3 ml INHALATION RT-QID [facility] Last Admin: 02/10/21 15:39 Dose: 3 ml Documented by: Albuterol/Ipratropium (Ipratropium-Albuterol 3 Ml Neb) 3 ml INHALATION RT-Q4H PRN PRN Reason: shortness of breath Aspirin (Aspirin 81 Mg) 81 mg PO DAILY [facility] Last Admin: 02/10/21 08:52 Dose: 81 mg Documented by: Atorvastatin Calcium (Atorvastatin 80 Mg Tab) 80 mg PO HS [facility] Last Admin: 02/09/21 21:40 Dose: 80 mg Documented by: Benztropine Mesylate (Benztropine Mesylate 1 Mg Tab) 1 mg PO TID [facility] Last Admin: 02/10/21 08:58 Dose: 1 mg Documented by: Budesonide (Budesonide 1 Mg/2 Ml Nebu) 1 mg INHALATION RT-BID [facility] Last Admin: 02/10/21 07:18 Dose: 1 mg Documented by: Clonazepam (Clonazepam 0.5 Mg Tab) 0.5 mg PO QID [facility] Last Admin: 02/10/21 11:45 Dose: 0.5 mg Documented by: Haloperidol (Haloperidol 5 Mg Tab) 5 mg PO BID [facility] Last Admin: 02/10/21 08:59 Dose: 5 mg Documented by: Heparin Sodium (Porcine) (Heparin Sodium,Porcine/Pf 5,000 Unit/0.5 Ml Syringe) 5,000 unit SQ Q12HR [facility] Last Admin: 02/10/21 08:58 Dose: 5,000 unit Documented by: Cefepime HCl 2 gm/ Sodium (Chloride) 100 mls @ 25 mls/hr IVPB Q8H [facility] Last Admin: 02/10/21 08:59 Dose: 25 mls/hr Documented by: Ibuprofen (Ibuprofen 400 Mg Tab) 400 mg PO DAILY [facility] Last Admin: 02/10/21 08:52 Dose: 400 mg Documented by: Losartan Potassium (Losartan 50 Mg Tab) 50 mg PO DAILY [facility] Last Admin: 02/10/21 08:52 Dose: 50 mg Documented by: Metformin HCl (Metformin 500 Mg Tab) 500 mg PO DAILY [facility] Last Admin: 02/10/21 08:51 Dose: 500 mg Documented by: Methylprednisolone Sodium Succinate (Methylprednisolone Sod Succi 40 Mg/Ml 1 Ml Vial) 40 mg IV Q12H [facility] Last Admin: 02/10/21 08:52 Dose: 40 mg Documented by: Metoprolol Tartrate (Metoprolol Tartrate 12.5 Mg Tab) 12.5 mg PO BID [facility] Last Admin: 02/10/21 08:51 Dose: 12.5 mg Documented by: Miscellaneous Information (Pneumonia Protocol Utilized 1 Each Misc) 1 each PO ONCE PRN PRN Reason: Per Protocol Montelukast Sodium (Montelukast 10 Mg Tab) 10 mg PO DAILY [facility] Last Admin: 02/10/21 08:51 Dose: 10 mg Documented by: Multivitamins (Multivitamins, Thera 1 Each Tab) 1 each PO DAILY [facility] Last Admin: 02/10/21 08:51 Dose: 1 each Documented by: Quetiapine Fumarate (Quetiapine 50 Mg Tab) 150 mg PO BID [facility] Last Admin: 02/10/21 08:53 Dose: 150 mg Documented by: Sertraline HCl (Sertraline 25 Mg Tab) 25 mg PO DAILY [facility] Last Admin: 02/10/21 08:54 Dose: 25 mg Documented by: Spironolactone (Spironolactone 25 Mg Tab) 12.5 mg PO DAILY [facility] Last Admin: 02/10/21 08:52 Dose: 12.5 mg Documented by: On examination: VITAL SIGNS: 97.5, 63, 16, 129/60, 94% on 6 L GENERAL APPEARANCE: Laying in bed, tired, awake. HEENT: Normal external appearance of nose and ear. Oral cavity normal EYES: Pupils equal. Conjunctiva normal. NECK: JVD not raised. Mass not palpable. RESPIRATORY: Respiratory effort increased. Lungs decreased breath sound CARDIOVASCULAR: First and second sounds normal. No edema. ABDOMEN: Soft. Liver and spleen not palpable. No tenderness. No mass palpable. PSYCHIATRY: Alert and oriented x3. Mood and affect normal. INVESTIGATIONS, reviewed in the clinical context: CT chest for angioma/PE [February 09]: Bilateral infiltrates. Negative for PE February 09: D-dimer 0.62 WBC 12.2 hemoglobin 10.1 platelets 309 sodium 141 potassium 4.3 BUN 16 creatinine 0.7 ProBNP 1290. Pro-calcitonin 0.02 2-D echocardiogram: Borderline concentric LVH. EF 60-65%. Chest x-ray: Patchy density in the bases. CT chest: Moderate emphysema. Right lower lobe consolidation. Suspicion 8 mm right lower lobe rounded endobronchial lesion. Assessment and plan: -Right lower lobe pneumonia, suspect gram-negative organism.: Improving IV cefepime started on February [address] Buckley. -Sepsis from pneumonia. Clinically improved -Acute hypoxic respiratory failure: Improving 6 L of oxygen. PE rule out -Chronic hypoxic respiratory failure from COPD On 5 L of oxygen at home -COPD in a previous smoker -Hyperlipidemia Lipitor 80 mg daily at bedtime -Essential hypertension Lopressor 12.5 by mouth twice a day -Anxiety depression otherwise specified Zoloft 25 mg daily -Cognitive impairment -Schizoaffective disorder Continue psychiatry medications -Diabetes mellitus type 2 Metformin 500 mg by mouth daily -Urinary stress incontinence Use pads as needed IV Solu-Medrol to every 12. IV cefepime started by ID yesterday. requested the patient to sit up. Try to scale back oxygen.
--- NOTE | 2021-02-10 18:06 | PN ---
PROGRESS NOTE DATE OF SERVICE: 02/10/2021 REASON FOR FOLLOWUP: Enterobacter pneumonia. INTERVAL HISTORY: The patient is afebrile. The patient is breathing slightly comfortably. The patient denies having any chest pain. No worsening cough or sputum production. No abdominal pain or diarrhea. PHYSICAL EXAMINATION: Blood pressure 159/60 with a pulse of 62, temperature is 99.5. She is 94% on 6 L nasal cannula. General description is an elderly female lying in bed in no distress. Respiratory system: Unlabored breathing, decreased breath sounds at the base. No wheeze. Heart S1, S2. Regular rate and rhythm. Abdomen soft, no tenderness. LABS: D-dimer that 0.62. DIAGNOSTIC IMPRESSION AND PLAN: Patient with Enterobacter pneumonia, covered with cefepime to continue while inpatient, transition to oral antibiotic on discharge and monitor clinical course closely. MMODL / IJN: [id number] /
[2021-02-10] MEDS: ATORVASTATIN 80 MG TAB PO SCH (22:38)
[2021-02-11] MEDS: CEFEPIME 2 GM in SODIUM CHLORIDE 0.9% 100 ML IVPB SCH ×3 (02:26→16:55)
[2021-02-11 06:23] LABS: Basophils % (A) 0 %; Eosinophils % (A) 0 %; HCT 35.2 % (34.0-46.0); HGB 11.6 gm/dL (11.4-16.0); Lymphocytes # (A) 0.6 k/uL (1.0-4.8); Lymphocytes % (A) 5 %; MCH 28.2 pg (25.0-35.0); MCHC 32.8 g/dL (31.0-37.0); MCV 86.1 fL (80.0-100.0); Mean Platelet Volume 7.4; Monocytes # (A) 0.6 k/uL (0-1.0); Monocytes % (A) 4 %; Neutrophils # (A) 12.4 k/uL (1.3-7.7); Neutrophils % (A) 91 %; Platelet Count 351 k/uL (150-450); RBC 4.09 m/uL (3.80-5.40); WBC 13.7 k/uL (3.8-10.6)
[2021-02-11] MEDS: clonazePAM 0.5 MG TAB PO SCH ×4 (08:17→21:12)
[2021-02-11] MEDS: ASPIRIN 81 MG PO SCH (08:17)
[2021-02-11] MEDS: IBUPROFEN 400 MG TAB PO SCH (08:17)
[2021-02-11] MEDS: MULTIVITAMINS, THERA 1 EACH TAB PO SCH (08:17)
[2021-02-11] MEDS: LOSARTAN 50 MG TAB PO SCH (08:17)
[2021-02-11] MEDS: MONTELUKAST 10 MG TAB PO SCH (08:17)
[2021-02-11] MEDS: METOPROLOL TARTRATE 12.5 MG TAB PO SCH ×2 (08:17→21:13)
[2021-02-11] MEDS: metFORMIN 500 MG TAB PO SCH (08:17)
[2021-02-11] MEDS: methylPREDNISolone SOD SUCCI 40 MG/ML 1 ML VIAL IV SCH ×2 (08:18→21:12)
[2021-02-11] MEDS: HEPARIN SODIUM,PORCINE/PF 5,000 UNIT/0.5 ML SYRINGE SQ SCH ×2 (08:18→21:12)
[2021-02-11] MEDS: haloperidoL 5 MG TAB PO SCH ×2 (08:19→21:13)
[2021-02-11] MEDS: BENZTROPINE MESYLATE 1 MG TAB PO SCH ×3 (08:19→21:13)
[2021-02-11] MEDS: QUEtiapine 50 MG TAB PO SCH ×2 (08:20→21:13)
[2021-02-11] MEDS: SERTRALINE 25 MG TAB PO SCH (08:20)
[2021-02-11] MEDS: SPIRONOLACTONE 25 MG TAB PO SCH (08:23)
[2021-02-11] MEDS: BUDESONIDE 1 MG/2 ML NEBU INHALATION SCH ×2 (08:27→19:32)
[2021-02-11] MEDS: IPRATROPIUM-ALBUTEROL 3 ML NEB INHALATION SCH ×4 (08:27→19:32)
[2021-02-11] MEDS: ATORVASTATIN 80 MG TAB PO SCH (21:13)
--- NOTE | 2021-02-11 22:06 | P.PN ---
Progress Note - Text Progress Note Date: 02/11/21 Presenting complaint: Short of breath Hospital course: Patient presented with increasing shortness of breath cough sputum production. Also chills and fever. Patient does have 5 L of oxygen at home. Weak and tired. Positive fever. Patient started on IV ceftriaxone and Zithromax for pneumonia. February 08: On 7 L of oxygen. Eating about 75%. Reclining in bed. Tired. Some shortness of breath February 09: Eating well. On 6-7 L of oxygen. Some shortness of breath. Have the patient sit up in a chair. Patient refused computed tomography scan of the chest to rule out PE. February 10: Oral intake very well. Reclining in bed. Some shortness of breath. On 6 L of nasal cannula. Patient yesterday evening underwent CT angiogram for PE. Showed bilateral infiltrates. : Feeling well. Eating well. On 5 L of nasal cannula which is her home requirement. Respiratory symptoms much improved. On IV cefepime per ID. Review of systems: Was done for constitutional, cardiovascular, GI, pulmonary. relevant finding as above Active Medications Acetaminophen (Acetaminophen Tab 500 Mg Tab) 1,000 mg PO Q6HR PRN PRN Reason: Fever>101 Albuterol/Ipratropium (Ipratropium-Albuterol 3 Ml Neb) 3 ml INHALATION RT-QID [facility] Last Admin: 02/11/21 19:32 Dose: 3 ml Documented by: Albuterol/Ipratropium (Ipratropium-Albuterol 3 Ml Neb) 3 ml INHALATION RT-Q4H PRN PRN Reason: shortness of breath Aspirin (Aspirin 81 Mg) 81 mg PO DAILY [facility] Last Admin: 02/11/21 08:17 Dose: 81 mg Documented by: Atorvastatin Calcium (Atorvastatin 80 Mg Tab) 80 mg PO HS [facility] Last Admin: 02/11/21 21:13 Dose: 80 mg Documented by: Benztropine Mesylate (Benztropine Mesylate 1 Mg Tab) 1 mg PO TID [facility] Last Admin: 02/11/21 21:13 Dose: 1 mg Documented by: Budesonide (Budesonide 1 Mg/2 Ml Nebu) 1 mg INHALATION RT-BID [facility] Last Admin: 02/11/21 19:32 Dose: 1 mg Documented by: Clonazepam (Clonazepam 0.5 Mg Tab) 0.5 mg PO QID [facility] Last Admin: 02/11/21 21:12 Dose: 0.5 mg Documented by: Haloperidol (Haloperidol 5 Mg Tab) 5 mg PO BID [facility] Last Admin: 02/11/21 21:13 Dose: 5 mg Documented by: Heparin Sodium (Porcine) (Heparin Sodium,Porcine/Pf 5,000 Unit/0.5 Ml Syringe) 5,000 unit SQ Q12HR [facility] Last Admin: 02/11/21 21:12 Dose: 5,000 unit Documented by: Cefepime HCl 2 gm/ Sodium (Chloride) 100 mls @ 25 mls/hr IVPB Q8H [facility] Last Admin: 02/11/21 16:55 Dose: 25 mls/hr Documented by: Ibuprofen (Ibuprofen 400 Mg Tab) 400 mg PO DAILY [facility] Last Admin: 02/11/21 08:17 Dose: 400 mg Documented by: Losartan Potassium (Losartan 50 Mg Tab) 50 mg PO DAILY [facility] Last Admin: 02/11/21 08:17 Dose: 50 mg Documented by: Metformin HCl (Metformin 500 Mg Tab) 500 mg PO DAILY [facility] Last Admin: 02/11/21 08:17 Dose: 500 mg Documented by: Methylprednisolone Sodium Succinate (Methylprednisolone Sod Succi 40 Mg/Ml 1 Ml Vial) 40 mg IV Q12H [facility] Last Admin: 02/11/21 21:12 Dose: 40 mg Documented by: Metoprolol Tartrate (Metoprolol Tartrate 12.5 Mg Tab) 12.5 mg PO BID [facility] Last Admin: 02/11/21 21:13 Dose: 12.5 mg Documented by: Miscellaneous Information (Pneumonia Protocol Utilized 1 Each [facility]) 1 each PO ONCE PRN PRN Reason: Per Protocol Montelukast Sodium (Montelukast 10 Mg Tab) 10 mg PO DAILY [facility] Last Admin: 02/11/21 08:17 Dose: 10 mg Documented by: Multivitamins (Multivitamins, Thera 1 Each Tab) 1 each PO DAILY [facility] Last Admin: 02/11/21 08:17 Dose: 1 each Documented by: Quetiapine Fumarate (Quetiapine 50 Mg Tab) 150 mg PO BID [facility] Last Admin: 02/11/21 21:13 Dose: 150 mg Documented by: Sertraline HCl (Sertraline 25 Mg Tab) 25 mg PO DAILY [facility] Last Admin: 02/11/21 08:20 Dose: 25 mg Documented by: Spironolactone (Spironolactone 25 Mg Tab) 12.5 mg PO DAILY [facility] Last Admin: 02/11/21 08:23 Dose: 12.5 mg Documented by: On examination: VITAL SIGNS: 98.1, 68, 18, 132.68, 92% on 5 L GENERAL APPEARANCE: Laying in bed, comfortable, awake. HEENT: Normal external appearance of nose and ear. Oral cavity normal EYES: Pupils equal. Conjunctiva normal. NECK: JVD not raised. Mass not palpable. RESPIRATORY: Respiratory effort increased. Lungs decreased breath sound CARDIOVASCULAR: First and second sounds normal. No edema. ABDOMEN: Soft. Liver and spleen not palpable. No tenderness. No mass palpable. PSYCHIATRY: Alert and oriented x3. Mood and affect normal. INVESTIGATIONS, reviewed in the clinical context: CT chest for angioma/PE [February 09]: Bilateral infiltrates. Negative for PE February 09: D-dimer 0.62 WBC 12.2 hemoglobin 10.1 platelets 309 sodium 141 potassium 4.3 BUN 16 creatinine 0.7 ProBNP 1290. Pro-calcitonin 0.02 2-D echocardiogram: Borderline concentric LVH. EF 60-65%. Chest x-ray: Patchy density in the bases. CT chest: Moderate emphysema. Right lower lobe consolidation. Suspicion 8 mm right lower lobe rounded endobronchial lesion. Assessment and plan: -Right lower lobe pneumonia, suspect gram-negative organism.: Improving IV cefepime started on February 09 per ID -Sepsis from pneumonia. Clinically improved -Acute hypoxic respiratory failure: Improved 5 L of oxygen. PE rule out -Chronic hypoxic respiratory failure from COPD On 5 L of oxygen at home -COPD in a previous smoker -Hyperlipidemia Lipitor 80 mg daily at bedtime -Essential hypertension Lopressor 12.5 by mouth twice a day -Anxiety depression otherwise specified Zoloft 25 mg daily -Cognitive impairment -Schizoaffective disorder Continue psychiatry medications -Diabetes mellitus type 2 Metformin 500 mg by mouth daily -Urinary stress incontinence Use pads as needed DC Solu-Medrol. Start prednisone 40 mg. Discussed with ID to see if cefepime can be changed to oral antibiotic. Other medications to continue.
--- NOTE | 2021-02-11 23:08 | PN ---
PROGRESS NOTE DATE OF SERVICE: 02/11/2021 REASON FOR FOLLOWUP: Enterobacter pneumonia. INTERVAL HISTORY: The patient is afebrile. The patient is breathing more comfortably. The patient denies having any chest pain. No worsening shortness of breath or cough. No abdominal pain or diarrhea. PHYSICAL EXAMINATION: Her blood pressure is 115/74 with a pulse of 77, temperature 98. She is 95% on 5 L nasal cannula. General description is an elderly female lying in bed in no distress. Respiratory system: Unlabored breathing, decreased intensity of breath sounds. No wheeze. Heart S1, S2. Regular rate and rhythm. Abdomen soft, no tenderness. LABS: Hemoglobin is 11.3, white count 13.7. Sputum with Enterobacter. DIAGNOSTIC IMPRESSION AND PLAN: Patient with Enterobacter pneumonia, covered with cefepime. Transition to a short course of oral Cipro on discharge. Continue supportive care. MMODL / JOSELITON: [id number] /
[2021-02-12] MEDS: CEFEPIME 2 GM in SODIUM CHLORIDE 0.9% 100 ML IVPB SCH ×3 (01:16→17:14)
[2021-02-12] MEDS: MULTIVITAMINS, THERA 1 EACH TAB PO SCH (08:40)
[2021-02-12] MEDS: QUEtiapine 50 MG TAB PO SCH ×2 (08:40→20:05)
[2021-02-12] MEDS: LOSARTAN 50 MG TAB PO SCH (08:40)
[2021-02-12] MEDS: HEPARIN SODIUM,PORCINE/PF 5,000 UNIT/0.5 ML SYRINGE SQ SCH ×2 (08:40→20:05)
[2021-02-12] MEDS: haloperidoL 5 MG TAB PO SCH ×2 (08:41→20:05)
[2021-02-12] MEDS: clonazePAM 0.5 MG TAB PO SCH ×4 (08:41→21:12)
[2021-02-12] MEDS: predniSONE 20 MG TAB PO SCH (08:41)
[2021-02-12] MEDS: BENZTROPINE MESYLATE 1 MG TAB PO SCH ×3 (08:41→21:13)
[2021-02-12] MEDS: METOPROLOL TARTRATE 12.5 MG TAB PO SCH ×2 (08:41→20:07)
[2021-02-12] MEDS: metFORMIN 500 MG TAB PO SCH (08:41)
[2021-02-12] MEDS: SPIRONOLACTONE 25 MG TAB PO SCH (08:41)
[2021-02-12] MEDS: SERTRALINE 25 MG TAB PO SCH (08:42)
[2021-02-12] MEDS: ASPIRIN 81 MG PO SCH (08:42)
[2021-02-12] MEDS: MONTELUKAST 10 MG TAB PO SCH (08:42)
[2021-02-12] MEDS: IBUPROFEN 400 MG TAB PO SCH (08:42)
[2021-02-12] MEDS: BUDESONIDE 1 MG/2 ML NEBU INHALATION SCH ×2 (08:53→18:57)
[2021-02-12] MEDS: IPRATROPIUM-ALBUTEROL 3 ML NEB INHALATION SCH ×4 (08:53→18:57)
--- NOTE | 2021-02-12 14:30 | P.PN ---
Subjective Progress Note Date: 02/12/21 Principal diagnosis: Acute on chronic hypoxic respiratory failure Sepsis due to pneumonia Bacteremia with staph epi likely contaminant, however ID is following Right lower lobe pneumonia Endobronchial mass versus mucus plugging Bilateral lung nodules and lower lobe End-stage COPD oxygen dependent 02/12/2021, patient seen eval examined, patient is on 3.5 L oxygen, breathing comfortably, patient had a computed tomography scan of the chest performed with IV contrast have been negative, consistent with pneumonia, oxygen gradually being titrated down, patient is tolerating bronchodilators and broad-spectrum antibiotics with cephapirin fairly well with oral prednisone 02/09/2021, patient seen eval examined during the rounds labs reviewed medications reviewed, oxygen requirements slightly improved, currently patient is on 6 L nasal cannula saturations 96%, down from 7 L, remains on broad- spectrum antibiotics with azithromycin now switched to by mouth February 08 2021, patient seen eval examined during the rounds labs reviewed medications reviewed care plan discussed, respiratory status is stable, however continued to require 7 L oxygen, labs pending from today, chest x-ray from yesterday reviewed as noted before 02/07/2021, shortness of breath slightly stable but however continued to require high flow oxygen currently on 7 L nasal cannula, intermittent cough is present, productive of thick yellow sputum, computed tomography scan finding reviewed currently patient is not stable enough to get bronchoscopy due to clinical condition would like oxygen to go down a bit, chest x-ray performed today not available to look at but reviewed report cardiomegaly interstitial edema and prominent pulmonary vasculature consistent with pulmonary hypertension, bilat eral basal pneumonia 02/06/2021, patient seen and evaluated examined during the rounds labs reviewed medications reviewed care plan discussed with the patient at length cough conditions still there patient is producing yellowish sputum remains on broad- spectrum antibiotics unable to titrate oxygen down remains up to 7 L nasal cannula, CT chest finding as noted above, This is a 75-year-old female seen eval reexamined on fourth floor patient came into the hospital with increasing shortness of breath cough and sputum production symptoms started a week ago initially cough was a mild, with the in creasing symptoms increasing cough, started having chills and fever, patient has been on the supplemental oxygen 3 L nasal cannula at home due to end-stage COPD oxygen requirement now increase it to 5 L nasal cannula, no specific questioning she admits sputum production denies any hemoptysis, denies any loss of consciousness headache, just feels very weak and fatigued, on arrival she had a temperature 100.1, chest x-ray positive for right lower lobe pneumonia as well as interstitial lung disease, she was started on supplemental oxygen IV Rocephin and Zithromax along with IV steroids, follow-up chest x-ray was showing bilateral infiltrate, computed tomography scan of the chest revealed emphysema, 8mm left basilar nodule, 8mm right basilar nodule, possible endobronchial lesion, peribronchial thickening along with irregular consolidation in right lower lobe Objective - Vital Signs Vital signs: Vital Signs Temp 98.0 F 02/12/21 08:00 Pulse 62 02/12/21 11:43 Resp 16 02/12/21 08:00 BP 134/70 02/12/21 08:00 Pulse Ox 95 02/12/21 08:53 Intake & Output 02/11/21 02/12/21 02/12/21 18:59 06:59 18:59 Intake Total 2200 Balance 2200 Intake: Intake, IV Titration 200 Amount Cefepime 2 gm In Sodium 200 Chloride 0.9% 100 ml @ 25 mls/hr IVPB Q8H [facility] Rx#: [id number] Oral 2000 Other: Voiding Method Bedside Commode # Voids 4 2 - Exam - Constitutional General appearance: average body habitus, cooperative, disheveled, mild distress - EENT Eyes: PERRLA Ears: bilateral: normal - Neck Carotids: bilateral: upstroke normal Thyroid: bilateral: normal size - Respiratory Respiratory: bilateral: diminished, wheezing - Cardiovascular Rhythm: regular Heart sounds: normal: S1, S2 - Gastrointestinal General gastrointestinal: normal bowel sounds - Integumentary Integumentary: decreased turgor - Neurologic Neurologic: CNII-XII intact - Musculoskeletal Musculoskeletal: gait normal, generalized weakness, strength equal bilaterally - Psychiatric Psychiatric: A&O x's 3, appropriate affect, intact judgment & insight - Labs CBC & Chem 7: 02/11/21 05:41 02/07/21 05:47 Labs: Microbiology - Last 24 Hours (Table) 02/08/21 07:22 Blood Culture - Preliminary Blood No Growth after 96 hours Assessment and Plan Assessment: Acute on chronic hypoxic respiratory failure Sepsis due to pneumonia Bacteremia with staph epi likely contaminant, however ID is following Right lower lobe pneumonia Endobronchial mass versus mucus plugging on right lower lobe bronchus Bilateral lung nodules and lower lobe End-stage COPD oxygen dependent Plan: Continue broad-spectrum antibiotics IV steroids, changed to by mouth tolerating very well Breathing treatments Deep breathing sense incentive spirometry Computed tomography scan repeat reviewed, no description of endobronchial mass currently oxygen continue to improve, would plan to do bronchoscopy as outpatient Further recommendations pending plan of care as per clinical response of the patient Time with Patient: Greater than 30
[2021-02-12] MEDS: ATORVASTATIN 80 MG TAB PO SCH (20:05)
--- NOTE | 2021-02-12 22:38 | PN ---
PROGRESS NOTE DATE OF SERVICE: 02/12/2021 REASON FOR FOLLOW UP: Enterobacter pneumonia. INTERVAL HISTORY: Patient is afebrile. The patient is breathing more comfortably. The patient denies having any chest pain. No worsening shortness of breath or cough. No abdominal pain. No diarrhea. PHYSICAL EXAMINATION: Blood pressure 117/70 with a pulse of 73. Temperature is 97.6, 93% on 2 L nasal cannula. General description is an elderly female up in the bed in no distress. Respiratory system: Unlabored breathing, decreased intensity of breath sounds, no wheeze. Heart S1, S2. Regular rate and rhythm. Abdomen soft, no tenderness. LABS: Hemoglobin is 11.4, white count 18.7, D. dimer 0.62. DIAGNOSTIC IMPRESSION AND PLAN: Patient admitted to the hospital with pneumonia. Sputum is positive for Enterobacter. Overall improvement on cefepime. Transition to oral Cipro for short course on discharge. Continue supportive care. MMODL / IJN: [id number] /
[2021-02-13] MEDS: CEFEPIME 2 GM in SODIUM CHLORIDE 0.9% 100 ML IVPB SCH ×2 (01:23→08:43)
--- NOTE | 2021-02-13 06:39 | PN ---
PROGRESS NOTE This is a 75-year-old white female with acute on chronic hypoxemic respiratory failure, sepsis secondary to pneumonia, bacteremia with Staph epi contamination, right lower lobe pneumonia, endobronchial mass versus mucous plugging, bilateral lung nodules, end- stage COPD. The patient is on 3.[address] of the chest shows pneumonia. Tolerated antibiotics, oral prednisone, bronchodilators. Cardiovascular S1-S2. Lungs scattered rhonchi and wheeze. Hematology negative Homans. Psych: Fair mood and affect. White count 13.7, hemoglobin is 11.6. ASSESSMENT: 1. Acute on chronic hypoxemic respiratory failure. 2. Sepsis secondary to pneumonia, bacteremia. 3. Right lower lobe pneumonia. 4. Endobronchial mass versus mucous plugging. 5. Bilateral lung nodules. 6. Chronic obstructive pulmonary disease. Continue broad-spectrum antibiotics, IV steroids, breathing treatments, possibly outpatient bronchoscopy. Continue current treatment. Follow up next 24 to 48 hours for possible discharge. MMODL / IJN: [id number] /
[2021-02-13] MEDS: BUDESONIDE 1 MG/2 ML NEBU INHALATION SCH (07:35)
[2021-02-13] MEDS: IPRATROPIUM-ALBUTEROL 3 ML NEB INHALATION SCH ×2 (07:35→11:17)
[2021-02-13] MEDS: ASPIRIN 81 MG PO SCH (08:41)
[2021-02-13] MEDS: METOPROLOL TARTRATE 12.5 MG TAB PO SCH (08:41)
[2021-02-13] MEDS: MULTIVITAMINS, THERA 1 EACH TAB PO SCH (08:41)
[2021-02-13] MEDS: predniSONE 20 MG TAB PO SCH (08:42)
[2021-02-13] MEDS: MONTELUKAST 10 MG TAB PO SCH (08:42)
[2021-02-13] MEDS: clonazePAM 0.5 MG TAB PO SCH ×2 (08:42→12:51)
[2021-02-13] MEDS: IBUPROFEN 400 MG TAB PO SCH (08:42)
[2021-02-13] MEDS: LOSARTAN 50 MG TAB PO SCH (08:42)
[2021-02-13] MEDS: SPIRONOLACTONE 25 MG TAB PO SCH (08:42)
[2021-02-13] MEDS: HEPARIN SODIUM,PORCINE/PF 5,000 UNIT/0.5 ML SYRINGE SQ SCH (08:43)
[2021-02-13] MEDS: haloperidoL 5 MG TAB PO SCH (08:43)
[2021-02-13] MEDS: metFORMIN 500 MG TAB PO SCH (08:43)
[2021-02-13] MEDS: SERTRALINE 25 MG TAB PO SCH (08:44)
[2021-02-13] MEDS: QUEtiapine 50 MG TAB PO SCH (08:44)
[2021-02-13] MEDS: BENZTROPINE MESYLATE 1 MG TAB PO SCH (08:45)
--- NOTE | 2021-02-13 09:42 | P.PN ---
Subjective Progress Note Date: 02/13/21 Principal diagnosis: Acute on chronic hypoxic respiratory failure Sepsis due to pneumonia Bacteremia with staph epi likely contaminant, however ID is following Right lower lobe pneumonia Endobronchial mass versus mucus plugging Bilateral lung nodules and lower lobe End-stage COPD oxygen dependent 02/13/2021, patient seen eval reexamined during the rounds, history status remains stable on 4 L oxygen, denies any chest pain breathing comfortably, meds reviewed 02/12/2021, patient seen eval examined, patient is on 3.5 L oxygen, breathing comfortably, patient had a computed tomography scan of the chest performed with IV contrast have been negative, consistent with pneumonia, oxygen gradually being titrated down, patient is tolerating bronchodilators and broad-spectrum antibiotics with cephapirin fairly well with oral prednisone 02/09/2021, patient seen eval examined during the rounds labs reviewed medications reviewed, oxygen requirements slightly improved, currently patient is on 6 L nasal cannula saturations 96%, down from 7 L, remains on broad- spectrum antibiotics with azithromycin now switched to by mouth February 08 2021, patient seen eval examined during the rounds labs reviewed medications reviewed care plan discussed, respiratory status is stable, however continued to require 7 L oxygen, labs pending from today, chest x-ray from yesterday reviewed as noted before 02/07/2021, shortness of breath slightly stable but however continued to require high flow oxygen currently on 7 L nasal cannula, intermittent cough is present, productive of thick yellow sputum, computed tomography scan finding reviewed currently patient is not stable enough to get bronchoscopy due to clinical condition would like oxygen to go down a bit, chest x-ray performed today not available to look at but reviewed report cardiomegaly interstitial edema and prominent pulmonary vasculature consistent with pulmonary hypertension, bilateral basal pneumonia 02/06/2021, patient seen and evaluated examined during the rounds labs reviewed medications reviewed care plan discussed with the patient at length cough conditions still there patient is producing yellowish sputum remains on broad- spectrum antibiotics unable to titrate oxygen down remains up to 7 L nasal cannula, CT chest finding as noted above, This is a 75-year-old female seen eval reexamined on fourth floor patient came into the hospital with increasing shortness of breath cough and sputum production symptoms started a week ago initially cough was a mild, with the increasing symptoms increasing cough, started having chills and fever, patient has been on the supplemental oxygen 3 L nasal cannula at home due to end-stage COPD oxygen requirement now increase it to 5 L nasal cannula, no specific quest ioning she admits sputum production denies any hemoptysis, denies any loss of consciousness headache, just feels very weak and fatigued, on arrival she had a temperature 100.1, chest x-ray positive for right lower lobe pneumonia as well as interstitial lung disease, she was started on supplemental oxygen IV Rocephin and Zithromax along with IV steroids, follow-up chest x-ray was showing bilateral infiltrate, computed tomography scan of the chest revealed emphysema, 8mm left basilar nodule, 8mm right basilar nodule, possible endobronchial lesion, peribronchial thickening along with irregular consolidation in right lower lobe Objective - Vital Signs Vital signs: Vital Signs Temp 98.2 F 02/13/21 08:00 Pulse 59 L 02/13/21 08:00 Resp 18 02/13/21 08:00 BP 133/71 02/13/21 08:00 Pulse Ox 93 L 02/13/21 08:00 Intake & Output 02/12/21 02/13/21 02/13/21 18:59 06:59 18:59 Intake Total 1080 Balance 1080 Intake: Oral 1080 Other: # Voids 5 - Exam - Constitutional General appearance: average body habitus, cooperative, disheveled, mild distress - EENT Eyes: PERRLA Ears: bilateral: normal - Neck Carotids: bilateral: upstroke normal Thyroid: bilateral: normal size - Respiratory Respiratory: bilateral: diminished, wheezing - Cardiovascular Rhythm: regular Heart sounds: normal: S1, S2 - Gastrointestinal General gastrointestinal: normal bowel sounds - Integumentary Integumentary: decreased turgor - Neurologic Neurologic: CNII-XII intact - Musculoskeletal Musculoskeletal: gait normal, generalized weakness, strength equal bilaterally - Psychiatric Psychiatric: A&O x's 3, appropriate affect, intact judgment & insight - Labs CBC & Chem 7: 02/11/21 05:41 02/07/21 05:47 Labs: Microbiology - Last 24 Hours (Table) 02/08/21 07:22 Blood Culture - Preliminary Blood No Growth after 96 hours Assessment and Plan Assessment: Acute on chronic hypoxic respiratory failure Sepsis due to pneumonia Bacteremia with staph epi likely contaminant, however ID is following Right lower lobe pneumonia Endobronchial mass versus mucus plugging on right lower lobe bronchus Bilateral lung nodules and lower lobe End-stage COPD oxygen dependent Plan: Continue broad-spectrum antibiotics IV steroids, changed to by mouth tolerating very well Breathing treatments Deep breathing sense incentive spirometry Computed tomography scan repeat reviewed, no description of endobronchial mass currently oxygen continue to improve, would plan to do bronchoscopy as outpatient Further recommendations pending plan of care as per clinical response of the patient Time with Patient: Greater than 30
[2021-02-13 15:34] VITALS: BP 120/67; PULSE 57; RESP 16; TEMP 98.5
== END 2021-02-13 15:26 | disposition home health service (06) | DRG 871 ==
LOC: EC 15:24 → 4SSUR 17:20
PROVIDERS: ADMIT Family Medicine; ATTEND Family Medicine
DX: A41.59 Other Gram-negative sepsis (principal); J15.6 Pneumonia due to other Gram-negative bacteria; J96.21 Acute and chronic respiratory failure with hypoxia; J84.9 Interstitial pulmonary disease, unspecified; E11.9 Type 2 diabetes mellitus without complications; E78.5 Hyperlipidemia, unspecified; F25.9 Schizoaffective disorder, unspecified; F41.8 Other specified anxiety disorders; H91.90 Unspecified hearing loss, unspecified ear; I11.0 Hypertensive heart disease with heart failure; I27.20 Pulmonary hypertension, unspecified; I50.9 Heart failure, unspecified; J43.9 Emphysema, unspecified; N39.3 Stress incontinence (female) (male); Z20.822 Contact with and (suspected) exposure to COVID-19; Z79.51 Long term (current) use of inhaled steroids; Z79.82 Long term (current) use of aspirin; Z79.84 Long term (current) use of oral hypoglycemic drugs; Z79.899 Other long term (current) drug therapy; Z87.891 Personal history of nicotine dependence; Z99.81 Dependence on supplemental oxygen; Z86.19 Personal history of other infectious and parasitic diseases; Z98.51 Tubal ligation status; Z98.890 Other specified postprocedural states; Z98.42 Cataract extraction status, left eye; Z98.41 Cataract extraction status, right eye; Z88.0 Allergy status to penicillin; Z91.018 Allergy to other foods; Z83.3 Family history of diabetes mellitus
CPT/HCPCS: 36415; 71045; 71250; 71275; 80053; 82728; 83605; 83615; 83735; 83880; 84145; 85025; 85379; 85610; 85730; 86140; 87040; 87070; 87077; 87186; 87205; 87635; 93005; 93306; 94640; 94760; 99291

== ENCOUNTER 2021-02-15 13:38 | Inpatient (IN) | payer MEDICARE, OTHER ==
[2021-02-15] MEDS ORDERED: ALBUTEROL HFA INHALER INHALATION STA (14:34)
[2021-02-15] MEDS ORDERED: methylPREDNISolone SOD SUCCI 125 MG/2 ML VIAL IV STA (14:34)
--- NOTE | 2021-02-15 14:37 | ED ---
General Adult HPI - General Chief complaint: Recheck/Abnormal Lab/Rx Stated complaint: AMS Time Seen by Provider: 02/15/21 14:17 Source: patient, family, RN notes reviewed, old records reviewed Mode of arrival: ambulatory Limitations: no limitations - History of Present Illness Initial comments: Patient is a pleasant 75-year-old female presenting to the emergency department with concerns for difficulty breathing. Patient was discharged from the [facility] 3 days ago. Patient did go to primary care office and was sent here secondary to difficulty in breathing. Patient does have some early-onset dementia and is a poor historian. Family is present and helps provide history. Originally patient states there was a medication issue however now she states she was sent here for breathing problems. Patient was recently here for pneumonia. Patient has been vaccinated for COVID-19. - Related Data Home Medications Medication Instructions Recorded Confirmed Aspirin EC [Ecotrin Low Dose] 81 mg PO DAILY 12/06/15 02/15/21 Benztropine Mesylate 1 mg PO TID 12/06/15 02/15/21 QUEtiapine FUMARATE [SEROquel XR] 300 mg PO HS 12/06/15 02/15/21 Spironolactone [Aldactone] 12.5 mg PO DAILY 12/06/15 02/15/21 clonazePAM [KlonoPIN] 0.5 mg PO QID 12/06/15 02/15/21 haloperidoL [Haldol] 5 mg PO BID 12/06/15 02/15/21 Montelukast [Singulair] 10 mg PO DAILY 08/08/18 02/15/21 Sertraline HCl [Zoloft] 25 mg PO DAILY 12/29/19 02/15/21 Metoprolol Tartrate [Lopressor] 12.5 mg PO BID 01/03/20 02/15/21 Atorvastatin Calcium [Lipitor] 80 mg PO HS 10/16/20 02/15/21 metFORMIN HCL 500 mg PO DAILY 10/16/20 02/15/21 Ibuprofen [Motrin] 400 mg PO DAILY 02/03/21 02/15/21 Multivitamins, Thera [Multivitamin 1 tab PO DAILY 02/03/21 02/15/21 (formulary)] Previous Rx's Medication Instructions Recorded Budesonide [Pulmicort] 1 mg INHALATION RT-BID 30 Days #60 02/13/21 ml Ipratropium-Albuterol Nebulize 3 ml INHALATION RT-QID 30 Days 02/13/21 [Duoneb 0.5 mg-3 mg/3 ml Soln] #120 ml Losartan [Cozaar] 50 mg PO DAILY 80 Days #80 tab 02/13/21 Sulfamethox-Tmp 800-160Mg [Bactrim 1 tab PO Q12HR #8 tab 02/13/21 DS 800-160 mg] predniSONE [Deltasone] 40 mg PO DAILY 90 Days #90 tab 02/13/21 Allergies Allergy/AdvReac Type Severity Reaction Status Date / Time grapefruit Allergy Rash/Hives Verified 02/15/21 16:17 Penicillins Allergy Rash/Hives Verified 02/15/21 16:17 Review of Systems ROS Statement: Those systems with pertinent positive or pertinent negative responses have been documented in the HPI. ROS Other: All systems not noted in ROS Statement are negative. Constitutional: Denies: fever Eyes: Denies: eye pain ENT: Denies: ear pain Respiratory: Reports: cough, dyspnea Cardiovascular: Denies: chest pain Endocrine: Reports: fatigue Gastrointestinal: Denies: abdominal pain Genitourinary: Denies: dysuria Musculoskeletal: Denies: back pain Skin: Denies: rash Neurological: Denies: weakness Past Medical History Past Medical History: COPD, Hearing Disorder / Deafness, Hyperlipidemia, Hypertension, Memory Impairment Additional Past Medical History / Comment(s): home 5 liters n/c, SCHIZOAFFECTIVE DISORDER, INCONT OF URINE THAT JUST RECENTLY STARTED. CONSTIPATION. History of Any Multi-Drug Resistant Organisms: ESBL Date of last positivie culture/infection: 11/09/20 ESBL E.coli MDRO Source:: Urine Past Surgical History: Orthopedic Surgery, Tonsillectomy, Tubal Ligation Additional Past Surgical History / Comment(s): right knee arthroscopy, FELL,BROKE RT LEG-HAD SX--PLATE AND SCREWS, colonoscopy, LILA CATARACTS, LT EYE SX FOR GLAUCOMA Past Anesthesia/Blood Transfusion Reactions: No Reported Reaction Past Psychological History: Schizoaffective Disorder Smoking Status: Former smoker Past Alcohol Use History: Occasional Past Drug Use History: None Reported - Past Family History Mother Family Medical History: Diabetes Mellitus Additional Family Medical History / Comment(s): GRANDMOTHER HAD DM Father Family Medical History: No Reported History Additional Family Medical History / Comment(s): UNK- PT WAS RAISED BY STEP FATHER General Exam Limitations: no limitations General appearance: alert, in no apparent distress Head exam: Present: normocephalic Eye exam: Present: normal appearance Neck exam: Present: normal inspection Respiratory exam: Present: decreased breath sounds Cardiovascular Exam: Present: regular rate, normal rhythm GI/Abdominal exam: Present: soft. Absent: tenderness Extremities exam: Present: normal inspection Neurological exam: Present: alert Psychiatric exam: Present: normal affect, normal mood Skin exam: Present: normal color Course Vital Signs 02/15/21 02/15/21 02/15/21 13:46 17:22 17:35 Temperature 97.8 F Pulse Rate 50 L 50 L 62 Respiratory 20 Rate Blood Pressure 147/76 O2 Sat by Pulse 93 L Oximetry 02/15/21 02/15/21 17:54 18:33 Temperature Pulse Rate 74 82 Respiratory 18 18 Rate Blood Pressure 140/65 156/81 O2 Sat by Pulse 98 90 L Oximetry EKG Findings - EKG Comments: EKG Findings:: Sinus rhythm with rate of 79. SD 136. QRS 74. QT 406. QTc 465. Normal axis. Bigeminy pattern. Nonspecific ST-T. Medical Decision Making - Medical Decision Making Patient reevaluated and resting comfortably in bed. Breath sounds have improved. Patient only able to ambulate a proximal he 5 feet with decreased pulse ox to 90% on 5 L. Case was discussed with Dr. Pathak who does not want patient discharged home and like her to be admitted with IV antibiotics. He states patient did have recent pneumonia. - Lab Data Result diagrams: 02/15/21 15:03 02/15/21 15:03 Lab Results 02/15/21 02/15/21 02/15/21 Range/Units 15:03 15:03 15:03 WBC 16.1 H (3.8-10.6) k/uL RBC 4.14 (3.80-5.40) m/uL Hgb 12.1 (11.4-16.0) gm/dL Hct 35.4 (34.0-46.0) % MCV 85.4 (80.0-100.0) fL MCH 29.1 (25.0-35.0) pg MCHC 34.1 (31.0-37.0) g/dL RDW 14.2 (11.5-15.5) % Plt Count 265 (150-450) k/uL MPV 7.4 Neutrophils % 89 % Lymphocytes % 5 % Monocytes % 4 % Eosinophils % 1 % Basophils % 0 % Neutrophils # 14.3 H (1.3-7.7) k/uL Lymphocytes # 0.9 L (1.0-4.8) k/uL Monocytes # 0.7 (0-1.0) k/uL Eosinophils # 0.1 (0-0.7) k/uL Basophils # 0.0 (0-0.2) k/uL PT 10.2 (9.0-12.0) sec INR 0.9 (<1.2) APTT 21.9 L (22.0-30.0) sec Sodium 138 (137-145) mmol/L Potassium 4.2 (3.5-5.1) mmol/L Chloride 102 (98-107) mmol/L Carbon Dioxide 29 (22-30) mmol/L Anion Gap 7 mmol/L BUN 19 H (7-17) mg/dL Creatinine 0.75 (0.52-1.04) mg/dL Est GFR (CKD-EPI)AfAm >90 (>60 ml/min/1.73 sqM) Est GFR (CKD-EPI)NonAf 79 (>60 ml/min/1.73 sqM) Glucose 109 H (74-99) mg/dL Plasma Lactic Acid Master (0.7-2.0) mmol/L Calcium 9.0 (8.4-10.2) mg/dL Total Bilirubin 0.5 (0.2-1.3) mg/dL AST 23 (14-36) U/L ALT 41 H (4-34) U/L Alkaline Phosphatase 106 (38-126) U/L Troponin I (0.000-0.034) ng/mL NT-Pro-B Natriuret Pep pg/mL Total Protein 6.6 (6.3-8.2) g/dL Albumin 3.8 (3.5-5.0) g/dL Coronavirus (PCR) (Not Detectd) 02/15/21 02/15/21 02/15/21 Range/Units 15:03 15:03 15:03 WBC (3.8-10.6) k/uL RBC (3.80-5.40) m/uL Hgb (11.4-16.0) gm/dL Hct (34.0-46.0) % MCV (80.0-100.0) fL MCH (25.0-35.0) pg MCHC (31.0-37.0) g/dL RDW (11.5-15.5) % Plt Count (150-450) k/uL MPV Neutrophils % % Lymphocytes % % Monocytes % % Eosinophils % % Basophils % % Neutrophils # (1.3-7.7) k/uL Lymphocytes # (1.0-4.8) k/uL Monocytes # (0-1.0) k/uL Eosinophils # (0-0.7) k/uL Basophils # (0-0.2) k/uL PT (9.0-12.0) sec INR (<1.2) APTT (22.0-30.0) sec Sodium (137-145) mmol/L Potassium (3.5-5.1) mmol/L Chloride (98-107) mmol/L Carbon Dioxide (22-30) mmol/L Anion Gap mmol/L BUN (7-17) mg/dL Creatinine (0.52-1.04) mg/dL Est GFR (CKD-EPI)AfAm (>60 ml/min/1.73 sqM) Est GFR (CKD-EPI)NonAf (>60 ml/min/1.73 sqM) Glucose (74-99) mg/dL Plasma Lactic Acid Master 1.0 (0.7-2.0) mmol/L Calcium (8.4-10.2) mg/dL Total Bilirubin (0.2-1.3) mg/dL AST (14-36) U/L ALT (4-34) U/L Alkaline Phosphatase (38-126) U/L Troponin I <0.012 (0.000-0.034) ng/mL NT-Pro-B Natriuret Pep 315 pg/mL Total Protein (6.3-8.2) g/dL Albumin (3.5-5.0) g/dL Coronavirus (PCR) (Not Detectd) 02/15/21 Range/Units 15:03 WBC (3.8-10.6) k/uL RBC (3.80-5.40) m/uL Hgb (11.4-16.0) gm/dL Hct (34.0-46.0) % MCV (80.0-100.0) fL MCH (25.0-35.0) pg MCHC (31.0-37.0) g/dL RDW (11.5-15.5) % Plt Count (150-450) k/uL MPV Neutrophils % % Lymphocytes % % Monocytes % % Eosinophils % % Basophils % % Neutrophils # (1.3-7.7) k/uL Lymphocytes # (1.0-4.8) k/uL Monocytes # (0-1.0) k/uL Eosinophils # (0-0.7) k/uL Basophils # (0-0.2) k/uL PT (9.0-12.0) sec INR (<1.2) APTT (22.0-30.0) sec Sodium (137-145) mmol/L Potassium (3.5-5.1) mmol/L Chloride (98-107) mmol/L Carbon Dioxide (22-30) mmol/L Anion Gap mmol/L BUN (7-17) mg/dL Creatinine (0.52-1.04) mg/dL Est GFR (CKD-EPI)AfAm (>60 ml/min/1.73 sqM) Est GFR (CKD-EPI)NonAf (>60 ml/min/1.73 sqM) Glucose (74-99) mg/dL Plasma Lactic Acid Master (0.7-2.0) mmol/L Calcium (8.4-10.2) mg/dL Total Bilirubin (0.2-1.3) mg/dL AST (14-36) U/L ALT (4-34) U/L Alkaline Phosphatase (38-126) U/L Troponin I (0.000-0.034) ng/mL NT-Pro-B Natriuret Pep pg/mL Total Protein (6.3-8.2) g/dL Albumin (3.5-5.0) g/dL Coronavirus (PCR) Not Detected (Not Detectd) - Radiology Data Radiology results: image reviewed (Chest x-ray shows chronic changes without acute process) Disposition Clinical Impression: Dyspnea Disposition: ADMITTED IP TO THIS HOSP Is patient prescribed a controlled substance at d/c from ED?: No Referrals: Joni Pathak MD [Primary Care Provider] - 1-2 days Decision Time: 18:56
[2021-02-15 15:19] LABS: Basophils % (A) 0 %; Eosinophils # (A) 0.1 k/uL (0-0.7); Eosinophils % (A) 1 %; HCT 35.4 % (34.0-46.0); HGB 12.1 gm/dL (11.4-16.0); Lymphocytes # (A) 0.9 k/uL (1.0-4.8); Lymphocytes % (A) 5 %; MCH 29.1 pg (25.0-35.0); MCHC 34.1 g/dL (31.0-37.0); MCV 85.4 fL (80.0-100.0); Mean Platelet Volume 7.4; Monocytes # (A) 0.7 k/uL (0-1.0); Monocytes % (A) 4 %; Neutrophils # (A) 14.3 k/uL (1.3-7.7); Neutrophils % (A) 89 %; Platelet Count 265 k/uL (150-450); RBC 4.14 m/uL (3.80-5.40); RDW 14.2 % (11.5-15.5); WBC 16.1 k/uL (3.8-10.6)
[2021-02-15 15:29] LABS: ALT 41 U/L (4-34); AST 23 U/L (14-36); African American GFR (CKD) >90 (>60 ml/min/1.73 sqM); Albumin 3.8 g/dL (3.5-5.0); Alkaline Phosphatase 106 U/L (38-126); Anion Gap 7 mmol/L; Blood Urea Nitrogen 19 mg/dL (7-17); Carbon Dioxide 29 mmol/L (22-30); Chloride 102 mmol/L (98-107); Glucose 109 mg/dL (74-99); Non-African American GFR(CKD) 79 (>60 ml/min/1.73 sqM); Potassium 4.2 mmol/L (3.5-5.1); Sodium 138 mmol/L (137-145); Total Bilirubin 0.5 mg/dL (0.2-1.3); Total Protein 6.6 g/dL (6.3-8.2)
--- NOTE | 2021-02-15 15:35 | XR ---
EXAMINATION TYPE: XR chest 2V DATE OF EXAM: 02/15/2021 COMPARISON: Chest x-ray February 07, 2021 HISTORY: Shortness of breath TECHNIQUE: Frontal and lateral views of the chest are obtained. FINDINGS: There is chronic emphysematous and parenchymal fibrotic changes bilaterally without suspic ious focal air space opacity, pleural effusion, or pneumothorax seen. The cardiac silhouette size is stable and mildly enlarged. The osseous structures are somewhat demineralized. IMPRESSION: Chronic changes and cardiomegaly without acute pulmonary process currently.
[2021-02-15 15:36] LABS: INR 0.9 (<1.2); Partial Thromboplastin Time 21.9 sec (22.0-30.0); Prothrombin Time 10.2 sec (9.0-12.0)
[2021-02-15] MEDS ORDERED: IPRATROPIUM-ALBUTEROL 3 ML NEB INHALATION STA (16:43)
[2021-02-15] MEDS ORDERED: IPRATROPIUM-ALBUTEROL 3 ML NEB INHALATION PRN (18:56)
[2021-02-15] MEDS ORDERED: PNEUMONIA PROTOCOL UTILIZED 1 EACH MISC PO PRN (18:56)
[2021-02-15] MEDS ORDERED: AZITHROMYCIN 500 MG in SODIUM CHLORIDE 0.9% 250 ML IVPB STA (18:56)
[2021-02-15] MEDS ORDERED: CEFEPIME 2 GM in SODIUM CHLORIDE 0.9% 100 ML IVPB STA (18:56)
[2021-02-15 19:53] LABS: Glucose,Whole Blood 159 mg/dL (75-99)
[2021-02-15] MEDS: IPRATROPIUM-ALBUTEROL 3 ML NEB INHALATION SCH (20:06)
[2021-02-15] MEDS: clonazePAM 0.5 MG TAB PO SCH (22:28)
[2021-02-15] MEDS: ATORVASTATIN 80 MG TAB PO SCH (22:28)
[2021-02-15] MEDS: BENZTROPINE MESYLATE 1 MG TAB PO SCH (23:15)
[2021-02-15] MEDS: AZITHROMYCIN 500 MG in SODIUM CHLORIDE 0.9% 250 ML IVPB SCH (23:15)
[2021-02-16] MEDS ORDERED: CEFEPIME 2 GM in SODIUM CHLORIDE 0.9% 100 ML IVPB SCH (04:00)
[2021-02-16] MEDS ORDERED: IPRATROPIUM-ALBUTEROL 3 ML NEB INHALATION SCH (08:00)
[2021-02-16] MEDS: IPRATROPIUM-ALBUTEROL 3 ML NEB INHALATION SCH ×4 (08:10→20:18)
[2021-02-16] MEDS: BUDESONIDE 1 MG/2 ML NEBU INHALATION SCH ×2 (08:10→20:18)
[2021-02-16] MEDS ORDERED: predniSONE 20 MG TAB PO SCH (09:00)
--- NOTE | 2021-02-16 09:39 | XR ---
EXAMINATION TYPE: XR chest 2V DATE OF EXAM: 02/16/2021 COMPARISON: 02/15/2021 TECHNIQUE: PA and lateral views submitted. HISTORY: Cough FINDINGS: Coarsened interstitium. Hyperinflation. Degenerative change of the spine. Atherosclerotic change aort a. Bibasilar subsegmental consolidation small right effusion. Biapical pleural thickening. Arthropath y of the shoulders. IMPRESSION: 1. Correlate for interstitial lung disease with small right pleural effusion and basilar infiltrate o r atelectasis. Differential diagnosis includes interstitial pneumonitis or mild venous congestion.
[2021-02-16] MEDS: ASPIRIN 81 MG PO SCH (09:58)
[2021-02-16] MEDS: BENZTROPINE MESYLATE 1 MG TAB PO SCH ×3 (09:58→21:30)
[2021-02-16] MEDS: clonazePAM 0.5 MG TAB PO SCH ×4 (09:59→21:30)
[2021-02-16] MEDS: haloperidoL 5 MG TAB PO SCH ×2 (09:59→19:35)
[2021-02-16] MEDS: SULFAMETHOX-TMP 800-160MG 1 EACH TAB PO SCH ×2 (10:01→19:35)
[2021-02-16] MEDS: MULTIVITAMINS, THERA 1 EACH TAB PO SCH (10:01)
[2021-02-16] MEDS: SPIRONOLACTONE 25 MG TAB PO SCH (10:01)
[2021-02-16] MEDS: METOPROLOL TARTRATE 12.5 MG TAB PO SCH ×2 (10:01→19:35)
[2021-02-16] MEDS: MONTELUKAST 10 MG TAB PO SCH (10:01)
[2021-02-16] MEDS: SERTRALINE 25 MG TAB PO SCH (10:02)
[2021-02-16] MEDS: LOSARTAN 50 MG TAB PO SCH (10:11)
[2021-02-16] MEDS: metFORMIN 500 MG TAB PO SCH (10:11)
[2021-02-16] MEDS: IBUPROFEN 400 MG TAB PO SCH (10:12)
[2021-02-16] MEDS: methylPREDNISolone SOD SUCCI 40 MG/ML 1 ML VIAL IV SCH ×2 (17:07→22:57)
[2021-02-16] MEDS: CEFEPIME 2 GM in SODIUM CHLORIDE 0.9% 100 ML IVPB SCH (17:55)
[2021-02-16] MEDS: QUEtiapine 50 MG TAB PO SCH (19:36)
[2021-02-16] MEDS: ATORVASTATIN 80 MG TAB PO SCH (19:36)
--- NOTE | 2021-02-16 22:53 | HP ---
HISTORY AND PHYSICAL This 75-year-old white female came to the hospital for worsening shortness of breath, was recently admitted to the hospital for pneumonia. Did not get her antibiotics filled, at which time she came back to the hospital due to worsening shortness of breath and difficulty breathing. On 5 liters she is saturating in the low 90s. She has been admitted. She is negative for COVID-19 pneumonia. Home medicines include Ecotrin 81 daily, benztropine 1 mg t.i.d., Seroquel XR 300 mg daily, aldactone 12.5 daily, Klonopin 0.5 q.i.d., Haldol 5 mg b.i.d., Singulair 10 mg daily, Zoloft 25 daily, Lipitor 80 mg daily, Lopressor 12.5 b.i.d., metformin 500 mg daily, Motrin 400 daily, multivitamin daily. ALLERGIES: GRAPEFRUIT, PENICILLINS. PAST MEDICAL HISTORY: COPD, hearing disorder, deafness, dyslipidemia, hypertension, memory impairment, ESBL, schizoaffective disorder. SOCIAL HISTORY: Former smoker. Occasional alcohol. FAMILY HISTORY: Mother with diabetes mellitus. PHYSICAL EXAMINATION: Vital signs as mentioned. She is saturating low 90s on 5 L. Cardiovascular S1-S2. Lungs with rales at the bases, scattered rhonchi. Hematology 3+ edema. Neurologic: Cranial nerves intact. Psych fair mood and affect. Skin: No rash, excoriations, bruising. White count 16.1, hemoglobin is 12.1. BUN is 19, creatinine 0.75, glucose 109. ASSESSMENT: 1. Healthcare-acquired pneumonia. 2. Acute hypoxemic respiratory distress. 3. Chronic obstructive pulmonary disease exacerbation. 4. Diastolic congestive heart failure. Prognosis guarded. Start vancomycin and Zosyn. Failed outpatient treatment. IV diuresis. Pulmonary and cardiac consults. Prognosis guarded. MMODL / IJN: [id number] /
[2021-02-17] MEDS: CEFEPIME 2 GM in SODIUM CHLORIDE 0.9% 100 ML IVPB SCH ×2 (05:37→17:18)
[2021-02-17] MEDS: BUDESONIDE 1 MG/2 ML NEBU INHALATION SCH ×2 (06:30→19:38)
[2021-02-17] MEDS: IPRATROPIUM-ALBUTEROL 3 ML NEB INHALATION SCH ×4 (06:30→19:39)
[2021-02-17] MEDS: ASPIRIN 81 MG PO SCH (08:16)
[2021-02-17] MEDS: methylPREDNISolone SOD SUCCI 40 MG/ML 1 ML VIAL IV SCH ×3 (08:16→23:20)
[2021-02-17] MEDS: metFORMIN 500 MG TAB PO SCH (08:16)
[2021-02-17] MEDS: LOSARTAN 50 MG TAB PO SCH (08:16)
[2021-02-17] MEDS: BENZTROPINE MESYLATE 1 MG TAB PO SCH ×3 (08:16→21:59)
[2021-02-17] MEDS: AZITHROMYCIN 500 MG in SODIUM CHLORIDE 0.9% 250 ML IVPB SCH (08:16)
[2021-02-17] MEDS: haloperidoL 5 MG TAB PO SCH ×2 (08:16→19:31)
[2021-02-17] MEDS: IBUPROFEN 400 MG TAB PO SCH (08:17)
[2021-02-17] MEDS: QUEtiapine 50 MG TAB PO SCH ×2 (08:17→19:31)
[2021-02-17] MEDS: MULTIVITAMINS, THERA 1 EACH TAB PO SCH (08:17)
[2021-02-17] MEDS: SERTRALINE 25 MG TAB PO SCH (08:18)
[2021-02-17] MEDS: MONTELUKAST 10 MG TAB PO SCH (08:18)
[2021-02-17] MEDS: clonazePAM 0.5 MG TAB PO SCH ×4 (08:18→21:59)
[2021-02-17] MEDS: METOPROLOL TARTRATE 12.5 MG TAB PO SCH ×2 (08:18→19:31)
[2021-02-17] MEDS: SPIRONOLACTONE 25 MG TAB PO SCH (08:18)
--- NOTE | 2021-02-17 11:03 | P.CNPUL ---
History of Present Illness Consult date: 02/16/21 Reason for consult: dyspnea, cough Chief complaint: Shortness of breath History of present illness: This is a pleasant 75-year-old female recently discharged from the hospital, patient has a pneumonia and pleural effusion mucus plugging, patient oxygen continued to improve was discharged on 3-4 L oxygen, due to increasing shortness of breath patient presented again to the emergency department, overall poor historian not much data can be obtained from her but she remains on 5 L oxygen, she finished a course of antibiotics, the chest x-ray consistent with chronic changes due to COPD along with cardiomegaly, no acute pneumonia seen, emphysematous changes with chronic fibrotic changes however identified, Review of Systems All systems: negative Past Medical History Past Medical History: COPD, Hearing Disorder / Deafness, Hyperlipidemia, Hypertension, Memory Impairment Additional Past Medical History / Comment(s): home 5 liters n/c, SCHIZOAFFECTIVE DISORDER, INCONT OF URINE THAT JUST RECENTLY STARTED. CONSTIPATION. History of Any Multi-Drug Resistant Organisms: ESBL Date of last positivie culture/infection: 11/09/20 ESBL E.coli MDRO Source:: Urine Past Surgical History: Orthopedic Surgery, Tonsillectomy, Tubal Ligation Additional Past Surgical History / Comment(s): right knee arthroscopy, FELL,BROKE RT LEG-HAD SX--PLATE AND SCREWS, colonoscopy, LILA CATARACTS, LT EYE SX FOR GLAUCOMA Past Anesthesia/Blood Transfusion Reactions: No Reported Reaction Past Psychological History: Schizoaffective Disorder Additional Psychological History / Comment(s): . Smoking Status: Former smoker Past Alcohol Use History: Occasional Additional Past Alcohol Use History / Comment(s): STARTED SMOKING AT AGE 16, WAS SMOKING 3 PPD WHEN SHE QUIT IN 2014 Past Drug Use History: None Reported - Past Family History Mother Family Medical History: Diabetes Mellitus Additional Family Medical History / Comment(s): GRANDMOTHER HAD DM Father Family Medical History: No Reported History Additional Family Medical History / Comment(s): UNK- PT WAS RAISED BY STEP FATHER Medications and Allergies Home Medications Medication Instructions Recorded Confirmed Type Aspirin EC [Ecotrin Low Dose] 81 mg PO DAILY 12/06/15 02/15/21 History Benztropine Mesylate 1 mg PO TID 12/06/15 02/15/21 History QUEtiapine FUMARATE [SEROquel XR] 300 mg PO HS 12/06/15 02/15/21 History Spironolactone [Aldactone] 12.5 mg PO DAILY 12/06/15 02/15/21 History clonazePAM [KlonoPIN] 0.5 mg PO QID 12/06/15 02/15/21 History haloperidoL [Haldol] 5 mg PO BID 12/06/15 02/15/21 History Montelukast [Singulair] 10 mg PO DAILY 08/08/18 02/15/21 History Sertraline HCl [Zoloft] 25 mg PO DAILY 12/29/19 02/15/21 History Metoprolol Tartrate [Lopressor] 12.5 mg PO BID 01/03/20 02/15/21 History Atorvastatin Calcium [Lipitor] 80 mg PO HS 10/16/20 02/15/21 History metFORMIN HCL 500 mg PO DAILY 10/16/20 02/15/21 History Ibuprofen [Motrin] 400 mg PO DAILY 02/03/21 02/15/21 History Multivitamins, Thera [Multivitamin 1 tab PO DAILY 02/03/21 02/15/21 History (formulary)] Budesonide [Pulmicort] 1 mg INHALATION RT-BID 30 Days #60 02/13/21 02/15/21 Rx ml Ipratropium-Albuterol Nebulize 3 ml INHALATION RT-QID 30 Days 02/13/21 02/15/21 Rx [Duoneb 0.5 mg-3 mg/3 ml Soln] #120 ml Losartan [Cozaar] 50 mg PO DAILY 80 Days #80 tab 02/13/21 02/15/21 Rx Sulfamethox-Tmp 800-160Mg [Bactrim 1 tab PO Q12HR #8 tab 02/13/21 02/15/21 Rx DS 800-160 mg] predniSONE [Deltasone] 40 mg PO DAILY 90 Days #90 tab 02/13/21 02/15/21 Rx Allergies Allergy/AdvReac Type Severity Reaction Status Date / Time grapefruit Allergy Rash/Hives Verified 02/15/21 16:17 Penicillins Allergy Rash/Hives Verified 02/15/21 16:17 Physical Exam Vitals: Vital Signs Temp Pulse Pulse Resp BP BP Pulse Ox 02/16/21 12:15 52 L 02/16/21 08:24 59 L 02/16/21 08:10 64 12/03/21 08:00 17 02/16/21 07:00 99.1 F 64 16 163/57 96 02/16/21 01:50 97.4 F L 80 22 169/76 95 02/15/21 20:17 68 02/15/21 20:06 72 02/15/21 20:00 75 18 02/15/21 19:50 98.1 F 75 18 158/78 95 02/15/21 18:33 82 18 156/81 90 L 02/15/21 17:54 74 18 140/65 98 02/15/21 17:35 62 02/15/21 17:22 50 L Intake and Output 02/16/21 02/16/21 02/16/21 06:59 14:59 22:59 Intake Total 240 Balance 240 Intake: Oral 240 Other: Voiding Method Bedside Commode Incontinent # Voids 1 1 - Constitutional General appearance: average body habitus, cooperative, disheveled, mild distress - EENT Eyes: PERRLA ENT: hard of hearing Ears: bilateral: normal - Neck Neck: normal ROM Carotids: bilateral: upstroke normal Thyroid: bilateral: normal size - Respiratory Respiratory: bilateral: CTA - Cardiovascular Rhythm: regular Heart sounds: normal: S1, S2 - Gastrointestinal General gastrointestinal: normal bowel sounds - Integumentary Integumentary: normal turgor - Neurologic Neurologic: CNII-XII intact - Musculoskeletal Musculoskeletal: gait normal, generalized weakness - Psychiatric Psychiatric: A&O x's 3 Results - Laboratory Findings CBC and BMP: 02/15/21 15:03 02/15/21 15:03 PT/INR, D-dimer PT 10.2 sec (9.0-12.0) 02/15/21 15:03 INR 0.9 (<1.2) 02/15/21 15:03 Abnormal lab findings: Abnormal Labs 02/15/21 02/15/21 02/15/21 15:03 15:03 15:03 WBC 16.1 H Neutrophils # 14.3 H Lymphocytes # 0.9 L APTT 21.9 L BUN 19 H Glucose 109 H POC Glucose (mg/dL) ALT 41 H 02/15/21 19:51 WBC Neutrophils # Lymphocytes # APTT BUN Glucose POC Glucose (mg/dL) 159 H ALT - Diagnostic Findings Chest x-ray: report reviewed, image reviewed Assessment and Plan Assessment: Acute COPD exacerbation Acute on chronic hypoxic respiratory failure Component of congestive heart failure Hypertension hypertensive cardiovascular disease Plan: Patient to be continued on bronchodilator Home medications Broad-spectrum antibiotics with possibility of coverage healthcare associated pneumonia Time with Patient: Greater than 30
--- NOTE | 2021-02-17 11:07 | P.PN ---
Subjective Progress Note Date: 02/17/21 Principal diagnosis: Acute COPD exacerbation Acute on chronic hypoxic respiratory failure Component of congestive heart failure Hypertension hypertensive cardiovascular disease 02/17/2021, patient seen and evaluated examined overall remains stable, shortness of breath slightly improved, cough. Improved, will contrast and continue current therapy This is a pleasant 75-year-old female recently discharged from the hospital, patient has a pneumonia and pleural effusion mucus plugging, patient oxygen continued to improve was discharged on 3-4 L oxygen, due to increasing shortness of breath patient presented again to the emergency department, overall poor historian not much data can be obtained from her but she remains on 5 L oxygen, she finished a course of antibiotics, the chest x-ray consistent with chronic changes due to COPD along with cardiomegaly, no acute pneumonia seen, emphysematous changes with chronic fibrotic changes however identified, Objective - Vital Signs Vital signs: Vital Signs Temp 98.1 F 02/17/21 07:00 Pulse 67 02/17/21 07:00 Resp 22 02/17/21 07:00 BP 182/68 02/17/21 07:00 Pulse Ox 90 L 02/17/21 07:00 Intake & Output 02/16/21 02/17/21 02/17/21 18:59 06:59 18:59 Intake Total 420 Balance 420 Intake: Oral 420 Other: # Voids 2 2 - Exam - Constitutional General appearance: average body habitus, cooperative, disheveled, mild distress - EENT Eyes: PERRLA ENT: hard of hearing Ears: bilateral: normal - Neck Neck: normal ROM Carotids: bilateral: upstroke normal Thyroid: bilateral: normal size - Respiratory Respiratory: bilateral: CTA - Cardiovascular Rhythm: regular Heart sounds: normal: S1, S2 - Gastrointestinal General gastrointestinal: normal bowel sounds - Integumentary Integumentary: normal turgor - Neurologic Neurologic: CNII-XII intact - Musculoskeletal Musculoskeletal: gait normal, generalized weakness - Psychiatric Psychiatric: A&O x's 3 - Labs CBC & Chem 7: 02/15/21 15:03 02/15/21 15:03 Labs: Microbiology - Last 24 Hours (Table) 02/15/21 15:00 Blood Culture - Preliminary Blood No Growth after 24 hours 02/15/21 14:45 Blood Culture - Preliminary Blood No Growth after 24 hours Assessment and Plan Assessment: Acute COPD exacerbation Acute on chronic hypoxic respiratory failure Component of congestive heart failure Hypertension hypertensive cardiovascular disease Plan: Patient appeared to have slightly improved plan to continue current therapy Patient to be continued on bronchodilator Home medications Broad-spectrum antibiotics with possibility of coverage healthcare associated pneumonia Time with Patient: Greater than 30
[2021-02-17] MEDS: ATORVASTATIN 80 MG TAB PO SCH (19:31)
--- NOTE | 2021-02-17 23:12 | PN ---
PROGRESS NOTE This 75-year-old white female was admitted with community-acquired pneumonia, remains on broad-spectrum antibiotics. Cardiovascular S1, S2. Lungs scattered wheeze and rhonchi. Hematology negative Homans. Psych fair mood and affect. ASSESSMENT: 1. Congestive heart failure. 2. Community-acquired pneumonia. 3. Leukocytosis secondary to pneumonia. Bronchodilator, home medicines, sputum. Coverage with antibiotics. Monitor white count. 1. Chronic obstructive pulmonary disease exacerbation. 2. Acute on chronic hypoxemic respiratory failure. 3. Component of congestive heart failure. 4. Hypertensive cardiovascular disease. Continue with current treatment. Prognosis is guarded. Patient looks like she is improving. She is 92 on 5 L. Blood pressure 118/61, temperature 97.4, pulse 50s to 60s, respiratory rate 16 to 18. Prognosis guarded. MMODL / IJN: [id number] /
[2021-02-18] MEDS: CEFEPIME 2 GM in SODIUM CHLORIDE 0.9% 100 ML IVPB SCH ×2 (05:29→17:04)
[2021-02-18] MEDS: methylPREDNISolone SOD SUCCI 40 MG/ML 1 ML VIAL IV SCH ×2 (08:25→17:04)
[2021-02-18] MEDS: haloperidoL 5 MG TAB PO SCH ×2 (08:26→20:53)
[2021-02-18] MEDS: QUEtiapine 50 MG TAB PO SCH ×2 (08:26→20:53)
[2021-02-18] MEDS: LOSARTAN 50 MG TAB PO SCH (08:26)
[2021-02-18] MEDS: clonazePAM 0.5 MG TAB PO SCH ×4 (08:26→20:57)
[2021-02-18] MEDS: MULTIVITAMINS, THERA 1 EACH TAB PO SCH (08:26)
[2021-02-18] MEDS: ASPIRIN 81 MG PO SCH (08:26)
[2021-02-18] MEDS: METOPROLOL TARTRATE 12.5 MG TAB PO SCH ×2 (08:26→20:53)
[2021-02-18] MEDS: BENZTROPINE MESYLATE 1 MG TAB PO SCH ×3 (08:26→21:40)
[2021-02-18] MEDS: SERTRALINE 25 MG TAB PO SCH (08:26)
[2021-02-18] MEDS: MONTELUKAST 10 MG TAB PO SCH (08:26)
[2021-02-18] MEDS: metFORMIN 500 MG TAB PO SCH (08:26)
[2021-02-18] MEDS: SPIRONOLACTONE 25 MG TAB PO SCH (08:27)
[2021-02-18] MEDS: AZITHROMYCIN 500 MG in SODIUM CHLORIDE 0.9% 250 ML IVPB SCH (08:28)
[2021-02-18] MEDS: IBUPROFEN 400 MG TAB PO SCH (08:28)
[2021-02-18] MEDS: BUDESONIDE 1 MG/2 ML NEBU INHALATION SCH ×2 (09:45→19:10)
[2021-02-18] MEDS: IPRATROPIUM-ALBUTEROL 3 ML NEB INHALATION SCH ×4 (09:45→19:10)
--- NOTE | 2021-02-18 09:50 | P.CONS ---
History of Present Illness - Reason for Consult Consult date: 02/17/21 pneumonia Requesting physician: Joni Pathak - Chief Complaint shortness of breath x few days - History of Present Illness History of present illness : Patient is 75-year female presenting to the ER 2 days ago for evaluation of increasing shortness of breath in this patient was recently discharged from this facility about 3 days ago and the patient was treated for Enterobacter pneumonia with IV biotherapy subsequent charge home on oral antibiotics however the patient subsequently presented to the hospital with worsening shortness of breath on presentation to the hospital patient was afebrile and no fever has been recorded subsequently patient did have white count of 16.1 with a left shift creatinine was normal ahumada PCR was negative blood culture obtained which are currently pending patient did have a chest x-ray chronic changes and cardiomegaly without acute pulmonary process patient has been admitted to hospital infectious disease was consulted for further management of Elimite therapy currently the patient started on cefepime and Zithromax Review of system: CONSTITUTIONAL: Positive for weakness denies fever. EYES: No complaint. ENT: No complaint. RESPIRATORY: As per history of present illness CARDIOVASCULAR: No complaint. GENITOURINARY: No complaint. GASTROINTESTINAL: No complaint. MUSCULOSKELETAL: No complaint. INTEGUMENTARY: No complaint. PSYCHOLOGIC: No complaint. ENDOCRINE: No complaint. NEUROLOGIC: No complaint. Past medical history : Reviewed, documented below Past surgical history : Reviewed, documented below Social history: Reviewed, documented below Medications: Reviewed, as documented below EXAMINATION: Vital sigans= Reviewed and documented below GENERAL DESCRIPTION: Elderly female lying in bed, no distress. No tachypnea or accessory muscle of respiration use. HEENT: Shows Pallor , no scleral icterus. Oral mucous membrane is dry. NECK: Trachea central, no thyromegaly. LUNGS: Unlabored breathing. Decreased breath sound at the base. No wheeze or crackle. HEART: S1, S2, regular rate and rhythm. ABDOMEN: Soft, no tenderness , guarding or rigidity EXTREMITIES: No edema of feet. SKIN: No rash, no masses palpable. NEUROLOGICAL: The patient is awake, alert, oriented x3, mood and affect normal. LABS AND RADIOLOGY: Reviewed results see below Assessment : Patient presented to hospital with increasing shortness of breath and this patient who was recently admitted to this facility and was treated for Enterobacter pneumonia patient chest x-ray is not showing any acute infiltrate patient did not have any fever did have elevated white count which could be steroid effect underlying pneumonia less likely not entirely excluded though Plan: 1-we will obtain a CRP procalcitonin and obtain sputum for Gram stain and culture 2-continue with the cefepime while waiting for the work-up to be completed We will follow on clinical condition and cultures to further adjust medication if needed Thank you for this consultation we will follow the patient along with you Past Medical History Past Medical History: COPD, Hearing Disorder / Deafness, Hyperlipidemia, Hypertension, Memory Impairment Additional Past Medical History / Comment(s): home 5 liters n/c, SCHIZOAFFECTIVE DISORDER, INCONT OF URINE THAT JUST RECENTLY STARTED. CONSTIPATION. History of Any Multi-Drug Resistant Organisms: ESBL Year Discovered:: 11/09/20 ESBL E.coli MDRO Source:: Urine Past Surgical History: Orthopedic Surgery, Tonsillectomy, Tubal Ligation Additional Past Surgical History / Comment(s): right knee arthroscopy, FELL,BROKE RT LEG-HAD SX--PLATE AND SCREWS, colonoscopy, LILA CATARACTS, LT EYE SX FOR GLAUCOMA Past Anesthesia/Blood Transfusion Reactions: No Reported Reaction Past Psychological History: Schizoaffective Disorder Additional Psychological History / Comment(s): . Smoking Status: Former smoker Past Alcohol Use History: Occasional Additional Past Alcohol Use History / Comment(s): STARTED SMOKING AT AGE 16, WAS SMOKING 3 PPD WHEN SHE QUIT IN 2014 Past Drug Use History: None Reported - Past Family History Mother Family Medical History: Diabetes Mellitus Additional Family Medical History / Comment(s): GRANDMOTHER HAD DM Father Family Medical History: No Reported History Additional Family Medical History / Comment(s): UNK- PT WAS RAISED BY STEP FATHER Medications and Allergies Home Medications Medication Instructions Recorded Confirmed Type Aspirin EC [Ecotrin Low Dose] 81 mg PO DAILY 12/06/15 02/15/21 History Benztropine Mesylate 1 mg PO TID 12/06/15 02/15/21 History QUEtiapine FUMARATE [SEROquel XR] 300 mg PO HS 12/06/15 02/15/21 History Spironolactone [Aldactone] 12.5 mg PO DAILY 12/06/15 02/15/21 History clonazePAM [KlonoPIN] 0.5 mg PO QID 12/06/15 02/15/21 History haloperidoL [Haldol] 5 mg PO BID 12/06/15 02/15/21 History Montelukast [Singulair] 10 mg PO DAILY 08/08/18 02/15/21 History Sertraline HCl [Zoloft] 25 mg PO DAILY 12/29/19 02/15/21 History Metoprolol Tartrate [Lopressor] 12.5 mg PO BID 01/03/20 02/15/21 History Atorvastatin Calcium [Lipitor] 80 mg PO HS 10/16/20 02/15/21 History metFORMIN HCL 500 mg PO DAILY 10/16/20 02/15/21 History Ibuprofen [Motrin] 400 mg PO DAILY 02/03/21 02/15/21 History Multivitamins, Thera [Multivitamin 1 tab PO DAILY 02/03/21 02/15/21 History (formulary)] Budesonide [Pulmicort] 1 mg INHALATION RT-BID 30 Days #60 02/13/21 02/15/21 Rx ml Ipratropium-Albuterol Nebulize 3 ml INHALATION RT-QID 30 Days 02/13/21 02/15/21 Rx [Duoneb 0.5 mg-3 mg/3 ml Soln] #120 ml Losartan [Cozaar] 50 mg PO DAILY 80 Days #80 tab 02/13/21 02/15/21 Rx Sulfamethox-Tmp 800-160Mg [Bactrim 1 tab PO Q12HR #8 tab 02/13/21 02/15/21 Rx DS 800-160 mg] predniSONE [Deltasone] 40 mg PO DAILY 90 Days #90 tab 02/13/21 02/15/21 Rx Allergies Allergy/AdvReac Type Severity Reaction Status Date / Time grapefruit Allergy Rash/Hives Verified 02/15/21 16:17 Penicillins Allergy Rash/Hives Verified 02/15/21 16:17 Physical Exam Vitals: Vital Signs Temp Pulse Pulse Resp BP Pulse Ox 02/18/21 07:00 98 F 64 20 146/72 96 02/18/21 01:18 98.4 F 52 L 18 123/77 95 02/17/21 20:00 17 02/17/21 19:48 76 02/17/21 19:39 68 02/17/21 19:34 97.4 F L 54 L 17 118/61 92 L 02/17/21 15:16 68 02/17/21 15:05 68 02/17/21 15:00 98.4 F 58 L 20 137/72 95 02/17/21 14:00 58 L 20 02/17/21 11:45 70 02/17/21 11:33 68 Intake and Output 02/17/21 02/18/21 02/18/21 22:59 06:59 14:59 Output Total 200 Balance -200 Output: Urine 200 Other: # Voids 1 2 1 Results CBC & Chem 7: 02/15/21 15:03 02/15/21 15:03 Labs: Microbiology - Last 24 Hours (Table) 02/15/21 15:00 Blood Culture - Preliminary Blood No Growth after 48 hours 02/15/21 14:45 Blood Culture - Preliminary Blood No Growth after 48 hours
--- NOTE | 2021-02-18 13:15 | P.PN ---
Subjective Progress Note Date: 02/18/21 Principal diagnosis: Acute COPD exacerbation Acute on chronic hypoxic respiratory failure Component of congestive heart failure Hypertension hypertensive cardiovascular disease 02/18/2021, patient seen eval examined during the rounds labs reviewed medications reviewed care plan discussed, daughter is present at bedside, shortness of breath slightly better now less cough congestion is present patient sitting upright on the bed breathing comfortably on 4-5 L nasal cannula, patient remains on broad-spectrum antibiotics with cephepime and Zithromax, IV steroids and bronchodilators blood cultures no growth so far my she remains afebrile hemodynamic status stable, labs and x-ray are not done today 02/17/2021, patient seen and evaluated examined overall remains stable, gulshan rtness of breath slightly improved, cough. Improved, will contrast and continue current therapy This is a pleasant 75-year-old female recently discharged from the hospital, patient has a pneumonia and pleural effusion mucus plugging, patient oxygen continued to improve was discharged on 3-4 L oxygen, due to increasing shortness of breath patient presented again to the emergency department, overall poor historian not much data can be obtained from her but she remains on 5 L oxygen, she finished a course of antibiotics, the chest x-ray consistent with chronic changes due to COPD along with cardiomegaly, no acute pneumonia seen, emphysematous changes with chronic fibrotic changes however identified, Objective - Vital Signs Vital signs: Vital Signs Temp 98 F 02/18/21 07:00 Pulse 68 02/18/21 11:30 Resp 20 02/18/21 08:00 BP 146/72 02/18/21 07:00 Pulse Ox 96 02/18/21 07:00 Intake & Output 02/17/21 02/18/21 02/18/21 18:59 06:59 18:59 Intake Total 288 118 Output Total 200 Balance 288 -200 118 Intake: Oral 288 118 Output: Urine 200 Other: Voiding Method Bedside Commode Bedside Commode Incontinent Incontinent # Voids 4 2 1 - Exam - Constitutional General appearance: average body habitus, cooperative, disheveled, mild distress - EENT Eyes: PERRLA ENT: hard of hearing Ears: bilateral: normal - Neck Neck: normal ROM Carotids: bilateral: upstroke normal Thyroid: bilateral: normal size - Respiratory Respiratory: bilateral: CTA - Cardiovascular Rhythm: regular Heart sounds: normal: S1, S2 - Gastrointestinal General gastrointestinal: normal bowel sounds - Integumentary Integumentary: normal turgor - Neurologic Neurologic: CNII-XII intact - Musculoskeletal Musculoskeletal: gait normal, generalized weakness - Psychiatric Psychiatric: A&O x's 3 - Labs CBC & Chem 7: 02/15/21 15:03 02/15/21 15:03 Labs: Microbiology - Last 24 Hours (Table) 02/15/21 15:00 Blood Culture - Preliminary Blood No Growth after 48 hours 02/15/21 14:45 Blood Culture - Preliminary Blood No Growth after 48 hours Assessment and Plan Assessment: Health-care associated pneumonia Acute COPD exacerbation Acute on chronic hypoxic respiratory failure Component of congestive heart failure Hypertension hypertensive cardiovascular disease Plan: Patient appeared to have slightly improved clinical course, plan to to continue current therapy Patient to be continued on bronchodilator Home medications Broad-spectrum antibiotics with possibility of coverage healthcare associated pneumonia Will discuss to the daughter about need of bronchoscopy for endobronchial lesion in the right lower lobe bronchus Time with Patient: Greater than 30
[2021-02-18] MEDS ORDERED: RX INFO: IV CONTRAST WAS GIVEN 1 EACH MISC MISCELLANE PRN (17:44)
--- NOTE | 2021-02-18 19:17 | PN ---
PROGRESS NOTE This 75-year-old white female has COPD exacerbation, acute on chronic hypoxemic respiratory failure, healthcare-acquired pneumonia, possible congestive heart failure component, hypertensive cardiovascular disease. She says she is feeling a little bit better, although she is very fatigued. She is on L of nasal cannula, on broad- spectrum antibiotics, IV steroids, bronchodilators. Blood cultures are no growth. Cardiovascular S1, S2. Lungs have rales at the base. Hematology negative Homans. Psych fair mood and affect. Blood pressure 146/72, O2 saturation 96, pulse 68, respiratory 18-20. Psych alert oriented x3. Musculoskeletal: Range of motion full. NEUROLOGIC: Cranial nerves intact. Continue with bronchodilators. Home medicines. Broad-spectrum antibiotics. Possible bronchoscopy for endobronchial lesion in the right lower lobe bronchus. Continue current treatment. Prognosis guarded. MMODL / IJN: [id number] /
--- NOTE | 2021-02-18 19:21 | CT ---
EXAMINATION TYPE: CT chest w con DATE OF EXAM: 02/18/2021 COMPARISON: 02/09/2021 HISTORY: copd/librado nodule/hap CT DLP: 489.5 mGycm Automated exposure control for dose reduction was used. CONTRAST: Performed with IV Contrast, patient injected with 100 mL of Isovue 300. Images obtained from the thoracic inlet to the diaphragm with IV contrast. There is mild pulmonary emphysema. There is minimal pleural thickening at the posterior lung bases. T here is mild subsegmental atelectasis in the lingula left upper lobe and right posterior lung base. T here is no pleural effusion. There is no pericardial effusion. Heart size is normal. There is no mediastinal adenopathy. There are no hilar masses. Heart size is normal. Thoracic aorta shows no aneurysm or dissection. There is atheromatous changes in the thoracic aorta. I see no evidence of a filling defect in the pulmonary arteries. There is some mild spurring in the thoracic spine. Sternum is intact. The ribs are intact. There is r etained fecal material in the large bowel. IMPRESSION: Fibrotic changes and subsegmental atelectasis at the right lung base and lingula left upper lobe with out change. Atheromatous aorta. No suspicious pulmonary mass. No evidence of pulmonary embolism. Emph ysema. Constipation. Constipation increased compared to old exam.
[2021-02-18] MEDS: ATORVASTATIN 80 MG TAB PO SCH (20:57)
--- NOTE | 2021-02-18 22:29 | PN ---
PROGRESS NOTE DATE OF SERVICE: 02/18/2021 REASON FOR FOLLOWUP: Pneumonia. INTERVAL HISTORY: The patient is afebrile. The patient is breathing more comfortably today. The patient denies having any chest pain or worsening cough or sputum production. No abdominal pain or diarrhea. PHYSICAL EXAMINATION: Blood pressure 136/70 with a pulse of 51, temperature 97.9. She is 95% on 5 L nasal cannula. General description is an elderly female lying in bed in no distress. Respiratory system: Unlabored breathing, decreased intensity of breath sounds. No wheeze. Heart S1, S2. Regular rate and rhythm. Abdomen soft, no tenderness. LABS: No new labs have been obtained today. DIAGNOSTIC IMPRESSION AND PLAN: Patient admitted to hospital with increasing shortness of breath concerning for possible pneumonia. Sputum has been requested. The patient is empirically covered with cefazolin; to continue while monitoring her clinical course closely. Continue supportive care. MMODL / IJN: [id number] /
[2021-02-19] MEDS: methylPREDNISolone SOD SUCCI 40 MG/ML 1 ML VIAL IV SCH ×4 (00:42→23:48)
[2021-02-19] MEDS: CEFEPIME 2 GM in SODIUM CHLORIDE 0.9% 100 ML IVPB SCH ×2 (06:00→17:07)
[2021-02-19] MEDS: MONTELUKAST 10 MG TAB PO SCH (08:17)
[2021-02-19] MEDS: clonazePAM 0.5 MG TAB PO SCH ×4 (08:17→21:36)
[2021-02-19] MEDS: LOSARTAN 50 MG TAB PO SCH (08:17)
[2021-02-19] MEDS: MULTIVITAMINS, THERA 1 EACH TAB PO SCH (08:18)
[2021-02-19] MEDS: QUEtiapine 50 MG TAB PO SCH ×2 (08:18→21:36)
[2021-02-19] MEDS: metFORMIN 500 MG TAB PO SCH (08:19)
[2021-02-19] MEDS: SERTRALINE 25 MG TAB PO SCH (08:19)
[2021-02-19] MEDS: METOPROLOL TARTRATE 12.5 MG TAB PO SCH ×2 (08:19→21:36)
[2021-02-19] MEDS: ASPIRIN 81 MG PO SCH (08:20)
[2021-02-19] MEDS: BENZTROPINE MESYLATE 1 MG TAB PO SCH ×3 (08:20→21:36)
[2021-02-19] MEDS: haloperidoL 5 MG TAB PO SCH ×2 (08:20→21:36)
[2021-02-19] MEDS: SPIRONOLACTONE 25 MG TAB PO SCH (08:21)
[2021-02-19] MEDS: IBUPROFEN 400 MG TAB PO SCH (08:21)
[2021-02-19] MEDS: AZITHROMYCIN 500 MG in SODIUM CHLORIDE 0.9% 250 ML IVPB SCH (08:24)
[2021-02-19] MEDS: BUDESONIDE 1 MG/2 ML NEBU INHALATION SCH ×2 (09:32→20:14)
[2021-02-19] MEDS: IPRATROPIUM-ALBUTEROL 3 ML NEB INHALATION SCH ×4 (09:32→20:14)
[2021-02-19 10:43] LABS: Basophils # (A) 0.01 X 10*3/uL (0.00-0.10); Basophils % (A) 0.1 %; Eosinophils # (A) 0 X 10*3/uL (0.04-0.35); Eosinophils % (A) 0 %; HCT 37.1 % (37.2-46.3); HGB 11.6 g/dL (12.0-15.0); Lymphocytes # (A) 0.46 X 10*3/uL (0.90-5.00); Lymphocytes % (A) 4.3 %; MCH 28.3 pg (27.0-32.0); MCHC 31.3 g/dL (32.0-37.0); MCV 90.5 fL (80.0-97.0); Mean Platelet Volume 10.4 fL (9.5-12.2); Monocytes # (A) 0.52 X 10*3/uL (0.20-1.00); Monocytes % (A) 4.9 %; Neutrophils # (A) 9.59 X 10*3/uL (1.80-7.70); Neutrophils % (A) 90.1 %; Platelet Count 264 X 10*3/uL (140-440); RDW 15.3 % (11.5-14.5); WBC 10.64 X 10*3/uL (4.50-10.00)
--- NOTE | 2021-02-19 17:08 | P.PN ---
Subjective Progress Note Date: 02/19/21 Principal diagnosis: Acute COPD exacerbation Acute on chronic hypoxic respiratory failure Component of congestive heart failure Hypertension hypertensive cardiovascular disease 02/19/2021, patient seen eval examined during the rounds labs reviewed medications reviewed care plan discussed with the patient and staff at length, history status continued to improve, denies any chest pain, breathing more comfortably, I've discussed with her as well in addition to his R daughter about bronchoscopy and possible endobronchial shadow that has been seen, and phlebotomy toilet she is agreed for proceed with bronchoscopy will schedule for tomorrow nothing by mouth after midnight final time however pending are endoscopy availability, remains afebrile, hemodynamic status stable 90% on 4 L oxygen, patient underwent a computed tomography scan of the chest yesterday negative for pulmonary mass, however basal bilateral pneumonia she 02/18/2021, patient seen eval examined during the rounds labs reviewed medications reviewed care plan discussed, daughter is present at bedside, sh ortness of breath slightly better now less cough congestion is present patient sitting upright on the bed breathing comfortably on 4-5 L nasal cannula, patient remains on broad-spectrum antibiotics with cephepime and Zithromax, IV steroids and bronchodilators blood cultures no growth so far my she remains afebrile hemodynamic status stable, labs and x-ray are not done today 02/17/2021, patient seen and evaluated examined overall remains stable, shortness of breath slightly improved, cough. Improved, will contrast and continue current therapy This is a pleasant 75-year-old female recently discharged from the hospital, patient has a pneumonia and pleural effusion mucus plugging, patient oxygen continued to improve was discharged on 3-4 L oxygen, due to increasing shortness of breath patient presented again to the emergency department, overall poor historian not much data can be obtained from her but she remains on 5 L oxygen, she finished a course of antibiotics, the chest x-ray consistent with chronic changes due to COPD along with cardiomegaly, no acute pneumonia seen, emphysematous changes with chronic fibrotic changes however identified, Objective - Vital Signs Vital signs: Vital Signs Temp 98.0 F 02/19/21 14:44 Pulse 63 02/19/21 14:44 Resp 18 02/19/21 14:44 BP 122/64 02/19/21 14:44 Pulse Ox 93 L 02/19/21 14:44 Intake & Output 02/18/21 02/19/21 02/19/21 18:59 06:59 18:59 Intake Total 118 830 360 Output Total 600 Balance 118 830 -240 Intake: Intake, IV Titration 350 Amount Azithromycin 500 mg In 250 Sodium Chloride 0.9% 250 ml @ 250 mls/hr IVPB DAILY [facility] Rx#:[id number] Cefepime 2 gm In Sodium 100 Chloride 0.9% 100 ml @ 25 mls/hr IVPB Q12H [facility] Rx# :[id number] Oral 118 480 360 Output: Urine 600 Other: Voiding Method Bedside Commode Bedside Commode Incontinent Incontinent # Voids 3 2 2 - Exam - Constitutional General appearance: average body habitus, cooperative, disheveled, mild distress - EENT Eyes: PERRLA ENT: hard of hearing Ears: bilateral: normal - Neck Neck: normal ROM Carotids: bilateral: upstroke normal Thyroid: bilateral: normal size - Respiratory Respiratory: bilateral: CTA - Cardiovascular Rhythm: regular Heart sounds: normal: S1, S2 - Gastrointestinal General gastrointestinal: normal bowel sounds - Integumentary Integumentary: normal turgor - Neurologic Neurologic: CNII-XII intact - Musculoskeletal Musculoskeletal: gait normal, generalized weakness - Psychiatric Psychiatric: A&O x's 3 - Labs CBC & Chem 7: 02/19/21 07:00 02/15/21 15:03 Labs: Abnormal Lab Results - Last 24 Hours (Table) 02/19/21 Range/Units 07:00 WBC 10.64 H (4.50-10.00) X 10*3/uL Hgb 11.6 L (12.0-15.0) g/dL Hct 37.1 L (37.2-46.3) % MCHC 31.3 L (32.0-37.0) g/dL RDW 15.3 H (11.5-14.5) % Immature Gran # 0.06 H (0.00-0.04) X 10*3/uL Neutrophils # 9.59 H (1.80-7.70) X 10*3/uL Lymphocytes # 0.46 L (0.90-5.00) X 10*3/uL Eosinophils # 0 L (0.04-0.35) X 10*3/uL Microbiology - Last 24 Hours (Table) 02/15/21 14:45 Blood Culture - Preliminary Blood No Growth after 72 hours 02/15/21 15:00 Blood Culture - Preliminary Blood No Growth after 72 hours Assessment and Plan Assessment: Health-care associated pneumonia, basal bilateral Acute COPD exacerbation Acute on chronic hypoxic respiratory failure Component of congestive heart failure Hypertension hypertensive cardiovascular disease Endobronchial mass versus mucus plugging Plan: Patient appeared to have slightly improved clinical course, plan to to continue current therapy We will make patient nothing by mouth midnight scheduled for bronchoscopy and possible biopsy if any masses seen tomorrow Patient to be continued on bronchodilator Home medications Broad-spectrum antibiotics with possibility of coverage healthcare associated pneumonia Discussed with patient and daughter about need of bronchoscopy for endobronchial lesion in the right lower lobe bronchus, they would like to proceed with Time with Patient: Greater than 30
[2021-02-19] MEDS: ATORVASTATIN 80 MG TAB PO SCH (21:35)
--- NOTE | 2021-02-19 23:12 | PN ---
PROGRESS NOTE DATE OF SERVICE: 02/19/2021 REASON FOR FOLLOWUP: Pneumonia. INTERVAL HISTORY: Patient is afebrile. Patient is breathing comfortably on room air. Denies any chest pain. Did have a cough, not bringing up any sputum. No abdominal pain or diarrhea. PHYSICAL EXAMINATION: Blood pressure 145/74 with a pulse of 61, temperature 99.5. She is 93% on room air. General description is an elderly female lying in bed in no distress. Respiratory system: Unlabored breathing. Decreased intensity of breath sounds. No wheeze. Heart S1, S2. Regular rate and rhythm. Abdomen soft, no tenderness. LABS: Hemoglobin 11.4, white count 10.6. DIAGNOSTIC IMPRESSION AND PLAN: Patient admitted to the hospital with shortness of breath and cough which is multifactorial possible related. Underlying pneumonia less likely in view of negative inflammatory markers, he is on empiric continue and continue supportive care. MMODL / IJN: [id number] /
--- NOTE | 2021-02-19 23:42 | PN ---
PROGRESS NOTE White female with acute COPD exacerbation, acute on chronic hypoxemic respiratory failure. Component of congestive heart failure, hypertensive cardiovascular disease. The patient needs a bronchoscopy. Possible endobronchial shadow. Phlebotomy tried it. She has agreed for procedure with bronchoscopy for tomorrow. Nothing by mouth after midnight. She is 40% on [address] of the chest is negative for pulmonary mass. She has basal bilateral pneumonia. She states her daughter wants her to go to the intermediate for rehab. Temp 98, pulse 63, respiratory 16 to 18, blood pressure 122/64, O2 93. Cardiovascular S1-S2. Lungs: Mild wheeze x4. Neck is supple. Abdomen is soft, nontender. Hematology negative Homans. Psych: Alert and oriented x3. LABORATORY DATA: White count is 10.6, hemoglobin is 11.6. ASSESSMENT: Continue with current treatment. Bronchoscopy tomorrow. Home medicines on broad- spectrum antibiotics. Healthcare associated pneumonia, basal bilaterally, COPD, acute on chronic hypoxemic respiratory failure, CHF, diastolic. Continue current treatment. Wean oxygen as tolerated. Bronchoscopy in the morning. Continue broad-spectrum antibiotics. MMODL / IJN: [id number] /
[2021-02-20] MEDS: CEFEPIME 2 GM in SODIUM CHLORIDE 0.9% 100 ML IVPB SCH ×2 (05:52→17:50)
[2021-02-20] MEDS: IPRATROPIUM-ALBUTEROL 3 ML NEB INHALATION SCH ×4 (07:43→19:34)
[2021-02-20] MEDS: BUDESONIDE 1 MG/2 ML NEBU INHALATION SCH ×2 (07:43→19:33)
[2021-02-20] MEDS: methylPREDNISolone SOD SUCCI 40 MG/ML 1 ML VIAL IV SCH ×3 (09:49→22:43)
[2021-02-20] MEDS: SPIRONOLACTONE 25 MG TAB PO SCH (10:18)
[2021-02-20] MEDS: clonazePAM 0.5 MG TAB PO SCH ×4 (10:18→21:10)
[2021-02-20] MEDS: LOSARTAN 50 MG TAB PO SCH (10:18)
[2021-02-20] MEDS: ASPIRIN 81 MG PO SCH (10:18)
[2021-02-20] MEDS: MULTIVITAMINS, THERA 1 EACH TAB PO SCH (10:18)
[2021-02-20] MEDS: metFORMIN 500 MG TAB PO SCH (10:18)
[2021-02-20] MEDS: MONTELUKAST 10 MG TAB PO SCH (10:18)
[2021-02-20] MEDS: IBUPROFEN 400 MG TAB PO SCH (10:18)
[2021-02-20] MEDS: METOPROLOL TARTRATE 12.5 MG TAB PO SCH ×2 (10:23→21:10)
[2021-02-20] MEDS: haloperidoL 5 MG TAB PO SCH ×2 (10:23→21:10)
[2021-02-20] MEDS: BENZTROPINE MESYLATE 1 MG TAB PO SCH ×3 (10:23→21:10)
[2021-02-20] MEDS: QUEtiapine 50 MG TAB PO SCH ×2 (10:24→21:10)
[2021-02-20] MEDS: SERTRALINE 25 MG TAB PO SCH (10:24)
--- NOTE | 2021-02-20 11:28 | CDI ---
Documentation Clarification Form Date: 02/20/2021 10:57:07 AM From: Violetta Hyman RN CCDS Admit Date: 02/17/2021 08:54:00 AM Patient Name: Nicki Rosen Visit Number: [id number] Discharge Date: ATTENTION: The Clinical Documentation Specialists (CDI) and [facility] Coding Staff appreciate your assistance in clarifying documentation. Please respond to the clarification below the line at the bottom and electronically sign. The CDI & [facility] Coding staff will review the response and follow-up if needed. Please note: Queries are made part of the Legal Health Record. If you have any questions, please contact the author of this message via ITS. Dr. Joni Pathak Your patient has the documented diagnosis of unspecified Diastolic CHF 02/16, H&P; 02/19 , Medicine Progress note. Additional information regarding the acuity of Diastolic CHF is requested. History/Risk Factors:75-year-old female presents to the ED with worsening shortness of breath. Recently admitted to the hospital for pneumonia. Medical History: COPD. 02/16, H&P. Clinical Indicators: VS/Pulse OX: 02/15 B/P 147/76, HR 50, Temp 97.8 F Oral, RR 20, SpO2 93% 5L nasal cannula BNP: 02/15 315 Echocardiogram Results: 02/07 EF 60-65%, right ventricle is mildly enlarged. LA is mildly dilated 29-33,./m2. Chest X Ray 2V: 02/15 Chronic changes and cardiomegaly without pulmonary process currently. Chest X Ray 2V: 02/16 Correlate for interstitial lung disease with small right pleural effusion and basilar infiltrate or atelectasis. Treatment: 02/16 - to current Lopressor 12.5mg PO BID JENN[facility]ER; 02/16 to current Aldactone 12.5 mg PO Daily JENNIFER. In your professional opinion, can you please clarify the acuity of Diastolic CHF if known? [ ] Chronic Diastolic Heart Failure (preserved EF) [ ] Other, please specify [ ] Unable to determine (Template Last Revised: April 2020) MTDD
--- NOTE | 2021-02-20 11:48 | CDI ---
Documentation Clarification Form Date: 02/20/2021 11:29:07 AM From: Violetta Hyman RN CCDS Admit Date: 02/17/2021 08:54:00 AM Patient Name: Nicki Rosen Visit Number: [id number] Discharge Date: ATTENTION: The Clinical Documentation Specialists (CDI) and [facility] Coding Staff appreciate your assistance in clarifying documentation. Please respond to the clarification below the line at the bottom and electronically sign. The CDI & [facility] Coding staff will review the response and follow-up if needed. Please note: Queries are made part of the Legal Health Record. If you have any questions, please contact the author of this message via ITS. Dr. Joni Pathak Healthcare acquired Pneumonia is documented 02/16, H&P. Additional clarification regarding the type of pneumonia is requested. History/Risk Factors: History/Risk Factors:75-year-old female presents to the ED with worsening shortness of breath. Recently admitted to the hospital for pneumonia. Medical History: COPD. 02/16, H&P. Clinical Indicators: VS/Pulse OX: 02/15 B/P 147/76, HR 50, Temp 97.8 F Oral, RR 20, SpO2 93% 5L nasal cannula WBC 02/15: 16.1 Neutrophils 02/15: 14.3 Chest X Ray 2V: 02/15 Chronic changes and cardiomegaly without pulmonary process currently. Chest X Ray 2V: 02/16 Correlate for interstitial lung disease with small right pleural effusion and basilar infiltrate or atelectasis. Lung assessment 02/16 H&P: With rales at the bases, scattered rhonchi. Updated 02/23 - Sputum Culture: 02/21 Gram Neg Bacilli Treatment: 02/15 Solumedrol 125mg IV x 1, 02/16 02/20 Solumedrol 40mg IV Q8HR JENNIFER. Antibiotics: 02/15 Azithromycin 500mg IVPB x 1, 02/16 to 02/19 Azithromycin 500mg IVPB, 02/15 Cefepime 2gm IVPB x 1, 02/16 TO 02/16 Cefepime HCL 2gm IVPB Q8H JENNIFER, 02/16 to current Cefepime HCL 2gm IVPB Q12H JENN[facility]ER. Breathing Tx: 02/15 Ventolin Hfa Inhaler 2 puff Inhalation x 1, 02/15 Duoneb 0.5mg 3mg / 3 ml soln Inhalation x 1, 02/15 to current Duoneb 0.5mg 3mg / 3 ml soln Inhalation RT QID JENNIFER, 02/15 02/15 to current Duoneb 0.5mg 3mg / 3 ml soln Inhalation RT Q4 PRN JENNIFER. Please clarify the type of pneumonia, if known: [ ] Gram Negative Bacterial Pneumonia [ ] Other bacteria (please specify) [ ] Other, please specify [ ] Unable to determine 02/[address] Pathak "Sputum was Pseudomonas and aspiration concern for Stenotrophomonas tracheobronchitis pneumonia." (Template Last Revised: May 2020) MTDD
[2021-02-20] MEDS: AZITHROMYCIN 500 MG in SODIUM CHLORIDE 0.9% 250 ML IVPB SCH (13:26)
[2021-02-20] MEDS ORDERED: PROPOFOL 10 MG/ML 20 ML VIAL IV ONE (14:29)
[2021-02-20] MEDS ORDERED: KETAMINE 10 MG/ML 20 ML VIAL ONE (14:29)
[2021-02-20] MEDS ORDERED: LIDOCAINE 1% INJ 10MG/ML (20 ML MDV) ONE (14:29)
[2021-02-20] MEDS ORDERED: .fentaNYL (PF) 50 MCG/ML 2 ML AMP ONE (14:29)
[2021-02-20] MEDS ORDERED: MIDAZOLAM 2 MG/2 ML VIAL ONE (14:29)
[2021-02-20] MEDS ORDERED: IV FLUID CONTINUATION 1,000 ML IV ONE (14:30)
[2021-02-20] MEDS ORDERED: LIDOCAINE 2% INJ 20 MG/ML INTRATRACH ONE (14:37)
--- NOTE | 2021-02-20 16:21 | P.PN ---
Subjective Progress Note Date: 02/20/21 Principal diagnosis: Acute COPD exacerbation Acute on chronic hypoxic respiratory failure Component of congestive heart failure Hypertension hypertensive cardiovascular disease 02/20/2021, patient remains on 5 L oxygen, saturation 95-96%, denies any chest pain, has been short of breath, procedure bronchoscopy explained to the patient at length informed consent obtained family notified as well proceed with bronchoscopy as to 02/19/2021, patient seen eval examined during the rounds labs reviewed medications reviewed care plan discussed with the patient and staff at length, history status continued to improve, denies any chest pain, breathing more comfortably, I've discussed with her as well in addition to his R daughter about bronchoscopy and possible endobronchial shadow that has been seen, and phlebotomy toilet she is agreed for proceed with bronchoscopy will schedule for tomorrow nothing by mouth after midnight final time however pending are endoscopy availability, remains afebrile, hemodynamic status stable 90% on 4 L oxygen, patient underwent a computed tomography scan of the chest yesterday negative for pulmonary mass, however basal bilateral pneumonia she 02/18/2021, patient seen eval examined during the rounds labs reviewed medications reviewed care plan discussed, daughter is present at bedside, shortness of breath slightly better now less cough congestion is present patient sitting upright on the bed breathing comfortably on 4-5 L nasal cannula, patient remains on broad-spectrum antibiotics with cephepime and Zithromax, IV steroids and bronchodilators blood cultures no growth so far my she remains afebrile hemodynamic status stable, labs and x-ray are not done today 02/17/2021, patient seen and evaluated examined overall remains stable, shortness of breath slightly improved, cough. Improved, will contrast and continue current therapy This is a pleasant 75-year-old female recently discharged from the hospital, patient has a pneumonia and pleural effusion mucus plugging, patient oxygen continued to improve was discharged on 3-4 L oxygen, due to increasing shortness of breath patient presented again to the emergency department, overall poor historian not much data can be obtained from her but she remains on 5 L oxygen, she finished a course of antibiotics, the chest x-ray consistent with chronic changes due to COPD along with cardiomegaly, no acute pneumonia seen, emphysematous changes with chronic fibrotic changes however identified, Objective - Vital Signs Vital signs: Vital Signs Temp 98.1 F 02/20/21 07:00 Pulse 70 02/20/21 15:37 Resp 16 02/20/21 07:00 BP 150/67 02/20/21 07:00 Pulse Ox 96 02/20/21 07:50 Intake & Output 02/19/21 02/20/21 02/20/21 18:59 06:59 18:59 Intake Total 480 680 400 Output Total 800 300 Balance -320 380 400 Intake: IV 400 Intake, IV Titration 200 Amount Cefepime 2 gm In Sodium 200 Chloride 0.9% 100 ml @ 25 mls/hr IVPB Q12H [facility] Rx# :[id number] Oral 480 480 Output: Urine 800 300 Other: Voiding Method Bedside Commode Bedside Commode Incontinent # Voids 2 2 1 - Exam - Constitutional General appearance: average body habitus, cooperative, disheveled, mild distress - EENT Eyes: PERRLA ENT: hard of hearing Ears: bilateral: normal - Neck Neck: normal ROM Carotids: bilateral: upstroke normal Thyroid: bilateral: normal size - Respiratory Respiratory: bilateral: CTA - Cardiovascular Rhythm: regular Heart sounds: normal: S1, S2 - Gastrointestinal General gastrointestinal: normal bowel sounds - Integumentary Integumentary: normal turgor - Neurologic Neurologic: CNII-XII intact - Musculoskeletal Musculoskeletal: gait normal, generalized weakness - Psychiatric Psychiatric: A&O x's 3 - Labs CBC & Chem 7: 02/19/21 07:00 02/15/21 15:03 Labs: Microbiology - Last 24 Hours (Table) 02/15/21 14:45 Blood Culture - Preliminary Blood No Growth after 96 hours 02/15/21 15:00 Blood Culture - Preliminary Blood No Growth after 96 hours Assessment and Plan Assessment: Health-care associated pneumonia, basal bilateral Acute COPD exacerbation Acute on chronic hypoxic respiratory failure Component of congestive heart failure Hypertension hypertensive cardiovascular disease Endobronchial mass versus mucus plugging Plan: Patient appeared to have slightly improved clinical course, plan to to continue current therapy Bronchoscopy later on today Patient to be continued on bronchodilator Home medications Broad-spectrum antibiotics with possibility of coverage healthcare associated pneumonia Discussed with patient and daughter about need of bronchoscopy for endobronchial lesion in the right lower lobe bronchus, they would like to proceed with Time with Patient: Greater than 30
--- NOTE | 2021-02-20 16:33 | P.PCN ---
Date of Procedure: 02/20/21 Preoperative Diagnosis: Endobronchial mucous plug/mass right lower lobe bronchus, pneumonia postobstructive Postoperative Diagnosis: Foreign body in right lower lobe bronchus identified as [place] Procedure(s) Performed: Bronchoscopy, identification and removal of foreign body Anesthesia: MAC Surgeon: Edin Martinez Estimated Blood Loss (ml): 10 Condition: stable Disposition: floor Indications for Procedure: As above Operative Findings: As below Description of Procedure: Patient prepared and draped in the usual fashion informed consent obtained from the patient and the family, laboratory, bronchoscope was passed through the right nares, laryngeal area was approached and reached, patient Down and closing her airway not opening the vocal cords, however with ambulation able to open it up past the scope through the vocal cords trachea was entered mild inflammation was present throughout the trachea and bronchial tree on the right side than left side was inspected right upper lobe right middle lobe and right lower lobe bronchus inspected there is a foreign body identified in the right lower lobe bronchus completely occluding the lumen identified as [place], tissue reaction appears to have the blood around the foreign body with development of mucosa around it, attempts were done for removal with basket forceps unable to hold the foreign body subsequently scooping forcep and regular for several tried were unsuccessful, the foreign body appears to have tethered deeply into the tissue bronchoscope was changed for a larger channel, through the large channel 7 mm alligator forcep was introduced with that able to grab the foreign body and pu lled out in toto estimated blood loss around 10 mL family updated, able to retrieve the foreign body, will do a relook in next 48-72 hours
[2021-02-20] MEDS: ATORVASTATIN 80 MG TAB PO SCH (21:10)
--- NOTE | 2021-02-21 02:15 | PN ---
PROGRESS NOTE DATE OF SERVICE: 02/20/2021 REASON FOR FOLLOWUP: Possible pneumonia. INTERVAL HISTORY: The patient is afebrile. The patient is breathing slightly comfortably. The patient denies having any chest pain. She did have a cough; not bringing up sputum, though. No nausea, no vomiting. No abdominal pain or diarrhea. PHYSICAL EXAMINATION: Blood pressure 148/65, pulse of 96, temperature 98.1. She is 97% on 5 L nasal cannula. General description is an elderly female up in the chair in no distress. Respiratory system: Unlabored breathing, decreased intensity of breath sounds. No wheeze. Heart S1, S2. Regular rate and rhythm. Abdomen soft, no tenderness. LABS: No new labs been obtained today. DIAGNOSTIC IMPRESSION AND PLAN: Patient admitted to hospital with shortness of breath which is likely multifactorial in this patient with a possible postobstructive pneumonia from a foreign body, status post bronchoscopy and removal of the foreign body. Patient at this time is covered with cefepime while monitoring her clinical course closely. Continue with supportive care. MMODL / IJN: [id number] /
--- NOTE | 2021-02-21 02:15 | PN ---
PROGRESS NOTE 75-year-old white female who had a bronchoscopy today for body in the right lower lobe bronchus identified as a . The patient states she is breathing better now. She has sats in the high 90s on 4-5 L. Cardiovascular S1-S2. Lungs transmitted upper airway sounds. Hematology negative Homans. Psych: Fair mood and affect. Vital signs reviewed. ASSESSMENT: 1. Community acquired pneumonia. 2. Foreign body in the lung. 3. Chronic obstructive pulmonary disease exacerbation. 4. Acute on chronic hypoxemic respiratory failure. 5. Congestive heart failure. 6. Hypertensive cardiovascular disease. 7. Endobrachial mass versus mucous plugging. 8. Foreign body repair. Continue broad-spectrum antibiotics. Possible transfer to rehab center soon. MMODL / IJN: [id number] /
[2021-02-21] MEDS: CEFEPIME 2 GM in SODIUM CHLORIDE 0.9% 100 ML IVPB SCH ×2 (06:05→17:36)
[2021-02-21] MEDS: IPRATROPIUM-ALBUTEROL 3 ML NEB INHALATION SCH ×4 (07:32→19:42)
[2021-02-21] MEDS: BUDESONIDE 1 MG/2 ML NEBU INHALATION SCH ×2 (07:32→19:42)
--- NOTE | 2021-02-21 09:10 | XR ---
EXAMINATION TYPE: XR chest 1V portable DATE OF EXAM: 02/21/2021 COMPARISON: 02/16/2021 HISTORY: Cough TECHNIQUE: Single frontal view of the chest is obtained. FINDINGS: Coarsened interstitium. Hyperinflation. Degenerative change of the spine. Atherosclerotic change aorta. Bibasilar subsegmental consolidation small right effusion. Biapical pleural thickening. Arthropathy of the shoulders. IMPRESSION: Basilar atelectasis favored over infiltrate correlate for chronic interstitial lung dise ase. Underlying COPD not excluded.
[2021-02-21] MEDS: clonazePAM 0.5 MG TAB PO SCH ×4 (09:12→20:50)
[2021-02-21] MEDS: methylPREDNISolone SOD SUCCI 40 MG/ML 1 ML VIAL IV SCH ×2 (09:12→15:19)
[2021-02-21] MEDS: METOPROLOL TARTRATE 12.5 MG TAB PO SCH ×2 (09:12→20:50)
[2021-02-21] MEDS: QUEtiapine 50 MG TAB PO SCH ×2 (09:12→20:50)
[2021-02-21] MEDS: MONTELUKAST 10 MG TAB PO SCH (09:13)
[2021-02-21] MEDS: LOSARTAN 50 MG TAB PO SCH (09:14)
[2021-02-21] MEDS: BENZTROPINE MESYLATE 1 MG TAB PO SCH ×3 (09:14→20:50)
[2021-02-21] MEDS: ASPIRIN 81 MG PO SCH (09:14)
[2021-02-21] MEDS: haloperidoL 5 MG TAB PO SCH ×2 (09:14→20:50)
[2021-02-21] MEDS: metFORMIN 500 MG TAB PO SCH (09:15)
[2021-02-21] MEDS: SERTRALINE 25 MG TAB PO SCH (09:15)
[2021-02-21] MEDS: IBUPROFEN 400 MG TAB PO SCH (09:16)
[2021-02-21] MEDS: SPIRONOLACTONE 25 MG TAB PO SCH (09:40)
[2021-02-21] MEDS: MULTIVITAMINS, THERA 1 EACH TAB PO SCH (09:40)
--- NOTE | 2021-02-21 10:23 | P.PN ---
Subjective Progress Note Date: 02/21/21 Principal diagnosis: Acute COPD exacerbation Acute on chronic hypoxic respiratory failure Component of congestive heart failure Hypertension hypertensive cardiovascular disease 02/21/2021, patient seen and evaluated examined remains on 5 L oxygen oxygen saturation stable, no more hemoptysis seen, chest x-ray from yesterday and today reviewed continue show bilateral basal infiltrate, patient remains on broad- spectrum antibiotics, discussed with the patient as well as the daughter plan is to redo bronchoscopy probably next 24-48 hours for reassessment 02/20/2021, patient remains on 5 L oxygen, saturation 95-96%, denies any chest pain, has been short of breath, procedure bronchoscopy explained to the patient at length informed consent obtained family notified as well proceed with bronchoscopy as to 02/19/2021, patient seen eval examined during the rounds labs reviewed medications reviewed care plan discussed with the patient and staff at length, history status continued to improve, denies any chest pain, breathing more comfortably, I've discussed with her as well in addition to his R daughter about bronchoscopy and possible endobronchial shadow that has been seen, and phlebotomy toilet she is agreed for proceed with bronchoscopy will schedule for tomorrow nothing by mouth after midnight final time however pending are endoscopy availability, remains afebrile, hemodynamic status stable 90% on 4 L oxygen, patient underwent a computed tomography scan of the chest yesterday negative for pulmonary mass, however basal bilateral pneumonia she 02/18/2021, patient seen eval examined during the rounds labs reviewed medications reviewed care plan discussed, daughter is present at bedside, shortness of breath slightly better now less cough congestion is present patient sitting upright on the bed breathing comfortably on 4-5 L nasal cannula, patient remains on broad-spectrum antibiotics with cephepime and Zithromax, IV steroids and bronchodilators blood cultures no growth so far my she remains afebrile hemodynamic status stable, labs and x-ray are not done today 02/17/2021, patient seen and evaluated examined overall remains stable, shortness of breath slightly improved, cough. Improved, will contrast and continue current therapy This is a pleasant 75-year-old female recently discharged from the hospital, patient has a pneumonia and pleural effusion mucus plugging, patient oxygen continued to improve was discharged on 3-4 L oxygen, due to increasing shortness of breath patient presented again to the emergency department, overall poor historian not much data can be obtained from her but she remains on 5 L oxygen, she finished a course of antibiotics, the chest x-ray consistent with chronic changes due to COPD along with cardiomegaly, no acute pneumonia seen, emphysematous changes with chronic fibrotic changes however identified, Objective - Vital Signs Vital signs: Vital Signs Temp 97.7 F 02/21/21 08:01 Pulse 60 02/21/21 08:01 Resp 24 02/21/21 08:01 BP 168/79 02/21/21 08:01 Pulse Ox 98 02/21/21 08:01 Intake & Output 02/20/21 02/21/21 02/21/21 18:59 06:59 18:59 Intake Total 520 240 Output Total 500 Balance 20 240 Intake: IV 400 Oral 120 240 Output: Urine 500 Other: Voiding Method Bedside Commode Bedside Commode # Voids 1 2 - Exam - Constitutional General appearance: average body habitus, cooperative, disheveled, mild distress - EENT Eyes: PERRLA ENT: hard of hearing Ears: bilateral: normal - Neck Neck: normal ROM Carotids: bilateral: upstroke normal Thyroid: bilateral: normal size - Respiratory Respiratory: bilateral: CTA - Cardiovascular Rhythm: regular Heart sounds: normal: S1, S2 - Gastrointestinal General gastrointestinal: normal bowel sounds - Integumentary Integumentary: normal turgor - Neurologic Neurologic: CNII-XII intact - Musculoskeletal Musculoskeletal: gait normal, generalized weakness - Psychiatric Psychiatric: A&O x's 3 - Labs CBC & Chem 7: 02/19/21 07:00 02/15/21 15:03 Labs: Microbiology - Last 24 Hours (Table) 02/15/21 15:00 Blood Culture - Preliminary Blood No Growth after 120 hours 02/15/21 14:45 Blood Culture - Preliminary Blood No Growth after 120 hours Assessment and Plan Assessment: Health-care associated pneumonia, basal bilateral Foreign body in right lower lobe bronchus status post removal via bronchoscopy Acute COPD exacerbation Acute on chronic hypoxic respiratory failure Component of congestive heart failure Hypertension hypertensive cardiovascular disease Endobronchial mass versus mucus plugging Plan: Patient appeared to have slightly improved clinical course, plan to to continue current therapy Bronchoscopy later on today Patient to be continued on bronchodilator Home medications Broad-spectrum antibiotics with possibility of coverage healthcare associated pneumonia Discussed with patient and daughter about need of bronchoscopy for endobronchial lesion in the right lower lobe bronchus, they would like to proceed with Time with Patient: Greater than 30
--- NOTE | 2021-02-21 10:30 | XR ---
EXAMINATION TYPE: XR chest 1V DATE OF EXAM: 02/21/2021 COMPARISON: 02/16/2021 HISTORY: Possible foreign body TECHNIQUE: Single frontal view of the chest is obtained. FINDINGS: Coarsened interstitium. Heart size normal. Atherosclerotic change aorta. Arthropathy of th e shoulders. No pneumothorax. IMPRESSION: No obvious radio metallic foreign body. If the substance is not radiopaque then it will not be seen by x-ray. Correlate for chronic interstitial lung disease and COPD.
[2021-02-21] MEDS: polyethylene glycoL 3350 17 GM POWD.PACK PO SCH (13:13)
[2021-02-21] MEDS: ATORVASTATIN 80 MG TAB PO SCH (20:50)
--- NOTE | 2021-02-21 22:40 | PN ---
PROGRESS NOTE DATE OF SERVICE: 02/21/2021 REASON FOR FOLLOWUP: Possible pneumonia. INTERVAL HISTORY: The patient is afebrile. The patient is breathing slightly comfortably. The patient denies having any chest pain. Did have a cough, not bringing any sputum. No nausea, no vomiting. No abdominal pain or diarrhea. PHYSICAL EXAMINATION: Blood pressure 145/72 with a pulse of 58, temperature 97.9. She is 95% on 5 L nasal cannula. General description is an elderly female lying in bed in no distress. Respiratory system: Unlabored breathing, decreased intensity of breath sounds. No wheeze. Heart S1, S2. Regular rate and rhythm. Abdomen soft, no tenderness. LABS: No new labs have been obtained today. Blood culture negative. Sputum is pending. DIAGNOSTIC IMPRESSION AND PLAN: Patient admitted to hospital with shortness of breath and cough, multifactorial, question of possible pneumonia. Patient is covered with cefepime. Sputum cultures have been obtained. Those will be followed. Antibiotic will be adjusted further if needed. Continue supportive care. MMODL / IJN: [id number] /
[2021-02-22] MEDS: methylPREDNISolone SOD SUCCI 40 MG/ML 1 ML VIAL IV SCH ×4 (00:49→23:27)
[2021-02-22] MEDS: CEFEPIME 2 GM in SODIUM CHLORIDE 0.9% 100 ML IVPB SCH ×2 (05:43→16:47)
[2021-02-22] MEDS: BUDESONIDE 1 MG/2 ML NEBU INHALATION SCH ×2 (08:05→20:02)
[2021-02-22] MEDS: IPRATROPIUM-ALBUTEROL 3 ML NEB INHALATION SCH ×4 (08:05→20:02)
[2021-02-22] MEDS: MULTIVITAMINS, THERA 1 EACH TAB PO SCH (08:42)
[2021-02-22] MEDS: polyethylene glycoL 3350 17 GM POWD.PACK PO SCH (08:42)
[2021-02-22] MEDS: SPIRONOLACTONE 25 MG TAB PO SCH (08:43)
[2021-02-22] MEDS: QUEtiapine 50 MG TAB PO SCH ×2 (08:44→21:11)
[2021-02-22] MEDS: BENZTROPINE MESYLATE 1 MG TAB PO SCH ×3 (08:44→21:11)
[2021-02-22] MEDS: METOPROLOL TARTRATE 12.5 MG TAB PO SCH ×2 (08:44→21:11)
[2021-02-22] MEDS: LOSARTAN 50 MG TAB PO SCH (08:45)
[2021-02-22] MEDS: haloperidoL 5 MG TAB PO SCH ×2 (08:45→21:11)
[2021-02-22] MEDS: IBUPROFEN 400 MG TAB PO SCH (08:45)
[2021-02-22] MEDS: MONTELUKAST 10 MG TAB PO SCH (08:46)
[2021-02-22] MEDS: SERTRALINE 25 MG TAB PO SCH (08:46)
[2021-02-22] MEDS: clonazePAM 0.5 MG TAB PO SCH ×4 (08:46→21:11)
[2021-02-22] MEDS: ASPIRIN 81 MG PO SCH (08:46)
[2021-02-22] MEDS: metFORMIN 500 MG TAB PO SCH (11:17)
[2021-02-22 13:14] VITALS: BMI 35.6
--- NOTE | 2021-02-22 13:45 | P.PN ---
Subjective Progress Note Date: 02/22/21 Principal diagnosis: Acute COPD exacerbation Acute on chronic hypoxic respiratory failure Component of congestive heart failure Hypertension hypertensive cardiovascular disease 02/22/2021, patient seen and evaluated examined during the rounds labs reviewed medications reviewed care plan discussed, history status stable but remains marginal on 5 L oxygen, cough congestion is present intermittently. He is sitting some blood mixed with sputum, status post removal of foreign body from airway day #2, will do repeat surveillance tomorrow also obtain samples 02/21/2021, patient seen and evaluated examined remains on 5 L oxygen oxygen saturation stable, no more hemoptysis seen, chest x-ray from yesterday and today reviewed continue show bilateral basal infiltrate, patient remains on broad- spectrum antibiotics, discussed with the patient as well as the daughter plan is to redo bronchoscopy probably next 24-48 hours for reassessment 02/20/2021, patient remains on 5 L oxygen, saturation 95-96%, denies any chest pain, has been short of breath, procedure bronchoscopy explained to the patient at length informed consent obtained family notified as well proceed with bronch oscopy as to 02/19/2021, patient seen eval examined during the rounds labs reviewed medications reviewed care plan discussed with the patient and staff at length, history status continued to improve, denies any chest pain, breathing more comfortably, I've discussed with her as well in addition to his R daughter about bronchoscopy and possible endobronchial shadow that has been seen, and phlebotom y toilet she is agreed for proceed with bronchoscopy will schedule for tomorrow nothing by mouth after midnight final time however pending are endoscopy availability, remains afebrile, hemodynamic status stable 90% on 4 L oxygen, patient underwent a computed tomography scan of the chest yesterday negative for pulmonary mass, however basal bilateral pneumonia she 02/18/2021, patient seen eval examined during the rounds labs reviewed medications reviewed care plan discussed, daughter is present at bedside, shortness of breath slightly better now less cough congestion is present patient sitting upright on the bed breathing comfortably on 4-5 L nasal cannula, patient remains on broad-spectrum antibiotics with cephepime and Zithromax, IV steroids and bronchodilators blood cultures no growth so far my she remains afebrile hemodynamic status stable, labs and x-ray are not done today 02/17/2021, patient seen and evaluated examined overall remains stable, shortness of breath slightly improved, cough. Improved, will contrast and continue current therapy This is a pleasant 75-year-old female recently discharged from the hospital, patient has a pneumonia and pleural effusion mucus plugging, patient oxygen continued to improve was discharged on 3-4 L oxygen, due to increasing shortness of breath patient presented again to the emergency department, overall poor historian not much data can be obtained from her but she remains on 5 L oxygen, she finished a course of antibiotics, the chest x-ray consistent with chronic changes due to COPD along with cardiomegaly, no acute pneumonia seen, emphysematous changes with chronic fibrotic changes however identified, Objective - Vital Signs Vital signs: Vital Signs Temp 97.5 F L 02/22/21 07:00 Pulse 72 02/22/21 12:25 Resp 20 02/22/21 08:00 BP 176/83 02/22/21 07:00 Pulse Ox 98 02/22/21 07:00 Intake & Output 02/21/21 02/22/21 02/22/21 18:59 06:59 18:59 Intake Total 1218 358 Output Total 2800 Balance -1582 358 Weight 94.347 kg Intake: IV 700 Cefepime 2 gm In Sodium 100 Chloride 0.9% 100 ml @ 25 mls/hr IVPB Q12H [facility], [facility] Rx# :[id number] IV Fluid Continuation 1, 600 000 ml @ 0 mls/hr IV .STK -[facility] ONE Rx#:[id number] Oral 518 358 Output: Urine 2800 Other: Voiding Method Bedside Commode Bedside Commode Bedside Commode # Voids 1 - Exam - Constitutional General appearance: average body habitus, cooperative, disheveled, mild distress - EENT Eyes: PERRLA ENT: hard of hearing Ears: bilateral: normal - Neck Neck: normal ROM Carotids: bilateral: upstroke normal Thyroid: bilateral: normal size - Respiratory Respiratory: bilateral: CTA - Cardiovascular Rhythm: regular Heart sounds: normal: S1, S2 - Gastrointestinal General gastrointestinal: normal bowel sounds - Integumentary Integumentary: normal turgor - Neurologic Neurologic: CNII-XII intact - Musculoskeletal Musculoskeletal: gait normal, generalized weakness - Psychiatric Psychiatric: A&O x's 3 - Labs CBC & Chem 7: 02/19/21 07:00 02/15/21 15:03 Labs: Microbiology - Last 24 Hours (Table) 02/21/21 11:18 Gram Stain - Preliminary Sputum Sputum Culture - Preliminary Gram Neg Bacilli 02/15/21 15:00 Blood Culture - Final Blood No Growth after 144 hours 02/15/21 14:45 Blood Culture - Final Blood No Growth after 144 hours Assessment and Plan Assessment: Health-care associated pneumonia, basal bilateral Foreign body in right lower lobe bronchus status post removal via bronchoscopy Acute COPD exacerbation Acute on chronic hypoxic respiratory failure Component of congestive heart failure Hypertension hypertensive cardiovascular disease Endobronchial mass versus mucus plugging Plan: Patient appeared to have slightly improved clinical course, plan to to continue current therapy Repeat Bronchoscopy tomorrow for relook for any other foreign body and obtaining samples Patient to be continued on bronchodilator Home medications Broad-spectrum antibiotics with of coverage healthcare associated pneumonia Time with Patient: Greater than 30
[2021-02-22] MEDS: ATORVASTATIN 80 MG TAB PO SCH (21:11)
--- NOTE | 2021-02-23 01:25 | PN ---
PROGRESS NOTE DATE OF SERVICE: 02/22/2021 REASON FOR FOLLOWUP: Possible pneumonia. INTERVAL HISTORY: The patient is afebrile. The patient is breathing slightly comfortably. The patient is complaining of having more cough and is bringing up some sputum. Denies any chest pain. No abdominal pain. No diarrhea. PHYSICAL EXAMINATION: Blood pressure 127/66, pulse of 73, temperature of 98.6. She is 97% on 5 L nasal cannula. General description is an elderly female up in the bed in no distress. Respiratory system: Unlabored breathing, decreased intensity of breath sounds. No wheeze. Heart S1, S2. Regular rate and rhythm. Abdomen soft, no tenderness. LABS: No new labs been obtained today. Sputum is showing Gram-negative. DIAGNOSTIC IMPRESSION AND PLAN: Patient with shortness of breath and cough concerning for possible pneumonia. Sputum shows Gram-negative. Previous culture positive for Enterobacter. Patient is covered with cefepime, to continue while waiting for the culture to finalize and monitor clinical course closely. MMODL / IJN: [id number] /
--- NOTE | 2021-02-23 05:19 | PN ---
PROGRESS NOTE Remains on IV antibiotics, cefepime, IV Solu-Medrol. Status post corn removal from the lung. Patient saturating high 90s, 97 on 5 L. Blood pressure 127/66, pulse 60-70. Respiratory 16 to 18, temp 98.6. Cardiovascular S1, S2. Lungs show mild wheeze, mostly clear. Hematology 2+ edema. GI soft. ASSESSMENT: 1. Status post foreign body obstruction removal from the lungs. 2. Chronic obstructive pulmonary disease exacerbation. 3. Postobstructive pneumonia. Continue current treatment. Follow up in next 24 to 48 hours for possible discharge to snf. PT/OT involved. Continue broad-spectrum antibiotics per Infectious Disease and Dr. Martinze's recommendation. MMODL / IJN: [id number] /
[2021-02-23] MEDS: CEFEPIME 2 GM in SODIUM CHLORIDE 0.9% 100 ML IVPB SCH ×2 (05:54→17:32)
[2021-02-23] MEDS: IPRATROPIUM-ALBUTEROL 3 ML NEB INHALATION SCH ×4 (07:24→19:38)
[2021-02-23] MEDS: BUDESONIDE 1 MG/2 ML NEBU INHALATION SCH ×2 (07:24→19:38)
[2021-02-23] MEDS: MONTELUKAST 10 MG TAB PO SCH (08:09)
[2021-02-23] MEDS: SPIRONOLACTONE 25 MG TAB PO SCH (08:09)
[2021-02-23] MEDS: IBUPROFEN 400 MG TAB PO SCH (08:10)
[2021-02-23] MEDS: clonazePAM 0.5 MG TAB PO SCH ×4 (08:10→21:23)
[2021-02-23] MEDS: MULTIVITAMINS, THERA 1 EACH TAB PO SCH (08:10)
[2021-02-23] MEDS: BENZTROPINE MESYLATE 1 MG TAB PO SCH ×3 (08:11→21:23)
[2021-02-23] MEDS: METOPROLOL TARTRATE 12.5 MG TAB PO SCH ×2 (08:11→20:33)
[2021-02-23] MEDS: QUEtiapine 50 MG TAB PO SCH ×2 (08:11→20:34)
[2021-02-23] MEDS: ASPIRIN 81 MG PO SCH (08:11)
[2021-02-23] MEDS: LOSARTAN 50 MG TAB PO SCH (08:11)
[2021-02-23] MEDS: methylPREDNISolone SOD SUCCI 40 MG/ML 1 ML VIAL IV SCH ×3 (08:11→23:23)
[2021-02-23] MEDS: SERTRALINE 25 MG TAB PO SCH (08:11)
[2021-02-23] MEDS: haloperidoL 5 MG TAB PO SCH ×2 (08:12→20:33)
[2021-02-23] MEDS: metFORMIN 500 MG TAB PO SCH (09:53)
[2021-02-23] MEDS: polyethylene glycoL 3350 17 GM POWD.PACK PO SCH (09:53)
--- NOTE | 2021-02-23 15:47 | PN ---
PROGRESS NOTE DATE OF SERVICE: 02/23/2021 REASON FOR FOLLOWUP: Possible pneumonia. INTERVAL HISTORY: Patient is afebrile. The patient is breathing comfortably. Still complaining of some sore throat. The patient denies having any chest pain. No worsening cough or sputum production. No abdominal pain. No diarrhea. PHYSICAL EXAMINATION: Blood pressure 119/58 with a pulse of temperature 98.2. She is 96% on 5 L nasal cannula. General description is an elderly female up in the chair in no distress. HEENT examination: Did have oral thrush. Lungs unlabored breathing, decreased intensity of breath sounds. No wheeze. Heart S1, S2. Regular rate and rhythm. Abdomen soft, no tenderness. LABS: Hemoglobin is 11.4, white count 10.6. no blood work since then. Sputum is showing Gram-negative. DIAGNOSTIC IMPRESSION AND PLAN: 1. Patient admitted to the hospital with shortness of breath which is multifactorial with a possible component of gram-negative pneumonia. Patient clinically responding to cefepime to continue. 2. Patient with oral thrush. We will add nystatin swish and swallow. MMODL / IJN: [id number] /
[2021-02-23] MEDS: NYSTATIN 100,000 UNIT/ML SUSP 500,000 UNIT/5 ML CUP PO SCH ×2 (18:10→21:23)
[2021-02-23] MEDS: ATORVASTATIN 80 MG TAB PO SCH (20:32)
--- NOTE | 2021-02-24 00:02 | PN ---
PROGRESS NOTE DATE OF SERVICE: 02/23/2021 75-year-old white female gram-negative pneumonia, slowly improving. Bronchoscopy was put on hold. Cardiovascular S1-S2. Lungs scattered rhonchi and wheeze. Hematology: Negative Homans. Psych: Fair mood and affect. ASSESSMENT: 1. Community-acquired pneumonia gram-negative pneumonia. 2. Chronic obstructive pulmonary disease. 3. Congestive heart failure. 4. Dyslipidemia. 5. Schizophrenia. 6. Bipolar. 7. Diabetes. PROGNOSIS: Guarded. Continue with broad-spectrum antibiotics per Dr. Raymond's recommendations as the patient is slowly improving, status post bronchoscopy with foreign body removal of a piece of corn. MMODL / IJN: [id number] /
[2021-02-24] MEDS: CEFEPIME 2 GM in SODIUM CHLORIDE 0.9% 100 ML IVPB SCH ×2 (05:43→18:11)
[2021-02-24] MEDS: polyethylene glycoL 3350 17 GM POWD.PACK PO SCH (08:11)
[2021-02-24] MEDS: BENZTROPINE MESYLATE 1 MG TAB PO SCH ×3 (08:12→21:21)
[2021-02-24] MEDS: methylPREDNISolone SOD SUCCI 40 MG/ML 1 ML VIAL IV SCH ×3 (08:12→23:37)
[2021-02-24] MEDS: QUEtiapine 50 MG TAB PO SCH ×2 (08:13→21:22)
[2021-02-24] MEDS: IBUPROFEN 400 MG TAB PO SCH (08:13)
[2021-02-24] MEDS: MONTELUKAST 10 MG TAB PO SCH (08:13)
[2021-02-24] MEDS: ASPIRIN 81 MG PO SCH (08:14)
[2021-02-24] MEDS: clonazePAM 0.5 MG TAB PO SCH ×4 (08:14→23:37)
[2021-02-24] MEDS: SERTRALINE 25 MG TAB PO SCH (08:14)
[2021-02-24] MEDS: METOPROLOL TARTRATE 12.5 MG TAB PO SCH ×2 (08:14→21:22)
[2021-02-24] MEDS: SPIRONOLACTONE 25 MG TAB PO SCH (08:15)
[2021-02-24] MEDS: haloperidoL 5 MG TAB PO SCH ×2 (08:15→21:22)
[2021-02-24] MEDS: LOSARTAN 50 MG TAB PO SCH (08:15)
[2021-02-24] MEDS: metFORMIN 500 MG TAB PO SCH (08:15)
[2021-02-24] MEDS: MULTIVITAMINS, THERA 1 EACH TAB PO SCH (08:15)
[2021-02-24] MEDS: IPRATROPIUM-ALBUTEROL 3 ML NEB INHALATION SCH ×3 (08:30→15:52)
[2021-02-24] MEDS: BUDESONIDE 1 MG/2 ML NEBU INHALATION SCH (08:30)
[2021-02-24 08:52] LABS: Basophils # (A) 0.01 X 10*3/uL (0.00-0.10); Basophils % (A) 0.1 %; Eosinophils # (A) 0 X 10*3/uL (0.04-0.35); Eosinophils % (A) 0 %; HCT 35.8 % (37.2-46.3); HGB 10.9 g/dL (12.0-15.0); Lymphocytes # (A) 0.37 X 10*3/uL (0.90-5.00); Lymphocytes % (A) 4.3 %; MCH 28.2 pg (27.0-32.0); MCHC 30.4 g/dL (32.0-37.0); MCV 92.5 fL (80.0-97.0); Mean Platelet Volume 10.2 fL (9.5-12.2); Monocytes # (A) 0.49 X 10*3/uL (0.20-1.00); Monocytes % (A) 5.7 %; Neutrophils # (A) 7.72 X 10*3/uL (1.80-7.70); Neutrophils % (A) 89.4 %; Platelet Count 212 X 10*3/uL (140-440); RBC 3.87 X 10*6/uL (4.10-5.20); RDW 15.2 % (11.5-14.5); WBC 8.63 X 10*3/uL (4.50-10.00)
[2021-02-24 09:36] LABS: African American GFR (CKD) 101.5 (60.0-200.0); Albumin 3.9 g/dL (3.8-4.9); Albumin/Globulin Ratio 2.02 (1.60-3.17); Anion Gap 9.5 mmol/L (10.00-18.00); BUN/Creat Ratio 34.41 Ratio (12.00-20.00); Blood Urea Nitrogen 22.3 mg/dL (9.0-27.0); Calcium 8.9 mg/dL (8.7-10.3); Carbon Dioxide 29.7 mmol/L (20.0-27.5); Globulin 1.9 g/dL (1.6-3.3); Non-African American GFR(CKD) 87.6 (60.0-200.0); Potassium 4.9 mmol/L (3.5-5.5); Total Bilirubin 0.4 mg/dL (0.30-1.20); Total Protein 5.8 g/dL (6.2-8.2)
--- NOTE | 2021-02-24 10:41 | P.PN ---
Subjective Progress Note Date: 02/23/21 Principal diagnosis: Acute COPD exacerbation Acute on chronic hypoxic respiratory failure Component of congestive heart failure Hypertension hypertensive cardiovascular disease 02/23/2021, patient seen and evaluated examined have cough with some brownish sputum, oxygen saturation 98% on 5 L, breathing comfortably, denies any chest pain, hemodynamic status stable, patient has been on antibiotics bronchoscopy is canceled due to weak performance status, wouldn't like to avoid doing visit procedure [id number] will need to improve general well-being and performance status before committing her for second bronchoscopy 02/22/2021, patient seen and evaluated examined during the rounds labs reviewed medications reviewed care plan discussed, history status stable but remains marginal on 5 L oxygen, cough congestion is present intermittently. He is sitting some blood mixed with sputum, status post removal of foreign body from airway day #2, will do repeat surveillance tomorrow also obtain samples 02/21/2021, patient seen and evaluated examined remains on 5 L oxygen oxygen saturation stable, no more hemoptysis seen, chest x-ray from yesterday and today reviewed continue show bilateral basal infiltrate, patient remains on broad- spectrum antibiotics, discussed with the patient as well as the daughter plan is to redo bronchoscopy probably next 24-48 hours for reassessment 02/20/2021, patient remains on 5 L oxygen, saturation 95-96%, denies any chest pain, has been short of breath, procedure bronchoscopy explained to the patient at length informed consent obtained family notified as well proceed with bronchoscopy as to 02/19/2021, patient seen eval examined during the rounds labs reviewed medications reviewed care plan discussed with the patient and staff at length, history status continued to improve, denies any chest pain, breathing more comfortably, I've discussed with her as well in addition to his R daughter about bronchoscopy and possible endobronchial shadow that has been seen, and phlebotomy toilet she is agreed for proceed with bronchoscopy will schedule for tomorrow nothing by mouth after midnight final time however pending are endoscopy availability, remains afebrile, hemodynamic status stable 90% on 4 L oxygen, patient underwent a computed tomography scan of the chest yesterday negative for pulmonary mass, however basal bilateral pneumonia she 02/18/2021, patient seen eval examined during the rounds labs reviewed medications reviewed care plan discussed, daughter is present at bedside, shortness of breath slightly better now less cough congestion is present patient sitting upright on the bed breathing comfortably on 4-5 L nasal cannula, patient remains on broad-spectrum antibiotics with cephepime and Zithromax, IV steroids and bronchodilators blood cultures no growth so far my she remains afebrile hemodynamic status stable, labs and x-ray are not done today 02/17/2021, patient seen and evaluated examined overall remains stable, shortness of breath slightly improved, cough. Improved, will contrast and continue current therapy This is a pleasant 75-year-old female recently discharged from the hospital, patient has a pneumonia and pleural effusion mucus plugging, patient oxygen continued to improve was discharged on 3-4 L oxygen, due to increasing shortness of breath patient presented again to the emergency department, overall poor historian not much data can be obtained from her but she remains on 5 L oxygen, she finished a course of antibiotics, the chest x-ray consistent with chronic changes due to COPD along with cardiomegaly, no acute pneumonia seen, emphysematous changes with chronic fibrotic changes however identified, Objective - Vital Signs Vital signs: Vital Signs Temp 98.4 F 02/23/21 08:00 Pulse 69 02/23/21 11:33 Resp 20 02/23/21 08:00 BP 137/68 02/23/21 08:00 Pulse Ox 96 02/23/21 08:00 Intake & Output 02/22/21 02/23/21 02/23/21 18:59 06:59 18:59 Intake Total 838 Balance 838 Weight 94.347 kg Intake: Oral 838 Other: Voiding Method Bedside Commode Bedside Commode Bedside Commode # Voids 3 3 0 - Exam - Constitutional General appearance: average body habitus, cooperative, disheveled, mild distress - EENT Eyes: PERRLA ENT: hard of hearing Ears: bilateral: normal - Neck Neck: normal ROM Carotids: bilateral: upstroke normal Thyroid: bilateral: normal size - Respiratory Respiratory: bilateral: CTA - Cardiovascular Rhythm: regular Heart sounds: normal: S1, S2 - Gastrointestinal General gastrointestinal: normal bowel sounds - Integumentary Integumentary: normal turgor - Neurologic Neurologic: CNII-XII intact - Musculoskeletal Musculoskeletal: gait normal, generalized weakness - Psychiatric Psychiatric: A&O x's 3 - Labs CBC & Chem 7: 02/24/21 06:25 02/24/21 06:25 Labs: Microbiology - Last 24 Hours (Table) 02/21/21 11:18 Gram Stain - Preliminary Sputum Sputum Culture - Preliminary Gram Neg Bacilli Assessment and Plan Assessment: Health-care associated pneumonia, basal bilateral Foreign body in right lower lobe bronchus status post removal via bronchoscopy Acute COPD exacerbation Acute on chronic hypoxic respiratory failure Component of congestive heart failure Hypertension hypertensive cardiovascular disease Endobronchial mass versus mucus plugging Plan: Patient appeared to have slightly improved clinical course, plan to to continue current therapy Hold repeat bronchoscopy for now as would like to avoid back to bed in visit procedure need to improve performance status Patient to be continued on bronchodilator Home medications Broad-spectrum antibiotics with of coverage healthcare associated pneumonia Time with Patient: Greater than 30
--- NOTE | 2021-02-24 10:44 | P.PN ---
Subjective Progress Note Date: 02/24/21 Principal diagnosis: Acute COPD exacerbation Acute on chronic hypoxic respiratory failure Component of congestive heart failure Hypertension hypertensive cardiovascular disease 02/24/2021, patient seen eval examined during the rounds labs reviewed medications reviewed care plan discussed, oxygen requirement down to 4 L now, T- max is 99, oxygen saturation 96% on 4 L, labs reviewed white cell count is 8000 hemoglobin and hematocrit is 10.9 and 35, BUN/creatinine 22/0.6 him a coronary negative, pro-calcitonin is 0.02, 02/23/2021, patient seen and evaluated examined have cough with some brownish sputum, oxygen saturation 98% on 5 L, breathing comfortably, denies any chest pain, hemodynamic status stable, patient has been on antibiotics bronchoscopy is canceled due to weak performance status, wouldn't like to avoid doing visit procedure [id number] will need to improve general well-being and performance status before committing her for second bronchoscopy 02/22/2021, patient seen and evaluated examined during the rounds labs reviewed medications reviewed care plan discussed, history status stable but remains marginal on 5 L oxygen, cough congestion is present intermittently. He is sitting some blood mixed with sputum, status post removal of foreign body from airway day #2, will do repeat surveillance tomorrow also obtain samples 02/21/2021, patient seen and evaluated examined remains on 5 L oxygen oxygen saturation stable, no more hemoptysis seen, chest x-ray from yesterday and today reviewed continue show bilateral basal infiltrate, patient remains on broad- spectrum antibiotics, discussed with the patient as well as the daughter plan is to redo bronchoscopy probably next 24-48 hours for reassessment 02/20/2021, patient remains on 5 L oxygen, saturation 95-96%, denies any chest pain, has been short of breath, procedure bronchoscopy explained to the patient at length informed consent obtained family notified as well proceed with bronchoscopy as to 02/19/2021, patient seen eval examined during the rounds labs reviewed medications reviewed care plan discussed with the patient and staff at length, history status continued to improve, denies any chest pain, breathing more comfortably, I've discussed with her as well in addition to his R daughter about bronchoscopy and possible endobronchial shadow that has been seen, and phlebotomy toilet she is agreed for proceed with bronchoscopy will schedule for tomorrow nothing by mouth after midnight final time however pending are endoscopy availability, remains afebrile, hemodynamic status stable 90% on 4 L oxygen, patient underwent a computed tomography scan of the chest yesterday negative for pulmonary mass, however basal bilateral pneumonia she 02/18/2021, patient seen eval examined during the rounds labs reviewed medications reviewed care plan discussed, daughter is present at bedside, shortness of breath slightly better now less cough congestion is present patient sitting upright on the bed breathing comfortably on 4-5 L nasal cannula, patient remains on broad-spectrum antibiotics with cephepime and Zithromax, IV steroids and bronchodilators blood cultures no growth so far my she remains afebrile hemodynamic status stable, labs and x-ray are not done today 02/17/2021, patient seen and evaluated examined overall remains stable, shortness of breath slightly improved, cough. Improved, will contrast and continue current therapy This is a pleasant 75-year-old female recently discharged from the hospital, patient has a pneumonia and pleural effusion mucus plugging, patient oxygen continued to improve was discharged on 3-4 L oxygen, due to increasing shortness of breath patient presented again to the emergency department, overall poor historian not much data can be obtained from her but she remains on 5 L oxygen, she finished a course of antibiotics, the chest x-ray consistent with chronic changes due to COPD along with cardiomegaly, no acute pneumonia seen, emphyse matous changes with chronic fibrotic changes however identified, Objective - Vital Signs Vital signs: Vital Signs Temp 99.0 F 02/24/21 08:00 Pulse 60 02/24/21 08:48 Resp 16 02/24/21 08:00 BP 154/67 02/24/21 08:00 Pulse Ox 96 02/24/21 08:00 Intake & Output 02/23/21 02/24/21 02/24/21 18:59 06:59 18:59 Intake Total 240 480 Output Total 600 300 Balance -360 180 Intake: IV 240 IV Fluid Continuation 1, 240 000 ml @ 0 mls/hr IV .STK -MED ONE Rx#:[id number] Oral 240 240 Output: Urine 600 300 Other: Voiding Method Bedside Commode Bedside Commode Diaper # Voids 1 - Exam - Constitutional General appearance: average body habitus, cooperative, disheveled, mild distress - EENT Eyes: PERRLA ENT: hard of hearing Ears: bilateral: normal - Neck Neck: normal ROM Carotids: bilateral: upstroke normal Thyroid: bilateral: normal size - Respiratory Respiratory: bilateral: CTA - Cardiovascular Rhythm: regular Heart sounds: normal: S1, S2 - Gastrointestinal General gastrointestinal: normal bowel sounds - Integumentary Integumentary: normal turgor - Neurologic Neurologic: CNII-XII intact - Musculoskeletal Musculoskeletal: gait normal, generalized weakness - Psychiatric Psychiatric: A&O x's 3 - Labs CBC & Chem 7: 02/24/21 06:25 02/24/21 06:25 Labs: Abnormal Lab Results - Last 24 Hours (Table) 02/24/21 02/24/21 Range/Units 06:25 06:25 RBC 3.87 L (4.10-5.20) X 10*6/uL Hgb 10.9 L (12.0-15.0) g/dL Hct 35.8 L (37.2-46.3) % MCHC 30.4 L (32.0-37.0) g/dL RDW 15.2 H (11.5-14.5) % Neutrophils # 7.72 H (1.80-7.70) X 10*3/uL Lymphocytes # 0.37 L (0.90-5.00) X 10*3/uL Eosinophils # 0 L (0.04-0.35) X 10*3/uL Carbon Dioxide 29.7 H (20.0-27.5) mmol/L Anion Gap 9.50 L (10.00-18.00) mmol/L BUN/Creatinine Ratio 34.41 H (12.00-20.00) Ratio Glucose 161 H (70-110) mg/dL Total Protein 5.8 L (6.2-8.2) g/dL Microbiology - Last 24 Hours (Table) 02/21/21 11:18 Gram Stain - Final Sputum Sputum Culture - Final Stenotrophomonas maltophilia Assessment and Plan Assessment: Health-care associated pneumonia, basal bilateral Foreign body in right lower lobe bronchus status post removal via bronchoscopy Acute COPD exacerbation Acute on chronic hypoxic respiratory failure Component of congestive heart failure Hypertension hypertensive cardiovascular disease Endobronchial mass versus mucus plugging Plan: Patient appeared to have slightly improved clinical course, plan to to continue current therapy Hold repeat bronchoscopy for now as would like to avoid back to back invasive procedure, need to improve performance status Patient to be continued on bronchodilator Home medications Broad-spectrum antibiotics with of coverage healthcare associated pneumonia PT OT evaluation Time with Patient: Greater than 30
[2021-02-24] MEDS: NYSTATIN 100,000 UNIT/ML SUSP 500,000 UNIT/5 ML CUP PO SCH ×4 (12:05→21:23)
[2021-02-24] MEDS: LACTULOSE 20 GM/30 ML CUP PO SCH (13:18)
[2021-02-24] MEDS: ATORVASTATIN 80 MG TAB PO SCH (21:22)
--- NOTE | 2021-02-25 00:29 | PN ---
PROGRESS NOTE 75-year-old white female with shortness of breath and dyspnea and gram-negative pneumonia. Cardiovascular S1-S2. Lungs rales at the bases. Hematology negative Homans. Psych: Fair mood and affect. Patient remains on antibiotics. We will continue current treatment. Follow up in the next 24 to 48 hours for possible discharge, possible oral antibiotics. MMODL / IJN: [id number] /
[2021-02-25] MEDS: BUDESONIDE 1 MG/2 ML NEBU INHALATION SCH ×3 (00:37→20:04)
[2021-02-25] MEDS: IPRATROPIUM-ALBUTEROL 3 ML NEB INHALATION SCH ×5 (00:37→20:04)
[2021-02-25] MEDS: CEFEPIME 2 GM in SODIUM CHLORIDE 0.9% 100 ML IVPB SCH ×3 (01:02→17:34)
--- NOTE | 2021-02-25 02:09 | PN ---
PROGRESS NOTE DATE OF SERVICE: 02/24/2021 REASON FOR FOLLOWUP: 1. Stenotrophomonas tracheobronchitis versus pneumonia. 2. Oral thrush. INTERVAL HISTORY: Patient is afebrile. The patient is breathing more comfortably. The patient denies having any chest pain. No worsening cough or sputum production. No abdominal pain. No diarrhea. PHYSICAL EXAMINATION: Blood pressure 130/72 with a pulse of 65, temperature is 97.9. She is 97% on 5 L nasal cannula. General description is a middle-aged female up in the bed in no distress. Respiratory system: Unlabored breathing. Decreased intensity of breath sounds. No wheeze. Heart S1, S2. Regular rate and rhythm. Abdomen soft, no tenderness. LABS: Hemoglobin is 10.8, white count 8.6, creatinine 0.6. Sputum with Pseudomonas and aspiration. DIAGNOSTIC IMPRESSION AND PLAN: 1. Patient admitted to the hospital with difficulty breathing concerning for possible Stenotrophomonas tracheobronchitis/pneumonia, cefepime should cover it as already sensitive to Fortaz, will transition to oral Bactrim DS on discharge. 2. Oral thrush. Continue with nystatin swish and swallow. MMODL / IJN: [id number] /
--- NOTE | 2021-02-25 07:36 | P.PN ---
Subjective Progress Note Date: 02/25/21 Principal diagnosis: Acute COPD exacerbation Acute on chronic hypoxic respiratory failure Component of congestive heart failure Hypertension hypertensive cardiovascular disease 02/25/2021, patient seen eval examined labs reviewed medications. Discussed, patient remains afebrile, oxygen is 96% on 5 L blood pressure is 138/68, patient remains on bronchodilator broad-spectrum antibiotics with cefepime along with IV steroids Solu-Medrol every 8 hours, labs pending from today 02/24/2021, patient seen eval examined during the rounds labs reviewed medications reviewed care plan discussed, oxygen requirement down to 4 L now, T- max is 99, oxygen saturation 96% on 4 L, labs reviewed white cell count is 8000 hemoglobin and hematocrit is 10.9 and 35, BUN/creatinine 22/0.6 him a coronary negative, pro-calcitonin is 0.02, 02/23/2021, patient seen and evaluated examined have cough with some brownish sputum, oxygen saturation 98% on 5 L, breathing comfortably, denies any chest pain, hemodynamic status stable, patient has been on antibiotics bronchoscopy is canceled due to weak performance status, wouldn't like to avoid doing visit procedure [id number] will need to improve general well-being and performance status before committing her for second bronchoscopy 02/22/2021, patient seen and evaluated examined during the rounds labs reviewed medications reviewed care plan discussed, history status stable but remains marginal on 5 L oxygen, cough congestion is present intermittently. He is sitting some blood mixed with sputum, status post removal of foreign body from airway day #2, will do repeat surveillance tomorrow also obtain samples 02/21/2021, patient seen and evaluated examined remains on 5 L oxygen oxygen saturation stable, no more hemoptysis seen, chest x-ray from yesterday and today reviewed continue show bilateral basal infiltrate, patient remains on broad- spectrum antibiotics, discussed with the patient as well as the daughter plan is to redo bronchoscopy probably next 24-48 hours for reassessment 02/20/2021, patient remains on 5 L oxygen, saturation 95-96%, denies any chest pain, has been short of breath, procedure bronchoscopy explained to the patient at length informed consent obtained family notified as well proceed with bronchoscopy as to 02/19/2021, patient seen eval examined during the rounds labs reviewed medications reviewed care plan discussed with the patient and staff at length, history status continued to improve, denies any chest pain, breathing more comfortably, I've discussed with her as well in addition to his R daughter about bronchoscopy and possible endobronchial shadow that has been seen, and phlebotomy toilet she is agreed for proceed with bronchoscopy will schedule for tomorrow nothing by mouth after midnight final time however pending are endoscopy availability, remains afebrile, hemodynamic status stable 90% on 4 L oxygen, patient underwent a computed tomography scan of the chest yesterday negative for pulmonary mass, however basal bilateral pneumonia she 02/18/2021, patient seen eval examined during the rounds labs reviewed medications reviewed care plan discussed, daughter is present at bedside, shortness of breath slightly better now less cough congestion is present patient sitting upright on the bed breathing comfortably on 4-5 L nasal cannula, patient remains on broad-spectrum antibiotics with cephepime and Zithromax, IV steroids and bronchodilators blood cultures no growth so far my she remains afebrile hemodynamic status stable, labs and x-ray are not done today 02/17/2021, patient seen and evaluated examined overall remains stable, shortness of breath slightly improved, cough. Improved, will contrast and continue current therapy This is a pleasant 75-year-old female recently discharged from the hospital, patient has a pneumonia and pleural effusion mucus plugging, patient oxygen continued to improve was discharged on 3-4 L oxygen, due to increasing shortness of breath patient presented again to the emergency department, overall poor historian not much data can be obtained from her but she remains on 5 L oxygen, she finished a course of antibiotics, the chest x-ray consistent with chronic changes due to COPD along with cardiomegaly, no acute pneumonia seen, emphys ematous changes with chronic fibrotic changes however identified, Objective - Vital Signs Vital signs: Vital Signs Temp 97.9 F 02/25/21 00:09 Pulse 57 L 02/25/21 00:09 Resp 20 02/25/21 00:09 BP 138/68 02/25/21 00:09 Pulse Ox 96 02/25/21 00:09 Intake & Output 02/24/21 02/25/21 02/25/21 18:59 06:59 18:59 Other: Voiding Method Bedside Commode Diaper # Voids 3 1 # Bowel Movements 1 - Exam - Constitutional General appearance: average body habitus, cooperative, disheveled, mild distress - EENT Eyes: PERRLA ENT: hard of hearing Ears: bilateral: normal - Neck Neck: normal ROM Carotids: bilateral: upstroke normal Thyroid: bilateral: normal size - Respiratory Respiratory: bilateral: CTA - Cardiovascular Rhythm: regular Heart sounds: normal: S1, S2 - Gastrointestinal General gastrointestinal: normal bowel sounds - Integumentary Integumentary: normal turgor - Neurologic Neurologic: CNII-XII intact - Musculoskeletal Musculoskeletal: gait normal, generalized weakness - Psychiatric Psychiatric: A&O x's 3 - Labs CBC & Chem 7: 02/24/21 06:25 02/24/21 06:25 Labs: Abnormal Lab Results - Last 24 Hours (Table) 02/24/21 02/24/21 Range/Units 06:25 06:25 RBC 3.87 L (4.10-5.20) X 10*6/uL Hgb 10.9 L (12.0-15.0) g/dL Hct 35.8 L (37.2-46.3) % MCHC 30.4 L (32.0-37.0) g/dL RDW 15.2 H (11.5-14.5) % Neutrophils # 7.72 H (1.80-7.70) X 10*3/uL Lymphocytes # 0.37 L (0.90-5.00) X 10*3/uL Eosinophils # 0 L (0.04-0.35) X 10*3/uL Carbon Dioxide 29.7 H (20.0-27.5) mmol/L Anion Gap 9.50 L (10.00-18.00) mmol/L BUN/Creatinine Ratio 34.41 H (12.00-20.00) Ratio Glucose 161 H (70-110) mg/dL Total Protein 5.8 L (6.2-8.2) g/dL Microbiology - Last 24 Hours (Table) 02/21/21 11:18 Gram Stain - Final Sputum Sputum Culture - Final Stenotrophomonas maltophilia Assessment and Plan Assessment: Health-care associated pneumonia, basal bilateral Foreign body in right lower lobe bronchus status post removal via bronchoscopy Acute COPD exacerbation Acute on chronic hypoxic respiratory failure Component of congestive heart failure Hypertension hypertensive cardiovascular disease Endobronchial mass versus mucus plugging Plan: Patient appeared to have slightly improved clinical course, plan to to continue current therapy Hold repeat bronchoscopy for now as would like to avoid back to back invasive procedure, need to improve performance status Patient to be continued on bronchodilator Home medications Continue Broad-spectrum antibiotics with of coverage healthcare associated pneumonia PT OT evaluation Taper steroids Time with Patient: Greater than 30
[2021-02-25] MEDS: polyethylene glycoL 3350 17 GM POWD.PACK PO SCH (08:29)
[2021-02-25] MEDS: LACTULOSE 20 GM/30 ML CUP PO SCH (08:30)
[2021-02-25] MEDS: NYSTATIN 100,000 UNIT/ML SUSP 500,000 UNIT/5 ML CUP PO SCH ×4 (08:33→21:06)
[2021-02-25] MEDS: MULTIVITAMINS, THERA 1 EACH TAB PO SCH (08:34)
[2021-02-25] MEDS: LOSARTAN 50 MG TAB PO SCH (08:35)
[2021-02-25] MEDS: haloperidoL 5 MG TAB PO SCH ×2 (08:35→21:05)
[2021-02-25] MEDS: clonazePAM 0.5 MG TAB PO SCH ×4 (08:35→21:06)
[2021-02-25] MEDS: BENZTROPINE MESYLATE 1 MG TAB PO SCH ×3 (08:35→21:05)
[2021-02-25] MEDS: metFORMIN 500 MG TAB PO SCH (08:35)
[2021-02-25] MEDS: SERTRALINE 25 MG TAB PO SCH (08:35)
[2021-02-25] MEDS: MONTELUKAST 10 MG TAB PO SCH (08:35)
[2021-02-25] MEDS: METOPROLOL TARTRATE 12.5 MG TAB PO SCH ×2 (08:35→21:05)
[2021-02-25] MEDS: ASPIRIN 81 MG PO SCH (08:35)
[2021-02-25] MEDS: QUEtiapine 50 MG TAB PO SCH ×2 (08:36→21:06)
[2021-02-25] MEDS: SPIRONOLACTONE 25 MG TAB PO SCH (08:36)
[2021-02-25] MEDS: IBUPROFEN 400 MG TAB PO SCH (08:36)
[2021-02-25] MEDS: methylPREDNISolone SOD SUCCI 40 MG/ML 1 ML VIAL IV SCH ×2 (08:37→21:06)
[2021-02-25] MEDS: ATORVASTATIN 80 MG TAB PO SCH (21:05)
--- NOTE | 2021-02-25 22:37 | PN ---
PROGRESS NOTE The patient has community-acquired pneumonia with Stenotrophomonas tracheobronchitis versus pneumonia, oral thrush. No worsening sputum. She feels like she is breathing better. Unsure if she is strong enough to go home. Blood pressure 130s over 70s, pulse 60s, temperature 97.9, 97 on 5 L. Lungs are clear. Cardiovascular S1, S2. Abdomen is soft. Hemoglobin is 10.8, creatinine 0.6, white count 8.6. Sputum was Pseudomonas and aspiration concern for Stenotrophomonas tracheobronchitis pneumonia. Cefepime is covering it. Sensitive to Fortaz. Will transition to oral Bactrim on discharge. Oral thrush. Nystatin swish and swallow. Possible discharge home in the next few days. Continue on IV steroids, updraft treatments. Prognosis guarded. MMODL / IJN: [id number] /
--- NOTE | 2021-02-25 23:55 | PN ---
PROGRESS NOTE DATE OF SERVICE: 02/25/2021 REASON FOR FOLLOWUP: 1. Stenotrophomonas tracheobronchitis pneumonia. 2. Oral thrush. INTERVAL HISTORY: The patient is afebrile. The patient is breathing comfortably. Denies any chest pain or shortness of breath. No worsening cough or sputum production. No abdominal pain or diarrhea. PHYSICAL EXAMINATION: Blood pressure 148/70 with a pulse of 68, temperature 97.5. She is 93% on 4 L nasal cannula. General description is an elderly female up in the room in no distress. Respiratory system: Unlabored breathing, decreased intensity of breath sounds. No wheeze. Heart S1, S2. Regular rate and rhythm. Abdomen soft, no tenderness. LABS: Hemoglobin is 10.1, white count 8.63, creatinine 0.62. DIAGNOSTIC IMPRESSION AND PLAN: 1. Patient with a positive sputum culture with Stenotrophomonas possible tracheobronchitis. Clinically not behaving as pneumonia. Patient is covered with cefepime/Fortaz. Transition to oral Bactrim DS on discharge. 2. Oral thrush. Continue nystatin swish and swallow for about a week. MMODL / IJN: [id number] /
[2021-02-26] MEDS: CEFEPIME 2 GM in SODIUM CHLORIDE 0.9% 100 ML IVPB SCH ×3 (01:54→17:57)
[2021-02-26] MEDS: BUDESONIDE 1 MG/2 ML NEBU INHALATION SCH ×2 (07:37→20:02)
[2021-02-26] MEDS: IPRATROPIUM-ALBUTEROL 3 ML NEB INHALATION SCH ×4 (07:37→20:02)
[2021-02-26] MEDS: LACTULOSE 20 GM/30 ML CUP PO SCH (09:25)
[2021-02-26] MEDS: polyethylene glycoL 3350 17 GM POWD.PACK PO SCH (09:25)
[2021-02-26] MEDS: NYSTATIN 100,000 UNIT/ML SUSP 500,000 UNIT/5 ML CUP PO SCH ×4 (09:25→20:55)
[2021-02-26] MEDS: BENZTROPINE MESYLATE 1 MG TAB PO SCH ×3 (09:26→20:54)
[2021-02-26] MEDS: LOSARTAN 50 MG TAB PO SCH (09:26)
[2021-02-26] MEDS: IBUPROFEN 400 MG TAB PO SCH (09:26)
[2021-02-26] MEDS: methylPREDNISolone SOD SUCCI 40 MG/ML 1 ML VIAL IV SCH ×2 (09:26→20:01)
[2021-02-26] MEDS: METOPROLOL TARTRATE 12.5 MG TAB PO SCH ×2 (09:26→20:01)
[2021-02-26] MEDS: ASPIRIN 81 MG PO SCH (09:26)
[2021-02-26] MEDS: MULTIVITAMINS, THERA 1 EACH TAB PO SCH (09:27)
[2021-02-26] MEDS: MONTELUKAST 10 MG TAB PO SCH (09:27)
[2021-02-26] MEDS: QUEtiapine 50 MG TAB PO SCH ×2 (09:27→20:01)
[2021-02-26] MEDS: metFORMIN 500 MG TAB PO SCH (09:27)
[2021-02-26] MEDS: SPIRONOLACTONE 25 MG TAB PO SCH (09:27)
[2021-02-26] MEDS: haloperidoL 5 MG TAB PO SCH ×2 (09:27→20:00)
[2021-02-26] MEDS: clonazePAM 0.5 MG TAB PO SCH ×4 (09:27→20:55)
[2021-02-26] MEDS: SERTRALINE 25 MG TAB PO SCH (10:41)
--- NOTE | 2021-02-26 17:21 | P.PN ---
Subjective Progress Note Date: 02/26/21 Principal diagnosis: Acute COPD exacerbation Acute on chronic hypoxic respiratory failure Component of congestive heart failure Hypertension hypertensive cardiovascular disease 02/26/2021, patient seen eval examined during the rounds labs reviewed medications reviewed care plan discussed, history status remains stable, on 4 L oxygen, patient 96% hemodynamic status stable, 02/25/2021, patient seen eval examined labs reviewed medications. Discussed, patient remains afebrile, oxygen is 96% on 5 L blood pressure is 138/68, patient remains on bronchodilator broad-spectrum antibiotics with cefepime along with IV steroids Solu-Medrol every 8 hours, labs pending from today 02/24/2021, patient seen eval examined during the rounds labs reviewed medications reviewed care plan discussed, oxygen requirement down to 4 L now, T- max is 99, oxygen saturation 96% on 4 L, labs reviewed white cell count is 8000 hemoglobin and hematocrit is 10.9 and 35, BUN/creatinine 22/0.6 him a coronary negative, pro-calcitonin is 0.02, 02/23/2021, patient seen and evaluated examined have cough with some brownish sputum, oxygen saturation 98% on 5 L, breathing comfortably, denies any chest pain, hemodynamic status stable, patient has been on antibiotics bronchoscopy is canceled due to weak performance status, wouldn't like to avoid doing visit procedure [id number] will need to improve general well-being and performance status before committing her for second bronchoscopy 02/22/2021, patient seen and evaluated examined during the rounds labs reviewed medications reviewed care plan discussed, history status stable but remains marginal on 5 L oxygen, cough congestion is present intermittently. He is sitting some blood mixed with sputum, status post removal of foreign body from airway day #2, will do repeat surveillance tomorrow also obtain samples 02/21/2021, patient seen and evaluated examined remains on 5 L oxygen oxygen saturation stable, no more hemoptysis seen, chest x-ray from yesterday and today reviewed continue show bilateral basal infiltrate, patient remains on broad- spectrum antibiotics, discussed with the patient as well as the daughter plan is to redo bronchoscopy probably next 24-48 hours for reassessment 02/20/2021, patient remains on 5 L oxygen, saturation 95-96%, denies any chest pain, has been short of breath, procedure bronchoscopy explained to the patient at length informed consent obtained family notified as well proceed with bronchoscopy as to 02/19/2021, patient seen eval examined during the rounds labs reviewed medications reviewed care plan discussed with the patient and staff at length, history status continued to improve, denies any chest pain, breathing more comfortably, I've discussed with her as well in addition to his R daughter about bronchoscopy and possible endobronchial shadow that has been seen, and phlebotomy toilet she is agreed for proceed with bronchoscopy will schedule for tomorrow nothing by mouth after midnight final time however pending are endoscopy availability, remains afebrile, hemodynamic status stable 90% on 4 L oxygen, patient underwent a computed tomography scan of the chest yesterday negative for pulmonary mass, however basal bilateral pneumonia she 02/18/2021, patient seen eval examined during the rounds labs reviewed medications reviewed care plan discussed, daughter is present at bedside, shortness of breath slightly better now less cough congestion is present patient sitting upright on the bed breathing comfortably on 4-5 L nasal cannula, patient remains on broad-spectrum antibiotics with cephepime and Zithromax, IV steroids and bronchodilators blood cultures no growth so far my she remains afebrile hemodynamic status stable, labs and x-ray are not done today 02/17/2021, patient seen and evaluated examined overall remains stable, shortness of breath slightly improved, cough. Improved, will contrast and continue current therapy This is a pleasant 75-year-old female recently discharged from the hospital, patient has a pneumonia and pleural effusion mucus plugging, patient oxygen continued to improve was discharged on 3-4 L oxygen, due to increasing shortness of breath patient presented again to the emergency department, overall poor historian not much data can be obtained from her but she remains on 5 L oxygen, she finished a course of antibiotics, the chest x-ray consistent with chronic changes due to COPD along with cardiomegaly, no acute pneumonia seen, emphys ematous changes with chronic fibrotic changes however identified, Objective - Vital Signs Vital signs: Vital Signs Temp 98.1 F 02/26/21 14:00 Pulse 60 02/26/21 15:40 Resp 17 02/26/21 14:00 BP 123/63 02/26/21 14:00 Pulse Ox 96 02/26/21 14:00 Intake & Output 02/25/21 02/26/21 02/26/21 18:59 06:59 18:59 Intake Total 240 478 Output Total 1002 Balance -762 478 Intake: Oral 240 478 Output: Urine 1002 Other: Voiding Method Bedside Commode Diaper # Voids 1 3 # Bowel Movements 1 1 - Exam - Constitutional General appearance: average body habitus, cooperative, disheveled, mild distress - EENT Eyes: PERRLA ENT: hard of hearing Ears: bilateral: normal - Neck Neck: normal ROM Carotids: bilateral: upstroke normal Thyroid: bilateral: normal size - Respiratory Respiratory: bilateral: CTA - Cardiovascular Rhythm: regular Heart sounds: normal: S1, S2 - Gastrointestinal General gastrointestinal: normal bowel sounds - Integumentary Integumentary: normal turgor - Neurologic Neurologic: CNII-XII intact - Musculoskeletal Musculoskeletal: gait normal, generalized weakness - Psychiatric Psychiatric: A&O x's 3 - Labs CBC & Chem 7: 02/24/21 06:25 02/24/21 06:25 Assessment and Plan Assessment: Health-care associated pneumonia, basal bilateral Foreign body in right lower lobe bronchus status post removal via bronchoscopy Acute COPD exacerbation Acute on chronic hypoxic respiratory failure Component of congestive heart failure Hypertension hypertensive cardiovascular disease Endobronchial mass versus mucus plugging Plan: Patient appeared to have slightly improved clinical course, plan to to continue current therapy Hold repeat bronchoscopy for now as would like to avoid back to back invasive procedure, need to improve performance status Patient to be continued on bronchodilator Home medications Continue Broad-spectrum antibiotics with of coverage healthcare associated pneumonia PT OT evaluation Taper steroids Time with Patient: Greater than 30
[2021-02-26] MEDS: ATORVASTATIN 80 MG TAB PO SCH (20:01)
[2021-02-26] MEDS: NICOTINE GUM (POLACRILEX) 2 MG GUM BUCCAL PRN (20:02)
--- NOTE | 2021-02-26 22:38 | PN ---
PROGRESS NOTE DATE OF SERVICE: 02/26/2021 REASON FOR FOLLOWUP: 1. Tracheobronchitis/pneumonia. 2. Oral thrush. INTERVAL HISTORY: The patient is afebrile. She is breathing comfortably. Patient denies having any chest pain. No worsening cough or sputum production. No abdominal pain or diarrhea. PHYSICAL EXAMINATION: Blood pressure is 121/54, pulse of 60, temperature 97.8. She is 99% on 4 L nasal cannula. General description is an elderly female up in the bed in no distress. Respiratory system: Unlabored breathing, decreased intensity of breath sounds. No wheeze. Heart S1, S2. Regular rate and rhythm. Abdomen soft, no tenderness. LABS: CRP is normal as well as the procalcitonin. DIAGNOSTIC IMPRESSION AND PLAN: 1. Patient with a positive sputum culture with Stenotrophomonas, more likely tracheobronchitis, not behaving as pneumonia. On empiric cefepime. Short course of Bactrim on discharge. 2. Oral thrush. Continue with nystatin swish and swallow for about a week. MMODL / IJN: [id number] /
[2021-02-27] MEDS: CEFEPIME 2 GM in SODIUM CHLORIDE 0.9% 100 ML IVPB SCH ×2 (01:47→13:01)
--- NOTE | 2021-02-27 06:15 | PN ---
PROGRESS NOTE ADDENDUM: Please add to the discharge summary: Acute on chronic diastolic heart failure. MMODL / IJN: [id number] /
--- NOTE | 2021-02-27 06:15 | PN ---
PROGRESS NOTE A 75-year-old white female, tracheobronchitis pneumonia, oral thrush. Denies any chest pain. No recent cough, sputum production, or abdominal pain, diarrhea. Cardiovascular S1-S2. Lungs clear. GI soft. Hematology negative Homans. Psych is normal. CRP is normal as well as procalcitonin. She has which is tracheobronchitis and pneumonia. Continue with nystatin swish and swallow, oral Bactrim. Possible discharge home tomorrow either to rehab center or to the shelter. MMODL / IJN: [id number] /
--- NOTE | 2021-02-27 06:20 | DS ---
DISCHARGE SUMMARY DISCHARGE DIAGNOSES: 1. Community-acquired pneumonia. 2. Chronic obstructive pulmonary disease exacerbation. 3. Acute on chronic exacerbation acute diastolic congestive heart failure. 4. Acute on chronic exacerbation chronic dyspnea secondary to above. CONDITION: Stable. PROGNOSIS: Guarded. Ambulate as tolerated. MEDICATIONS: Include Bactrim Double Strength 1 b.i.d. for 2 weeks. Lactulose 30 g daily, nystatin 5 mL q.i.d. swish and swallow, DuoNeb q.i.d., polyethylene glycol 17 g daily. Nicorette gum 2 mg buccal every 2 hours p.r.n., spironolactone 12.5 daily, Seroquel XR 300 mg daily, 5 mg b.i.d., Klonopin 0.5 mg q.i.d., 1 mg t.i.d., aspirin 81 mg daily, Singulair 10 mg daily, Zoloft 25 mg daily, Lopressor 12.5 mg b.i.d., Cozaar 50 mg daily, prednisone 40 mg daily, DuoNeb q.i.d. and Pulmicort 1 mg b.i.d., metformin 500 mg daily, Lipitor 80 mg daily, Motrin 400 mg daily and multivitamin daily. CONDITION: Stable. PROGNOSIS: Guarded. Ambulate as tolerated. White female came with community-acquired pneumonia, COPD exacerbation, and diastolic heart failure. Seen by Dr. Kim and coding validator, had IV antibiotics for many days. sputum connection, switched to oral Bactrim on discharge after IV Maxipime was given for multiple days. Prognosis is guarded. Follow up in next 24 to 48 hours. Follow up either in the jail or back at her house with outpatient physical therapy. Prognosis guarded. Diet as tolerated. She will need 4-5 L oxygen for which she only wears at home anyway. Prognosis guarded. Smoking cessation. Nicorette lozenges were given. MMODL / IJN: [id number] /
[2021-02-27] MEDS: BUDESONIDE 1 MG/2 ML NEBU INHALATION SCH (08:01)
[2021-02-27] MEDS: IPRATROPIUM-ALBUTEROL 3 ML NEB INHALATION SCH ×2 (08:01→11:24)
[2021-02-27] MEDS: LACTULOSE 20 GM/30 ML CUP PO SCH (08:54)
[2021-02-27] MEDS: ASPIRIN 81 MG PO SCH (08:55)
[2021-02-27] MEDS: metFORMIN 500 MG TAB PO SCH (08:55)
[2021-02-27] MEDS: MONTELUKAST 10 MG TAB PO SCH (08:55)
[2021-02-27] MEDS: LOSARTAN 50 MG TAB PO SCH (08:55)
[2021-02-27] MEDS: SPIRONOLACTONE 25 MG TAB PO SCH (08:55)
[2021-02-27] MEDS: QUEtiapine 50 MG TAB PO SCH (08:55)
[2021-02-27] MEDS: haloperidoL 5 MG TAB PO SCH (08:56)
[2021-02-27] MEDS: SERTRALINE 25 MG TAB PO SCH (08:56)
[2021-02-27] MEDS: MULTIVITAMINS, THERA 1 EACH TAB PO SCH (08:56)
[2021-02-27] MEDS: clonazePAM 0.5 MG TAB PO SCH (08:56)
[2021-02-27] MEDS: METOPROLOL TARTRATE 12.5 MG TAB PO SCH (08:56)
[2021-02-27] MEDS: NYSTATIN 100,000 UNIT/ML SUSP 500,000 UNIT/5 ML CUP PO SCH (08:56)
[2021-02-27] MEDS: BENZTROPINE MESYLATE 1 MG TAB PO SCH (08:56)
[2021-02-27] MEDS: polyethylene glycoL 3350 17 GM POWD.PACK PO SCH (08:57)
[2021-02-27] MEDS: methylPREDNISolone SOD SUCCI 40 MG/ML 1 ML VIAL IV SCH (08:57)
[2021-02-27] MEDS: IBUPROFEN 400 MG TAB PO SCH (08:57)
[2021-02-27] MEDS ORDERED: SULFAMETHOX-TMP 800-160MG 1 EACH TAB PO SCH (09:00)
[2021-02-27] MEDS: NICOTINE GUM (POLACRILEX) 2 MG GUM BUCCAL PRN (12:20)
--- NOTE | 2021-02-27 14:52 | PN ---
PROGRESS NOTE DATE OF SERVICE: 02/27/2021 REASON FOR FOLLOWUP: Stenotrophomonas tracheobronchitis and oral thrush. INTERVAL HISTORY: Patient is afebrile. The patient is breathing comfortably. The patient denies having any chest pain, shortness of breath. Occasional cough. No abdominal pain. No diarrhea. PHYSICAL EXAMINATION: Blood pressure 133/56, pulse of 66, temperature 97.7. She is 97% on 5 L nasal cannula. General description is an elderly female up in the chair in no distress. Respiratory system: Unlabored breathing, decreased intensity of breath sounds. No wheeze. Heart S1, S2. Regular rate and rhythm. Abdomen soft, no tenderness. LABS: White count is normal has been checked DIAGNOSTIC IMPRESSION AND PLAN: 1. Patient with Stenotrophomonas positive; sputum culture, likely tracheobronchitis. Clinically not behaving as pneumonia. Short course of oral Bactrim DS, 3-5 days. 2. Oral thrush. A week of oral Nystatin swish and swallow and close outpatient followup. MMODL / IJN: [id number] /
[2021-02-27 15:11] VITALS: BP 121/63; PULSE 75; RESP 22; TEMP 98
== END 2021-02-27 16:10 | disposition home or self-care (01) | DRG 177 ==
LOC: EC 13:38 → 6NMEDSUR 18:57 → OBSVTOIN 02-17 08:54 → 6NMEDSUR 02-18 03:07
PROVIDERS: ADMIT Family Medicine; ATTEND Family Medicine
PROC: 0BC68ZZ Extirpation of Matter from Right Lower Lobe Bronchus, Via Natural or Artificial Opening Endoscopic (ICD-10-PCS; principal; 2021-02-20 07:30)
DX: J15.6 Pneumonia due to other Gram-negative bacteria (principal); I50.33 Acute on chronic diastolic (congestive) heart failure; J96.21 Acute and chronic respiratory failure with hypoxia; J44.0 Chronic obstructive pulmonary disease with (acute) lower respiratory infection; J44.1 Chronic obstructive pulmonary disease with (acute) exacerbation; Z16.24 Resistance to multiple antibiotics; B37.0 Candidal stomatitis; T17.590A Other foreign object in bronchus causing asphyxiation, initial encounter; Z20.822 Contact with and (suspected) exposure to COVID-19; E11.9 Type 2 diabetes mellitus without complications; E78.5 Hyperlipidemia, unspecified; F03.90 Unspecified dementia, unspecified severity, without behavioral disturbance, psychotic disturbance, mood disturbance, and anxiety; F25.9 Schizoaffective disorder, unspecified; H91.90 Unspecified hearing loss, unspecified ear; I11.0 Hypertensive heart disease with heart failure; Y95 Nosocomial condition; Z79.82 Long term (current) use of aspirin; Z79.84 Long term (current) use of oral hypoglycemic drugs; Z79.899 Other long term (current) drug therapy; Z83.3 Family history of diabetes mellitus; Z87.01 Personal history of pneumonia (recurrent); Z87.891 Personal history of nicotine dependence; K59.00 Constipation, unspecified
CPT/HCPCS: 31635; 36415; 71045; 71046; 71260; 80053; 83605; 83880; 84145; 84484; 85025; 85610; 85730; 86140; 87040; 87070; 87077; 87186; 87205; 87635; 93005; 94640; 94760; 96374; 99285

== ENCOUNTER 2022-06-04 15:57 | Inpatient (IN) | payer MEDICARE, OTHER ==
--- NOTE | 2022-06-04 16:46 | ED ---
SOB HPI - General Chief Complaint: Shortness of Breath Stated Complaint: KETAN Time Seen by Provider: 06/04/22 16:02 Source: patient, EMS Mode of arrival: EMS Limitations: no limitations - History of Present Illness Initial Comments: This patient is 76-year-old woman with history of some underlying COPD, who presents with complaint that she has had increasing cough and shortness of breath going back for a few days now. Patient reportedly had been started on an antibiotic for upper respiratory infection. When there is no improvement, she was sent from shelter to have evaluation here. The patient has not noted fevers. She states she is a little short of breath over her baseline. She usually uses oxygen by nasal cannula at about 4 L/m. She has coughed but not much in the way of sputum production. No chest pain. No change in urination or bowel movements. No leg pain or swelling. MD Complaint: shortness of breath, cough Onset/Timin -: days(s) Severity scale (1-10): 0 Consistency: constant Improves With: nothing Worsens With: nothing Known History Of: COPD Associated Symptoms: cough Treatments Prior to Arrival: oxygen, bronchodilator - Related Data Home Oxygen Therapy: Yes Home Oxygen Amount: 4 Liters Home Medications Medication Instructions Recorded Confirmed Aspirin EC [Ecotrin Low Dose] 81 mg PO DIRECTED 12/06/15 06/04/22 Benztropine Mesylate 1 mg PO TID@0800,1399,202912/06/15 06/04/22 QUEtiapine FUMARATE [SEROquel XR] 300 mg PO HS@202912/06/15 06/04/22 Spironolactone [Aldactone] 12.5 mg PO DAILY@0800 12/06/15 06/04/22 clonazePAM [KlonoPIN] 0.5 mg PO TID@08,14,202912/06/15 06/04/22 haloperidoL [Haldol] 5 mg PO BID@0800,202912/06/15 06/04/22 Montelukast [Singulair] 10 mg PO HS@202908/08/18 06/04/22 Metoprolol Tartrate [Lopressor] 12.5 mg PO BID@0800,202901/03/20 06/04/22 Atorvastatin Calcium [Lipitor] 80 mg PO HS@202910/16/20 06/04/22 metFORMIN HCL 500 mg PO DAILY@0800 10/16/20 06/04/22 Acetaminophen [Acetaminophen 8 hr] 650 mg PO Q4H PRN 06/04/22 06/04/22 Budesonide [Pulmicort] 0.5 mg INHALATION RT-BID@0800,202906/04/22 06/04/22 Carboxymethylcellulose Sodium 1 drop BOTH EYES Q8H PRN 06/04/22 06/04/22 [Refresh Tears] Fluticasone Propionate 110 Mcg 2 puff INHALATION RT-BID@0800,1700 06/04/22 06/04/22 [Flovent 110 Mcg Inhaler] Hyoscyamine Sulfate [Levsin] 0.125 mg PO Q8H PRN 06/04/22 06/04/22 Ipratropium-Albuterol Nebulize 3 ml INHALATION 06/04/22 06/04/22 [Duoneb 0.5 mg-3 mg/3 ml Soln] RT-QID@,,,2029 Ipratropium/Albuter 20-100Mcg 2 puff INHALATION RT-BID@0800,1700 06/04/22 06/04/22 [Combivent Respimat 20-100Mcg Inhaler] Loperamide [Imodium] 2 mg PO Q6H PRN 06/04/22 06/04/22 Losartan [Cozaar] 50 mg PO DAILY@0800 06/04/22 06/04/22 Magnesium Hydroxide [Milk of 7,200 mg PO Q48H PRN 06/04/22 06/04/22 Magnesia Concentrate] Mirabegron [Myrbetriq] 50 mg PO DAILY@0800 06/04/22 06/04/22 Na Phos,M-B/Na Phos,Di-Ba [Fleet 133 ml RECTAL DAILY PRN 06/04/22 06/04/22 Adult] Sertraline [Zoloft] 50 mg PO DAILY@0800 06/04/22 06/04/22 bisacodyL 10 mg RECTAL DAILY PRN 06/04/22 06/04/22 guaiFENesin [guaiFENesin Oral 100 mg PO Q4H PRN 06/04/22 06/04/22 Solution] methylPREDNISolone [Medrol Dose 1 dose PO DIRECTED 06/04/22 06/04/22 Pack] polyethylene glycoL 3350 [Miralax] 17 gm PO DAILY@0800 06/04/22 06/04/22 Previous Rx's Medication Instructions Recorded Levofloxacin [Levaquin] 500 mg PO HS 7 Days #7 tab 06/10/22 Pantoprazole [Protonix] 40 mg PO AC-BID 30 Days #60 tab 06/10/22 Sennosides [Senokot] 8.6 mg PO BID tab 06/10/22 bisacodyL [Dulcolax] 10 mg PO DAILY PRN tab 06/10/22 dexAMETHasone ORAL [Hexadrol] 6 mg PO DAILY 7 Days #7 tab 06/10/22 Metoclopramide [Reglan] 5 mg PO ACHS tab 06/11/22 Allergies Allergy/AdvReac Type Severity Reaction Status Date / Time grapefruit Allergy Rash/Hives Verified 06/04/22 16:44 Penicillins Allergy Rash/Hives Verified 06/04/22 16:44 Review of Systems ROS Statement: Those systems with pertinent positive or pertinent negative responses have been documented in the HPI. ROS Other: All systems not noted in ROS Statement are negative. Constitutional: Denies: fever, chills ENT: Reports: congestion Respiratory: Reports: cough, dyspnea, wheezes. Denies: hemoptysis Cardiovascular: Denies: chest pain, palpitations Gastrointestinal: Denies: abdominal pain, vomiting, diarrhea Genitourinary: Denies: dysuria, hematuria Skin: Denies: rash Neurological: Denies: headache, weakness, numbness Past Medical History Past Medical History: COPD, Hearing Disorder / Deafness, Hyperlipidemia, Hypertension, Memory Impairment Additional Past Medical History / Comment(s): home 5 liters n/c, SCHIZOAFFECTIVE DISORDER, INCONT OF URINE THAT JUST RECENTLY STARTED. CONSTIPATION. History of Any Multi-Drug Resistant Organisms: ESBL Date of last positivie culture/infection: 11/09/20 ESBL E.coli MDRO Source:: Urine Past Surgical History: Orthopedic Surgery, Tonsillectomy, Tubal Ligation Additional Past Surgical History / Comment(s): right knee arthroscopy, FELL,BROKE RT LEG-HAD SX--PLATE AND SCREWS, colonoscopy, LILA CATARACTS, LT EYE SX FOR GLAUCOMA Past Anesthesia/Blood Transfusion Reactions: No Reported Reaction Past Psychological History: Schizoaffective Disorder Smoking Status: Former smoker Past Alcohol Use History: Occasional Past Drug Use History: None Reported - Past Family History Mother Family Medical History: Diabetes Mellitus Additional Family Medical History / Comment(s): GRANDMOTHER HAD DM Father Family Medical History: No Reported History Additional Family Medical History / Comment(s): UNK- PT WAS RAISED BY STEP FATHER General Exam Limitations: no limitations General appearance: alert, in no apparent distress Head exam: Present: atraumatic, normocephalic Eye exam: Present: normal appearance. Absent: scleral icterus, conjunctival injection ENT exam: Present: normal oropharynx Neck exam: Present: normal inspection Respiratory exam: Present: wheezes, decreased breath sounds. Absent: respiratory distress, rales, rhonchi, chest wall tenderness, accessory muscle use Cardiovascular Exam: Present: regular rate, normal rhythm, normal heart sounds. Absent: systolic murmur, diastolic murmur, rubs, gallop GI/Abdominal exam: Present: soft. Absent: distended, tenderness, guarding, rebound, rigid, mass Extremities exam: Present: normal inspection, normal capillary refill. Absent: pedal edema, calf tenderness Back exam: Present: normal inspection. Absent: CVA tenderness (R), CVA tenderness (L) Neurological exam: Present: alert Skin exam: Present: warm, dry, intact, normal color. Absent: rash Course Vital Signs 06/04/22 06/04/22 06/04/22 15:59 17:21 17:31 Temperature 99.0 F Pulse Rate 63 64 56 L Pulse Rate [ Pulse Oximetery ] Respiratory 20 Rate Blood Pressure 147/66 Blood Pressure [Left Arm] O2 Sat by Pulse 95 Oximetry 06/04/22 06/04/22 06/04/22 20:36 20:43 20:54 Temperature Pulse Rate 61 58 L 60 Pulse Rate [ Pulse Oximetery ] Respiratory 18 Rate Blood Pressure 170/89 Blood Pressure [Left Arm] O2 Sat by Pulse 95 Oximetry 06/04/22 06/04/22 06/04/22 22:52 23:48 23:51 Temperature Pulse Rate 64 69 Pulse Rate [ Pulse Oximetery ] Respiratory 20 20 Rate Blood Pressure 151/88 151/88 159/94 Blood Pressure [Left Arm] O2 Sat by Pulse 95 94 L Oximetry 06/05/22 06/05/22 06/05/22 00:00 01:00 02:00 Temperature Pulse Rate 57 L Pulse Rate [ Pulse Oximetery ] Respiratory 18 20 21 Rate Blood Pressure 159/94 163/73 135/64 Blood Pressure [Left Arm] O2 Sat by Pulse 94 L 93 L 94 L Oximetry 06/05/22 06/05/22 06/05/22 04:00 05:00 07:30 Temperature Pulse Rate 56 L 88 72 Pulse Rate [ Pulse Oximetery ] Respiratory 19 27 H Rate Blood Pressure 145/74 164/78 Blood Pressure [Left Arm] O2 Sat by Pulse 94 L 91 L Oximetry 06/05/22 06/05/22 06/05/22 07:34 07:49 09:00 Temperature 97.7 F Pulse Rate 70 Pulse Rate [ 71 Pulse Oximetery ] Respiratory 20 Rate Blood Pressure Blood Pressure 167/78 [Left Arm] O2 Sat by Pulse 97 95 Oximetry 06/05/22 06/05/22 06/05/22 09:50 11:19 11:58 Temperature 97.8 F Pulse Rate Pulse Rate [ 72 72 Pulse Oximetery ] Respiratory 20 20 Rate Blood Pressure Blood Pressure 179/86 147/86 [Left Arm] O2 Sat by Pulse 95 Oximetry 06/05/22 06/05/22 06/05/22 12:03 12:20 14:00 Temperature 97.6 F Pulse Rate 85 70 Pulse Rate [ 75 Pulse Oximetery ] Respiratory 18 Rate Blood Pressure Blood Pressure 154/71 [Left Arm] O2 Sat by Pulse 93 L Oximetry 06/05/22 06/05/22 15:37 15:53 Temperature Pulse Rate 63 65 Pulse Rate [ Pulse Oximetery ] Respiratory Rate Blood Pressure Blood Pressure [Left Arm] O2 Sat by Pulse Oximetry Medical Decision Making - Medical Decision Making Case is discussed with the patient's physician Dr. Pathak, who states that the patient has been treated for COPD exacerbation with azithromycin as well as her other medications, but she does not seem to be having improvement, therefore will admit and change antibiotic coverage as well as continuing steroid and inhaled medications. The patient had chest x-ray which I interpreted as not showing acute infiltrate, CHF, pneumothorax. There is underlying COPD The patient had CT angiogram to rule out pulmonary embolism which I interpreted as not showing acute pulmonary embolism Was pt. sent in by a medical professional or institution (, PA, MORNING SHOW PRODUCER, urgent care, hospital, or shelter...) When possible be specific @ -Sent by shelter Did you speak to anyone other than the patient for history (EMS, parent, family, police, friend...)? What history was obtained from this source @ -[No] Did you review nursing and triage notes (agree or disagree)? Why? @ -[I reviewed and agree with nursing and triage notes] Were old charts reviewed (outside hosp., previous admission, EMS record, old EKG, old radiological studies, urgent care reports/EKG's, shelter records)? Report findings @ -[No old charts were reviewed] Differential Diagnosis (chest pain, altered mental status, abdominal pain women, abdominal pain men, vaginal bleeding, weakness, fever, dyspnea, syncope, headache, dizziness, GI bleed, back pain, seizure, CVA, palpatations, mental health, musculoskeletal)? @ -[Differential Dyspnea: Coronary syndrome, arrhythmia, tamponade, asthma, COPD, pulmonary embolism, pneumonia, pneumothorax, pulmonary effusion, anaphylaxis, diabetic ketoacidosis, flailed chest, pulmonary contusion, diaphragmatic rupture, anemia, neuromuscular, this is not meant to be an all-inclusive list. EKG interpreted by me (3pts min.). @ -[As above] X-rays interpreted by me (1pt min.). @ -[As above CT interpreted by me (1pt min.). @ -[As above U/S interpreted by me (1pt. min.). @ -[None done] What testing was considered but not performed or refused? (CT, X-rays, U/S, labs)? Why? @ -[None] What meds were considered but not given or refused? Why? @ -[None] Did you discuss the management of the patient with other professionals (professionals i.e. , PA, MORNING SHOW PRODUCER, lab, RT, psych nurse, social services analyst, fighting vehicle systems maintainer, teacher, budget officer, upper caser)? Give summary @ -[Admitting physician Was smoking cessation discussed for >3mins.? @ -[No] Was critical care preformed (if so, how long)? @ -[No] Were there social determinants of health that impacted care today? How? (Homelessness, low income, unemployed, alcoholism, drug addiction, transporta tion, low edu. Level, literacy, decrease access to med. care, intermediate, rehab)? @ -[No] Was there de-escalation of care discussed even if they declined (Discuss DNR or withdrawal of care, Hospice)? DNR status @ -[No] What co-morbidities impacted this encounter? (DM, HTN, Smoking, COPD, CAD, Cancer, CVA, ARF, Chemo, Hep., AIDS, mental health diagnosis, sleep apnea, morbid obesity)? @ -[COPD Was patient admitted / discharged? Hospital course, mention meds given and route, prescriptions, significant lab abnormalities, going to OR and other pertinent info. @ -[Patient is admitted Undiagnosed new problem with uncertain prognosis? @ -[No] Drug Therapy requiring intensive monitoring for toxicity (Heparin, Nitro, Insulin, Cardizem)? @ -[No] Were any procedures done? @ -[No] Diagnosis/symptom? @ -[Acute exacerbation of chronic obstructive pulmonary disease Acute, or Chronic, or Acute on Chronic? @ -[Acute on chronic Uncomplicated (without systemic symptoms) or Complicated (systemic symptoms)? @ -[default] Side effects of treatment? @ -[No] Exacerbation, Progression, or Severe Exacerbation? @ -[Moderate exacerbation Poses a threat to life or bodily function? How? (Chest pain, USA, ME, pneumonia, PE, COPD, DKA, ARF, appy, cholecystitis, CVA, Diverticulitis, Homicidal, Suicidal, threat to staff... and all critical care pts) @ -[Yes - Lab Data Result diagrams: 06/11/22 04:01 06/11/22 04:01 Lab Results 06/04/22 06/04/22 06/04/22 Range/Units 16:30 16:30 16:30 WBC 5.5 (3.8-10.6) k/uL RBC 3.76 L (3.80-5.40) m/uL Hgb 11.1 L (11.4-16.0) gm/dL Hct 32.7 L (34.0-46.0) % MCV 87.1 (80.0-100.0) fL MCH 29.4 (25.0-35.0) pg MCHC 33.8 (31.0-37.0) g/dL RDW 13.2 (11.5-15.5) % Plt Count 261 (150-450) k/uL MPV 7.4 Neutrophils % 85 % Lymphocytes % 10 % Monocytes % 3 % Eosinophils % 0 % Basophils % 0 % Neutrophils # 4.7 (1.3-7.7) k/uL Lymphocytes # 0.6 L (1.0-4.8) k/uL Monocytes # 0.2 (0-1.0) k/uL Eosinophils # 0.0 (0-0.7) k/uL Basophils # 0.0 (0-0.2) k/uL PT 9.7 (9.0-12.0) sec INR 0.9 (<1.2) APTT 23.6 (22.0-30.0) sec D-Dimer 0.49 (<0.60) mg/L FEU Sodium 139 (137-145) mmol/L Potassium 4.8 (3.5-5.1) mmol/L Chloride 100 (98-107) mmol/L Carbon Dioxide 28 (22-30) mmol/L Anion Gap 11 mmol/L BUN 14 (7-17) mg/dL Creatinine 0.70 (0.52-1.04) mg/dL Est GFR (CKD-EPI)AfAm >90 (>60 ml/min/1.73 sqM) Est GFR (CKD-EPI)NonAf 85 (>60 ml/min/1.73 sqM) Glucose 115 H (74-99) mg/dL Lactic Ac Sepsis Rflx Plasma Lactic Acid Master (0.7-2.0) mmol/L Calcium 8.8 (8.4-10.2) mg/dL Total Bilirubin 0.4 (0.2-1.3) mg/dL AST 26 (14-36) U/L ALT 22 (4-34) U/L Alkaline Phosphatase 97 (38-126) U/L Troponin I (0.000-0.034) ng/mL NT-Pro-B Natriuret Pep pg/mL Total Protein 7.2 (6.3-8.2) g/dL Albumin 4.3 (3.5-5.0) g/dL Coronavirus (PCR) (Not Detectd) 06/04/22 06/04/22 06/04/22 Range/Units 16:30 16:30 16:30 WBC (3.8-10.6) k/uL RBC (3.80-5.40) m/uL Hgb (11.4-16.0) gm/dL Hct (34.0-46.0) % MCV (80.0-100.0) fL MCH (25.0-35.0) pg MCHC (31.0-37.0) g/dL RDW (11.5-15.5) % Plt Count (150-450) k/uL MPV Neutrophils % % Lymphocytes % % Monocytes % % Eosinophils % % Basophils % % Neutrophils # (1.3-7.7) k/uL Lymphocytes # (1.0-4.8) k/uL Monocytes # (0-1.0) k/uL Eosinophils # (0-0.7) k/uL Basophils # (0-0.2) k/uL PT (9.0-12.0) sec INR (<1.2) APTT (22.0-30.0) sec D-Dimer (<0.60) mg/L FEU Sodium (137-145) mmol/L Potassium (3.5-5.1) mmol/L Chloride (98-107) mmol/L Carbon Dioxide (22-30) mmol/L Anion Gap mmol/L BUN (7-17) mg/dL Creatinine (0.52-1.04) mg/dL Est GFR (CKD-EPI)AfAm (>60 ml/min/1.73 sqM) Est GFR (CKD-EPI)NonAf (>60 ml/min/1.73 sqM) Glucose (74-99) mg/dL Lactic Ac Sepsis Rflx Plasma Lactic Acid Master 2.7 H* (0.7-2.0) mmol/L Calcium (8.4-10.2) mg/dL Total Bilirubin (0.2-1.3) mg/dL AST (14-36) U/L ALT (4-34) U/L Alkaline Phosphatase (38-126) U/L Troponin I <0.012 (0.000-0.034) ng/mL NT-Pro-B Natriuret Pep 246 pg/mL Total Protein (6.3-8.2) g/dL Albumin (3.5-5.0) g/dL Coronavirus (PCR) (Not Detectd) 06/04/22 06/04/22 Range/Units 17:10 17:30 WBC (3.8-10.6) k/uL RBC (3.80-5.40) m/uL Hgb (11.4-16.0) gm/dL Hct (34.0-46.0) % MCV (80.0-100.0) fL MCH (25.0-35.0) pg MCHC (31.0-37.0) g/dL RDW (11.5-15.5) % Plt Count (150-450) k/uL MPV Neutrophils % % Lymphocytes % % Monocytes % % Eosinophils % % Basophils % % Neutrophils # (1.3-7.7) k/uL Lymphocytes # (1.0-4.8) k/uL Monocytes # (0-1.0) k/uL Eosinophils # (0-0.7) k/uL Basophils # (0-0.2) k/uL PT (9.0-12.0) sec INR (<1.2) APTT (22.0-30.0) sec D-Dimer (<0.60) mg/L FEU Sodium (137-145) mmol/L Potassium (3.5-5.1) mmol/L Chloride (98-107) mmol/L Carbon Dioxide (22-30) mmol/L Anion Gap mmol/L BUN (7-17) mg/dL Creatinine (0.52-1.04) mg/dL Est GFR (CKD-EPI)AfAm (>60 ml/min/1.73 sqM) Est GFR (CKD-EPI)NonAf (>60 ml/min/1.73 sqM) Glucose (74-99) mg/dL Lactic Ac Sepsis Rflx Y Plasma Lactic Acid Master (0.7-2.0) mmol/L Calcium (8.4-10.2) mg/dL Total Bilirubin (0.2-1.3) mg/dL AST (14-36) U/L ALT (4-34) U/L Alkaline Phosphatase (38-126) U/L Troponin I (0.000-0.034) ng/mL NT-Pro-B Natriuret Pep pg/mL Total Protein (6.3-8.2) g/dL Albumin (3.5-5.0) g/dL Coronavirus (PCR) Not Detected (Not Detectd) - EKG Data -: EKG Interpreted by Me EKG shows normal: sinus rhythm (With sinus arrhythmia), axis (Normal), intervals (Normal), QRS complexes (Normal), ST-T waves (Normal) Rate: normal (Rate 61 bpm) Disposition Clinical Impression: Acute exacerbation of chronic obstructive pulmonary disease (COPD) Disposition: ADMITTED IP TO THIS HOSP Condition: Fair Is patient prescribed a controlled substance at d/c from ED?: No
[2022-06-04] MEDS ORDERED: IPRATROPIUM-ALBUTEROL 3 ML NEB INHALATION STA (16:57)
[2022-06-04] MEDS ORDERED: predniSONE 20 MG TAB PO STA (16:57)
[2022-06-04 17:16] LABS: Basophils % (A) 0 %; Eosinophils % (A) 0 %; HCT 32.7 % (34.0-46.0); HGB 11.1 gm/dL (11.4-16.0); Lymphocytes # (A) 0.6 k/uL (1.0-4.8); Lymphocytes % (A) 10 %; MCH 29.4 pg (25.0-35.0); MCHC 33.8 g/dL (31.0-37.0); MCV 87.1 fL (80.0-100.0); Mean Platelet Volume 7.4; Monocytes # (A) 0.2 k/uL (0-1.0); Monocytes % (A) 3 %; Neutrophils # (A) 4.7 k/uL (1.3-7.7); Neutrophils % (A) 85 %; Platelet Count 261 k/uL (150-450); RBC 3.76 m/uL (3.80-5.40); RDW 13.2 % (11.5-15.5); WBC 5.5 k/uL (3.8-10.6)
[2022-06-04 17:30] LABS: ALT 22 U/L (4-34); AST 26 U/L (14-36); African American GFR (CKD) >90 (>60 ml/min/1.73 sqM); Albumin 4.3 g/dL (3.5-5.0); Alkaline Phosphatase 97 U/L (38-126); Anion Gap 11 mmol/L; Blood Urea Nitrogen 14 mg/dL (7-17); Calcium 8.8 mg/dL (8.4-10.2); Carbon Dioxide 28 mmol/L (22-30); Chloride 100 mmol/L (98-107); Glucose 115 mg/dL (74-99); Non-African American GFR(CKD) 85 (>60 ml/min/1.73 sqM); Potassium 4.8 mmol/L (3.5-5.1); Sodium 139 mmol/L (137-145); Total Bilirubin 0.4 mg/dL (0.2-1.3); Total Protein 7.2 g/dL (6.3-8.2)
[2022-06-04 17:35] LABS: INR 0.9 (<1.2); Partial Thromboplastin Time 23.6 sec (22.0-30.0); Prothrombin Time 9.7 sec (9.0-12.0)
--- NOTE | 2022-06-04 17:41 | XR ---
EXAMINATION TYPE: XR chest 2V DATE OF EXAM: 06/04/2022 5:25 PM COMPARISON: Chest radiographs from 02/21/2021 TECHNIQUE: XR chest 2V Frontal and lateral views of the chest. CLINICAL INDICATION:Female, 76 years old with history of difficulty breathing; FINDINGS: Lungs/Pleura: Prominent interstitial lung markings are seen scattered throughout the lungs with armando ening of the diaphragm and increased lucency of the lung apices. No evidence of focal consolidation, pneumothorax or pleural effusion. Pulmonary vascularity: Unremarkable. Heart/mediastinum: Cardiomediastinal silhouette is unremarkable. Musculoskeletal: No acute osseous pathology. IMPRESSION: 1. Chronic changes without acute pulmonary process. No significant change from prior. 2. COPD changes.
[2022-06-04] MEDS ORDERED: ALBUTEROL NEBULIZED 2.5 MG/3 ML INHALATION STA (18:30)
[2022-06-04] MEDS ORDERED: NALOXONE 0.4 MG/ML 1 ML VIAL IVP PRN (18:53)
[2022-06-04] MEDS ORDERED: ACETAMINOPHEN TAB 325 MG TAB PO PRN (18:53)
[2022-06-04] MEDS ORDERED: IPRATROPIUM-ALBUTEROL 3 ML NEB INHALATION SCH (20:00)
[2022-06-04] MEDS: DOXYCYCLINE 100 MG CAP PO SCH (20:53)
[2022-06-04] MEDS ORDERED: guaiFENesin-Coden 100-10MG/5ML 10 ML CUP PO PRN (21:23)
[2022-06-04] MEDS ORDERED: ARTIFICIAL TEARS OINTMENT 3.5 GM TUBE BOTH EYES PRN (21:29)
[2022-06-04] MEDS ORDERED: MAGNESIUM HYDROXIDE 2,400 MG/10 ML CUP PO PRN (21:30)
[2022-06-04] MEDS ORDERED: LOPERAMIDE 2 MG CAP PO PRN (21:40)
[2022-06-04] MEDS ORDERED: HYOSCYAMINE SULFATE 0.125 MG TAB PO PRN (21:41)
[2022-06-04] MEDS ORDERED: NA PHOS,M-B/NA PHOS,DI-BA 133 ML ENEMA RECTAL PRN (21:44)
[2022-06-04] MEDS ORDERED: bisacodyL 5 MG TABLET.DR PO PRN (21:44)
[2022-06-04] MEDS: METOPROLOL TARTRATE 12.5 MG TAB PO SCH (22:51)
[2022-06-04] MEDS: ATORVASTATIN 80 MG TAB PO SCH (22:52)
[2022-06-04] MEDS: clonazePAM 0.5 MG TAB PO SCH (22:52)
[2022-06-04] MEDS: QUEtiapine 100 MG TAB PO SCH (22:52)
[2022-06-04] MEDS: BENZTROPINE MESYLATE 1 MG TAB PO SCH (22:52)
[2022-06-04] MEDS: haloperidoL 5 MG TAB PO SCH (22:52)
[2022-06-04] MEDS: MONTELUKAST 10 MG TAB PO SCH (22:52)
[2022-06-05] MEDS ORDERED: RX INFO: IV CONTRAST WAS GIVEN 1 EACH MISC MISCELLANE PRN (00:12)
[2022-06-05] MEDS: methylPREDNISolone SOD SUCCI 40 MG/ML 1 ML VIAL IV SCH ×3 (00:33→16:53)
[2022-06-05] MEDS: LEVOFLOXACIN 500MG-D5W PMX 500 MG in DEXTROSE/WATER 1 100ML.BAG IVPB SCH (00:45)
--- NOTE | 2022-06-05 03:27 | CT ---
EXAMINATION TYPE: CT chest w con DATE OF EXAM: 06/05/2022 COMPARISON: 02/18/2021 HISTORY: Dyspnea, cough, and congestion. CT DLP: 663.2 mGycm Automated exposure control for dose reduction was used. CONTRAST: Performed with IV Contrast, patient injected with 100ml mL of Isovue 370. Images obtained from the thoracic inlet to the diaphragm with the IV contrast. There are 3-D post pro cessed images. There are some interstitial infiltrate and atelectasis in the posterior lung laughlin bilaterally. No p leural effusion. Heart size is normal. No pericardial effusion. Thoracic aorta is atheromatous. There are no hilar masses. There is no mediastinal adenopathy. There is normal contrast opacification of the pulmonary arteries. No filling defect. There is some em physematous changes in the upper lobes. The thoracic spine is intact. No compression fracture. Sternum is intact. No evidence of rib fracture . The upper abdominal soft tissues are intact. IMPRESSION: Interstitial infiltrates and atelectasis in the posterior lung laughlin similar to old exam. No suspici ous pulmonary mass. Normal heart. COPD. No evidence of pulmonary embolism.
[2022-06-05] MEDS: ALBUTEROL NEBULIZED 2.5 MG/3 ML INHALATION SCH ×4 (07:30→21:03)
[2022-06-05] MEDS: IPRATROPIUM 0.5 MG/2.5 ML NEBU INHALATION SCH ×4 (07:30→21:12)
[2022-06-05] MEDS: BUDESONIDE 0.5 MG/2 ML NEBU INHALATION SCH ×2 (07:30→21:03)
[2022-06-05] MEDS: FLUTICASONE 110 MCG INHALER INHALATION SCH ×2 (07:30→21:03)
[2022-06-05] MEDS ORDERED: IPRATROPIUM-ALBUTEROL 3 ML NEB INHALATION SCH (08:00)
[2022-06-05] MEDS: BENZTROPINE MESYLATE 1 MG TAB PO SCH ×3 (09:50→22:06)
[2022-06-05] MEDS: AZITHROMYCIN 500 MG in SODIUM CHLORIDE 0.9% 250 ML IVPB SCH ×2 (09:50→11:14)
[2022-06-05] MEDS: DOXYCYCLINE 100 MG CAP PO SCH ×2 (09:51→22:05)
[2022-06-05] MEDS: clonazePAM 0.5 MG TAB PO SCH ×3 (09:51→22:05)
[2022-06-05] MEDS: SERTRALINE 50 MG TAB PO SCH (09:51)
[2022-06-05] MEDS: LOSARTAN 50 MG TAB PO SCH (09:51)
[2022-06-05] MEDS: SPIRONOLACTONE 25 MG TAB PO SCH (09:51)
[2022-06-05] MEDS: haloperidoL 5 MG TAB PO SCH ×2 (09:52→22:06)
[2022-06-05] MEDS: polyethylene glycoL 3350 17 GM POWD.PACK PO SCH (09:52)
[2022-06-05] MEDS: METOPROLOL TARTRATE 12.5 MG TAB PO SCH ×2 (09:57→22:06)
[2022-06-05] MEDS: predniSONE 20 MG TAB PO SCH (11:14)
[2022-06-05] MEDS: hydrALAZINE HCL 20 MG/ML 1 ML VIAL IVP PRN (11:31)
--- NOTE | 2022-06-05 11:57 | HP ---
HISTORY AND PHYSICAL HISTORY OF PRESENT ILLNESS: A 76-year-old white female, COPD, failed outpatient [facility], came in with shortness of breath, cough, congestion, shortness of breath, upper respiratory infection. No improvement. Came here. She is a little short of breath over her baseline. She usually uses oxygen by nasal cannula about 4 L MEDICATIONS: 1. Aspirin 81 mg daily. 2. Benztropine 1 mg t.i.d. 3. Seroquel 300 at night. 4. Aldactone 12.5 daily. 5. Klonopin 0.5 t.i.d. 6. Haldol 5 mg b.i.d. 7. Singulair 10 mg daily. 8. Lopressor 12.5 b.i.d. 9. Lipitor 80 daily. 10.Metformin 500 daily. 11.Acetaminophen 650 q.4. 12.Pulmicort 0.5 b.i.d. 13. ophthalmologic every 8 hours. 14.Fluticasone 2 puffs daily. 15.Hyoscyamine/Levsin 0.125 q.8h. 16.DuoNeb q.i.d. 17.Zoloft 50 daily. 18.Bisacodyl 10 mg rectally daily. 19.Guanfacine 100 mg q.4. ALLERGIES: penicillin. REVIEW OF SYSTEMS: A 14-point review of systems otherwise negative. Please see H and P. PAST MEDICAL HISTORY: COPD, hearing disorder, deafness, dyslipidemia, hypertension, memory impairment, constipation, schizoaffective disorder. PAST SURGICAL HISTORY: Orthopedic surgery, tonsillectomy, tubal ligation, cataract surgery, plate and screws. FAMILY HISTORY: Mother diabetes mellitus. Otherwise, negative. PHYSICAL EXAMINATION: VITAL SIGNS: Reviewed. CARDIOVASCULAR: S1, S2. LUNGS: Scattered wheezes and rhonchi. ABDOMEN: Soft, nontender. HEMATOLOGY: 2+ edema. PSYCH: Fair mood and affect. NEUROLOGIC: Alert and oriented x3. OPHTHALMOLOGIC: Pupils equal, round, reactive. ENDOCRINE: BMI is over 40. White count is 5.5, BUN is 14, creatinine 0.7, glucose . Troponins are negative. Lactic acid 2.7. ASSESSMENT: Acute exacerbation of chronic obstructive pulmonary disease, tracheobronchitis, acute hypoxemic respiratory distress, dehydration. Prognosis guarded. fluids, updrafts, steroids. PROGNOSIS: Guarded. MMODL / IJN: [id number] /
--- NOTE | 2022-06-05 18:40 | P.CNPUL ---
History of Present Illness Consult date: 06/05/22 Reason for consult: dyspnea, cough, COPD, hypoxemia Chief complaint: Shortness of breath and cough for several days History of present illness: Patient is a 76-year-old female overall poor historian with long-standing hi story of shortness of breath COPD she is a [facility] resident, patient 7-10 days ago have upper respiratory type of processes along with cough congestion shortness of breath treated with outpatient oral antibiotics without significant due to persistent nature of symptoms decided to come into the hospital for further evaluation, there is no history of fever or chills, patient has been on home oxygen 4 L nasal cannula, denies any hemoptysis, CBC within normal limit, coags okay, lactic acid was 2.3 came down to 1.9, BNP is 246, covid 19 negative, chest x-ray chronic changes with some COPD-like appearance, CT suggestive of bilateral interstitial infiltrate with some subsegmental atelectasis at the bases, no suspicious pulmonary mass seen, currently patient is being treated with bronchodilator broad-spectrum antibiotics and IV steroids Review of Systems All systems: negative Past Medical History Past Medical History: COPD, Hearing Disorder / Deafness, Hyperlipidemia, Hypertension, Memory Impairment Additional Past Medical History / Comment(s): home 5 liters n/c, SCHIZOAFFECTIVE DISORDER, INCONT OF URINE THAT JUST RECENTLY STARTED. CONSTIPATION. History of Any Multi-Drug Resistant Organisms: ESBL Date of last positivie culture/infection: 11/09/20 ESBL E.coli MDRO Source:: Urine Past Surgical History: Orthopedic Surgery, Tonsillectomy, Tubal Ligation Additional Past Surgical History / Comment(s): right knee arthroscopy, FELL,BROKE RT LEG-HAD SX--PLATE AND SCREWS, colonoscopy, LILA CATARACTS, LT EYE SX FOR GLAUCOMA Past Anesthesia/Blood Transfusion Reactions: No Reported Reaction Past Psychological History: Schizoaffective Disorder Smoking Status: Former smoker Past Alcohol Use History: Occasional Past Drug Use History: None Reported - Past Family History Mother Family Medical History: Diabetes Mellitus Additional Family Medical History / Comment(s): GRANDMOTHER HAD DM Father Family Medical History: No Reported History Additional Family Medical History / Comment(s): UNK- PT WAS RAISED BY STEP FATHER Medications and Allergies Home Medications Medication Instructions Recorded Confirmed Type Aspirin EC [Ecotrin Low Dose] 81 mg PO DIRECTED 12/06/15 06/04/22 History Benztropine Mesylate 1 mg PO TID@0800,1399,202912/06/15 06/04/22 History QUEtiapine FUMARATE [SEROquel XR] 300 mg PO HS@202912/06/15 06/04/22 History Spironolactone [Aldactone] 12.5 mg PO DAILY@0812/06/15 06/04/22 History clonazePAM [KlonoPIN] 0.5 mg PO TID@12/06/15 06/04/22 History haloperidoL [Haldol] 5 mg PO BID@0800,202912/06/15 06/04/22 History Montelukast [Singulair] 10 mg PO HS@202908/08/18 06/04/22 History Metoprolol Tartrate [Lopressor] 12.5 mg PO BID@0800,202901/03/20 06/04/22 History Atorvastatin Calcium [Lipitor] 80 mg PO HS@202910/16/20 06/04/22 History metFORMIN HCL 500 mg PO DAILY@0800 10/16/20 06/04/22 History Acetaminophen [Acetaminophen 8 hr] 650 mg PO Q4H PRN 06/04/22 06/04/22 History Budesonide [Pulmicort] 0.5 mg INHALATION RT-BID@08,202906/04/22 06/04/22 History Carboxymethylcellulose Sodium 1 drop BOTH EYES Q8H PRN 06/04/22 06/04/22 History [Refresh Tears] Fluticasone Propionate 110 Mcg 2 puff INHALATION RT-BID@0800,1700 06/04/22 06/04/22 History [Flovent 110 Mcg Inhaler] Hyoscyamine Sulfate [Levsin] 0.125 mg PO Q8H PRN 06/04/22 06/04/22 History Ipratropium-Albuterol Nebulize 3 ml INHALATION 06/04/22 06/04/22 History [Duoneb 0.5 mg-3 mg/3 ml Soln] RT-QID@07,,,2029 Ipratropium/Albuter 20-100Mcg 2 puff INHALATION RT-BID@0800,1700 06/04/22 06/04/22 History [Combivent Respimat 20-100Mcg Inhaler] Loperamide [Imodium] 2 mg PO Q6H PRN 06/04/22 06/04/22 History Losartan [Cozaar] 50 mg PO DAILY@0800 06/04/22 06/04/22 History Magnesium Hydroxide [Milk of 7,200 mg PO Q48H PRN 06/04/22 06/04/22 History Magnesia Concentrate] Mirabegron [Myrbetriq] 50 mg PO DAILY@0800 06/04/22 06/04/22 History Na Phos,M-B/Na Phos,Di-Ba [Fleet 133 ml RECTAL DAILY PRN 06/04/22 06/04/22 History Adult] Sertraline [Zoloft] 50 mg PO DAILY@0800 06/04/22 06/04/22 History bisacodyL 10 mg RECTAL DAILY PRN 06/04/22 06/04/22 History guaiFENesin [guaiFENesin Oral 100 mg PO Q4H PRN 06/04/22 06/04/22 History Solution] methylPREDNISolone [Medrol Dose 1 dose PO DIRECTED 06/04/22 06/04/22 History Pack] polyethylene glycoL 3350 [Miralax] 17 gm PO DAILY@0800 06/04/22 06/04/22 History Allergies Allergy/AdvReac Type Severity Reaction Status Date / Time grapefruit Allergy Rash/Hives Verified 06/04/22 16:44 Penicillins Allergy Rash/Hives Verified 06/04/22 16:44 Physical Exam Vitals: Vital Signs Temp Pulse Pulse Resp BP BP Pulse Ox 06/05/22 15:53 65 06/05/22 15:37 63 06/05/22 14:00 97.6 F 75 18 154/71 93 L 06/05/22 12:20 70 06/05/22 12:03 85 06/05/22 11:58 97.8 F 72 20 147/86 95 06/05/22 11:19 72 179/86 06/05/22 09:50 20 06/05/22 09:00 97.7 F 71 20 167/78 95 06/05/22 07:49 70 06/05/22 07:34 97 06/05/22 07:30 72 06/05/22 05:00 88 27 H 164/78 91 L 06/05/22 04:00 56 L 19 145/74 94 L 06/05/22 02:00 57 L 21 135/64 94 L 06/05/22 01:00 20 163/73 93 L 06/05/22 00:00 18 159/94 94 L 06/04/22 23:51 69 20 159/94 94 L 06/04/22 23:48 151/88 06/04/22 22:52 64 20 151/88 95 06/04/22 20:54 60 18 170/89 95 06/04/22 20:43 58 L 06/04/22 20:36 61 Intake and Output 06/05/22 06/05/22 06/05/22 06:59 14:59 22:59 Output Total 1350 Balance -1350 Output: Urine 1350 Other: Voiding Method External Catheter # Bowel Movements 1 - Constitutional General appearance: mild distress, morbidly obese - EENT Eyes: EOMI, PERRLA Ears: bilateral: normal - Neck Neck: normal ROM Carotids: bilateral: upstroke normal Thyroid: bilateral: normal size - Respiratory Respiratory: bilateral: diminished - Cardiovascular Rhythm: regular Heart sounds: normal: S1, S2 - Gastrointestinal General gastrointestinal: normal bowel sounds, soft - Integumentary Integumentary: normal turgor - Neurologic Neurologic: CNII-XII intact - Musculoskeletal Musculoskeletal: gait normal, generalized weakness, strength equal bilaterally - Psychiatric Psychiatric: A&O x's 3, appropriate affect, intact judgment & insight Results - Laboratory Findings CBC and BMP: 06/04/22 16:30 06/04/22 16:30 PT/INR, D-dimer PT 9.7 sec (9.0-12.0) 06/04/22 16:30 INR 0.9 (<1.2) 06/04/22 16:30 D-Dimer 0.49 mg/L FEU (<0.60) 06/04/22 16:30 Abnormal lab findings: Abnormal Labs 06/04/22 06/04/22 06/04/22 16:30 16:30 16:30 RBC 3.76 L Hgb 11.1 L Hct 32.7 L Lymphocytes # 0.6 L Glucose 115 H Plasma Lactic Acid Master 2.7 H* 06/04/22 20:04 RBC Hgb Hct Lymphocytes # Glucose Plasma Lactic Acid Master 2.3 H* Assessment and Plan Assessment: Acute on Chronic hypoxic respiratory failure Bilateral pneumonia COPD with acute exacerbation Hypertension hypertensive cardiovascular disease History of chronic dementia Size affective disorder History of UTI and ESBL Plan: Continue broad-spectrum antibiotic Breathing treatments Deep breathing sense incentive spirometry Continue supplemental oxygen Follow clinical course closely- Time with Patient: Greater than 30
--- NOTE | 2022-06-05 18:53 | P.CONS ---
History of Present Illness - Reason for Consult Consult date: 06/05/22 COPD/bronchitis Requesting physician: Joni Pathak - Chief Complaint Increasing shortness of breath x few days - History of Present Illness Patient is a 76-year-old female with a past medical history significant for hypertension hyperlipidemia COPD hearing disorder in jail resident the patient was sent to the ER for evaluation of increasing shortness of breath and cough that apparently has been going on for the last few days patient has been complaining of shortness of breath mostly on exertion even at rest the patient also have a cough moderate intensity bring up some yellow sputum no hemoptysis denies any pleuritic chest pain no nausea no vomiting no abdominal pain no diarrhea patient on presentation to the hospital mildly hypoxic currently on 4 L nasal cannula patient did have a low-grade fever of 99 F lactic acid was 2.3 white count was normal liver enzymes are normal kidney function is normal COVID testing was negative patient did have a chest x-ray chronic change without acute pulmonary process CT chest interstitial beaded atelectasis posterior lung laughlin similar to old exam no suspicious pulmonary mass patient was admitted to hospital started on azithromycin doxycycline Levaquin Solu-Medrol admitted to hospital infectious disease was consulted for further management of antibiotic therapy Review of Systems Positive point has been mentioned in the HPI rest of the systems are negative Past Medical History Past Medical History: COPD, Hearing Disorder / Deafness, Hyperlipidemia, Hypertension, Memory Impairment Additional Past Medical History / Comment(s): home 5 liters n/c, SCHIZOAFFECTIVE DISORDER, INCONT OF URINE THAT JUST RECENTLY STARTED. CONSTIPATION. History of Any Multi-Drug Resistant Organisms: ESBL Year Discovered:: 11/09/20 ESBL E.coli MDRO Source:: Urine Past Surgical History: Orthopedic Surgery, Tonsillectomy, Tubal Ligation Additional Past Surgical History / Comment(s): right knee arthroscopy, FELL,BROKE RT LEG-HAD SX--PLATE AND SCREWS, colonoscopy, LILA CATARACTS, LT EYE SX FOR GLAUCOMA Past Anesthesia/Blood Transfusion Reactions: No Reported Reaction Past Psychological History: Schizoaffective Disorder Smoking Status: Former smoker Past Alcohol Use History: Occasional Past Drug Use History: None Reported - Past Family History Mother Family Medical History: Diabetes Mellitus Additional Family Medical History / Comment(s): GRANDMOTHER HAD DM Father Family Medical History: No Reported History Additional Family Medical History / Comment(s): UNK- PT WAS RAISED BY STEP FATHER Medications and Allergies Home Medications Medication Instructions Recorded Confirmed Type Aspirin EC [Ecotrin Low Dose] 81 mg PO DIRECTED 12/06/15 06/04/22 History Benztropine Mesylate 1 mg PO TID@0800,1399,202912/06/15 06/04/22 History QUEtiapine FUMARATE [SEROquel XR] 300 mg PO HS@202912/06/15 06/04/22 History Spironolactone [Aldactone] 12.5 mg PO DAILY@0800 12/06/15 06/04/22 History clonazePAM [KlonoPIN] 0.5 mg PO TID@08,14,202912/06/15 06/04/22 History haloperidoL [Haldol] 5 mg PO BID@0800,202912/06/15 06/04/22 History Montelukast [Singulair] 10 mg PO HS@202908/08/18 06/04/22 History Metoprolol Tartrate [Lopressor] 12.5 mg PO BID@0800,202901/03/20 06/04/22 History Atorvastatin Calcium [Lipitor] 80 mg PO HS@202910/16/20 06/04/22 History metFORMIN HCL 500 mg PO DAILY@0800 10/16/20 06/04/22 History Acetaminophen [Acetaminophen 8 hr] 650 mg PO Q4H PRN 06/04/22 06/04/22 History Budesonide [Pulmicort] 0.5 mg INHALATION RT-BID@08,202906/04/22 06/04/22 History Carboxymethylcellulose Sodium 1 drop BOTH EYES Q8H PRN 06/04/22 06/04/22 History [Refresh Tears] Fluticasone Propionate 110 Mcg 2 puff INHALATION RT-BID@0800,1700 06/04/22 0 06/04/22 History [Flovent 110 Mcg Inhaler] Hyoscyamine Sulfate [Levsin] 0.125 mg PO Q8H PRN 06/04/22 06/04/22 History Ipratropium-Albuterol Nebulize 3 ml INHALATION 06/04/22 06/04/22 History [Duoneb 0.5 mg-3 mg/3 ml Soln] RT-QID@,,,2029 Ipratropium/Albuter 20-100Mcg 2 puff INHALATION RT-BID@0800,1700 06/04/22 06/04/22 History [Combivent Respimat 20-100Mcg Inhaler] Loperamide [Imodium] 2 mg PO Q6H PRN 06/04/22 06/04/22 History Losartan [Cozaar] 50 mg PO DAILY@0800 06/04/22 06/04/22 History Magnesium Hydroxide [Milk of 7,200 mg PO Q48H PRN 06/04/22 06/04/22 History Magnesia Concentrate] Mirabegron [Myrbetriq] 50 mg PO DAILY@0800 06/04/22 06/04/22 History Na Phos,M-B/Na Phos,Di-Ba [Fleet 133 ml RECTAL DAILY PRN 06/04/22 06/04/22 History Adult] Sertraline [Zoloft] 50 mg PO DAILY@0800 06/04/22 06/04/22 History bisacodyL 10 mg RECTAL DAILY PRN 06/04/22 06/04/22 History guaiFENesin [guaiFENesin Oral 100 mg PO Q4H PRN 06/04/22 06/04/22 History Solution] methylPREDNISolone [Medrol Dose 1 dose PO DIRECTED 06/04/22 06/04/22 History Pack] polyethylene glycoL 3350 [Miralax] 17 gm PO DAILY@0800 06/04/22 06/04/22 History Levofloxacin [Levaquin] 500 mg PO HS 7 Days #7 tab 06/10/22 Rx Pantoprazole [Protonix] 40 mg PO AC-BID 30 Days #60 tab 06/10/22 Rx Sennosides [Senokot] 8.6 mg PO BID tab 06/10/22 Rx bisacodyL [Dulcolax] 10 mg PO DAILY PRN tab 06/10/22 Rx dexAMETHasone ORAL [Hexadrol] 6 mg PO DAILY 7 Days #7 tab 06/10/22 Rx Metoclopramide [Reglan] 5 mg PO ACHS tab 06/11/22 Rx Allergies Allergy/AdvReac Type Severity Reaction Status Date / Time grapefruit Allergy Rash/Hives Verified 06/04/22 16:44 Penicillins Allergy Rash/Hives Verified 06/04/22 16:44 Physical Exam Vitals: Vital Signs Temp Pulse Pulse Resp BP BP Pulse Ox 06/05/22 09:00 97.7 F 71 20 167/78 95 06/05/22 07:49 70 06/05/22 07:34 97 06/05/22 07:30 72 06/05/22 05:00 88 27 H 164/78 91 L 06/05/22 04:00 56 L 19 145/74 94 L 06/05/22 02:00 57 L 21 135/64 94 L 06/05/22 01:00 20 163/73 93 L 06/05/22 00:00 18 159/94 94 L 06/04/22 23:51 69 20 159/94 94 L 06/04/22 23:48 151/88 06/04/22 22:52 64 20 151/88 95 06/04/22 20:54 60 18 170/89 95 06/04/22 20:43 58 L 06/04/22 20:36 61 06/04/22 17:31 56 L 06/04/22 17:21 64 06/04/22 15:59 99.0 F 63 20 147/66 95 Intake and Output 06/04/22 06/05/22 06/05/22 22:59 06:59 14:59 Output Total 1350 Balance -1350 Output: Urine 1350 Other: Weight 94.347 kg GENERAL DESCRIPTION: Elderly female lying in bed, no distress. No tachypnea or accessory muscle of respiration use. HEENT: Shows Pallor , no scleral icterus. Oral mucous membrane is dry. No pharyngeal erythema or thrush NECK: Trachea central, no thyromegaly. LUNGS: Unlabored breathing. Coarse breath sounds bilaterally occasional wheeze HEART: S1, S2, regular rate and rhythm. No loud murmur ABDOMEN: Soft, mild distention and tenderness EXTREMITIES: No edema of feet. SKIN: No rash, no masses palpable. NEUROLOGICAL: The patient is awake, alert, oriented x3, mood and affect normal. Results CBC & Chem 7: 06/11/22 04:01 06/11/22 04:01 Labs: Abnormal Lab Results - Last 24 Hours (Table) 06/04/22 06/04/22 06/04/22 Range/Units 16:30 16:30 16:30 RBC 3.76 L (3.80-5.40) m/uL Hgb 11.1 L (11.4-16.0) gm/dL Hct 32.7 L (34.0-46.0) % Lymphocytes # 0.6 L (1.0-4.8) k/uL Glucose 115 H (74-99) mg/dL Plasma Lactic Acid Master 2.7 H* (0.7-2.0) mmol/L 06/04/22 Range/Units 20:04 RBC (3.80-5.40) m/uL Hgb (11.4-16.0) gm/dL Hct (34.0-46.0) % Lymphocytes # (1.0-4.8) k/uL Glucose (74-99) mg/dL Plasma Lactic Acid Master 2.3 H* (0.7-2.0) mmol/L Assessment and Plan (1) Tracheobronchitis Status: Acute Code(s): J40 - BRONCHITIS, NOT SPECIFIED ACUTE OR CHRONIC SNOMED Code(s): 80988344 (2) Leukocytosis Status: Acute Code(s): D72.829 - ELEVATED WHITE BLOOD CELL COUNT, UNSPECIFIED SNOMED Code(s): 281180335 Plan: 1patient presented to hospital with increasing shortness of breath and cough more likely related to COPD exacerbation with possible tracheobronchitis patient is clinically not behaving as pneumonia in this patient currently with no fever elevated white count low the CT images x-ray did not show any consolidation mo stly interstitial infiltrate. 2we will obtain a sputum for Gram stain and culture and check inflammatory markers 3-May continue with the Levaquin however discontinued azithromycin We will follow on clinical condition and cultures to further adjust medication if needed Thank you for this consultation we will follow the patient along with you Time with Patient: Greater than 30
[2022-06-05] MEDS: QUEtiapine 100 MG TAB PO SCH (22:05)
[2022-06-05] MEDS: MONTELUKAST 10 MG TAB PO SCH (22:05)
[2022-06-05] MEDS: ATORVASTATIN 80 MG TAB PO SCH (22:05)
[2022-06-06] MEDS: LEVOFLOXACIN 500MG-D5W PMX 500 MG in DEXTROSE/WATER 1 100ML.BAG IVPB SCH (00:10)
[2022-06-06] MEDS: methylPREDNISolone SOD SUCCI 40 MG/ML 1 ML VIAL IV SCH ×4 (00:11→23:54)
--- NOTE | 2022-06-06 01:30 | PN ---
PROGRESS NOTE SUBJECTIVE: The patient was admitted for aspiration pneumonia, COPD, asthma exacerbation. She has cough, congestion, worsening of her breathing, posterior infiltrates on CAT scan. She remains on 4 L oxygen. She has congestive cough, short of breath. OBJECTIVE: CARDIOVASCULAR: S1, S2. LUNGS: scattered wheeze and rhonchi. HEMATOLOGY: Negative Homans. ABDOMEN: Soft. MEDICATIONS: Reviewed. ASSESSMENT: Acute on chronic hypoxemic respiratory failure, bilateral pneumonia, chronic obstructive pulmonary disease or acute exacerbation of cardiovascular disease, lactic acidosis secondary to dehydration, sepsis, schizoaffective disorder, history of UTI with ESBL. Broad-spectrum antibiotics, breathing treatments, spirometry, supplemental oxygen. Continue current treatment. MMODL / IJN: [id number] /
[2022-06-06] MEDS: hydrALAZINE HCL 20 MG/ML 1 ML VIAL IVP PRN (02:29)
[2022-06-06] MEDS: BUDESONIDE 0.5 MG/2 ML NEBU INHALATION SCH ×2 (08:24→20:04)
[2022-06-06] MEDS: FLUTICASONE 110 MCG INHALER INHALATION SCH ×2 (08:25→20:04)
[2022-06-06] MEDS: IPRATROPIUM 0.5 MG/2.5 ML NEBU INHALATION SCH ×4 (08:25→20:04)
[2022-06-06] MEDS: ALBUTEROL NEBULIZED 2.5 MG/3 ML INHALATION SCH ×4 (08:25→20:04)
[2022-06-06 08:53] LABS: C Reactive Protein <0.30 mg/dL (0.00-0.80)
[2022-06-06] MEDS: polyethylene glycoL 3350 17 GM POWD.PACK PO SCH ×2 (09:00→09:08)
[2022-06-06] MEDS: SPIRONOLACTONE 25 MG TAB PO SCH (09:01)
[2022-06-06] MEDS: METOPROLOL TARTRATE 12.5 MG TAB PO SCH ×2 (09:01→21:07)
[2022-06-06] MEDS: SERTRALINE 50 MG TAB PO SCH (09:01)
[2022-06-06] MEDS: LOSARTAN 50 MG TAB PO SCH (09:01)
[2022-06-06] MEDS: haloperidoL 5 MG TAB PO SCH ×2 (09:02→21:07)
[2022-06-06] MEDS: BENZTROPINE MESYLATE 1 MG TAB PO SCH ×3 (09:02→21:07)
[2022-06-06] MEDS: DOXYCYCLINE 100 MG CAP PO SCH (09:02)
[2022-06-06] MEDS: clonazePAM 0.5 MG TAB PO SCH ×3 (09:02→21:07)
[2022-06-06] MEDS: predniSONE 20 MG TAB PO SCH ×2 (09:03→11:58)
[2022-06-06 09:49] LABS: ALT 14 U/L (8-44); AST 37 U/L (13-35); African American GFR (CKD) 85.5 (60.0-200.0); Albumin 4.1 g/dL (3.8-4.9); Alkaline Phosphatase 83 U/L (41-126); BUN/Creat Ratio 24.46 Ratio (12.00-20.00); Blood Urea Nitrogen 19.2 mg/dL (9.0-27.0); Calcium 8.8 mg/dL (8.7-10.3); Carbon Dioxide 26.6 mmol/L (20.0-27.5); Chloride 100 mmol/L (96-109); Globulin 2.5 g/dL (1.6-3.3); Glucose 137 mg/dL (70-110); Non-African American GFR(CKD) 73.8 (60.0-200.0); Potassium 4.1 mmol/L (3.5-5.5); Sodium 140 mmol/L (135-145); Total Protein 6.6 g/dL (6.2-8.2)
[2022-06-06 14:24] LABS: Basophils # (A) 0.02 X 10*3/uL (0.00-0.10); Basophils % (A) 0.1 %; Eosinophils # (A) 0 X 10*3/uL (0.04-0.35); Eosinophils % (A) 0 %; HCT 34.7 % (37.2-46.3); Immature Grans, Automated 0.5 %; Lymphocytes # (A) 0.76 X 10*3/uL (0.90-5.00); Lymphocytes % (A) 5.2 %; MCH 27.7 pg (27.0-32.0); MCHC 31.7 g/dL (32.0-37.0); MCV 87.4 fL (80.0-97.0); Monocytes # (A) 0.89 X 10*3/uL (0.20-1.00); Monocytes % (A) 6.1 %; NRBC Per 100 WBC 0 /100 WBCS (0.0-0.0); Neutrophils # (A) 12.83 X 10*3/uL (1.80-7.70); Neutrophils % (A) 88.1 %; Platelet Count 316 X 10*3/uL (140-440); RBC 3.97 X 10*6/uL (4.10-5.20); RDW 13.7 % (11.5-14.5); WBC 14.58 X 10*3/uL (4.50-10.00)
[2022-06-06] MEDS: IOPAMIDOL CONTRAST (ORAL USE) VIAL PO PRN ×2 (14:45→15:49)
--- NOTE | 2022-06-06 15:21 | P.PN ---
Subjective Progress Note Date: 06/06/22 Principal diagnosis: Leukocytosis and lactic acidosis Patient is a 76-year-old female with a past medical history significant for hypertension hyperlipidemia COPD hearing disorder in skilled nursing resident the patient was sent to the ER for evaluation of increasing short ness of breath and cough, patient has been diagnosed with a COPD exacerbation with evidence of lactic acidosis On today's evaluation that is 06/06/2022, patient denies having any fever or any chills patient has been metastatic comfortably she Did have a cough with some sputum production also complaining of abdominal pain and nausea with episode of vomiting and complaining of constipation Objective - Vital Signs Vital signs: Vital Signs Temp 98.6 F 06/06/22 07:28 Pulse 70 06/06/22 09:00 Resp 18 06/06/22 09:00 BP 132/67 06/06/22 07:28 Pulse Ox 90 L 06/06/22 08:25 FiO2 Intake & Output 06/05/22 06/06/22 06/06/22 18:59 06:59 18:59 Output Total 500 400 500 Balance -500 -400 -500 Output: Urine 500 400 500 Other: Voiding Method External Catheter External Catheter # Bowel Movements 1 - Exam GENERAL DESCRIPTION: An elderly female lying in bed in no distress RESPIRATORY SYSTEM: Unlabored breathing , occasional wheeze HEART: S1 S2 regular rate and rhythm , ABDOMEN: Soft , mild distention and tenderness EXTREMITIES: No edema feet - Labs CBC & Chem 7: 06/06/22 11:03 06/06/22 06:16 Labs: Abnormal Lab Results - Last 24 Hours (Table) 06/06/22 Range/Units 06:16 BUN/Creatinine Ratio 24.46 H (12.00-20.00) Ratio Glucose 137 H (70-110) mg/dL Total Bilirubin 0.20 L (0.30-1.20) mg/dL AST 37 H (13-35) U/L Assessment and Plan (1) Leukocytosis Current Visit: Yes Status: Acute Code(s): D72.829 - ELEVATED WHITE BLOOD CELL COUNT, UNSPECIFIED SNOMED Code(s): 518726321 (2) Lactic acidosis Current Visit: Yes Status: Acute Code(s): E87.20 - ACIDOSIS, UNSPECIFIED SNOMED Code(s): 43458790 Plan: 1patient presented to hospital with increasing shortness of breath and cough more likely related to COPD exacerbation with possible tracheobronchitis patient is clinically not behaving as pneumonia in this patient currently with no fever elevated white count low the CT images x-ray did not show any consolidation mostly interstitial infiltrate. 2we will obtain a sputum for Gram stain and culture, patient did have a normal pro-calcitonin 3-May continue with the Levaquin however discontinued doxycycline 4-with abdominal pain and tenderness. Check a CT of abdominal pelvis with oral contrast Time with Patient: Less than 30
--- NOTE | 2022-06-06 16:38 | CT ---
EXAMINATION TYPE: CT abdomen pelvis wo con CT DLP: 932.4 mGycm, Automated exposure control for dose reduction was used. DATE OF EXAM: 06/06/2022 4:27 PM COMPARISON: CT abdomen pelvis most recent from 08/25/2020 CLINICAL INDICATION:Female, 76 years old with history of abd pain and tenderness left side; Abd pain and tenderness left side. TECHNIQUE: Axial CT of the abdomen and pelvis. Sagittal and coronal reformats were created on a [employer] workstation. Contrast used: None Oral contrast used: with Oral Contrast FINDINGS: LOWER CHEST: Streaky atelectasis in the lung bases. ABDOMEN LIVER: Unremarkable GALLBLADDER AND BILE DUCTS: Unremarkable. PANCREAS: Unremarkable. SPLEEN: Unremarkable. ADRENAL GLANDS: Unremarkable. KIDNEYS AND URETERS: No evidence of hydronephrosis. Nonobstructing 2-3 mm renal calculi bilaterally. The ureters are unremarkable. PELVIS BLADDER: The urinary bladder is distended measuring 11.8 x 13.1 x 11.0 cm. REPRODUCTIVE: Unremarkable. ABDOMEN & PELVIS STOMACH AND BOWEL: No evidence of bowel obstruction. There is a large stool burden throughout the col on extending from cecum to the rectum. The gastric lumen is distended with ingested contents. There i s redundant colon throughout the abdomen. The cecum is located in the right upper quadrant. The appen matty is normal. PERITONEUM/RETROPERITONEUM: No evidence of pneumoperitoneum or free fluid. VASCULATURE: Moderate atherosclerotic calcifications are present throughout the abdominal aorta and i ts branches. No evidence of aortic aneurysm. MUSCULOSKELETAL: No acute osseous abnormalities. Mild disc degeneration changes are present throughou t the thoracolumbar spine. LYMPH NODES: No gross evidence for lymphadenopathy. SOFT TISSUE/ABDOMINAL WALL: Unremarkable IMPRESSION: 1. No evidence for left lower quadrant acute process. 2. Redundant colon with large stool burden throughout the colon. Cecum is in the right upper quadran t. Appendix is normal. No obstructive uropathy. 3. Distended urinary bladder correlate. 4. Nonobstructing bilateral 2-3 mm renal calculi.
[2022-06-06] MEDS: ATORVASTATIN 80 MG TAB PO SCH (21:07)
[2022-06-06] MEDS: MONTELUKAST 10 MG TAB PO SCH (21:07)
[2022-06-06] MEDS: LEVOFLOXACIN 500 MG TAB PO SCH (21:07)
[2022-06-06] MEDS: QUEtiapine 100 MG TAB PO SCH (21:08)
[2022-06-06] MEDS: ONDANSETRON 4 MG/2 ML VIAL IVP PRN (23:55)
[2022-06-07] MEDS: polyethylene glycoL 3350 17 GM POWD.PACK PO SCH (08:01)
[2022-06-07] MEDS: methylPREDNISolone SOD SUCCI 40 MG/ML 1 ML VIAL IV SCH ×2 (08:01→16:51)
[2022-06-07] MEDS: predniSONE 20 MG TAB PO SCH (08:01)
[2022-06-07] MEDS: ONDANSETRON 4 MG/2 ML VIAL IVP PRN ×2 (08:04→21:23)
[2022-06-07] MEDS: FLUTICASONE 110 MCG INHALER INHALATION SCH ×2 (08:09→20:44)
[2022-06-07] MEDS: IPRATROPIUM 0.5 MG/2.5 ML NEBU INHALATION SCH ×4 (08:10→20:44)
[2022-06-07] MEDS: ALBUTEROL NEBULIZED 2.5 MG/3 ML INHALATION SCH ×4 (08:10→20:43)
[2022-06-07] MEDS: BUDESONIDE 0.5 MG/2 ML NEBU INHALATION SCH ×2 (08:10→20:43)
[2022-06-07] MEDS: metFORMIN 500 MG TAB PO SCH (08:41)
[2022-06-07] MEDS: clonazePAM 0.5 MG TAB PO SCH ×3 (08:41→21:10)
[2022-06-07] MEDS: METOPROLOL TARTRATE 12.5 MG TAB PO SCH ×2 (08:41→21:10)
[2022-06-07] MEDS: SPIRONOLACTONE 25 MG TAB PO SCH (08:41)
[2022-06-07] MEDS: SERTRALINE 50 MG TAB PO SCH (08:41)
[2022-06-07] MEDS: haloperidoL 5 MG TAB PO SCH ×2 (08:41→21:10)
[2022-06-07] MEDS: LOSARTAN 50 MG TAB PO SCH (08:41)
[2022-06-07] MEDS: BENZTROPINE MESYLATE 1 MG TAB PO SCH ×3 (08:42→21:10)
--- NOTE | 2022-06-07 11:40 | CA ---
Transthoracic Echo Report Name: Nicki Rosen Age: 76 Gender: F : 1945 Exam Date: 06/06/2022 10:46 Exam Location: [facility] Ht (in): 64 Wt (lb): 208 Ordering Physician: Joni Pathak MD Attending/Referring Phys: Sewer Pipe Offbearer Kt Anderson RDCS Procedure CPT: Indications: pulm htn Cardiac Hx: Technical Quality: Technically difficult study Contrast 1: Total Dose (mL): Contrast 2: Total Dose (mL): MEASUREMENTS (Male / Female) Normal Values 2D ECHO LV Diastolic Diameter PLAX 5.8 cm 4.2 - 5.9 / 3.9 - 5.3 cm LA Volume 64.9 cm??? 18 - 58 / 22 - 52 cm??? DOPPLER AV Peak Velocity 162.8 cm/s AV Peak Gradient 10.6 mmHg LVOT Peak Velocity 120.8 cm/s LVOT Peak Gradient 5.8 mmHg MV Area PHT 2.3 cm??? Mitral E Point Velocity 94.8 cm/s Mitral A Point Velocity 118.5 cm/s Mitral E to A Ratio 0.8 MV Deceleration Time 336.0 ms TR Peak Velocity 271.5 cm/s TR Peak Gradient 29.5 mmHg Right Atrial Pressure 3.0 mmHg Pulmonary Artery Systolic Pressu 32.5 mmHg Right Ventricular Systolic Press 32.5 mmHg FINDINGS Left Ventricle Moderately increased left ventricular diastolic diameter. Left ventricular ejection fraction is estimated at 55-60 %. Right Ventricle Normal right ventricular size. Normal right ventricular global systolic function. Right Atrium Normal right atrial size. Left Atrium Moderately increased left atrial volume. Mitral Valve Mild mitral regurgitation. Aortic Valve No aortic stenosis. Tricuspid Valve Mild tricuspid regurgitation. Pulmonic Valve Pulmonic valve not well visualized. Pericardium Minimal pericardial effusion (normal variant). Aorta Aorta at the level of the sinuses of valsalva (root) normal. CONCLUSIONS Normal LV systolic function Normal RV dimension and systolic function Overall normal intracardiac valves Previewed by: Dr. Christiano Diaz MD (Electronically Signed) Final Date: 07 June 2022 11:39
--- NOTE | 2022-06-07 14:55 | P.PN ---
Subjective Progress Note Date: 06/07/22 Principal diagnosis: Acute on Chronic hypoxic respiratory failure Bilateral pneumonia COPD with acute exacerbation Hypertension hypertensive cardiovascular disease History of chronic dementia Size affective disorder History of UTI and ESBL 06/07/2022, patient seen and evaluated examined, ongoing shortness of breath is present but overall not getting worse, patient remains on 4 L oxygen, was more nauseous this morning and has been throwing up currently nausea and vomiting has improved resting after anti-medic. She is afebrile with stable hemodynamics oxygen saturation 92% on 4 L nasal cannula, she remains on bronchodilators along with the high intensity statins along with IV steroids, patient has a CT which shows stool burden no acute pathology identified Patient is a 76-year-old female overall poor historian with long-standing history of shortness of breath COPD she is a [facility] resident, patient 7-10 days ago have upper respiratory type of processes along with cough congestion shortness of breath treated with outpatient oral antibiotics without significant due to persistent nature of symptoms decided to come into the hospital for further evaluation, there is no history of fever or chills, patient has been on home oxygen 4 L nasal cannula, denies any hemoptysis, CBC within normal limit, coags okay, lactic acid was 2.3 came down to 1.9, BNP is 246, covid 19 negative, chest x-ray chronic changes with some COPD-like appearance, CT suggestive of b ilateral interstitial infiltrate with some subsegmental atelectasis at the bases, no suspicious pulmonary mass seen, currently patient is being treated with bronchodilator broad-spectrum antibiotics and IV steroids Objective - Vital Signs Vital signs: Vital Signs Temp 98.2 F 06/07/22 13:26 Pulse 60 06/07/22 13:26 Resp 18 06/07/22 13:26 BP 176/80 06/07/22 13:26 Pulse Ox 92 L 06/07/22 13:26 FiO2 Intake & Output 06/06/22 06/07/22 06/07/22 18:59 06:59 18:59 Output Total 900 350 Balance -900 -350 Output: Urine 900 350 Other: Voiding Method External Catheter External Catheter External Catheter # Bowel Movements 2 - Exam - Constitutional General appearance: mild distress, morbidly obese - EENT Eyes: EOMI, PERRLA Ears: bilateral: normal - Neck Neck: normal ROM Carotids: bilateral: upstroke normal Thyroid: bilateral: normal size - Respiratory Respiratory: bilateral: diminished - Cardiovascular Rhythm: regular Heart sounds: normal: S1, S2 - Gastrointestinal General gastrointestinal: normal bowel sounds, soft - Integumentary Integumentary: normal turgor - Neurologic Neurologic: CNII-XII intact - Musculoskeletal Musculoskeletal: gait normal, generalized weakness, strength equal bilaterally - Psychiatric Psychiatric: A&O x's 3, appropriate affect, intact judgment & insight - Labs CBC & Chem 7: 06/06/22 11:03 06/06/22 06:16 Labs: Microbiology - Last 24 Hours (Table) 06/05/22 10:50 Blood Culture - Preliminary Blood No Growth after 48 hours Assessment and Plan Assessment: Acute on Chronic hypoxic respiratory failure Bilateral pneumonia COPD with acute exacerbation Hypertension hypertensive cardiovascular disease History of chronic dementia Size affective disorder History of UTI and ESBL Plan: Continue broad-spectrum antibiotic Breathing treatments Deep breathing sense incentive spirometry Continue supplemental oxygen Follow clinical course closely- Time with Patient: Greater than 30
--- NOTE | 2022-06-07 15:39 | P.PN ---
Subjective Progress Note Date: 06/07/22 Principal diagnosis: Leukocytosis and lactic acidosis Patient is a 76-year-old female with a past medical history significant for hypertension hyperlipidemia COPD hearing disorder in intermediate resident the patient was sent to the ER for evaluation of increasing short ness of breath and cough, patient has been diagnosed with a COPD exacerbation with evidence of lactic acidosis On today's evaluation that is 06/07/2022, patient remains to be afebrile, patient is breathing comfortably on nasal cannula oxygen, the patient denies any worsening cough or sputum production also complaining of abdominal pain and nausea but no further vomiting has been reported Objective - Vital Signs Vital signs: Vital Signs Temp 98.7 F 06/07/22 07:27 Pulse 80 06/07/22 11:59 Resp 20 06/07/22 08:04 BP 149/82 06/07/22 07:27 Pulse Ox 96 06/07/22 08:11 FiO2 Intake & Output 06/06/22 06/07/22 06/07/22 18:59 06:59 18:59 Output Total 900 350 Balance -900 -350 Output: Urine 900 350 Other: Voiding Method External Catheter External Catheter External Catheter # Bowel Movements 2 - Exam GENERAL DESCRIPTION: An elderly female lying in bed in no distress RESPIRATORY SYSTEM: Unlabored breathing , occasional wheeze HEART: S1 S2 regular rate and rhythm , ABDOMEN: Soft , mild distention and tenderness EXTREMITIES: No edema feet - Labs CBC & Chem 7: 06/06/22 11:03 06/06/22 06:16 Labs: Abnormal Lab Results - Last 24 Hours (Table) 06/06/22 Range/Units 11:03 WBC 14.58 H (4.50-10.00) X 10*3/uL RBC 3.97 L (4.10-5.20) X 10*6/uL Hgb 11.0 L (12.0-15.0) g/dL Hct 34.7 L (37.2-46.3) % MCHC 31.7 L (32.0-37.0) g/dL Immature Gran # 0.08 H (0.00-0.04) X 10*3/uL Neutrophils # 12.83 H (1.80-7.70) X 10*3/uL Lymphocytes # 0.76 L (0.90-5.00) X 10*3/uL Eosinophils # 0 L (0.04-0.35) X 10*3/uL Microbiology - Last 24 Hours (Table) 06/05/22 10:50 Blood Culture - Preliminary Blood No Growth after 48 hours Assessment and Plan (1) Leukocytosis Current Visit: Yes Status: Acute Code(s): D72.829 - ELEVATED WHITE BLOOD CELL COUNT, UNSPECIFIED SNOMED Code(s): 996045790 (2) Lactic acidosis Current Visit: Yes Status: Acute Code(s): E87.20 - ACIDOSIS, UNSPECIFIED SNOMED Code(s): 21716734 Plan: 1patient presented to hospital with increasing shortness of breath and cough more likely related to COPD exacerbation with possible tracheobronchitis patient is clinically not behaving as pneumonia in this patient currently with no fever elevated white count low the CT images x-ray did not show any consolidation mostly interstitial infiltrate. 2we will obtain a sputum for Gram stain and culture, patient did have a normal pro-calcitonin 3--patient CT of abdominal pelvis with oral contrast did show significant constipation but no evidence of any acute process has been started on negative by admitting team and will be monitored
[2022-06-07] MEDS: QUEtiapine 100 MG TAB PO SCH (21:10)
[2022-06-07] MEDS: MONTELUKAST 10 MG TAB PO SCH (21:10)
[2022-06-07] MEDS: LEVOFLOXACIN 500 MG TAB PO SCH (21:10)
[2022-06-07] MEDS: ATORVASTATIN 80 MG TAB PO SCH (21:10)
[2022-06-08] MEDS: methylPREDNISolone SOD SUCCI 40 MG/ML 1 ML VIAL IV SCH ×4 (00:05→23:54)
--- NOTE | 2022-06-08 03:52 | PN ---
PROGRESS NOTE DATE OF SERVICE: 06/06/2022 SUBJECTIVE: This is a 76-year-old white female who was admitted with COPD exacerbation, tracheobronchitis. She has bilateral pneumonia, possibly aspiration pneumonia in the posterior lung laughlin on CAT scan. Remains on broad-spectrum antibiotics. She is breathing slightly improved. She has cough, congestion, and increased wheezing. OBJECTIVE: LUNGS: Scattered rhonchi and wheeze. GI: Soft. HEMATOLOGY: Negative for Homans. ASSESSMENT: Chronic obstructive pulmonary disease exacerbation, aspiration pneumonia, right lower lobe posterior, bilobular pneumonia. Prognosis guarded. Follow up in next 24 to 48 hours. MMODL / IJN: [id number] /
[2022-06-08] MEDS: metFORMIN 500 MG TAB PO SCH (06:40)
[2022-06-08] MEDS: FLUTICASONE 110 MCG INHALER INHALATION SCH ×2 (08:40→20:47)
[2022-06-08] MEDS: BUDESONIDE 0.5 MG/2 ML NEBU INHALATION SCH ×2 (08:40→21:23)
[2022-06-08] MEDS: IPRATROPIUM 0.5 MG/2.5 ML NEBU INHALATION SCH (09:06)
[2022-06-08] MEDS: ONDANSETRON 4 MG/2 ML VIAL IVP PRN ×2 (09:44→23:48)
[2022-06-08] MEDS: polyethylene glycoL 3350 17 GM POWD.PACK PO SCH (09:44)
[2022-06-08] MEDS: LOSARTAN 50 MG TAB PO SCH (09:46)
[2022-06-08] MEDS: haloperidoL 5 MG TAB PO SCH ×2 (09:46→20:24)
[2022-06-08] MEDS: BENZTROPINE MESYLATE 1 MG TAB PO SCH ×3 (09:46→22:01)
[2022-06-08] MEDS: predniSONE 20 MG TAB PO SCH (09:46)
[2022-06-08] MEDS: METOPROLOL TARTRATE 12.5 MG TAB PO SCH ×2 (09:46→20:24)
[2022-06-08] MEDS: SPIRONOLACTONE 25 MG TAB PO SCH (09:47)
[2022-06-08] MEDS: clonazePAM 0.5 MG TAB PO SCH ×3 (09:47→22:01)
[2022-06-08] MEDS: SERTRALINE 50 MG TAB PO SCH (09:47)
[2022-06-08] MEDS: IPRATROPIUM-ALBUTEROL 3 ML NEB INHALATION SCH ×3 (11:53→21:23)
--- NOTE | 2022-06-08 12:23 | PN ---
PROGRESS NOTE SUBJECTIVE: This 76-year-old white female remains on IV Solu-Medrol, DuoNeb updrafts, inhalers, psych medications for schizoaffective. She is on IV Solu-Medrol for COPD exacerbation. Dr. Kim saw her for Infectious Disease. Dr. Martinez saw her for pneumonia. She is afebrile. She is breathing comfortably. She is improving. She had some nausea and vomiting, appears to be improving. OBJECTIVE: VITAL SIGNS: Temp 98.7, pulse 80, respiratory rate 16 to 20, blood pressure 149/80, temperature 96% on 4 L. White count 14.38. She has lactic acidosis for dehydration, COPD exacerbation, tracheobronchitis, interstitial infiltrate, can do gram stain. CT abdomen and pelvis for constipation. Continue current treatment. I want her to stay on some antibiotics. Blood cultures are negative. Follow up in next 24 to 48 hours for discharge. MMODL / IJN: [id number] /
[2022-06-08] MEDS: ALBUTEROL NEBULIZED 2.5 MG/3 ML INHALATION SCH (16:41)
[2022-06-08] MEDS: PANTOPRAZOLE 40 MG TABLET PO SCH (17:29)
[2022-06-08] MEDS: SENNOSIDES 8.6 MG TAB PO SCH ×2 (17:29→20:24)
[2022-06-08] MEDS: ATORVASTATIN 80 MG TAB PO SCH (20:24)
[2022-06-08] MEDS: LEVOFLOXACIN 500 MG TAB PO SCH (20:24)
[2022-06-08] MEDS: MONTELUKAST 10 MG TAB PO SCH (20:24)
[2022-06-08] MEDS: QUEtiapine 100 MG TAB PO SCH (20:24)
[2022-06-09] MEDS: metFORMIN 500 MG TAB PO SCH (06:22)
[2022-06-09] MEDS: PANTOPRAZOLE 40 MG TABLET PO SCH ×2 (06:22→16:53)
[2022-06-09] MEDS: IPRATROPIUM-ALBUTEROL 3 ML NEB INHALATION SCH ×4 (08:06→20:20)
[2022-06-09] MEDS: BUDESONIDE 0.5 MG/2 ML NEBU INHALATION SCH ×2 (08:07→20:20)
[2022-06-09] MEDS: FLUTICASONE 110 MCG INHALER INHALATION SCH ×2 (08:07→20:23)
[2022-06-09] MEDS: methylPREDNISolone SOD SUCCI 40 MG/ML 1 ML VIAL IV SCH ×2 (09:12→16:53)
[2022-06-09] MEDS: SPIRONOLACTONE 25 MG TAB PO SCH (09:13)
[2022-06-09] MEDS: LOSARTAN 50 MG TAB PO SCH (09:13)
[2022-06-09] MEDS: clonazePAM 0.5 MG TAB PO SCH ×3 (09:13→21:29)
[2022-06-09] MEDS: SERTRALINE 50 MG TAB PO SCH (09:13)
[2022-06-09] MEDS: SENNOSIDES 8.6 MG TAB PO SCH ×2 (09:13→21:29)
[2022-06-09] MEDS: haloperidoL 5 MG TAB PO SCH ×2 (09:14→21:28)
[2022-06-09] MEDS: METOPROLOL TARTRATE 12.5 MG TAB PO SCH ×2 (09:14→21:28)
[2022-06-09] MEDS: BENZTROPINE MESYLATE 1 MG TAB PO SCH ×3 (09:14→21:29)
[2022-06-09] MEDS: polyethylene glycoL 3350 17 GM POWD.PACK PO SCH (09:15)
[2022-06-09] MEDS: predniSONE 20 MG TAB PO SCH (09:15)
[2022-06-09] MEDS: ONDANSETRON 4 MG/2 ML VIAL IVP PRN (12:48)
[2022-06-09] MEDS: MONTELUKAST 10 MG TAB PO SCH (21:28)
[2022-06-09] MEDS: LEVOFLOXACIN 500 MG TAB PO SCH (21:28)
[2022-06-09] MEDS: ATORVASTATIN 80 MG TAB PO SCH (21:28)
[2022-06-09] MEDS: QUEtiapine 100 MG TAB PO SCH (21:29)
[2022-06-10] MEDS: methylPREDNISolone SOD SUCCI 40 MG/ML 1 ML VIAL IV SCH ×3 (00:18→17:36)
--- NOTE | 2022-06-10 01:13 | PN ---
PROGRESS NOTE SUBJECTIVE: A 76-year-old white female with cough, congestion, shortness of breath. She says she wants to go home soon. She is getting better. OBJECTIVE: CARDIOVASCULAR: S1, S2. LUNGS: Scattered wheeze x4. HEMATOLOGIC: 2+ edema. PSYCH: Fair mood and affect. PLAN: Continue to wean steroids, updraft treatments, or antibiotics. Prognosis guarded. MMODL / IJN: [id number] /
[2022-06-10] MEDS: PANTOPRAZOLE 40 MG TABLET PO SCH ×2 (06:34→17:36)
[2022-06-10] MEDS: metFORMIN 500 MG TAB PO SCH (06:34)
[2022-06-10] MEDS: IPRATROPIUM-ALBUTEROL 3 ML NEB INHALATION SCH ×4 (08:29→19:45)
[2022-06-10] MEDS: FLUTICASONE 110 MCG INHALER INHALATION SCH ×2 (08:29→19:45)
[2022-06-10] MEDS: BUDESONIDE 0.5 MG/2 ML NEBU INHALATION SCH ×2 (08:29→19:45)
--- NOTE | 2022-06-10 10:16 | P.PN ---
Subjective Progress Note Date: 06/10/22 Principal diagnosis: Acute on Chronic hypoxic respiratory failure Bilateral pneumonia COPD with acute exacerbation Hypertension hypertensive cardiovascular disease History of chronic dementia Size affective disorder History of UTI and ESBL 06/10/2022, patient seen eval examined during rounds labs reviewed medications reviewed, still ongoing shortness of breath cough congestion is present but however severity has improved patient remains on bronchodilator with DuoNeb 4 t imes a day also on Pulmicort 2 times a day is on dexamethasone 6 mg daily also on IV steroids patient has been on beta blockers as well him a sputum culture results and reports reviewed few WBCs seen many yeast no predominance of bacteria seen him a patient is on oral Levaquin 06/07/2022, patient seen and evaluated examined, ongoing shortness of breath is present but overall not getting worse, patient remains on 4 L oxygen, was more nauseous this morning and has been throwing up currently nausea and vomiting has improved resting after anti-medic. She is afebrile with stable hemodynamics oxygen saturation 92% on 4 L nasal cannula, she remains on bronchodilators along with the high intensity statins along with IV steroids, patient has a CT which shows stool burden no acute pathology identified Patient is a 76-year-old female overall poor historian with long-standing history of shortness of breath COPD she is a [facility] resident, patient 7-10 days ago have upper respiratory type of processes along with cough congestion shortness of breath treated with outpatient oral antibiotics without significant due to persistent nature of symptoms decided to come into the hospital for further evaluation, there is no history of fever or chills, patient has been on home oxygen 4 L nasal cannula, denies any hemoptysis, CBC within normal limit, coags okay, lactic acid was 2.3 came down to 1.9, BNP is 246, covid 19 negative, chest x-ray chronic changes with some COPD-like appearance, CT suggestive of bilateral interstitial infiltrate with some subsegmental atelectasis at the bases, no suspicious pulmonary mass seen, currently patient is being treated with bronchodilator broad-spectrum antibiotics and IV steroids Objective - Vital Signs Vital signs: Vital Signs Temp 98.3 F 06/10/22 07:53 Pulse 80 06/10/22 08:58 Resp 17 06/10/22 07:53 BP 137/65 06/10/22 07:53 Pulse Ox 92 L 06/10/22 07:53 FiO2 Intake & Output 06/09/22 06/10/22 06/10/22 18:59 06:59 18:59 Output Total 650 Balance -650 Output: Urine 650 Other: Voiding Method External Catheter # Voids 1 - Exam - Constitutional General appearance: mild distress, morbidly obese - EENT Eyes: EOMI, PERRLA Ears: bilateral: normal - Neck Neck: normal ROM Carotids: bilateral: upstroke normal Thyroid: bilateral: normal size - Respiratory Respiratory: bilateral: diminished - Cardiovascular Rhythm: regular Heart sounds: normal: S1, S2 - Gastrointestinal General gastrointestinal: normal bowel sounds, soft - Integumentary Integumentary: normal turgor - Neurologic Neurologic: CNII-XII intact - Musculoskeletal Musculoskeletal: gait normal, generalized weakness, strength equal bilaterally - Psychiatric Psychiatric: A&O x's 3, appropriate affect, intact judgment & insight - Labs CBC & Chem 7: 06/06/22 11:03 06/06/22 06:16 Labs: Microbiology - Last 24 Hours (Table) 06/08/22 21:30 Gram Stain - Preliminary Sputum Sputum Culture - Preliminary 06/05/22 10:50 Blood Culture - Preliminary Blood No Growth after 96 hours Assessment and Plan Assessment: Acute on Chronic hypoxic respiratory failure Bilateral pneumonia COPD with acute exacerbation Hypertension hypertensive cardiovascular disease History of chronic dementia Schizoaffective disorder History of UTI and ESBL Plan: Continue broad-spectrum oral antibiotic finish 5-7 days of therapy Breathing treatments Deep breathing sense incentive spirometry Continue supplemental oxygen Follow clinical course closely- Time with Patient: Greater than 30
[2022-06-10] MEDS: polyethylene glycoL 3350 17 GM POWD.PACK PO SCH (10:18)
[2022-06-10] MEDS: METOPROLOL TARTRATE 12.5 MG TAB PO SCH ×2 (10:18→20:24)
[2022-06-10] MEDS: BENZTROPINE MESYLATE 1 MG TAB PO SCH ×3 (10:18→21:33)
[2022-06-10] MEDS: haloperidoL 5 MG TAB PO SCH ×2 (10:19→21:33)
[2022-06-10] MEDS: SPIRONOLACTONE 25 MG TAB PO SCH (10:19)
[2022-06-10] MEDS: LOSARTAN 50 MG TAB PO SCH (10:19)
[2022-06-10] MEDS: clonazePAM 0.5 MG TAB PO SCH ×3 (10:20→20:24)
[2022-06-10] MEDS: SENNOSIDES 8.6 MG TAB PO SCH ×2 (10:20→20:24)
[2022-06-10] MEDS: SERTRALINE 50 MG TAB PO SCH (10:20)
[2022-06-10] MEDS: dexAMETHasone 2 MG TAB PO SCH (10:20)
[2022-06-10] MEDS ORDERED: IOPAMIDOL CONTRAST (ORAL USE) VIAL PO PRN ×2 (17:53→21:23)
--- NOTE | 2022-06-10 19:36 | P.PN ---
Subjective Progress Note Date: 06/08/22 Principal diagnosis: Leukocytosis and lactic acidosis Patient is a 76-year-old female with a past medical history significant for hypertension hyperlipidemia COPD hearing disorder in group home resident the patient was sent to the ER for evaluation of increasing short ness of breath and cough, patient has been diagnosed with a COPD exacerbation with evidence of lactic acidosis On today's evaluation that is 06/08/2022, patient continues to be afebrile, patient is breathing comfortably on 4 L nasal cannula oxygen, the patient denies any worsening cough or sputum production the patient continued to be complaining of abdominal pain and nausea however did have multiple bowel movements since yesterday Objective - Vital Signs Vital signs: Vital Signs Temp 98.6 F 06/08/22 13:48 Pulse 52 L 06/08/22 13:48 Resp 20 06/08/22 13:48 BP 125/63 06/08/22 13:48 Pulse Ox 92 L 06/08/22 13:48 FiO2 Intake & Output 06/07/22 06/08/22 06/08/22 18:59 06:59 18:59 Output Total 1300 1700 Balance -1300 -1700 Output: Urine 1300 1700 Other: Voiding Method External Catheter External Catheter - Exam GENERAL DESCRIPTION: An elderly female lying in bed in no distress RESPIRATORY SYSTEM: Unlabored breathing , occasional wheeze HEART: S1 S2 regular rate and rhythm , ABDOMEN: Soft , mild distention and tenderness EXTREMITIES: No edema feet - Labs CBC & Chem 7: 06/06/22 11:03 06/06/22 06:16 Labs: Microbiology - Last 24 Hours (Table) 06/05/22 10:50 Blood Culture - Preliminary Blood No Growth after 72 hours Assessment and Plan (1) Leukocytosis Current Visit: Yes Status: Acute Code(s): D72.829 - ELEVATED WHITE BLOOD CELL COUNT, UNSPECIFIED SNOMED Code(s): 078803254 (2) Lactic acidosis Current Visit: Yes Status: Acute Code(s): E87.20 - ACIDOSIS, UNSPECIFIED SNOMED Code(s): 58187375 Plan: 1patient presented to hospital with increasing shortness of breath and cough more likely related to COPD exacerbation with possible tracheobronchitis patient is clinically not behaving as pneumonia in this patient currently with no fever elevated white count low the CT images x-ray did not show any consolidation mostly interstitial infiltrate. 2we will obtain a sputum for Gram stain and culture, patient did have a normal pro-calcitonin 3--patient CT of abdominal pelvis with oral contrast did show significant constipation but no evidence of any acute process , patient seemed to have some relief of her constipation and is being monitored closely Time with Patient: Less than 30
--- NOTE | 2022-06-10 19:37 | P.PN ---
Subjective Progress Note Date: 06/09/22 Principal diagnosis: Leukocytosis and lactic acidosis Patient is a 76-year-old female with a past medical history significant for hypertension hyperlipidemia COPD hearing disorder in custodial resident the patient was sent to the ER for evaluation of increasing short ness of breath and cough, patient has been diagnosed with a COPD exacerbation with evidence of lactic acidosis On today's evaluation that is 06/09/2022, patient remains to be afebrile, patient is breathing comfortably on 4 L nasal cannula oxygen, the patient denies any worsening cough or sputum production, abdominal pain slightly decreased intensity nausea but no vomiting continue to have a bowel movement Objective - Vital Signs Vital signs: Vital Signs Temp 98.3 F 06/09/22 07:58 Pulse 68 06/09/22 11:58 Resp 19 06/09/22 07:58 BP 153/88 06/09/22 07:58 Pulse Ox 95 06/09/22 08:07 FiO2 Intake & Output 06/08/22 06/09/22 06/09/22 18:59 06:59 18:59 Output Total 600 Balance -600 Output: Urine 600 Other: Voiding Method External Catheter External Catheter External Catheter # Voids 4 # Bowel Movements 1 - Exam GENERAL DESCRIPTION: An elderly female lying in bed in no distress RESPIRATORY SYSTEM: Unlabored breathing , occasional wheeze HEART: S1 S2 regular rate and rhythm , ABDOMEN: Soft , mild distention and tenderness EXTREMITIES: No edema feet - Labs CBC & Chem 7: 06/06/22 11:03 06/06/22 06:16 Labs: Microbiology - Last 24 Hours (Table) 06/05/22 10:50 Blood Culture - Preliminary Blood No Growth after 96 hours 06/08/22 21:30 Sputum Culture - Preliminary Sputum Assessment and Plan (1) Leukocytosis Current Visit: Yes Status: Acute Code(s): D72.829 - ELEVATED WHITE BLOOD CELL COUNT, UNSPECIFIED SNOMED Code(s): 548005463 (2) Lactic acidosis Current Visit: Yes Status: Acute Code(s): E87.20 - ACIDOSIS, UNSPECIFIED SNOMED Code(s): 23704050 Plan: 1patient presented to hospital with increasing shortness of breath and cough more likely related to COPD exacerbation with possible tracheobronchitis patient is clinically not behaving as pneumonia in this patient currently with no fever elevated white count low the CT images x-ray did not show any consolidation mostly interstitial infiltrate. 2we will obtain a sputum for Gram stain and culture, patient did have a normal pro-calcitonin 3--patient CT of abdominal pelvis with oral contrast did show significant constipation but no evidence of any acute process , patient did have some relief of her constipation and some improvement in symptoms and will be monitored closely Time with Patient: Less than 30
--- NOTE | 2022-06-10 19:38 | P.PN ---
Subjective Progress Note Date: 06/10/22 Principal diagnosis: Leukocytosis and lactic acidosis Patient is a 76-year-old female with a past medical history significant for hypertension hyperlipidemia COPD hearing disorder in care home resident the patient was sent to the ER for evaluation of increasing short ness of breath and cough, patient has been diagnosed with a COPD exacerbation with evidence of lactic acidosis On today's evaluation that is 06/10/2022, patient continues to be afebrile, patient is breathing comfortably on 3 L nasal cannula oxygen, the patient did have occasional cough but no sputum production still complaining of some abdominal pain and distention nausea but no vomiting and did have a bowel movement Objective - Vital Signs Vital signs: Vital Signs Temp 98.3 F 06/10/22 07:53 Pulse 82 06/10/22 12:01 Resp 17 06/10/22 07:53 BP 137/65 06/10/22 07:53 Pulse Ox 92 L 06/10/22 07:53 FiO2 Intake & Output 06/09/22 06/10/22 06/10/22 18:59 06:59 18:59 Output Total 650 500 Balance -650 -500 Output: Urine 650 500 Other: Voiding Method External Catheter # Voids 1 # Bowel Movements 1 - Exam GENERAL DESCRIPTION: An elderly female lying in bed in no distress RESPIRATORY SYSTEM: Unlabored breathing , occasional wheeze HEART: S1 S2 regular rate and rhythm , ABDOMEN: Soft , mild distention and tenderness EXTREMITIES: No edema feet - Labs CBC & Chem 7: 06/06/22 11:03 06/06/22 06:16 Labs: Microbiology - Last 24 Hours (Table) 06/05/22 10:50 Blood Culture - Preliminary Blood No Growth after 120 hours 06/08/22 21:30 Gram Stain - Preliminary Sputum Sputum Culture - Preliminary Jannie albicans Assessment and Plan (1) Leukocytosis Current Visit: Yes Status: Acute Code(s): D72.829 - ELEVATED WHITE BLOOD CELL COUNT, UNSPECIFIED SNOMED Code(s): 652351012 (2) Lactic acidosis Current Visit: Yes Status: Acute Code(s): E87.20 - ACIDOSIS, UNSPECIFIED SNOMED Code(s): 12301471 Plan: 1patient presented to hospital with increasing shortness of breath and cough more likely related to COPD exacerbation with possible tracheobronchitis patient is clinically not behaving as pneumonia in this patient currently with no fever elevated white count low the CT images x-ray did not show any consolidation mostly interstitial infiltrate. 2we will obtain a sputum for Gram stain and culture, patient did have a normal pro-calcitonin 3--patient CT of abdominal pelvis with oral contrast did show significant constipation but no evidence of any acute process , patient did have some relief of her constipation and some improvement in symptoms, we will recheck her inflammatory markers and white count with A.m. lab Time with Patient: Less than 30
[2022-06-10] MEDS: LEVOFLOXACIN 500 MG TAB PO SCH (20:24)
[2022-06-10] MEDS: ATORVASTATIN 80 MG TAB PO SCH (20:25)
[2022-06-10] MEDS: MONTELUKAST 10 MG TAB PO SCH (20:25)
[2022-06-10] MEDS: QUEtiapine 100 MG TAB PO SCH (21:33)
--- NOTE | 2022-06-10 22:58 | CT ---
EXAMINATION TYPE: CT abdomen pelvis wo con DATE OF EXAM: 06/10/2022 COMPARISON: 06/06/2022 HISTORY: Nausea and vomiting CT DLP: 965.8 mGycm Automated exposure control for dose reduction was used. Images obtained from the diaphragm to the floor the pelvis with oral contrast only. Lung bases show minimal subsegmental atelectasis. No pleural effusion. Heart size is normal. No peric ardial effusion. There are spleen pancreas appear intact. The bile ducts are not dilated. The stomac h is large. The oral contrast material extends into the mid small bowel. There is pre-existing contra st from previous exam which is seen in the right colon. There is no adrenal mass. There is right-sided mild hydronephrosis. There is a 2 mm calculus in the p osterior right renal pelvis. There is 3 mm calculus interpolar left kidney. The right ureter is not d ilated. No evidence of a ureteral calculus. There is some mild retained fecal material in the large bowel. Small bowel pattern is fairly normal. No free air. No ascites. No mesenteric edema. The lumbar vertebrae have normal alignment. No compression fracture. Posterior elements are intact. T he bony pelvis is intact. The hip joints are intact. Appendix is posterior and appears normal. The ce cum is in the anterior right upper quadrant. Abdominal aorta is atheromatous. IMPRESSION: Nonobstructing renal calculi without change. Constipation. Normal appendix. No bowel obstruction. Atherosclerotic vascular disease. The stomach is large and similar to old exam and could relate to gastroparesis.
[2022-06-11] MEDS: methylPREDNISolone SOD SUCCI 40 MG/ML 1 ML VIAL IV SCH ×2 (00:28→09:43)
--- NOTE | 2022-06-11 02:44 | PN ---
PROGRESS NOTE SUBJECTIVE: This is a 76-year-old white female, COPD exacerbation, aspiration pneumonia, likely she has gastroparesis, chronic constipation which is being treated. We are going to start her on Reglan for nausea and gastroparesis. Enema has been given. She should be able to be discharged home as this is stabilized with gastroparesis. Repeat CT scan shows gastroparesis and some constipation. Possibly discharge home tomorrow. Her respiratory status is improved and breathing has improved. Continue current treatment. MMODL / IJN: [id number] /
--- NOTE | 2022-06-11 03:13 | DS ---
DISCHARGE SUMMARY The patient was admitted with acute on chronic COPD exacerbation, tracheobronchitis, lactic acidosis, gastroparesis, COPD exacerbation, leukocytosis. The patient was treated with IV steroids, IV antibiotics, updrafts. Gastroparesis was treated with Reglan. The patient slowly improved. She had enemas. Cardiovascular; S1, S2. The patient was admitted, treated for acute hypoxemic respiratory distress secondary to COPD exacerbation, tracheobronchitis. Lactic acidosis was treated with fluids. The patient has slowly stabilized in the next 24 to 48 hours. The patient had gastroparesis, abdominal pain, constipation, was treated with Reglan. The patient was stabilized in medical care and followed up in the next 24 to 48 hours for treatment. Go back to the [facility] under Dr. Joni Pathak's care. Condition stable. Prognosis guarded. Ambulate as tolerated. MMCOLBYL / IJCorina: [id number] /
[2022-06-11 07:54] VITALS: BP 142/73; RESP 16; TEMP 97.3
[2022-06-11] MEDS: METOPROLOL TARTRATE 12.5 MG TAB PO SCH (08:15)
[2022-06-11] MEDS: SERTRALINE 50 MG TAB PO SCH (08:15)
[2022-06-11] MEDS: LOSARTAN 50 MG TAB PO SCH (08:15)
[2022-06-11] MEDS: SENNOSIDES 8.6 MG TAB PO SCH (08:16)
[2022-06-11] MEDS: SPIRONOLACTONE 25 MG TAB PO SCH (08:16)
[2022-06-11] MEDS: metFORMIN 500 MG TAB PO SCH (08:16)
[2022-06-11] MEDS: polyethylene glycoL 3350 17 GM POWD.PACK PO SCH (08:16)
[2022-06-11] MEDS: clonazePAM 0.5 MG TAB PO SCH (08:16)
[2022-06-11] MEDS: dexAMETHasone 2 MG TAB PO SCH (08:16)
[2022-06-11] MEDS: haloperidoL 5 MG TAB PO SCH (08:16)
[2022-06-11] MEDS: METOCLOPRAMIDE 5 MG TAB PO SCH ×2 (08:16→14:14)
[2022-06-11] MEDS: PANTOPRAZOLE 40 MG TABLET PO SCH (08:16)
[2022-06-11] MEDS: BUDESONIDE 0.5 MG/2 ML NEBU INHALATION SCH (08:34)
[2022-06-11] MEDS: IPRATROPIUM-ALBUTEROL 3 ML NEB INHALATION SCH ×3 (08:34→14:46)
[2022-06-11] MEDS: FLUTICASONE 110 MCG INHALER INHALATION SCH ×2 (08:34→08:35)
[2022-06-11 09:34] LABS: Basophils # (A) 0.01 X 10*3/uL (0.00-0.10); Basophils % (A) 0.1 %; Eosinophils # (A) 0 X 10*3/uL (0.04-0.35); Eosinophils % (A) 0 %; HCT 33.1 % (37.2-46.3); HGB 10.7 g/dL (12.0-15.0); Immature Grans, Automated 0.7 %; Lymphocytes # (A) 0.69 X 10*3/uL (0.90-5.00); Lymphocytes % (A) 6.9 %; MCH 28.4 pg (27.0-32.0); MCHC 32.3 g/dL (32.0-37.0); MCV 87.8 fL (80.0-97.0); Monocytes # (A) 0.68 X 10*3/uL (0.20-1.00); Monocytes % (A) 6.8 %; NRBC Per 100 WBC 0 /100 WBCS (0.0-0.0); Neutrophils # (A) 8.53 X 10*3/uL (1.80-7.70); Neutrophils % (A) 85.5 %; Platelet Count 323 X 10*3/uL (140-440); RBC 3.77 X 10*6/uL (4.10-5.20); RDW 13.3 % (11.5-14.5); WBC 9.98 X 10*3/uL (4.50-10.00)
[2022-06-11 09:42] LABS: ALT 25 U/L (8-44); AST 26 U/L (13-35); African American GFR (CKD) 83.6 (60.0-200.0); Albumin 3.8 g/dL (3.8-4.9); Albumin/Globulin Ratio 1.73 (1.60-3.17); Alkaline Phosphatase 74 U/L (41-126); Blood Urea Nitrogen 23.6 mg/dL (9.0-27.0); C Reactive Protein <0.30 mg/dL (0.00-0.80); Calcium 8.6 mg/dL (8.7-10.3); Carbon Dioxide 28.4 mmol/L (20.0-27.5); Chloride 97 mmol/L (96-109); Globulin 2.2 g/dL (1.6-3.3); Glucose 144 mg/dL (70-110); Non-African American GFR(CKD) 72.1 (60.0-200.0); Potassium 4.4 mmol/L (3.5-5.5); Sodium 134 mmol/L (135-145)
[2022-06-11] MEDS: BENZTROPINE MESYLATE 1 MG TAB PO SCH (10:06)
[2022-06-11 13:08] VITALS: BMI 35.6
[2022-06-11 14:48] VITALS: PULSE 80
--- NOTE | 2022-06-16 17:12 | P.PN ---
Subjective Progress Note Date: 06/11/22 Principal diagnosis: Leukocytosis and lactic acidosis Patient is a 76-year-old female with a past medical history significant for hypertension hyperlipidemia COPD hearing disorder in [facility] resident the patient was sent to the ER for evaluation of increasing short ness of breath and cough, patient has been diagnosed with a COPD exacerbation with evidence of lactic acidosis On today's evaluation that is 06/11/2022, patient remains to be afebrile, patient is breathing comfortably on 3 L nasal cannula oxygen, the patient cough is decreased intensity mostly dry in nature no nausea no vomiting no abdominal pain or diarrhea Objective - Vital Signs Vital signs: Vital Signs Temp 97.3 F L 06/11/22 07:03 Pulse 82 06/11/22 11:24 Resp 16 06/11/22 07:03 BP 142/73 06/11/22 07:03 Pulse Ox 98 06/11/22 08:35 FiO2 Intake & Output 06/10/22 06/11/22 06/11/22 18:59 06:59 18:59 Intake Total 680 Output Total 500 Balance 180 Weight 94.347 kg Intake: Oral 680 Output: Urine 500 Other: Voiding Method External Catheter Bedside Commode # Voids 1 4 # Bowel Movements 3 3 - Exam GENERAL DESCRIPTION: An elderly female lying in bed in no distress RESPIRATORY SYSTEM: Unlabored breathing , occasional wheeze HEART: S1 S2 regular rate and rhythm , ABDOMEN: Soft , mild distention and tenderness EXTREMITIES: No edema feet - Labs CBC & Chem 7: 06/11/22 04:01 06/11/22 04:01 Labs: Abnormal Lab Results - Last 24 Hours (Table) 06/11/22 06/11/22 Range/Units 04:01 04:01 RBC 3.77 L (4.10-5.20) X 10*6/uL Hgb 10.7 L (12.0-15.0) g/dL Hct 33.1 L (37.2-46.3) % Immature Gran # 0.07 H (0.00-0.04) X 10*3/uL Neutrophils # 8.53 H (1.80-7.70) X 10*3/uL Lymphocytes # 0.69 L (0.90-5.00) X 10*3/uL Eosinophils # 0 L (0.04-0.35) X 10*3/uL Sodium 134 L (135-145) mmol/L Carbon Dioxide 28.4 H (20.0-27.5) mmol/L Anion Gap 8.60 L (10.00-18.00) mmol/L BUN/Creatinine Ratio 29.50 H (12.00-20.00) Ratio Glucose 144 H (70-110) mg/dL Calcium 8.6 L (8.7-10.3) mg/dL Total Protein 6.0 L (6.2-8.2) g/dL Microbiology - Last 24 Hours (Table) 06/05/22 10:50 Blood Culture - Final Blood No Growth after 144 hours 06/08/22 21:30 Gram Stain - Final Sputum Sputum Culture - Final Jannie albicans Assessment and Plan (1) Leukocytosis Status: Acute Code(s): D72.829 - ELEVATED WHITE BLOOD CELL COUNT, UNSPECIFIED SNOMED Code(s): 506418438 (2) Lactic acidosis Status: Acute Code(s): E87.20 - ACIDOSIS, UNSPECIFIED SNOMED Code(s): 09868283 Plan: 1patient presented to hospital with increasing shortness of breath and cough more likely related to COPD exacerbation with possible tracheobronchitis patient is clinically not behaving as pneumonia in this patient currently with no fever elevated white count low the CT images x-ray did not show any consolidation mostly interstitial infiltrate. 2we will obtain a sputum for Gram stain and culture, patient did have a normal pro-calcitonin, antibiotics can be safely discontinued 3--patient CT of abdominal pelvis with oral contrast did show significant constipation but no evidence of any acute process , patient did have some relief of her constipation and some improvement in symptoms, Time with Patient: Less than 30
== END 2022-06-11 15:11 | DRG 871 ==
LOC: EC 15:57 → 5NMEDONC 18:55 → 4SSUR 06-05 17:59
PROVIDERS: ADMIT Family Medicine; ATTEND Family Medicine
DX: A41.9 Sepsis, unspecified organism (principal); J18.9 Pneumonia, unspecified organism; J96.21 Acute and chronic respiratory failure with hypoxia; J69.0 Pneumonitis due to inhalation of food and vomit; E87.20 Acidosis, unspecified; J44.0 Chronic obstructive pulmonary disease with (acute) lower respiratory infection; J45.901 Unspecified asthma with (acute) exacerbation; J44.1 Chronic obstructive pulmonary disease with (acute) exacerbation; F03.93 Unspecified dementia, unspecified severity, with mood disturbance; F25.9 Schizoaffective disorder, unspecified; Z99.81 Dependence on supplemental oxygen; I11.9 Hypertensive heart disease without heart failure; Z68.35 Body mass index [BMI] 35.0-35.9, adult; E66.01 Morbid (severe) obesity due to excess calories; E78.5 Hyperlipidemia, unspecified; H91.90 Unspecified hearing loss, unspecified ear; K31.84 Gastroparesis; K59.09 Other constipation; E86.0 Dehydration; I25.10 Atherosclerotic heart disease of native coronary artery without angina pectoris; Z20.822 Contact with and (suspected) exposure to COVID-19; Z87.891 Personal history of nicotine dependence; Z28.311 Partially vaccinated for COVID-19; Z88.0 Allergy status to penicillin; Z91.018 Allergy to other foods; Z79.899 Other long term (current) drug therapy; Z79.51 Long term (current) use of inhaled steroids; Z79.84 Long term (current) use of oral hypoglycemic drugs; Z79.82 Long term (current) use of aspirin
CPT/HCPCS: 36415; 71046; 71260; 74176; 80053; 83605; 83880; 84145; 84484; 85025; 85379; 85610; 85730; 86140; 87040; 87070; 87205; 87635; 93005; 93306; 94640; 94760; 96365; 96366; 96367; 96375; 96376; 99285

== ENCOUNTER 2022-07-23 06:50 | Day surgery (SDC) | payer MEDICARE, OTHER ==
[2022-07-18 11:34] VITALS: BMI 34.6
[~2022-07-23 06:50] MED LIST: LACTATED RINGERS 1,000 ML IV SCH; LIDOCAINE 1% (10MG/ML) FOR IV START INTRADERMA PRN
[2022-07-23 07:39] VITALS: BP 134/63; PULSE 53; RESP 18; TEMP 97.3
== END 2022-07-23 08:04 | disposition home or self-care (01) ==
LOC: ORWHC2ENDO 06:50
PROVIDERS: ATTEND Internal Medicine Gastroenterology
DX: Z53.9 Procedure and treatment not carried out, unspecified reason (principal); R10.9 Unspecified abdominal pain; R19.4 Change in bowel habit